=== PATIENT | female | born 1965 | race Caucasian/White ===

== ENCOUNTER 2024-10-05 01:21 | Inpatient (IN) | payer MEDICAID, OTHER ==
[~2024-10-05] VITALS: Ht 152.4 cm; Wt 69.5 kg
[~2024-10-05 01:21] MED LIST: AMLO1TAB22 PO; ASPI-325 PO; AUG875T PO; B-CO-6 PO; CARV12.544 PO; CHLO25TA2 PO; ERGO1CAP12 PO; FAMO-12 PO; FERR325T20 PO; FLUT50SP NAS; FURO40TA4 PO; GUAN1TAB8 PO; HYDR1CAP27 PO; INSU100I54 SC; INSU100I69 SC; KETO2SHA5; LEVO750T40 PO; LIDO2.5C3 EX; LORA-483 PO; LOSA-535 PO; MET50T PO; METF-372 PO; OMEP20TA PO; ROSU20TA56 PO; SEMA2INJ3 SC; TRIO1TP TOP; ZOFR4T PO
[2024-10-05 01:50] LABS: Basophils # (auto) 0 10 ^3/uL (0-0.2); Basophils % (auto) 0.1 % (0.0-2.0); Eosinophils # (auto) 0.1 10 ^3/uL (0-0.8); Eosinophils % (auto) 0.3 % (0.0-7.0); Hematocrit 28.1 % (36.0-46.0); Hemoglobin 9.5 g/dL (12.2-16.2); Lymphocytes # (auto) 1.2 10 ^3/uL (0.4-5.4); Lymphocytes % (auto) 7.9 % (10.0-50.0); Mean Corpuscular Hemoglobin 34.6 pg (28.0-32.0); Mean Corpuscular Hgb Conc. 33.6 g/dL (32.0-36.0); Monocytes % (auto) 6.4 % (0.0-12.0); Neutrophils # (auto) 12.6 10 ^3/uL (1.6-8.6); Neutrophils % (auto) 85.3 % (37.0-80.0); Platelet Count (auto) 150 10^3/uL (140-450); Red Blood Cells 2.73 10^6/uL (4.0-5.20); Red Cell Distribution Width 15.2 % (11.8-14.3); White Blood Cell 14.8 10^3/uL (4.4-10.8)
--- NOTE | 2024-10-05 01:50 | ED.PDOC ---
HPI Comments 58-year-old female who came to ER for chest pains. Patient is legally blind. Does have history of hypertension, diabetes, end-stage renal disease, on dialysis every Sunday. For the past 4 hours, patient has been experiencing substernal chest pains, pressure, accompanied with cough, throat pain, nausea and vomiting. Persistence of chest pains prompted patient to come to the emergency room Chief Complaint: Chest Pain Time Seen by MD: 01:50 Reviewed Notes: Nurses Notes Allergies: Coded Allergies: No Known Drug Allergy (Verified Allergy, Unknown, 10/05/24) Information Source: Patient Mode of Arrival: Ambulatory Severity: Moderate Timing: Hours Duration: Since onset Prehospital treatment: Oxygen Location: Substernal Radiation: No Radiation Quality: Pressure Onset: With Light Exertion Cardiac Risk Factors: HTN, Diabetes Associated Signs and Symptoms: SOB Past Medical History PAST MEDICAL HISTORY: DM, ESRD, HTN Past Medical History (Other): Legally blind Surgical History (Other): Dialysis Sunday COSMETOLOGIST History: Denies all COSMETOLOGIST Hx Family History Family History: Reviewed,noncontributory to illness Social History Smoker: Non-Smoker Alcohol: Denies ETOH Use Drugs: Denies Drug Use Lives In: Home Constitutional: denies: chills, diaphoresis, fatigue, fever, malaise, sweats, weakness, others EENTM: reports: throat pain; denies: blurred vision, double vision, ear bleeding, ear discharge, ear drainage, ear pain, ear ringing, eye pain, eye redness, hearing loss, mouth pain, mouth swelling, nasal discharge, nose bleeding, nose congestion, nose pain, photophobia, tearing, throat swelling, voice changes, others Respiratory: reports: cough; denies: hemoptysis, orthopnea, SOB at rest, shortness of breath, SOB with excertion, stridor, wheezing, others Cardiovascular: reports: chest pain; denies: dizzy spells, diaphoresis, Dyspnea on exertion, edema, irregular heart beat, left arm pain, lightheadedness, palpitations, PND, syncope, others Gastrointestinal: reports: nausea, vomiting; denies: abdomen distended, abdominal pain, blood streaked bowels, constipated, diarrhea, dysphagia, difficulty swallowing, hematemesis, melena, poor appetite, poor fluid intake, rectal bleeding, rectal pain, others Genitourinary: denies: abnormal vagina bleeding, burning, dyspareunia, dysuria, flank pain, frequency, hematuria, incontinence, pain, , vagina discharge, urgency, others Neurological: denies: dizziness, fainting, headache, left sided numbness, left sided weakness, numbness, paresthesia, pre-existing deficit, right sided numbness, right sided weakness, seizure, speech problems, tingling, tremors, weakness, others Musculoskeletal: denies: back pain, gout, joint pain, joint swelling, muscle pain, muscle stiffness, neck pain, others Integumetry: denies: bruises, change in color, change in hair/nails, dryness, laceration, lesions, lumps, rash, wounds, others Allergic/Immunocompromised: denies: Difficulty Healing, Frequent Infections, Hives, Itching, others Hematologic/Lymphatic: denies: anemia, blood clots, easy bleeding, easy bruising, swollen glands, others Endocrine: denies: excessive hunger, excessive sweating, excessive thirst, excessive urination, flushing, intolerance to cold, intolerance to heat, unexplained weight gain, unexplained weight loss, others Psychiatric: denies: anxiety, bipolar disorder, depression, hopeless, panic disorder, schizophrenia, sleepless, suicidal, others Physical Exam General Appearance: No Apparent Distress, Normal HEENT: Normal ENT Inspection, Pharynx Normal, TMs Normal Neck: Full Range of Motion, Non-Tender, Normal, Normal Inspection Respiratory: Chest Non-Tender, Lungs Clear, No Accessory Muscle Use, No Respiratory Distress, Normal Breath Sounds Cardiovascular: No Edema, No JVD, No Murmur, No Gallop, Normal Peripheral Pulses, Regular Rate/Rhythm Breast Exam: Deferred Gastrointestinal: No Organomegaly, Non Tender, No Pulsatile Mass, Normal Bowel Sounds, Soft Genitalia: Deferred Pelvic: Deferred Rectal: Deferred Extremities: No calf tenderness, Normal capillary refill, Normal inspection, Normal range of motion, Non-tender, No pedal edema Musculoskeletal : Apperance: Normal Neurologic: Alert, bleach chlorinator II-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 Was a procedure done?: No CP Differential Dx Differential Diagnosis: Angina, Anxiety / Panic Attack, Electrolyte Disorder, Hyperventilation Differential Diagnosis: Angina, Chest Wall Pain, Costochondritis, Esophageal reflux/spasm, Gastritis, Myocardial Infarction X-Ray, Labs, Meds, VS Vital Signs Date Time Temp Pulse Resp B/P (MAP) Pulse Ox O2 Delivery O2 Flow Rate FiO2 10/05/24 02:18 71 10/05/24 01:30 98.1 72 18 131/40 (70) 98 98.1 Lab Test 10/05/24 02:27 10/05/24 01:36 Range/Units Troponin I High Sensitivity 28 30 </=34 ng/L White Blood Count 14.8 H 4.4-10.8 10^3/uL Red Blood Count 2.73 L 4.0-5.20 10^6/uL Hemoglobin 9.5 L 12.2-16.2 g/dL Hematocrit 28.1 L 36.0-46.0 % Mean Corpuscular Volume 103.0 H 80.0-100.0 fL Mean Corpuscular Hemoglobin 34.6 H 28.0-32.0 pg Mean Corpuscular Hemoglobin Concent 33.6 32.0-36.0 g/dL Red Cell Distribution Width 15.2 H 11.8-14.3 % Platelet Count 150 140-450 10^3/uL Mean Platelet Volume 9.4 6.9-10.8 fL Neutrophils (%) (Auto) 85.3 H 37.0-80.0 % Lymphocytes (%) (Auto) 7.9 L 10.0-50.0 % Monocytes (%) (Auto) 6.4 0.0-12.0 % Eosinophils (%) (Auto) 0.3 0.0-7.0 % Basophils (%) (Auto) 0.1 0.0-2.0 % Neutrophils # (Auto) 12.6 H 1.6-8.6 10 ^3/uL Lymphocytes # (Auto) 1.2 0.4-5.4 10 ^3/uL Monocytes # (Auto) 1.0 0-1.3 10 ^3/uL Eosinophils # (Auto) 0.1 0-0.8 10 ^3/uL Basophils # (Auto) 0 0-0.2 10 ^3/uL Nucleated Red Blood Cells 0.0 % Prothrombin Time 10.9 9.3-11.8 sec Prothrombin Time INR 1.03 0.9-1.15 Activated Partial Thromboplast Time 29.2 24.5-34.5 SEC Sodium Level 134 L 136-145 mmol/L Potassium Level 4.2 3.5-5.1 mmol/L Chloride Level 93 L 98-107 mmol/L Carbon Dioxide Level 28 20-31 mmol/L Anion Gap 13 5-15 Blood Urea Nitrogen 47 H 9-23 mg/dL Creatinine 7.13 H 0.550-1.02 mg/dL Glomerular Filtration Rate Calc 6 >90 mL/min BUN/Creatinine Ratio 6.6 L 10.0-20.0 Serum Glucose 247 H 74-106 mg/dL Calcium Level 10.0 8.7-10.4 mg/dL Total Bilirubin 0.4 0.2-1.0 mg/dL Aspartate Amino Transferase (AST) 12 L 13-40 U/L Alanine Aminotransferase (ALT) 18 7-40 U/L Alkaline Phosphatase 131 H 46-116 U/L Total Protein 8.2 5.7-8.2 g/dL Albumin 4.7 3.2-4.8 g/dL Time of 1ST Reevaluation: 01:47 Reevaluation 1ST: Unchanged Patient Education/Counseling: Diagnosis, Treatment Family Education/Counseling: No Family Present Departure 1 Departure Time of Disposition: 04:17 Impression: Primary Impression: ESRD needing dialysis Additional Impression: Acute coronary syndrome Disposition: 09 ADMITTED INPATIENT Admit to: Tele Condition: Guarded Comments Chest Pain in ESRD Patient Chief Complaint: Substernal chest pain History of Present Illness: 58-year-old female with end-stage renal disease (ESRD) on regular hemodialysis (Sunday, Sunday, Sunday schedule) presents with four hours of substernal chest pain. Patient received her last dialysis treatment on Sunday. Given her ESRD and presenting symptoms, there is concern for acute coronary syndrome and volume overload. Review of Systems: Limited by acute presentation Cardiovascular: Positive for chest pain Constitutional: Not specifically mentioned Medications: Current medications not specified in tax compliance representative In ED: Aspirin administered Antibiotics administered Past Medical History: End-stage renal disease on hemodialysis (MWF) Lab Results: WBC: 14.8 with 85% neutrophils Hemoglobin: 9.5 Hematocrit: 28 Platelets: 150 Creatinine: 7.13 BUN: 47 Troponin: Within normal limits (30, 28) Imaging and Other Relevant Results: Chest X-ray: Demonstrates cardiomegaly Medical Decision Making: Summary Statement: 58-year-old female with ESRD on hemodialysis presents with s ubsternal chest pain, elevated inflammatory markers, and evidence of volume overload requiring further evaluation and management. Problem List: 1. Acute chest pain 2. End-stage renal disease 3. Volume overload 4. Possible acute coronary syndrome 5. Elevated WBC count Differential Diagnosis: 1. Acute coronary syndrome 2. Volume overload/pulmonary edema 3. Uremia 4. Pericarditis 5. Infection ED Course: Patient received aspirin and antibiotics. Initial cardiac biomarkers were within normal limits. Chest X-ray showed cardiomegaly. Decision made to admit for further management. Assessment and Plan: 1. Acute Chest Pain/Possible ACS: - Admit to cardiology service - Continue cardiac monitoring - Serial troponins - Continue aspirin 2. End-Stage Renal Disease: - Coordinate with nephrology - Continue scheduled dialysis 3. Volume Overload: - Possible urgent dialysis needed - Monitor fluid status 4. Elevated WBC: - Continue antibiotics - Monitor for signs of infection Disposition: Admit to hospital Billing Information: ICD-10: R07.9 - Chest pain, unspecified ICD-10: N18.6 - End stage renal disease ICD-10: E87.70 - Fluid overload ICD-10: R79.89 - Other specified abnormal findings of blood chemistry Critical Care Note Critical Care Time?: Yes (35 min-critical care time only) Critical care comment: Acute chest pain Total critical care time: Approximately 36 minutes Due to a high probability of clinically significant, life threatening deterioration, the patient required my highest level of preparedness to intervene emergently and I personally spent this critical care time directly and personally managing the patient. This critical care time included obtaining a history; examining the patient; pulse oximetry; ordering and review of studies; arranging urgent treatment with development of a management plan; evaluation of patient's response to treatment; frequent reassessment; and, discussions with other providers. This critical care time was performed to assess and manage the high probability of imminent, life-threatening deterioration that could result in multi-organ failure. It was exclusive of separately billable procedures and treating other patients. Stability Stability form required: No Heart Score Heart Score: Heart Score Response (Comments) Value History Moderate Suspicious 1 EKG Repolarization Disturb 1 Age 45-64 1 Risk Factors >3 or Hx ASHD 2 Troponin Normal limit 0 Total 5 I personally scribed for LOREN SEGURA MD ([email or web address]) on 10/05/24 at 01:50. Electronically submitted by Zachary Galindo ([facility] LOREN SEGURA MD Oct 05, 2024 01:50
[2024-10-05 02:05] LABS: INR 1.03 (0.9-1.15); Partial Thromboplastin Time 29.2 SEC (24.5-34.5); Prothrombin Time 10.9 sec (9.3-11.8)
[2024-10-05 02:08] LABS: Alanine Aminotransferase 18 U/L (7-40); Albumin 4.7 g/dL (3.2-4.8); Anion Gap 13 (5-15); BUN/Creatinine Ratio 6.6 (10.0-20.0); Bilirubin, Total 0.4 mg/dL (0.2-1.0); Carbon Dioxide 28 mmol/L (20-31); Potassium 4.2 mmol/L (3.5-5.1)
--- NOTE | 2024-10-05 02:10 | DVH ---
CHEST RADIOGRAPH Indication: chest pain Technique: Single frontal view of the chest was obtained COMPARISON: None FINDINGS: Lines and Tubes: None Lungs: Clear Pleura: No effusion. No pneumothorax. Cardiomediastinal contours: Cardiomegaly. Bones: Unremarkable IMPRESSION: 1. No acute disease. 2. Cardiomegaly.
[2024-10-05 02:15] LABS: Alkaline Phosphatase 131 U/L (46-116); Aspartate Aminotransferase 12 U/L (13-40); Blood Urea Nitrogen 47 mg/dL (9-23); Chloride 93 mmol/L (98-107); Glucose 247 mg/dL (74-106); Sodium 134 mmol/L (136-145); Total Protein 8.2 g/dL (5.7-8.2)
[2024-10-05] MEDS: MORPHINE SULFATE INJ 2 MG/ml SYRG IV ONE (04:00)
[2024-10-05] MEDS: MORPHINE SULFATE 4 MG/ML SYR/VIAL IV ONE (05:23)
[2024-10-05] MEDS: ONDANSETRON HCL 4 MG/2 ML VIAL IV ONE (05:23)
[2024-10-05] MEDS: PIPERACILLIN-TAZOB 3.375GM 100 ML IV ONE (05:23)
[2024-10-05 06:19] VITALS: PULSE 57; RESP 13; O2SAT 94
[2024-10-05 07:53] VITALS: PULSE 57; RESP 22; O2SAT 95
[2024-10-05] MEDS ORDERED: NITROGLYCERIN 0.4 MG SL TAB SL PRN (08:30)
[2024-10-05] MEDS ORDERED: MORPHINE SULFATE INJ 2 MG/ml SYRG IV PRN (08:30)
[2024-10-05] MEDS ORDERED: DOCUSATE SOD 100 MG CAP PO PRN (08:30)
[2024-10-05] MEDS ORDERED: GLIP5TAB21 PO (08:31)
[2024-10-05] MEDS ORDERED: DICY10CA PO (08:31)
--- NOTE | 2024-10-05 08:42 | ECG ---
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
--- NOTE | 2024-10-05 08:44 | DVHHP2 ---
History of Present Illness Reason for Visit: Chest pain, shortness of breath History of Present Illness Padmini Lou is a 58-year-old female with past medical history of diabetes, hypertension, hyperlipidemia, ESRD on HD-M,W,F, and blind who came in due to chest pain and shortness of breath. Patient states she is experiencing shortness of breath with a cough for about 2-3 days. She also states her abdomen has begun hurting when she coughs, most likely muscular pain. While in the ER patient began desaturating, requiring oxygen. Patient also became bradycardic while in the ER. Patient was recently prescribed metoprolol and carvedilol from 2 different providers. Patient does not know what medications she takes. She states her handles all her medications. Glucagon was given with minimal improvement. Unable to reach for clarification, both medications are being held until able to obtain clarification. Cardiovascular: HTN, hyperipidemia Renal/: Chronic renal failure (on HD-M,W,F) Endocrine: Diabetes Past Surgical History: None Smoke: No ALCOHOL: none Drugs: None Lives: with Family Domestic Violence: Neg Review of Systems Constitutional: No: Fever, Chills, Sweats, Weakness, Malaise, Other Eyes: No: Pain, Vision change, Conjunctivae inflammation, Eyelid inflammation, Other, Redness ENT: No: Ear pain, Ear discharge, Nose pain, Nose discharge, Nose congestion, Mouth pain, Mouth swelling, Throat pain, Throat swelling, Other Respiratory: Shortness of breath, SOB with excertion; No: Cough, Dry, Wheezing, Hemoptysis, Pleuritic Pain, Sputum, Wheezing, Other Cardiovascular: Chest Pain; No: Palpitations, Orthopnea, Paroxysmal Noc. Dyspnea, Edema, Lt Headedness, Other Gastrointestinal: No: Nausea, Vomiting, Abdominal Pain, Diarrhea, Constipation, Melena, Hematochezia, Other Genitourinary: No Dysuria, No Frequency, No Incontinence, No Hematuria, No Retention, No Other Musculoskeletal: No: other, neck pain, shoulder pain, arm pain, back pain, hand pain, leg pain, foot pain Skin: No: Rash, Lesions, Jaundice, Bruising, Other Neurological: No: Weakness, Numbness, Incoordination, Change in speech, Confusion, Seizures, Other Allergies: Coded Allergies: No Known Drug Allergy (Verified Allergy, Unknown, 10/05/24) Exam Vital Signs Vital Signs Date Time Temp Pulse Resp B/P (MAP) Pulse Ox O2 Delivery O2 Flow Rate FiO2 10/05/24 08:00 57 20 100/36 (57) 100 10/05/24 07:53 Room Air* 0 21 10/05/24 06:29 98.1 98.1 General Appearance: Alert, Oriented X3, Cooperative, mild distress HEENT: Atraumatic, PERRLA Respiratory: Clear to auscultation, Normal air movement Cardiovascular: Regular rate, Normal S1, Normal S2, No murmurs Abdominal: Normal bowel sounds, Soft, No tenderness, No hepatospenomegaly Extremities: No clubbing, No cyanosis, No edema, Normal pulses Skin: No rashes, No breakdown, No significant lesion Neuro: Normal gait, Normal speech, Strength at 5/5 X4 ext Psych/Mental Status: Mental status NL, Mood NL Labs/Xrays Labs Test 10/05/24 05:00 10/05/24 01:36 Range/Units Lactic Acid Level 1.8 0.4-2.0 mmol/L Troponin I High Sensitivity 30 </=34 ng/L White Blood Count 14.8 H 4.4-10.8 10^3/uL Red Blood Count 2.73 L 4.0-5.20 10^6/uL Hemoglobin 9.5 L 12.2-16.2 g/dL Hematocrit 28.1 L 36.0-46.0 % Mean Corpuscular Volume 103.0 H 80.0-100.0 fL Mean Corpuscular Hemoglobin 34.6 H 28.0-32.0 pg Mean Corpuscular Hemoglobin Concent 33.6 32.0-36.0 g/dL Red Cell Distribution Width 15.2 H 11.8-14.3 % Platelet Count 150 140-450 10^3/uL Mean Platelet Volume 9.4 6.9-10.8 fL Neutrophils (%) (Auto) 85.3 H 37.0-80.0 % Lymphocytes (%) (Auto) 7.9 L 10.0-50.0 % Monocytes (%) (Auto) 6.4 0.0-12.0 % Eosinophils (%) (Auto) 0.3 0.0-7.0 % Basophils (%) (Auto) 0.1 0.0-2.0 % Neutrophils # (Auto) 12.6 H 1.6-8.6 10 ^3/uL Lymphocytes # (Auto) 1.2 0.4-5.4 10 ^3/uL Monocytes # (Auto) 1.0 0-1.3 10 ^3/uL Eosinophils # (Auto) 0.1 0-0.8 10 ^3/uL Basophils # (Auto) 0 0-0.2 10 ^3/uL Nucleated Red Blood Cells 0.0 % Prothrombin Time 10.9 9.3-11.8 sec Prothrombin Time INR 1.03 0.9-1.15 Activated Partial Thromboplast Time 29.2 24.5-34.5 SEC Sodium Level 134 L 136-145 mmol/L Potassium Level 4.2 3.5-5.1 mmol/L Chloride Level 93 L 98-107 mmol/L Carbon Dioxide Level 28 20-31 mmol/L Anion Gap 13 5-15 Blood Urea Nitrogen 47 H 9-23 mg/dL Creatinine 7.13 H 0.550-1.02 mg/dL Glomerular Filtration Rate Calc 6 >90 mL/min BUN/Creatinine Ratio 6.6 L 10.0-20.0 Serum Glucose 247 H 74-106 mg/dL Calcium Level 10.0 8.7-10.4 mg/dL Total Bilirubin 0.4 0.2-1.0 mg/dL Aspartate Amino Transferase (AST) 12 L 13-40 U/L Alanine Aminotransferase (ALT) 18 7-40 U/L Alkaline Phosphatase 131 H 46-116 U/L Total Protein 8.2 5.7-8.2 g/dL Albumin 4.7 3.2-4.8 g/dL CHEST RADIOGRAPH FINDINGS: Lines and Tubes: None Lungs: Clear Pleura: No effusion. No pneumothorax. Cardiomediastinal contours: Cardiomegaly. Bones: Unremarkable IMPRESSION: 1. No acute disease. 2. Cardiomegaly. Assessment/Plan Assessment/Plan Assessment: Acute hypoxic respiratory failure, Hyperglycemia, Chronic kidney failure on HD, Hypertension, Diabetes, Hyperlipidemia, Plan: Admit to Tele, Nephrology consult, Supplemental oxygen as needed, Breathing treatments as needed, A1c, Accu checks Q AC&HS with sliding scale, Home medications reconciled, Plan discussed with: Patient, Spouse Date of Service: Oct 05, 2024 Billing Provider: SCHWING,MANDA R FLAG FOOTBALL COACH Common Visit Codes: 88807-JBLCNIV INP/OBS CARE (MOD) MANDA VIEIRA FLAG FOOTBALL COACH Oct 05, 2024 08:44
[2024-10-05] MEDS ORDERED: DEXTROSE (50%) 50ML SYRG IV PRN (08:45)
--- NOTE | 2024-10-05 08:47 | ECG ---
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
[2024-10-05] MEDS: FERROUS SULFATE 325mg EC TAB PO SCH (09:19)
[2024-10-05] MEDS: ASPirin-EC 81 mg tab PO SCH (09:19)
[2024-10-05] MEDS: FAMOTIDINE 20 MG TAB PO SCH (09:19)
[2024-10-05] MEDS: FUROSEMIDE 40 MG TAB PO SCH (09:20)
[2024-10-05] MEDS: glipiZIDE 5 MG TAB PO SCH (09:20)
[2024-10-05] MEDS ORDERED: CARVEDILOL 12.5 MG TAB PO SCH (10:00)
[2024-10-05] MEDS ORDERED: METOPROLOL TARTRATE 50 MG TAB PO SCH (10:00)
[2024-10-05] MEDS: HYDROcodone-ACET 5/325MG TAB PO PRN (10:14)
[2024-10-05] MEDS ORDERED: guaiFENesin-DM 100/10mg/5ml SYR PO PRN (10:15)
--- NOTE | 2024-10-05 11:13 | DVHINCON2 ---
DATE OF CONSULTATION: 10/05/2024 CONSULTING PHYSICIAN: Dr. Lee. REASON FOR CONSULTATION: Management of dialysis. HISTORY OF PRESENT ILLNESS: The patient is a 58-year-old female who is one of our chronic dialysis patients who came to the hospital complaining of shortness of breath. Denied chest pain. X-rays show that there is no pulmonary edema. Her vital signs are stable. Her electrolytes are all normal. However, she is being admitted to the hospital for observation. I am being consulted to handle her dialysis treatment. PAST MEDICAL HISTORY: Significant for longstanding diabetes, hypertension, end-stage renal disease, hyperlipidemia, anemia, and hyperparathyroidism. MEDICATIONS: Include insulin, iron sulfate, metoprolol, glipizide, furosemide, carvedilol, aspirin, nitroglycerin, and acetaminophen. SOCIAL HISTORY: She denies smoking or drinking alcohol. FAMILY HISTORY: Negative for chronic conditions. PHYSICAL EXAMINATION: VITAL SIGNS: Blood pressure 111/46, heart rate 64, respirations 20, temperature 98. GENERAL: The patient is an adult female who appears to be in no acute distress, alert and oriented x 3. HEENT: Unremarkable. NECK: No jugular venous distention. Palpable thyroid or lymphadenopathy. LUNGS: Clear to auscultation. CARDIOVASCULAR: Regular rate. No pericardial rub. ABDOMEN: Soft, nontender. No organomegaly. EXTREMITIES: Show no clubbing, cyanosis or edema. NEUROLOGIC: Nonfocal. LABORATORY FINDINGS: Her sodium is 134, potassium 4.2, BUN 41, creatinine 7. Hemoglobin is 9.5, white blood cell count 14,000. Chest x-ray showed no pulmonary edema. ASSESSMENT AND PLAN: * End-stage renal disease. The patient is stable from the renal standpoint. There are no signs of fluid overload. * Very mild hyponatremia. * Anemia of renal disease. * Diabetes. * Hypertension, which seems to be well controlled. The patient will be scheduled to have dialysis tomorrow. We will remove 2.5 liters of fluid. If there are no other issues or problems while she is here, she should be discharged in the next 24 hours after dialysis. Thank you for the consultation. MD ANTHONY Mas/MAXIMILIANO TID: [id number] RECEIPT: [id number]
[2024-10-05] MEDS: ACCU-CHEK COMFORT CURVE STRIP VI SCH (12:06)
[2024-10-05] MEDS: InsuLIN REG 1unit/0.01ml Soln (100units/ml) SC SCH ×2 (12:20→21:49)
[2024-10-05] MEDS: SODIUM CHLOR 0.9% PF (SALINE LOCK) 10ML VIAL/SYR IV SCH (14:02)
[2024-10-05] MEDS: GLUCAGON EMERG KIT 1mg/1ml IV ONE (14:17)
[2024-10-05 16:36] VITALS: BP 97/44; PULSE 49; RESP 18; TEMP 98.4; O2SAT 97
[2024-10-05 17:00] VITALS: BP 97/44; PULSE 49; RESP 18; TEMP 98.4; O2SAT 97
[2024-10-05 20:00] VITALS: PULSE 51; PULSE 54; RESP 16; O2SAT 99
[2024-10-05 21:00] VITALS: BP 103/49; PULSE 51; RESP 16; TEMP 98; O2SAT 99
[2024-10-05] MEDS: ACETAMINOPHEN 325 MG TAB PO PRN (23:07)
[2024-10-05] MEDS: ONDANSETRON HCL 4 MG/2 ML VIAL IV PRN (23:08)
[2024-10-06] VITALS (8 sets, daily range): BP systolic 43–122; BP diastolic 38–55; PULSE 50–60; RESP 16–18; TEMP 97.5–98.3; O2SAT 97–100
[2024-10-06 05:33] LABS: Basophils # (auto) 0 10 ^3/uL (0-0.2); Basophils % (auto) 0.2 % (0.0-2.0); Eosinophils # (auto) 0.1 10 ^3/uL (0-0.8); Lymphocytes # (auto) 1.6 10 ^3/uL (0.4-5.4); Platelet Count (auto) 111 10^3/uL (140-450); White Blood Cell 8.7 10^3/uL (4.4-10.8)
[2024-10-06 05:36] LABS: Eosinophils % (auto) 1.2 % (0.0-7.0); Hematocrit 22.1 % (36.0-46.0); Hemoglobin 7.7 g/dL (12.2-16.2); Mean Corpuscular Hemoglobin 35.3 pg (28.0-32.0); Mean Corpuscular Hgb Conc. 34.6 g/dL (32.0-36.0); Monocytes # (auto) 0.9 10 ^3/uL (0-1.3); Monocytes % (auto) 10.3 % (0.0-12.0); Neutrophils # (auto) 6.1 10 ^3/uL (1.6-8.6); Neutrophils % (auto) 70.3 % (37.0-80.0); Red Blood Cells 2.17 10^6/uL (4.0-5.20); Red Cell Distribution Width 15.3 % (11.8-14.3)
[2024-10-06 05:45] LABS: Alanine Aminotransferase 29 U/L (7-40); Albumin 3.8 g/dL (3.2-4.8); Alkaline Phosphatase 93 U/L (46-116); Anion Gap 11 (5-15); Aspartate Aminotransferase 22 U/L (13-40); BUN/Creatinine Ratio 6.9 (10.0-20.0); Calcium 9.3 mg/dL (8.7-10.4); Carbon Dioxide 29 mmol/L (20-31); Glucose 76 mg/dL (74-106); Sodium 137 mmol/L (136-145); Total Protein 6.7 g/dL (5.7-8.2)
[2024-10-06 05:46] LABS: Bilirubin, Total 0.3 mg/dL (0.2-1.0)
[2024-10-06 05:52] LABS: Blood Urea Nitrogen 62 mg/dL (9-23); Chloride 97 mmol/L (98-107); Potassium 5.5 mmol/L (3.5-5.1)
[2024-10-06] MEDS: SODIUM CHL 0.9% 1000 ML BAG XX ONE (07:00)
--- NOTE | 2024-10-06 12:22 | ECG ---
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
--- NOTE | 2024-10-06 13:55 | DVHPN2 ---
Subjective Patient states that her symptoms have improved. Reviewed: Care Plan, Labs Changes from previous H/P or p: No Changes Eyes: No Pain, No Vision change, No Conjunctivae inflammation, No Eyelid inflammation, No Other, No Redness ENT: No Ear pain, No Ear discharge, No Nose pain, No Nose discharge, No Nose congestion, No Mouth pain, No Mouth swelling, No Throat pain, No Throat swelling, No Other Cardiovascular: Chest Pain; No Palpitations, No Orthopnea, No Paroxysmal Noc. Dyspnea, No Edema, No Lt Headedness, No Other Respiratory: No Cough, No Dry; Shortness of breath, SOB with excertion; No Wheezing, No Hemoptysis, No Pleuritic Pain, No Sputum, No Other Gastrointestinal: No Nausea, No Vomiting, No Abdominal Pain, No Diarrhea, No Constipation, No Melena, No Hematochezia, No Other Genitourinary: No Dysuria, No Frequency, No Incontinence, No Hematuria, No Retention, No Other Musculoskeletal: No other, No neck pain, No shoulder pain, No arm pain, No back pain, No hand pain, No leg pain, No foot pain Skin: No Rash, No Lesions, No Jaundice, No Bruising, No Other Objective Vitals Vital Signs Date Time Temp Pulse Resp B/P (MAP) Pulse Ox O2 Delivery O2 Flow Rate FiO2 10/06/24 09:00 97.5 50 16 108/52 (70) 99 97.5 10/06/24 08:00 Nasal Cannula* 3 32 Intake/Output Intake and Output 10/06/24 07:00 Intake Total 700 ml Output Total 0 ml Balance 700 ml Intake Oral 600 ml IV Total 100 ml Output Urine Total 0 ml General Appearance: Alert, Oriented X3, Cooperative, mild distress HEENT: Atraumatic, PERRLA Lungs: Clear to auscultation, Normal air movement Cardiovascular: Normal S1, Normal S2 Abdomen: Normal bowel sounds, Soft, No tenderness, No hepatospenomegaly Musculoskeletal: Normal sensory function, Normal motor function Skin: Intact Psych/Mental Status: Mental status NL, Mood NL Medications Current Medications Medications Dose Ordered Sig/Kana Route Start Time Stop Time Status Last Admin Dose Admin Sodium Chloride 10 ml Q8HR IV 10/05/24 14:00 10/06/24 08:55 10 ML Acetaminophen/ Hydrocodone Bitart 1 tab Q4HP PRN PO 10/05/24 08:30 6/8/25 21:29 1 TAB Ondansetron HCl 4 mg Q4HP PRN IV 10/05/24 08:30 10/05/24 23:08 4 MG Docusate Sodium 100 mg BIDPRN PRN PO 10/05/24 08:30 Acetaminophen 650 mg Q6HP PRN PO 10/05/24 08:30 10/06/24 08:36 650 MG Nitroglycerin 0.4 mg Q5MINP PRN SL 10/05/24 08:30 Morphine Sulfate 2 mg Q30M PRN IV 10/05/24 08:30 Aspirin 81 mg DAILY PO 10/05/24 10:00 10/06/24 08:35 81 MG Famotidine 10 mg EOD PO 10/05/24 10:00 10/05/24 09:19 10 MG Furosemide 40 mg DAILY PO 10/05/24 10:00 Glipizide 5 mg DAILY PO 10/05/24 10:00 10/05/24 09:20 5 MG Metoprolol Tartrate 50 mg BID PO 10/05/24 10:00 UNV Ferrous Sulfate 325 mg BID PO 10/05/24 10:00 10/06/24 08:35 325 MG Patient Own Medication 1 tab DAILY PO 10/05/24 10:00 Diagnostic Test (Pha) 1 strip ACHS 10/05/24 11:30 10/06/24 11:30 1 STRIP Insulin Human Regular HS SC 10/05/24 22:00 10/05/24 21:49 6 UNITS Insulin Human Regular AC SC 10/05/24 11:30 Dextrose 50 ml UD PRN IV 10/05/24 08:45 Guaifenesin/ Dextromethorphan 10 ml Q4HP PRN PO 10/05/24 10:15 Laboratory Results Laboratory Tests 10/06/24 04:58 Chemistry Test 10/06/24 04:58 Albumin 3.8 g/dL (3.2-4.8) Calcium Level 9.3 mg/dL (8.7-10.4) Total Protein 6.7 g/dL (5.7-8.2) LFT Test 10/06/24 04:58 Alanine Aminotransferase (ALT) 29 U/L (7-40) Alkaline Phosphatase 93 U/L (46-116) Aspartate Amino Transferase (AST) 22 U/L (13-40) Total Bilirubin 0.3 mg/dL (0.2-1.0) HgA1c, TSH Test 10/06/24 04:58 Hemoglobin A1c 7.3 % A1C (<5.7) H Microbiology Microbiology Date/Time Source Procedure Growth Status 10/05/24 05:20 Blood Blood Culture - Preliminary NO GROWTH AFTER 24 HOURS OF INCUBATION. Resulted Labs and/or images reviewed: Labs reviewed by me, Image(s) reviewed by me Assessment/Plan Assessment/Plan Impression: -acute hypoxic respiratory failure -leukocytosis, rule out sepsis -? Beta-bill overdose with bradycardia -obesity -ESRD with hemodialysis -diabetes mellitus -hypoglycemic episode Plan: -blood cultures negative thus far. Continue empiric antibiotic coverage vancomycin -patient received glucagon, heart rate continues to be proximally 50 beats per minute. Patient asymptomatic. -nephrology consultation: Plans for HD -stop glipizide given hypoglycemia, continue regular insulin sliding scale -repeat labs in a.m. Total time spent with patient discussing and formulating plan of care: 35 minutes. This medical document was created using an electronic medical record system with [employer] dictation system. Although this document has been carefully reviewed, there may still be some phonetic and typographical errors. These areas are purely typographical due to imperfections of the software programs, and do not reflect any compromise in the patient's medical care. Plan discussed with: Patient, Other (RN) Date of Service: Oct 06, 2024 Billing Provider: EVELIA HUDSON NP Common Visit Codes: [id number] INP/OBS CARE(HIGH) EVELIA HUDSON NP Oct 06, 2024 13:55
[2024-10-06] MEDS ORDERED: VANCOMYCIN PER PHARMACY 0 MG IV SCH (14:00)
[2024-10-06] MEDS: VANCOMYCIN 1GM/200ML PM 200 ML IV ONE (15:05)
[2024-10-06 15:09] LABS: COVID19 ANTIGEN SOFIA FIA NEGATIVE (NEGATIVE)
[2024-10-06 15:10] LABS: Rapid Influenza A Negative (Negative); Rapid Influenza B Negative (Negative)
--- NOTE | 2024-10-06 17:36 | DVHPN2 ---
Progress Note - Dictate Date Seen: Oct 06, 2024 Has the PT tested + for MRSA If YES, has PT been informed?: No Medical Necessity Reason Pt with a Central, PICC or Fol: No Subjective No new complaints vital signs Vital Sign Date Time Temp Pulse Resp B/P (MAP) Pulse Ox O2 Delivery O2 Flow Rate FiO2 10/06/24 13:00 98.0 56 16 112/38 (62) 100 98.0 10/06/24 08:00 Nasal Cannula* 3 32 Total Intake and Output 10/05/24 10/05/24 10/06/24 15:00 23:00 07:00 Intake Total 100 ml 120 ml 480 ml Output Total 0 ml Balance 100 ml 120 ml 480 ml medications Current Medications Medications Dose Ordered Sig/Kana Route Start Time Stop Time Status Last Admin Dose Admin Sodium Chloride 10 ml Q8HR IV 10/05/24 14:00 10/06/24 08:55 10 ML Acetaminophen/ Hydrocodone Bitart 1 tab Q4HP PRN PO 10/05/24 08:30 10/05/24 21:29 1 TAB Ondansetron HCl 4 mg Q4HP PRN IV 10/05/24 08:30 10/05/24 23:08 4 MG Docusate Sodium 100 mg BIDPRN PRN PO 10/05/24 08:30 Acetaminophen 650 mg Q6HP PRN PO 10/05/24 08:30 10/06/24 08:36 650 MG Nitroglycerin 0.4 mg Q5MINP PRN SL 10/05/24 08:30 Morphine Sulfate 2 mg Q30M PRN IV 10/05/24 08:30 Aspirin 81 mg DAILY PO 10/05/24 10:00 10/06/24 08:35 81 MG Famotidine 10 mg EOD PO 10/05/24 10:00 10/05/24 09:19 10 MG Furosemide 40 mg DAILY PO 10/05/24 10:00 Metoprolol Tartrate 50 mg BID PO 10/05/24 10:00 UNV Ferrous Sulfate 325 mg BID PO 10/05/24 10:00 10/06/24 08:35 325 MG Patient Own Medication 1 tab DAILY PO 10/05/24 10:00 Diagnostic Test (Pha) 1 strip ACHS 10/05/24 11:30 10/06/24 17:13 1 STRIP Insulin Human Regular HS SC 10/05/24 22:00 10/05/24 21:49 6 UNITS Insulin Human Regular AC SC 10/05/24 11:30 Dextrose 50 ml UD PRN IV 10/05/24 08:45 Guaifenesin/ Dextromethorphan 10 ml Q4HP PRN PO 10/05/24 10:15 Vancomycin HCl 0 ml @ 0 mls/hr UD IV 10/06/24 14:00 objective GENERAL: The patient is an adult female who appears to be in no acute distress, alert and oriented x 3. HEENT: Unremarkable. NECK: No jugular venous distention. Palpable thyroid or lymphadenopathy. LUNGS: Clear to auscultation. CARDIOVASCULAR: Regular rate. No pericardial rub. ABDOMEN: Soft, nontender. No organomegaly. EXTREMITIES: Show no clubbing, cyanosis or edema. NEUROLOGIC: Nonfocal. laboratory and microbiology Laboratory Tests 10/06/24 04:58 Test 10/06/24 04:58 Range/Units Serum Glucose 76 74-106 mg/dL Problem List ASSESSMENT AND PLAN: * End-stage renal disease. The patient is stable from the renal standpoint. There are no signs of fluid overload. * Very mild hyponatremia. * Anemia of renal disease. * Diabetes. * Hypertension, which seems to be well controlled. Had HD today DC planning Plan discussed with: Patient ANNA HELMS MD Oct 06, 2024 17:36
[2024-10-06] MEDS: EPOETIN ALFA-EPBX 4,000 UNIT/ML VIAL SC ONE (21:31)
[2024-10-07 01:00] VITALS: BP 113/45; PULSE 57; RESP 18; TEMP 98.3; O2SAT 98
[2024-10-07 05:00] VITALS: BP 121/40; PULSE 65; RESP 18; TEMP 98.1; O2SAT 100
[2024-10-07 05:35] LABS: Basophils # (auto) 0 10 ^3/uL (0-0.2); Eosinophils # (auto) 0.1 10 ^3/uL (0-0.8); Hemoglobin 7.8 g/dL (12.2-16.2); Lymphocytes # (auto) 1.3 10 ^3/uL (0.4-5.4)
[2024-10-07 05:38] LABS: Basophils % (auto) 0.2 % (0.0-2.0); Eosinophils % (auto) 1.5 % (0.0-7.0); Mean Corpuscular Hemoglobin 34.7 pg (28.0-32.0); Mean Corpuscular Hgb Conc. 33.9 g/dL (32.0-36.0); Mean Corpuscular Volume 102.3 fL (80.0-100.0); Monocytes # (auto) 0.8 10 ^3/uL (0-1.3); Monocytes % (auto) 9.2 % (0.0-12.0); Neutrophils % (auto) 73.1 % (37.0-80.0); Platelet Count (auto) 124 10^3/uL (140-450); Red Blood Cells 2.25 10^6/uL (4.0-5.20); Red Cell Distribution Width 15.1 % (11.8-14.3); White Blood Cell 8.2 10^3/uL (4.4-10.8)
[2024-10-07 08:00] VITALS: PULSE 58; PULSE 59; RESP 19; O2SAT 100
[2024-10-07 09:00] VITALS: BP 117/41; PULSE 58; RESP 19; TEMP 98.4; O2SAT 100
--- NOTE | 2024-10-07 11:45 | DVHPN2 ---
Progress Note - Dictate Date Seen: Oct 07, 2024 Has the PT tested + for MRSA If YES, has PT been informed?: No Medical Necessity Reason Pt with a Central, PICC or Fol: No Subjective No new complaints vital signs Vital Sign Date Time Temp Pulse Resp B/P (MAP) Pulse Ox O2 Delivery O2 Flow Rate FiO2 10/07/24 09:03 117/41 10/07/24 09:00 98.4 58 19 100 98.4 10/07/24 08:00 Nasal Cannula* 2 28 Total Intake and Output 10/06/24 10/06/24 10/07/24 15:00 23:00 07:00 Intake Total 240 ml 200 ml 0 ml Output Total 1 ml Balance 240 ml 199 ml 0 ml medications Current Medications Medications Dose Ordered Sig/Kana Route Start Time Stop Time Status Last Admin Dose Admin Sodium Chloride 10 ml Q8HR IV 10/05/24 14:00 10/07/24 06:09 10 ML Acetaminophen/ Hydrocodone Bitart 1 tab Q4HP PRN PO 10/05/24 08:30 10/05/24 21:29 1 TAB Ondansetron HCl 4 mg Q4HP PRN IV 10/05/24 08:30 10/05/24 23:08 4 MG Docusate Sodium 100 mg BIDPRN PRN PO 10/05/24 08:30 Acetaminophen 650 mg Q6HP PRN PO 10/05/24 08:30 10/06/24 08:36 650 MG Nitroglycerin 0.4 mg Q5MINP PRN SL 10/05/24 08:30 Morphine Sulfate 2 mg Q30M PRN IV 10/05/24 08:30 Aspirin 81 mg DAILY PO 10/05/24 10:00 10/07/24 09:03 81 MG Famotidine 10 mg EOD PO 10/05/24 10:00 10/07/24 09:03 10 MG Furosemide 40 mg DAILY PO 10/05/24 10:00 10/07/24 09:03 40 MG Metoprolol Tartrate 50 mg BID PO 10/05/24 10:00 UNV Ferrous Sulfate 325 mg BID PO 10/05/24 10:00 10/07/24 09:34 325 MG Patient Own Medication 1 tab DAILY PO 10/05/24 10:00 Diagnostic Test (Pha) 1 strip ACHS 10/05/24 11:30 10/07/24 06:09 1 STRIP Insulin Human Regular HS SC 10/05/24 22:00 10/05/24 21:49 6 UNITS Insulin Human Regular AC SC 10/05/24 11:30 Dextrose 50 ml UD PRN IV 10/05/24 08:45 Guaifenesin/ Dextromethorphan 10 ml Q4HP PRN PO 10/05/24 10:15 Vancomycin HCl 0 ml @ 0 mls/hr UD IV 10/06/24 14:00 objective GENERAL: The patient is an adult female who appears to be in no acute distress, alert and oriented x 3. HEENT: Unremarkable. NECK: No jugular venous distention. Palpable thyroid or lymphadenopathy. LUNGS: Clear to auscultation. CARDIOVASCULAR: Regular rate. No pericardial rub. ABDOMEN: Soft, nontender. No organomegaly. EXTREMITIES: Show no clubbing, cyanosis or edema. NEUROLOGIC: Nonfocal. laboratory and microbiology Laboratory Tests 10/07/24 05:00 10/06/24 04:58 Test 10/06/24 04:58 Range/Units Serum Glucose 76 74-106 mg/dL Problem List ASSESSMENT AND PLAN: * End-stage renal disease. The patient is stable from the renal standpoint. There are no signs of fluid overload. * Very mild hyponatremia. * Anemia of renal disease. * Diabetes. * Hypertension, controlled * Bradycardia has resolved * Hypoglycemia resolved No need for HD today Agree to dc glipizide DC planning Plan discussed with: Patient ANNA HELMS MD Oct 07, 2024 11:45
[2024-10-07 13:00] VITALS: BP 124/59; PULSE 56; RESP 19; TEMP 98.7; O2SAT 100
--- NOTE | 2024-10-07 14:31 | DVHDS2 ---
Discharge Summary Date of Admission Oct 05, 2024 at 08:22 Date of Discharge: Oct 07, 2024 Admitting Diagnosis Acute respiratory failure Labs/Diagnostic Data: Laboratory Results Test 10/07/24 06:11 10/07/24 05:00 10/06/24 13:52 10/06/24 04:58 POC Glucose 152 mg/dl (70-106) White Blood Count 8.2 10^3/uL (4.4-10.8) Red Blood Count 2.25 10^6/uL (4.0-5.20) Hemoglobin 7.8 g/dL (12.2-16.2) Hematocrit 23.0 % (36.0-46.0) Mean Corpuscular Volume 102.3 fL (80.0-100.0) Mean Corpuscular Hemoglobin 34.7 pg (28.0-32.0) Mean Corpuscular Hemoglobin Concent 33.9 g/dL (32.0-36.0) Red Cell Distribution Width 15.1 % (11.8-14.3) Platelet Count 124 10^3/uL (140-450) Mean Platelet Volume 10.0 fL (6.9-10.8) Neutrophils (%) (Auto) 73.1 % (37.0-80.0) Lymphocytes (%) (Auto) 16.0 % (10.0-50.0) Monocytes (%) (Auto) 9.2 % (0.0-12.0) Eosinophils (%) (Auto) 1.5 % (0.0-7.0) Basophils (%) (Auto) 0.2 % (0.0-2.0) Neutrophils # (Auto) 6.0 10 ^3/uL (1.6-8.6) Lymphocytes # (Auto) 1.3 10 ^3/uL (0.4-5.4) Monocytes # (Auto) 0.8 10 ^3/uL (0-1.3) Eosinophils # (Auto) 0.1 10 ^3/uL (0-0.8) Basophils # (Auto) 0 10 ^3/uL (0-0.2) Nucleated Red Blood Cells 0.0 % Creatinine 6.66 mg/dL (0.550-1.02) Glomerular Filtration Rate Calc 7 mL/min (>90) Random Vancomycin Level 16.5 ug/mL (5-10) Influenza Type A Antigen Negative (Negative) Influenza Type B Antigen Negative (Negative) Sodium Level 137 mmol/L (136-145) Potassium Level 5.5 mmol/L (3.5-5.1) Chloride Level 97 mmol/L (98-107) Carbon Dioxide Level 29 mmol/L (20-31) Anion Gap 11 (5-15) Blood Urea Nitrogen 62 mg/dL (9-23) BUN/Creatinine Ratio 6.9 (10.0-20.0) Serum Glucose 76 mg/dL (74-106) Hemoglobin A1c 7.3 % A1C (<5.7) Calcium Level 9.3 mg/dL (8.7-10.4) Total Bilirubin 0.3 mg/dL (0.2-1.0) Aspartate Amino Transferase (AST) 22 U/L (13-40) Alanine Aminotransferase (ALT) 29 U/L (7-40) Alkaline Phosphatase 93 U/L (46-116) Total Protein 6.7 g/dL (5.7-8.2) Albumin 3.8 g/dL (3.2-4.8) Hepatitis B Surface Antigen Negative (Negative) Test 10/06/24 00:00 10/05/24 05:00 10/05/24 01:36 SARS-CoV-2 Antigen (Rapid) Negative (NEGATIVE) Lactic Acid Level 1.8 mmol/L (0.4-2.0) Troponin I High Sensitivity 30 ng/L (</=34) Prothrombin Time 10.9 sec (9.3-11.8) Prothrombin Time INR 1.03 (0.9-1.15) Activated Partial Thromboplast Time 29.2 SEC (24.5-34.5) Other Laboratory Tests 10/07/24 05:00 10/06/24 04:58 Brief Hx & Hospital Course: History of Present Illness Padmini Lou is a 58-year-old female with past medical history of diabetes, hypertension, hyperlipidemia, ESRD on HD-M,W,F, and blind who came in due to chest pain and shortness of breath. Patient states she is experiencing shortness of breath with a cough for about 2-3 days. She also states her abdomen has begun hurting when she coughs, most likely muscular pain. While in the ER patient began desaturating, requiring oxygen. Patient also became bradycardic while in the ER. Patient was recently prescribed metoprolol and carvedilol from 2 different providers. Patient does not know what medications she takes. She states her handles all her medications. Glucagon was given with minimal improvement. Unable to reach for clarification, both medications are being held until able to obtain clarification. Course of hospitalization: Patient was started on empiric antibiotic therapy. Patient's white blood cell count improved. Patient is also noted to be hypoglycemic, with patient's home glipizide stopped. Patient was seen by Nephrology, receiving HD while in the hospital. All cultures have been negative. Patient negative for influenza and COVID-19. Patient has been weaned off of oxygen. She will follow up with her PCP in 1-2 weeks and continue with hemodialysis treatments. Patient will be instructed to continue all previous home medications in addition to being prescribed doxycycline 100 mg p.o. b.i.d. for the next seven days. Physical examination General: Alert and Oriented x3. No acute distress. Well-nourished. Eyes: EOMI. Anicteric. HENT: Moist mucous membranes. Lungs: Clear to auscultation bilaterally. No accessory muscle use. Cardiovascular: Regular rate and rhythm. No murmur. No JVD. Abdomen: Soft, non-tender and non-distended. No palpable masses. Extremities: No edema. Non-tender. Skin: No rashes or lesions. Warm. Neurologic: No focal neurological deficits. CN II-XII grossly intact, but not individually tested. Psychiatric: Cooperative. Appropriate mood and affect. Total time spent with patient discussing and formulating plan of care: 35 minutes. This medical document was created using an electronic medical record system with [employer] dictation system. Although this document has been carefully reviewed, there may still be some phonetic and typographical errors. These areas are purely typographical due to imperfections of the software programs, and do not reflect any compromise in the patient's medical care. Consults/Reason for consult Nephrology: Hemodialysis Condition at Discharge: Poor Final Diagnosis/Problems List Acute hypoxic respiratory failure Secondary diagnosis: -leukocytosis, rule out sepsis -? Beta-bill overdose with bradycardia -obesity -ESRD with hemodialysis -diabetes mellitus -hypoglycemic episode Discharge Disposition: Home Discharge Instruct/Medications Diet: Consistent carbohydrate, Renal Activity: No Restrictions, As Tolerated Follow Up/Referral: Follow up with PCP in 1-2 weeks Follow up with Nephrology at established hemodialysis point Medications: Continue all home medications Doxycycline 100 mg p.o. b.i.d. x7 days 36 Discharge Statement: "Patient was advised to return to the ER or call 911 if any headaches, dizziness, shortness of breath, chest pain, abdominal pain, bleeding, fevers, or worsening of medical condition. Patient was counseled about treatment plan, medications, possible side effects, patientverbalized understanding. All questions were answered to the best of my ability. This discharge took greater then 30 minutes in planning, reviewing documentation, counseling the patient, and discussing with other team members." ASSESSMENT ASSESSMENT Assessment Acute hypoxic respiratory failure Date of Service: Oct 07, 2024 Billing Provider: EVELIA HUDSON NP Common Visit Codes: 12316-[id number] DISCH DAY >30min EVELIA HUDSON NP Oct 07, 2024 14:31
[2024-10-07 15:22] VITALS: BP 117/41; PULSE 56; RESP 18; TEMP 98.6; O2SAT 100
[2024-10-07] MEDS ORDERED: DOXY100C79 PO (16:08)
== END 2024-10-07 16:35 | disposition home or self-care (01) | DRG 812 ==
LOC: ER 01:27 → OVERFLOW 08:22 → TELE-EAST 15:28
PROVIDERS: ADMIT Nurse Practitioner Acute Care; ATTEND Nurse Practitioner Acute Care
PROC: 5A1D70Z Performance of Urinary Filtration, Intermittent, Less than 6 Hours Per Day (ICD-10-PCS; principal; 2024-10-06)
DX: T44.7X1A Poisoning by beta-adrenoreceptor antagonists, accidental (unintentional), initial encounter (principal); A41.50 Gram-negative sepsis, unspecified; J96.01 Acute respiratory failure with hypoxia; J15.69 Pneumonia due to other Gram-negative bacteria; E11.649 Type 2 diabetes mellitus with hypoglycemia without coma; I12.0 Hypertensive chronic kidney disease with stage 5 chronic kidney disease or end stage renal disease; E87.1 Hypo-osmolality and hyponatremia; D63.1 Anemia in chronic kidney disease; I24.9 Acute ischemic heart disease, unspecified; J15.9 Unspecified bacterial pneumonia; N18.6 End stage renal disease; Z20.822 Contact with and (suspected) exposure to COVID-19; E11.22 Type 2 diabetes mellitus with diabetic chronic kidney disease; E11.65 Type 2 diabetes mellitus with hyperglycemia; E66.9 Obesity, unspecified; Z68.30 Body mass index [BMI] 30.0-30.9, adult; Z99.2 Dependence on renal dialysis; E78.5 Hyperlipidemia, unspecified; H54.8 Legal blindness, as defined in USA; E21.3 Hyperparathyroidism, unspecified; R00.1 Bradycardia, unspecified; Y92.89 Other specified places as the place of occurrence of the external cause
CPT/HCPCS: 36415; 71045; 80053; 80202; 82565; 82962; 83036; 83605; 84484; 85025; 85610; 85730; 87040; 87340; 87426; 87804; 90935; 93005; 96365; 96375; 99291; G0378; J1815; J2405; J2543

== ENCOUNTER 2024-10-13 12:23 | Inpatient (IN) | payer MEDICAID ==
[~2024-10-13] VITALS: Ht 152.4 cm; Wt 80.3 kg
[~2024-10-13 12:23] MED LIST changes: +DICY10CA PO; +DOXY100C79 PO; +GLIP5TAB21 PO
[2024-10-13 13:21] LABS: Basophils # (auto) 0 10 ^3/uL (0-0.2); Hemoglobin 8.3 g/dL (12.2-16.2); Lymphocytes # (auto) 0.8 10 ^3/uL (0.4-5.4); Nucleated Red Blood Cells % 0.1 %
[2024-10-13 13:23] LABS: Basophils % (auto) 0.2 % (0.0-2.0); Eosinophils # (auto) 0.1 10 ^3/uL (0-0.8); Eosinophils % (auto) 0.7 % (0.0-7.0); Hematocrit 23.9 % (36.0-46.0); Lymphocytes % (auto) 9.4 % (10.0-50.0); Mean Corpuscular Hemoglobin 35.6 pg (28.0-32.0); Mean Corpuscular Hgb Conc. 34.6 g/dL (32.0-36.0); Mean Corpuscular Volume 102.8 fL (80.0-100.0); Monocytes # (auto) 0.5 10 ^3/uL (0-1.3); Monocytes % (auto) 6.6 % (0.0-12.0); Neutrophils # (auto) 6.7 10 ^3/uL (1.6-8.6); Neutrophils % (auto) 83.1 % (37.0-80.0); Platelet Count (auto) 217 10^3/uL (140-450); Red Blood Cells 2.32 10^6/uL (4.0-5.20); Red Cell Distribution Width 15.6 % (11.8-14.3); White Blood Cell 8.1 10^3/uL (4.4-10.8)
[2024-10-13 13:25] LABS: Anion Gap 12 (5-15); Carbon Dioxide 30 mmol/L (20-31)
[2024-10-13 13:26] LABS: Calcium 9.7 mg/dL (8.7-10.4)
[2024-10-13 13:31] LABS: BUN/Creatinine Ratio 5.5 (10.0-20.0); Blood Urea Nitrogen 20 mg/dL (9-23)
[2024-10-13 13:32] LABS: Chloride 93 mmol/L (98-107); Glucose 190 mg/dL (74-106); Potassium 3.3 mmol/L (3.5-5.1); Sodium 135 mmol/L (136-145)
--- NOTE | 2024-10-13 14:08 | DVH ---
CHEST RADIOGRAPH Indication: weakness Technique: Single frontal view of the chest was obtained Comparison: XY CHEST PORTABLE on DOS: 10/05/24 FINDINGS: Lines and Tubes: None Lungs: No focal consolidation. Pleura: No effusion. No pneumothorax. Cardiomediastinal contours: Unremarkable Bones: No acute osseous abnormality. IMPRESSION: No acute cardiopulmonary disease.
--- NOTE | 2024-10-13 14:47 | ED.PDOC ---
History of Present Illness HPI Comments 58-year-old female presents to the ER with a chief complaint of black stool x 3 weeks. Patient is afebrile at this time. Patient also reports feeling generalized weakness and lightheaded. Chief Complaint: GI Bleed Time Seen by MD: 14:40 Primary Care Provider: JOEL Reviewed Notes: Medications, Allergies Allergies: Coded Allergies: No Known Drug Allergy (Verified Allergy, Unknown, 10/05/24) Home Meds Active Scripts Doxycycline (Monohydrate) (Doxycycline) 100 Mg Cap, 100 MG PO BID for 7 Days, #14 CAP Prov:EVELIA HUDSON [employer] 10/07/24 Levofloxacin Hemihydrate (LEVOFLOXACIN) 750 Mg Tab, 750 MG PO DAILY for 5 Days, #5 TAB Prov:GENE WANG RESIDENT 09/05/24 Ondansetron Odt 4MG Tab (ZOFRAN PO) 4 Mg Tb, 4 MG PO Q6HP PRN for 7 Days, #16 TAB ODT TAB-DISSOLVE IN MOUTH, THEN SWALLOW Prov:SANAM JOHNSTON RESIDENT 08/28/24 Amoxicillin & Pot Clavulanate (AUGMENTIN TABLET) 875 Mg Tb, 500 MG PO BID for 7 Days, #14 TAB Prov:SANAM JOHNSTON RESIDENT 08/28/24 Reported Medications Furosemide (Furosemide) 40 Mg Tab, 1 TAB PO DAILY 10/05/24 Aspirin (Aspirin Low Dose) 81 Mg Tab, 1 TAB PO DAILY 10/05/24 Glipizide (Glipizide) 5 Mg Tab, 1 TAB PO DAILY 10/05/24 Ferrous Sulfate (Ferosul) 325 Mg Tab, 1 TAB PO BID 10/05/24 Dicyclomine Hcl (BENTYL CAPSULE) 10 Mg Cp, 1 CAP PO BIDPRN PRN 10/05/24 Famotidine (Famotidine) 20 Mg Tab, 1 TAB PO DAILY 10/05/24 Guanfacine Hcl (Guanfacine Hcl) 1 Mg Tab, 1 TAB PO DAILY 10/05/24 Lidocaine-Prilocaine (Lidocaine/Prilocaine) 1 Kit Kit, 1 KIT EX DAILY for 30 Days, #30 08/27/24 Metformin Hydrochloride (Metformin Hcl) 1,000 Mg Tab, 1 TAB PO BID for 100 Days, #200 08/27/24 Hydroxyzine Pamoate (Hydroxyzine Pamoate) 25 Mg Cap, 1 CAP PO DAILYPRN for 30 Days, #30 08/27/24 Famotidine (Famotidine) 20 Mg Tab, 1 TAB PO DAILY PRN for HEARTBURN for 90 Days, #90 08/27/24 Guanfacine Hcl (Guanfacine Hcl) 1 Mg Tab, 1 TAB PO DAILY for 90 Days, #90 08/27/24 Losartan Potassium (Losartan Potassium) 100 Mg Tab, 1 TAB PO DAILY for 100 Days, #100 08/27/24 Insulin Lispro (Insulin Lispro Kwikpen) 100 Unit/Ml Inj, SC UD for 50 Days, #15 08/27/24 Insulin Glargine-Yfgn (Semglee) 100 Unit/Ml Inj, 30 UNIT SC HS for 30 Days, #30 08/27/24 Ergocalciferol (Vitamin D) 50,000 Unit Cap, 1 CAP PO QWEEKLY for 84 Days, #12 08/27/24 Chlorthalidone (Chlorthalidone) 25 Mg Tab, 1 TAB PO DAILY for 30 Days, #30 25 B-Complex W/ C & Folic Acid (Ernestina-Kaylie Rx) Tab, 1 TAB PO DAILY for 90 Days, #90 08/27/24 Rosuvastatin Calcium (Rosuvastatin Calcium) 20 Mg Tab, 1 TAB PO DAILY for 100 Days, #100 08/27/24 Semaglutide (Ozempic) 2 Mg/3 Ml Inj, 0.5 MG SC Q7D for 28 Days, #3 08/27/24 Fluticasone Propionate (Nasal) (Fluticasone Propionate) 50 Mcg/Act Spr, SPRAY NINO UD for 30 Days, #16 08/27/24 Loratadine (CLARITIN TABLET) 10 Mg Tb, 1 TAB PO DAILY for 14 Days, #14 08/27/24 Triamcinolone Acetonide (Kenalog) 1 Applic Ap, 1 APPLIC TOP UD for 30 Days, #45 08/27/24 Omeprazole (Gnp Omeprazole) 20 Mg Tab, 1 TAB PO DAILY for 30 Days, #30 08/27/24 Ketoconazole (Ketoconazole) 2 % Sha, UD for 30 Days, #120 08/27/24 Amlodipine Besylate (Amlodipine Besylate) 5 Mg Tab, 1 TAB PO DAILY for 90 Days, #90 06/23/24 Ferrous Sulfate (Ferosul) 325 Mg Tab, 1 TAB PO BID for 30 Days, #60 06/23/24 Aspirin (Aspirin Low Dose) 81 Mg Tab, 1 TAB PO DAILY 06/23/24 Furosemide (Furosemide) 40 Mg Tab, 1 TAB PO DAILY for 90 Days, #90 06/23/24 Carvedilol (Carvedilol) 12.5 Mg Tab, 1 TAB PO BID 06/23/24 Metoprolol Tartrate (LOPRESSOR TABLET) 50 Mg Tb, 1 TAB PO BID for 90 Days, #180 06/23/24 Information Source: Patient Mode of Arrival: Wheelchair Severity: Moderate Timing: Weeks Duration: Since onset Prehospital treatment: None Past Medical History PAST MEDICAL HISTORY: DM, ESRD, HTN HOME SCHOOL COORDINATOR History: Denies all HOME SCHOOL COORDINATOR Hx Family History Family History: Reviewed,noncontributory to illness Social History Smoker: Non-Smoker Alcohol: Denies ETOH Use Drugs: Denies Drug Use Lives In: Home Constitutional: reports: weakness; denies: chills, diaphoresis, fatigue, fever, malaise, sweats, others EENTM: denies: blurred vision, double vision, ear bleeding, ear discharge, ear drainage, ear pain, ear ringing, eye pain, eye redness, hearing loss, mouth pain, mouth swelling, nasal discharge, nose bleeding, nose congestion, nose pain, photophobia, tearing, throat pain, throat swelling, voice changes, others Respiratory: denies: cough, hemoptysis, orthopnea, SOB at rest, shortness of breath, SOB with excertion, stridor, wheezing, others Cardiovascular: reports: lightheadedness; denies: chest pain, dizzy spells, diaphoresis, Dyspnea on exertion, edema, irregular heart beat, left arm pain, palpitations, PND, syncope, others Gastrointestinal: reports: melena; denies: abdomen distended, abdominal pain, blood streaked bowels, constipated, diarrhea, dysphagia, difficulty swallowing, hematemesis, nausea, poor appetite, poor fluid intake, rectal bleeding, rectal pain, vomiting, others Genitourinary: denies: abnormal vagina bleeding, burning, dyspareunia, dysuria, flank pain, frequency, hematuria, incontinence, pain, , vagina discharge, urgency, others Neurological: denies: dizziness, fainting, headache, left sided numbness, left sided weakness, numbness, paresthesia, pre-existing deficit, right sided numbness, right sided weakness, seizure, speech problems, tingling, tremors, weakness, others Musculoskeletal: denies: back pain, gout, joint pain, joint swelling, muscle pain, muscle stiffness, neck pain, others Integumetry: denies: bruises, change in color, change in hair/nails, dryness, laceration, lesions, lumps, rash, wounds, others Allergic/Immunocompromised: denies: Difficulty Healing, Frequent Infections, Hives, Itching, others Hematologic/Lymphatic: denies: anemia, blood clots, easy bleeding, easy bruising, swollen glands, others Endocrine: denies: excessive hunger, excessive sweating, excessive thirst, excessive urination, flushing, intolerance to cold, intolerance to heat, unexplained weight gain, unexplained weight loss, others Psychiatric: denies: anxiety, bipolar disorder, depression, hopeless, panic disorder, schizophrenia, sleepless, suicidal, others All Other Systems: Reviewed and Negative Physical Exam General Appearance: No Apparent Distress, Normal HEENT: Normal ENT Inspection, Pharynx Normal, TMs Normal Neck: Full Range of Motion, Non-Tender, Normal, Normal Inspection Respiratory: Chest Non-Tender, Lungs Clear, No Accessory Muscle Use, No Respiratory Distress, Normal Breath Sounds Cardiovascular: No Edema, No JVD, No Murmur, No Gallop, Normal Peripheral Pulses, Regular Rate/Rhythm Breast Exam: Deferred Gastrointestinal: No Organomegaly, Non Tender, No Pulsatile Mass, Normal Bowel Sounds, Soft Genitalia: Deferred Pelvic: Deferred Rectal: Deferred Extremities: No calf tenderness, Normal capillary refill, Normal inspection, Normal range of motion, Non-tender, No pedal edema Musculoskeletal : Apperance: Normal Neurologic: Alert, brake linings coater II-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 Was a procedure done?: No Differential Dx Considerations may include: GI bleed, viral syndrome, dehydration, electrolyte abnormality X-Ray, Labs, Meds, VS Vital Signs Date Time Temp Pulse Resp B/P (MAP) Pulse Ox O2 Delivery O2 Flow Rate FiO2 10/13/24 18:33 98.0 62 20 130/52 (78) 97 98.0 10/13/24 17:10 98.0 60 20 129/50 (76) 97 98.0 10/13/24 15:00 98.3 63 20 121/51 (74) 97 98.3 10/13/24 12:45 98.8 68 16 140/56 (84) 98 98.8 10/13/24 12:40 66 Lab Test 10/13/24 12:52 Range/Units White Blood Count 8.1 4.4-10.8 10^3/uL Red Blood Count 2.32 L 4.0-5.20 10^6/uL Hemoglobin 8.3 L 12.2-16.2 g/dL Hematocrit 23.9 L 36.0-46.0 % Mean Corpuscular Volume 102.8 H 80.0-100.0 fL Mean Corpuscular Hemoglobin 35.6 H 28.0-32.0 pg Mean Corpuscular Hemoglobin Concent 34.6 32.0-36.0 g/dL Red Cell Distribution Width 15.6 H 11.8-14.3 % Platelet Count 217 140-450 10^3/uL Mean Platelet Volume 9.1 6.9-10.8 fL Neutrophils (%) (Auto) 83.1 H 37.0-80.0 % Lymphocytes (%) (Auto) 9.4 L 10.0-50.0 % Monocytes (%) (Auto) 6.6 0.0-12.0 % Eosinophils (%) (Auto) 0.7 0.0-7.0 % Basophils (%) (Auto) 0.2 0.0-2.0 % Neutrophils # (Auto) 6.7 1.6-8.6 10 ^3/uL Lymphocytes # (Auto) 0.8 0.4-5.4 10 ^3/uL Monocytes # (Auto) 0.5 0-1.3 10 ^3/uL Eosinophils # (Auto) 0.1 0-0.8 10 ^3/uL Basophils # (Auto) 0 0-0.2 10 ^3/uL Nucleated Red Blood Cells 0.1 % Sodium Level 135 L 136-145 mmol/L Potassium Level 3.3 L 3.5-5.1 mmol/L Chloride Level 93 L 98-107 mmol/L Carbon Dioxide Level 30 20-31 mmol/L Anion Gap 12 5-15 Blood Urea Nitrogen 20 9-23 mg/dL Creatinine 3.66 #H 0.550-1.02 mg/dL Glomerular Filtration Rate Calc 14 >90 mL/min BUN/Creatinine Ratio 5.5 L 10.0-20.0 Serum Glucose 190 H 74-106 mg/dL Calcium Level 9.7 8.7-10.4 mg/dL Time of 1ST Reevaluation: 15:20 Reevaluation 1ST: Unchanged Patient Education/Counseling: Diagnosis, Treatment, Need For Follow Up Family Education/Counseling: No Family Present Departure 1 Departure Time of Disposition: 07:17 (Patient with black stool concerning for GI bleed. We will admit patient for further workup and expert consultation) Impression: Primary Impression: Black stool Additional Impression: Generalized weakness Disposition: ADMITTED INPATIENT Admit to: Med Surg Condition: Serious Critical Care Note Critical Care Time?: No Stability Stability form required: No Heart Score Heart Score: Heart Score Response (Comments) Value History N/A 0 EKG N/A 0 Age N/A 0 Risk Factors N/A 0 Troponin N/A 0 Total 0 I personally scribed for KEV URENA MD ([email or web address]) on 10/13/24 at 14:47. Electronically submitted by Denis Calvo ([email or web address]). KEV URENA MD Oct 13, 2024 14:47
[2024-10-13] MEDS ORDERED: DEXTROSE (50%) 50ML SYRG IV PRN (19:30)
[2024-10-13] MEDS ORDERED: ONDANSETRON HCL 4 MG/2 ML VIAL IV PRN (19:30)
[2024-10-13] MEDS: METOPROLOL TARTRATE 50 MG TAB PO SCH (23:11)
[2024-10-13] MEDS: InsuLIN REG 1unit/0.01ml Soln (100units/ml) SC SCH (23:15)
[2024-10-13] MEDS: ATORVASTATIN 20 MG TAB PO SCH (23:15)
[2024-10-13] MEDS: ACCU-CHEK COMFORT CURVE STRIP VI SCH (23:15)
[2024-10-14] VITALS (10 sets, daily range): BP systolic 132–158; BP diastolic 53–73; PULSE 56–80; RESP 16–19; TEMP 97.3–98.5; O2SAT 95–99
--- NOTE | 2024-10-14 04:37 | DVHHP2 ---
History of Present Illness Reason for Visit: GI bleed History of Present Illness 58-year-old female presents for evaluation of possible GI bleed. Patient reports a three-week history of noticing black stools. Denies shortness or breath or dizziness. She does report generalized weakness and lightheaded occasionally. Past Medical History Hypertension, end-stage renal disease, diabetes mellitus Past Surgical History Dialysis access Family History Noncontributory Smoke: No ALCOHOL: none Drugs: None Lives: with Family Review of Systems Review of Systems Review of systems are currently negative otherwise addressed in HPI. Allergies: Coded Allergies: No Known Drug Allergy (Verified Allergy, Unknown, 10/05/24) Medications Current Medications Medications Dose Ordered Sig/Kana Route Start Time Stop Time Status Last Admin Dose Admin Metoprolol Tartrate 50 mg BID PO 10/13/24 22:00 Amlodipine Besylate 10 mg DAILY PO 10/14/24 10:00 Furosemide 40 mg DAILY PO 10/14/24 10:00 Atorvastatin Calcium 40 mg HS PO 10/13/24 22:00 10/13/24 23:15 40 MG Diagnostic Test (Pha) 1 strip ACHS 10/13/24 22:00 10/13/24 23:15 1 STRIP Insulin Human Regular ACHS SC 10/13/24 22:00 10/13/24 23:15 6 UNITS Dextrose 50 ml UD PRN IV 10/13/24 19:30 Ondansetron HCl 4 mg Q4HP PRN IV 10/13/24 19:30 Exam Vital Signs Vital Signs Date Time Temp Pulse Resp B/P (MAP) Pulse Ox O2 Delivery O2 Flow Rate FiO2 10/14/24 03:23 60 18 98 Room Air* 0 21 10/14/24 03:23 98.4 149/57 (87) 98.4 Exam Gen: 58-year-old female in no apparent distress. Skin: Warm, dry, normal color and texture, no rash. HEENT: Normocephalic atraumatic, mucous membranes moist and pink. Neck: Cervical and supraclavicular nodes normal without enlargement, trachea is midline, thyroid gland is normal without masses. Pulmonary: Clear to auscultation and percussion bilaterally. Cardiac: Regular rate and rhythm. No murmur Abdomen: Soft, nontender, nondistended, bowel sounds present all 4 quadrants, no guarding, no rigidity, no organomegaly. Extremities: No cyanosis, clubbing, no edema Neuro: Cranial nerves II through XII grossly intact, normal affect and speech, no focal motor deficits. Labs/Xrays ORDERING PHYSICIAN: KEV URENA MD PROCEDURE(s): CXRP - CHEST PORTABLE REASON: weakness ORDER NUMBER(s): [id number], ACCESSION NUMBER(s): [id number] CHEST RADIOGRAPH Indication: weakness Technique: Single frontal view of the chest was obtained Comparison: XY CHEST PORTABLE on DOS: 10/05/24 FINDINGS: Lines and Tubes: None Lungs: No focal consolidation. Pleura: No effusion. No pneumothorax. Cardiomediastinal contours: Unremarkable Bones: No acute osseous abnormality. IMPRESSION: No acute cardiopulmonary disease. Labs Test 10/13/24 23:08 10/13/24 12:52 Range/Units POC Glucose 269 H 70-106 mg/dl White Blood Count 8.1 4.4-10.8 10^3/uL Red Blood Count 2.32 L 4.0-5.20 10^6/uL Hemoglobin 8.3 L 12.2-16.2 g/dL Hematocrit 23.9 L 36.0-46.0 % Mean Corpuscular Volume 102.8 H 80.0-100.0 fL Mean Corpuscular Hemoglobin 35.6 H 28.0-32.0 pg Mean Corpuscular Hemoglobin Concent 34.6 32.0-36.0 g/dL Red Cell Distribution Width 15.6 H 11.8-14.3 % Platelet Count 217 140-450 10^3/uL Mean Platelet Volume 9.1 6.9-10.8 fL Neutrophils (%) (Auto) 83.1 H 37.0-80.0 % Lymphocytes (%) (Auto) 9.4 L 10.0-50.0 % Monocytes (%) (Auto) 6.6 0.0-12.0 % Eosinophils (%) (Auto) 0.7 0.0-7.0 % Basophils (%) (Auto) 0.2 0.0-2.0 % Neutrophils # (Auto) 6.7 1.6-8.6 10 ^3/uL Lymphocytes # (Auto) 0.8 0.4-5.4 10 ^3/uL Monocytes # (Auto) 0.5 0-1.3 10 ^3/uL Eosinophils # (Auto) 0.1 0-0.8 10 ^3/uL Basophils # (Auto) 0 0-0.2 10 ^3/uL Nucleated Red Blood Cells 0.1 % Sodium Level 135 L 136-145 mmol/L Potassium Level 3.3 L 3.5-5.1 mmol/L Chloride Level 93 L 98-107 mmol/L Carbon Dioxide Level 30 20-31 mmol/L Anion Gap 12 5-15 Blood Urea Nitrogen 20 9-23 mg/dL Creatinine 3.66 #H 0.550-1.02 mg/dL Glomerular Filtration Rate Calc 14 >90 mL/min BUN/Creatinine Ratio 5.5 L 10.0-20.0 Serum Glucose 190 H 74-106 mg/dL Calcium Level 9.7 8.7-10.4 mg/dL Assessment/Plan Assessment/Plan Assessment GI bleed Mild anemia End-stage renal disease, dialysis dependent Diabetes mellitus Plan Admit the patient to [facility] to the hospitalist GI consult Nephrology consultation Clear liquid diet Continue treatment per orders Plan discussed with: Patient My Orders Orders - DEVANTE RAMÍREZ Procedure Category Date Status Time Admit ADMIT 10/13/24 Transmitted 19:17 Stool Occult Blood LAB 10/13/24 Logged 19:20 Metoprolol Tartrate PHA 10/13/24 In Process Tablet (Lopressor Ta 22:00 Amlodipine Tablet PHA 10/14/24 In Process (Norvasc Tablet) 10:00 Furosemide Tablet PHA 10/14/24 In Process (Lasix Tablet) 10:00 Atorvastatin (Lipitor) PHA 10/13/24 In Process 22:00 *Dr. Leah Rincon -Da CONS 10/13/24 Transmitted Giovana 19:20 Basic Metabolic Panel LAB 10/14/24 Logged 04:00 Glucose Blood PHA 10/13/24 In Process (Accu-Chek Comfort 22:00 Insulin R (Human) PHA 10/13/24 In Process (Insulin R) 22:00 Dextrose 50% Syringe PHA 10/13/24 In Process 19:30 Ondansetron Hcl PHA 10/13/24 In Process (Zofran) 19:30 Complete Blood Count LAB 10/14/24 Logged 04:00 Condition: Stable SONAM 10/13/24 In Process 19:20 Clear Liq Diet DIET 10/14/24 Transmitted Breakfast Bedrest With Bathroom SONAM 10/13/24 In Process Privileg 19:20 * Gi Dvh Chair Spring Assembler CONS 10/14/24 Transmitted 03:37 Mrsa Screen CARMINE 10/14/24 In Process 03:43 Date of Service: Oct 13, 2024 Billing Provider: DEVANTE RAMÍREZ Common Visit Codes: [id number] INP/OBS CARE (HIGH) DEVANTE RAMÍREZ Oct 14, 2024 04:37
--- NOTE | 2024-10-14 06:48 | ECG ---
[facility] Test Date: 2024-10-13 Test Time: 12:40:42 Pat Name: MICHAEL REYNOLDS Department: ER Room: 0204 A Gender: F Catering Director: MIO : [id number] Requested By: KEV URENA Order Number: [id number] Reading MD: Vlad Medina Measurements Intervals [place] Rate: 66 P: 42 [place]: 159 QRS: 0 QRSD: 98 T: 61 QT: 447 QTc: 469 Interpretive Statements Sinus rhythm Borderline T abnormalities, lateral leads Baseline wander in lead(s) I,II,aVR Electronically Signed On 10-14-2024 17:40:02 PDT by Vlad Medina Please click the below link to view image of tracing.
[2024-10-14] MEDS: amLODIPine BESYLATE 5 MG TAB PO SCH (10:00)
[2024-10-14 10:21] LABS: Basophils # (auto) 0 10 ^3/uL (0-0.2); Basophils % (auto) 0.4 % (0.0-2.0); Eosinophils # (auto) 0.1 10 ^3/uL (0-0.8); Hemoglobin 7.6 g/dL (12.2-16.2); Monocytes # (auto) 0.7 10 ^3/uL (0-1.3); Neutrophils # (auto) 4.9 10 ^3/uL (1.6-8.6)
[2024-10-14 10:25] LABS: Eosinophils % (auto) 1.1 % (0.0-7.0); Hematocrit 22.2 % (36.0-46.0); Lymphocytes % (auto) 14.8 % (10.0-50.0); Mean Corpuscular Hemoglobin 35.6 pg (28.0-32.0); Mean Corpuscular Hgb Conc. 34.5 g/dL (32.0-36.0); Mean Corpuscular Volume 103.2 fL (80.0-100.0); Monocytes % (auto) 10.2 % (0.0-12.0); Neutrophils % (auto) 73.5 % (37.0-80.0); Nucleated Red Blood Cells % 0.2 %; Platelet Count (auto) 196 10^3/uL (140-450); Potassium 4.6 mmol/L (3.5-5.1); Red Blood Cells 2.15 10^6/uL (4.0-5.20); Red Cell Distribution Width 15.1 % (11.8-14.3); White Blood Cell 6.6 10^3/uL (4.4-10.8)
[2024-10-14 10:26] LABS: Anion Gap 12 (5-15); Carbon Dioxide 28 mmol/L (20-31)
[2024-10-14 10:27] LABS: Calcium 9.4 mg/dL (8.7-10.4)
[2024-10-14 10:29] LABS: Chloride 95 mmol/L (98-107); INR 1.18 (0.9-1.15); Partial Thromboplastin Time 29.9 SEC (24.5-34.5); Prothrombin Time 12.3 sec (9.3-11.8); Sodium 135 mmol/L (136-145)
[2024-10-14 10:31] LABS: BUN/Creatinine Ratio 5.1 (10.0-20.0)
[2024-10-14] MEDS: PANTOPRAZOLE 40 MG/10 ML VIAL INJ IV SCH (10:35)
[2024-10-14 10:36] LABS: Blood Urea Nitrogen 30 mg/dL (9-23); Glucose 216 mg/dL (74-106)
[2024-10-14] MEDS: FUROSEMIDE 40 MG TAB PO SCH (10:37)
--- NOTE | 2024-10-14 10:42 | DVHPN2 ---
Subjective 58-year-old female with a history of end-stage renal disease and hypertension and diabetes came with a chief complaint of black stools She does not know for how long she had the problem but apparently her told dialysis yesterday that she was having black stools and therefore she was sent here The stool occult blood was done this morning was negative Hemoglobin yesterday was 8.3 and a dropped to 7.6 today She had dialysis yesterday No abdominal pain No hematemesis or vomiting Changes from previous H/P or p: Changes Objective Vitals Vital Signs Date Time Temp Pulse Resp B/P (MAP) Pulse Ox O2 Delivery O2 Flow Rate FiO2 10/14/24 10:37 141/60 10/14/24 10:00 58 10/14/24 09:00 98.5 16 95 98.5 10/14/24 08:00 Room Air* 0 21 Intake/Output Intake and Output 10/14/24 07:00 Intake Total 0 ml Balance 0 ml Intake Oral 0 ml General Appearance: Alert, Oriented X3, Cooperative, No acute distress Lungs: Clear to auscultation, Normal air movement Abdomen: Normal bowel sounds, Soft, No tenderness Extremities: No edema Medications Current Medications Medications Dose Ordered Sig/Knaa Route Start Time Stop Time Status Last Admin Dose Admin Metoprolol Tartrate 50 mg BID PO 10/13/24 22:00 Amlodipine Besylate 10 mg DAILY PO 10/14/24 10:00 Furosemide 40 mg DAILY PO 10/14/24 10:00 10/14/24 10:37 40 MG Atorvastatin Calcium 40 mg HS PO 10/13/24 22:00 10/13/24 23:15 40 MG Diagnostic Test (Pha) 1 strip ACHS 10/13/24 22:00 10/14/24 05:32 1 STRIP Insulin Human Regular ACHS SC 10/13/24 22:00 10/13/24 23:15 6 UNITS Dextrose 50 ml UD PRN IV 10/13/24 19:30 Ondansetron HCl 4 mg Q4HP PRN IV 10/13/24 19:30 Pantoprazole Sodium 40 mg DAILY IV 10/14/24 10:00 10/14/24 10:35 40 MG Laboratory Results Laboratory Tests 10/14/24 10:02 Chemistry Test 10/13/24 12:52 10/14/24 10:02 Calcium Level 9.7 mg/dL (8.7-10.4) 9.4 mg/dL (8.7-10.4) Coagulation Test 10/14/24 10:02 Prothrombin Time 12.3 sec (9.3-11.8) H Prothrombin Time INR 1.18 (0.9-1.15) H Activated Partial Thromboplast Time 29.9 SEC (24.5-34.5) Assessment/Plan Assessment/Plan Melena Rule out GI bleed Chronic anemia of chronic kidney disease End-stage renal disease on hemodialysis Type 2 diabetes Hypertension Plan IV Protonix GI consult Hemodialysis per nephrology Clear liquid diet Resume the home medications Monitor the hemoglobin closely The rest of the management will depend on the hospital course Advance directives discussed for 18 minutes Plan discussed with: Patient Date of Service: Oct 14, 2024 Billing Provider: DMITRI LONGORIA MD Common Visit Codes: [id number] INP/OBS CARE(HIGH) Secondary Visit Codes: [id number] CARE PLAN 30 MINUTES DMITRI LONGORIA MD Oct 14, 2024 10:42
--- NOTE | 2024-10-14 13:53 | DVHINCON2 ---
GI Consult Consult Note GI consult note Date of Consultation: 10/14/2024 Chief Complaint: GI bleed Referring Physician: Juanjose WU H&P: 58-year-old patient presented to ER with melena. Patient is legally blind, history provided by at bedside. Patient has been noticed to have black stool for the past three weeks. No abdominal pain. Denies nausea vomiting. Patient has history of GERD. Status post EGD six years ago diagnosed with PUD. Status post colonoscopy 2019 unsure about results Patient has history of end-stage renal disease on dialysis Denies blood thinners. Patient has history of anemia Past Medical History: Hypertension, end-stage renal disease, diabetes mellitus Past Surgical History: Dialysis access Social History: NO smoking, drinking ETOH and use of illegal drugs. Family History: Noncontributory Review of Systems: Constitutional: no fever, chill, weight loss HEENT: no eye pain, no hearing loss, no oral lesion, no scleral icterus Heart: no chest pain, no chest pressure Lung: no cough, no dyspnea with exertion Abdomen: see HPI Physical exam: General: NAD, AAOX3 Chest: lung saab clear to auscultation Heart: RRR, no murmur Abdomen: non-distended, mild epigastric tenderness to palpation, +BS Labs: Labs Test 10/14/24 11:42 10/14/24 10:02 10/14/24 08:35 Range/Units POC Glucose 212 H 70-106 mg/dl White Blood Count 6.6 4.4-10.8 10^3/uL Red Blood Count 2.15 L 4.0-5.20 10^6/uL Hemoglobin 7.6 L 12.2-16.2 g/dL Hematocrit 22.2 L 36.0-46.0 % Mean Corpuscular Volume 103.2 H 80.0-100.0 fL Mean Corpuscular Hemoglobin 35.6 H 28.0-32.0 pg Mean Corpuscular Hemoglobin Concent 34.5 32.0-36.0 g/dL Red Cell Distribution Width 15.1 H 11.8-14.3 % Platelet Count 196 140-450 10^3/uL Mean Platelet Volume 9.3 6.9-10.8 fL Neutrophils (%) (Auto) 73.5 37.0-80.0 % Lymphocytes (%) (Auto) 14.8 10.0-50.0 % Monocytes (%) (Auto) 10.2 0.0-12.0 % Eosinophils (%) (Auto) 1.1 0.0-7.0 % Basophils (%) (Auto) 0.4 0.0-2.0 % Neutrophils # (Auto) 4.9 1.6-8.6 10 ^3/uL Lymphocytes # (Auto) 1.0 0.4-5.4 10 ^3/uL Monocytes # (Auto) 0.7 0-1.3 10 ^3/uL Eosinophils # (Auto) 0.1 0-0.8 10 ^3/uL Basophils # (Auto) 0 0-0.2 10 ^3/uL Nucleated Red Blood Cells 0.2 % Prothrombin Time 12.3 H 9.3-11.8 sec Prothrombin Time INR 1.18 H 0.9-1.15 Activated Partial Thromboplast Time 29.9 24.5-34.5 SEC Sodium Level 135 L 136-145 mmol/L Potassium Level 4.6 3.5-5.1 mmol/L Chloride Level 95 L 98-107 mmol/L Carbon Dioxide Level 28 20-31 mmol/L Anion Gap 12 5-15 Blood Urea Nitrogen 30 #H 9-23 mg/dL Creatinine 5.86 #H 0.550-1.02 mg/dL Glomerular Filtration Rate Calc 8 >90 mL/min BUN/Creatinine Ratio 5.1 L 10.0-20.0 Serum Glucose 216 H 74-106 mg/dL Calcium Level 9.4 8.7-10.4 mg/dL Stool Occult Blood Negative Negative Stool Occult Blood Sample #3 Negative Imaging: Assessment: GI bleed Chronic anemia End-stage renal disease on hemodialysis History of PUD Plan: Discussed with Dr. Carr - Pt will be scheduled for an EGD tomorrow 10/15/2024 Pt was informed of the risks (bleeding, infection, perforation, reaction to sedation medications and cardiopulmonary arrest) and benefit and is agreeable to undergo the procedures. Monitor labs transfuse if hemoglobin less than seven Protonix Check labs in a.m. Discussed plan with patient, at bedside and RN Thank you for this consult Date of Service: Oct 14, 2024 Billing Provider: VIVIANE DORANTES Common Visit Codes: CONSULT ONLY Consultation Codes: [id number] CONSULT <60MIN VIVIANE DORANTES Oct 14, 2024 13:53
--- NOTE | 2024-10-14 16:31 | DVHINCON2 ---
Date of service: Oct 14, [address] Sow Reason for Consultation End-stage renal disease management History of Present Illness 58-year-old patient with significant history of end-stage renal disease on hemodialysis Sunday via left upper arm AV fistula, hyp ertension, diabetes type 2, blindness who has been having intermittent episodes of melanotic stools on and off for couple of weeks associated yesterday with lightheadedness and generalized weakness. Patient has been receiving CHRISTIE in the dialysis unit with hemoglobin gradually dropping. Denies abdominal pain fever chills bruising more hematochezia or hematemesis. Patient has a significant history of GERD as well as peptic ulcer disease about seven years ago. Hemoglobin was above a yesterday today below eight g per dL. Past Medical History Diabetes type 2, hypertension, end-stage renal disease, peptic ulcer disease, anemia. Past Surgical History Left upper arm AV fistula creation. Allergies: Coded Allergies: No Known Drug Allergy (Verified Allergy, Unknown, 10/05/24) Home Meds Active Scripts Doxycycline (Monohydrate) (Doxycycline) 100 Mg Cap, 100 MG PO BID for 7 Days, #14 CAP Prov:EVELIA HUDSON LEGAL COORDINATOR 10/07/24 Levofloxacin Hemihydrate (LEVOFLOXACIN) 750 Mg Tab, 750 MG PO DAILY for 5 Days, #5 TAB Prov:GENE WANG RESIDENT 09/05/24 Ondansetron Odt 4MG Tab (ZOFRAN PO) 4 Mg Tb, 4 MG PO Q6HP PRN for 7 Days, #16 TAB ODT TAB-DISSOLVE IN MOUTH, THEN SWALLOW Prov:SANAM JOHNSTON RESIDENT 08/28/24 Amoxicillin & Pot Clavulanate (AUGMENTIN TABLET) 875 Mg Tb, 500 MG PO BID for 7 Days, #14 TAB Prov:SANAM JOHNSTON RESIDENT 08/28/24 Reported Medications Furosemide (Furosemide) 40 Mg Tab, 1 TAB PO DAILY 10/05/24 Aspirin (Aspirin Low Dose) 81 Mg Tab, 1 TAB PO DAILY 10/05/24 Glipizide (Glipizide) 5 Mg Tab, 1 TAB PO DAILY 10/05/24 Ferrous Sulfate (Ferosul) 325 Mg Tab, 1 TAB PO BID 10/05/24 Dicyclomine Hcl (BENTYL CAPSULE) 10 Mg Cp, 1 CAP PO BIDPRN PRN 10/05/24 Famotidine (Famotidine) 20 Mg Tab, 1 TAB PO DAILY 10/05/24 Guanfacine Hcl (Guanfacine Hcl) 1 Mg Tab, 1 TAB PO DAILY 10/05/24 Lidocaine-Prilocaine (Lidocaine/Prilocaine) 1 Kit Kit, 1 KIT EX DAILY for 30 Days, #30 08/27/24 Metformin Hydrochloride (Metformin Hcl) 1,000 Mg Tab, 1 TAB PO BID for 100 Days, #200 08/27/24 Hydroxyzine Pamoate (Hydroxyzine Pamoate) 25 Mg Cap, 1 CAP PO DAILYPRN for 30 Days, #30 08/27/24 Famotidine (Famotidine) 20 Mg Tab, 1 TAB PO DAILY PRN for HEARTBURN for 90 Days, #90 08/27/24 Guanfacine Hcl (Guanfacine Hcl) 1 Mg Tab, 1 TAB PO DAILY for 90 Days, #90 08/27/24 Losartan Potassium (Losartan Potassium) 100 Mg Tab, 1 TAB PO DAILY for 100 Days, #100 08/27/24 Insulin Lispro (Insulin Lispro Kwikpen) 100 Unit/Ml Inj, SC UD for 50 Days, #15 08/27/24 Insulin Glargine-Yfgn (Semglee) 100 Unit/Ml Inj, 30 UNIT SC HS for 30 Days, #30 08/27/24 Ergocalciferol (Vitamin D) 50,000 Unit Cap, 1 CAP PO QWEEKLY for 84 Days, #12 08/27/24 Chlorthalidone (Chlorthalidone) 25 Mg Tab, 1 TAB PO DAILY for 30 Days, #30 08/27/24 B-Complex W/ C & Folic Acid (Ernestina-Kaylie Rx) Tab, 1 TAB PO DAILY for 90 Days, #90 08/27/24 Rosuvastatin Calcium (Rosuvastatin Calcium) 20 Mg Tab, 1 TAB PO DAILY for 100 Days, #100 08/27/24 Semaglutide (Ozempic) 2 Mg/3 Ml Inj, 0.5 MG SC Q7D for 28 Days, #3 08/27/24 Fluticasone Propionate (Nasal) (Fluticasone Propionate) 50 Mcg/Act Spr, SPRAY NINO UD for 30 Days, #16 08/27/24 Loratadine (CLARITIN TABLET) 10 Mg Tb, 1 TAB PO DAILY for 14 Days, #14 4/30/25 Triamcinolone Acetonide (Kenalog) 1 Applic Ap, 1 APPLIC TOP UD for 30 Days, #45 08/27/24 Omeprazole (Gnp Omeprazole) 20 Mg Tab, 1 TAB PO DAILY for 30 Days, #30 08/27/24 Ketoconazole (Ketoconazole) 2 % Sha, UD for 30 Days, #120 08/27/24 Amlodipine Besylate (Amlodipine Besylate) 5 Mg Tab, 1 TAB PO DAILY for 90 Days, #90 06/23/24 Ferrous Sulfate (Ferosul) 325 Mg Tab, 1 TAB PO BID for 30 Days, #60 06/23/24 Aspirin (Aspirin Low Dose) 81 Mg Tab, 1 TAB PO DAILY 06/23/24 Furosemide (Furosemide) 40 Mg Tab, 1 TAB PO DAILY for 90 Days, #90 06/23/24 Carvedilol (Carvedilol) 12.5 Mg Tab, 1 TAB PO BID 06/23/24 Metoprolol Tartrate (LOPRESSOR TABLET) 50 Mg Tb, 1 TAB PO BID for 90 Days, #180 06/23/24 Current Medications Current Medications Medications (Trade) Dose Ordered Sig/Kana Route PRN Reason Start Time Stop Time Status Last Admin Metoprolol Tartrate (Lopressor Tablet) 50 mg BID PO 10/13/24 22:00 Amlodipine Besylate (Norvasc Tablet) 10 mg DAILY PO 10/14/24 10:00 10/14/24 10:40 Furosemide (Lasix Tablet) 40 mg DAILY PO 10/14/24 10:00 10/14/24 10:37 Atorvastatin Calcium (Lipitor) 40 mg HS PO 10/13/24 22:00 10/13/24 23:15 Diagnostic Test (Pha) (Accu-Chek Comfort Curve T) 1 strip ACHS 10/13/24 22:00 10/14/24 11:46 Insulin Human Regular (InsuLIN R) ACHS SC 10/13/24 22:00 10/14/24 11:58 Dextrose 50 ml UD PRN IV Blood Sugar LESS THAN 60 10/13/24 19:30 Ondansetron HCl (Zofran) 4 mg Q4HP PRN IV NAUSEA / VOMITING 10/13/24 19:30 Pantoprazole Sodium (Protonix) 40 mg DAILY IV 10/14/24 10:00 10/14/24 10:35 Family History: Cardiovascular disease G8 FATHER, (HEART ATTACK) FH: ND (myocardial infarction) G8 FATHER FH: cancer G8 MOTHER Social History Patient denies smoking alcohol or drug abuse. She lives with her . Review of Systems HEENT: Oral mucosa dry Neck no JVD Cardiovascular: Denies for chest pain denies orthopnea or PND Respiratory: Denies cough or shortness of breath Gastrointestinal: Denies for nausea vomiting, positive for melanotic stools. Musculoskeletal: Denies myalgias Neurological: Denies focal weakness Dermatological: Denies any rash The rest of the review of systems were reviewed pertinent positives and pertinent negatives are as per HPI up to 12 points review of systems H&P Exam Vital Signs/I&O Vital Sign Date Time Temp Pulse Resp B/P (MAP) Pulse Ox O2 Delivery O2 Flow Rate FiO2 10/14/24 13:00 97.3 58 19 158/73 (101) 97 97.3 10/14/24 08:00 Room Air* 0 21 Intake and Output 10/13/24 10/14/24 19:00 07:00 Intake Total 0 ml Balance 0 ml Intake Oral 0 ml Physical Exam HEENT: No evidence of JVD, no oral ulcers. Legally blind Pulmonary: Lungs are clear on auscultation bilaterally Cardiovascular S1-S2, no S3 or S4 Abdomen: Bowel sounds positive, soft no rebound tenderness Skin: No rash Neurological: Alert, oriented, no focal weakness Labs/Diagnostic Data Labs/Diagnostic Data Laboratory Tests Test 10/14/24 11:42 10/14/24 10:02 10/14/24 08:35 10/14/24 05:28 Range/Units POC Glucose 212 H 176 H 70-106 mg/dl White Blood Count 6.6 4.4-10.8 10^3/uL Red Blood Count 2.15 L 4.0-5.20 10^6/uL Hemoglobin 7.6 L 12.2-16.2 g/dL Hematocrit 22.2 L 36.0-46.0 % Mean Corpuscular Volume 103.2 H 80.0-100.0 fL Mean Corpuscular Hemoglobin 35.6 H 28.0-32.0 pg Mean Corpuscular Hemoglobin Concent 34.5 32.0-36.0 g/dL Red Cell Distribution Width 15.1 H 11.8-14.3 % Platelet Count 196 140-450 10^3/uL Mean Platelet Volume 9.3 6.9-10.8 fL Neutrophils (%) (Auto) 73.5 37.0-80.0 % Lymphocytes (%) (Auto) 14.8 10.0-50.0 % Monocytes (%) (Auto) 10.2 0.0-12.0 % Eosinophils (%) (Auto) 1.1 0.0-7.0 % Basophils (%) (Auto) 0.4 0.0-2.0 % Neutrophils # (Auto) 4.9 1.6-8.6 10 ^3/uL Lymphocytes # (Auto) 1.0 0.4-5.4 10 ^3/uL Monocytes # (Auto) 0.7 0-1.3 10 ^3/uL Eosinophils # (Auto) 0.1 0-0.8 10 ^3/uL Basophils # (Auto) 0 0-0.2 10 ^3/uL Nucleated Red Blood Cells 0.2 % Prothrombin Time 12.3 H 9.3-11.8 sec Prothrombin Time INR 1.18 H 0.9-1.15 Activated Partial Thromboplast Time 29.9 24.5-34.5 SEC Sodium Level 135 L 136-145 mmol/L Potassium Level 4.6 3.5-5.1 mmol/L Chloride Level 95 L 98-107 mmol/L Carbon Dioxide Level 28 20-31 mmol/L Anion Gap 12 5-15 Blood Urea Nitrogen 30 #H 9-23 mg/dL Creatinine 5.86 #H 0.550-1.02 mg/dL Glomerular Filtration Rate Calc 8 >90 mL/min BUN/Creatinine Ratio 5.1 L 10.0-20.0 Serum Glucose 216 H 74-106 mg/dL Calcium Level 9.4 8.7-10.4 mg/dL Stool Occult Blood Negative Negative Stool Occult Blood Sample #3 Negative Test 10/13/24 23:08 10/13/24 12:52 Range/Units POC Glucose 269 H 70-106 mg/dl White Blood Count 8.1 4.4-10.8 10^3/uL Red Blood Count 2.32 L 4.0-5.20 10^6/uL Hemoglobin 8.3 L 12.2-16.2 g/dL Hematocrit 23.9 L 36.0-46.0 % Mean Corpuscular Volume 102.8 H 80.0-100.0 fL Mean Corpuscular Hemoglobin 35.6 H 28.0-32.0 pg Mean Corpuscular Hemoglobin Concent 34.6 32.0-36.0 g/dL Red Cell Distribution Width 15.6 H 11.8-14.3 % Platelet Count 217 140-450 10^3/uL Mean Platelet Volume 9.1 6.9-10.8 fL Neutrophils (%) (Auto) 83.1 H 37.0-80.0 % Lymphocytes (%) (Auto) 9.4 L 10.0-50.0 % Monocytes (%) (Auto) 6.6 0.0-12.0 % Eosinophils (%) (Auto) 0.7 0.0-7.0 % Basophils (%) (Auto) 0.2 0.0-2.0 % Neutrophils # (Auto) 6.7 1.6-8.6 10 ^3/uL Lymphocytes # (Auto) 0.8 0.4-5.4 10 ^3/uL Monocytes # (Auto) 0.5 0-1.3 10 ^3/uL Eosinophils # (Auto) 0.1 0-0.8 10 ^3/uL Basophils # (Auto) 0 0-0.2 10 ^3/uL Nucleated Red Blood Cells 0.1 % Sodium Level 135 L 136-145 mmol/L Potassium Level 3.3 L 3.5-5.1 mmol/L Chloride Level 93 L 98-107 mmol/L Carbon Dioxide Level 30 20-31 mmol/L Anion Gap 12 5-15 Blood Urea Nitrogen 20 9-23 mg/dL Creatinine 3.66 #H 0.550-1.02 mg/dL Glomerular Filtration Rate Calc 14 >90 mL/min BUN/Creatinine Ratio 5.5 L 10.0-20.0 Serum Glucose 190 H 74-106 mg/dL Calcium Level 9.7 8.7-10.4 mg/dL Microbiology Date/Time Source Procedure Growth Status 10/14/24 04:00 Nose MRSA Screen - Final Complete No acute cardiopulmonary process on chest x-ray. Assessment Assessment: 1. End-stage renal disease on hemodialysis Sunday via left upper arm AV fistula. 2. Anemia of chronic kidney renal disease and GI bleed 3. Hypertension. 4. Diabetes type 2. 5. Metabolic acidosis managed with dialysis. Plan: Continue dialysis Sunday Monitor H&H transfuse as needed for goal hemoglobin at least 7 grams/deciliter. Christie for goal hemoglobin 10-11 grams/deciliter Fluid restriction less than 1 L per day. PPI IV, GI consult appreciated Plan of care discussed with the patient and in detail Thank you very much for allowing us to participate in the care of this patient. Plan discussed with: Patient, Spouse NICK MACKAY MD Oct 14, 2024 16:31
[2024-10-15] VITALS (8 sets, daily range): BP systolic 128–145; BP diastolic 46–73; PULSE 56–78; RESP 15–24; TEMP 97.2–98.5; O2SAT 92–100
[2024-10-15 05:16] LABS: Basophils # (auto) 0 10 ^3/uL (0-0.2); Eosinophils # (auto) 0.1 10 ^3/uL (0-0.8); Hemoglobin 8.7 g/dL (12.2-16.2)
[2024-10-15 05:18] LABS: Basophils % (auto) 0.5 % (0.0-2.0); Eosinophils % (auto) 1.2 % (0.0-7.0); Hematocrit 25.6 % (36.0-46.0); Lymphocytes # (auto) 1.5 10 ^3/uL (0.4-5.4); Lymphocytes % (auto) 16.8 % (10.0-50.0); Mean Corpuscular Hemoglobin 35.6 pg (28.0-32.0); Mean Corpuscular Hgb Conc. 34.2 g/dL (32.0-36.0); Mean Corpuscular Volume 104.2 fL (80.0-100.0); Monocytes # (auto) 0.9 10 ^3/uL (0-1.3); Neutrophils # (auto) 6.5 10 ^3/uL (1.6-8.6); Neutrophils % (auto) 71.5 % (37.0-80.0); Nucleated Red Blood Cells % 0.1 %; Platelet Count (auto) 239 10^3/uL (140-450); Red Blood Cells 2.46 10^6/uL (4.0-5.20); Red Cell Distribution Width 14.9 % (11.8-14.3); White Blood Cell 9.1 10^3/uL (4.4-10.8)
[2024-10-15 06:15] LABS: Potassium 4.3 mmol/L (3.5-5.1)
[2024-10-15 06:16] LABS: Anion Gap 14 (5-15); Calcium 9.8 mg/dL (8.7-10.4); Carbon Dioxide 29 mmol/L (20-31); Chloride 92 mmol/L (98-107); Sodium 135 mmol/L (136-145)
[2024-10-15 06:21] LABS: BUN/Creatinine Ratio 5.4 (10.0-20.0)
[2024-10-15 06:25] LABS: % Iron Saturation 23.5 % (15-50)
[2024-10-15 06:28] LABS: Blood Urea Nitrogen 39 mg/dL (9-23); Glucose 109 mg/dL (74-106)
[2024-10-15] MEDS ORDERED: SODIUM CHL 0.9% 1000 ML BAG XX ONE ×2 (07:00→11:30)
--- NOTE | 2024-10-15 09:49 | DVHPN2 ---
Subjective No new problems Scheduled for EGD today Hemoglobin stable at 8.7 Changes from previous H/P or p: Changes Objective Vitals Vital Signs Date Time Temp Pulse Resp B/P (MAP) Pulse Ox O2 Delivery O2 Flow Rate FiO2 10/15/24 05:00 97.2 59 18 143/66 (91) 100 97.2 10/14/24 20:00 Room Air* 0 21 Intake/Output Intake and Output 10/15/24 07:00 Intake Total 200 ml Balance 200 ml Intake Oral 200 ml # Voids 1 # Bowel Movements 2 General Appearance: Alert, Oriented X3, Cooperative, No acute distress Lungs: Clear to auscultation, Normal air movement Abdomen: Normal bowel sounds, Soft, No tenderness Extremities: No edema Medications Current Medications Medications Dose Ordered Sig/Kana Route Start Time Stop Time Status Last Admin Dose Admin Metoprolol Tartrate 50 mg BID PO 10/13/24 22:00 Amlodipine Besylate 10 mg DAILY PO 10/14/24 10:00 10/14/24 10:40 10 MG Furosemide 40 mg DAILY PO 10/14/24 10:00 10/14/24 10:37 40 MG Atorvastatin Calcium 40 mg HS PO 10/13/24 22:00 10/14/24 21:27 40 MG Diagnostic Test (Pha) 1 strip ACHS 10/13/24 22:00 10/15/24 05:27 1 STRIP Insulin Human Regular ACHS SC 10/13/24 22:00 10/14/24 21:35 2 UNITS Dextrose 50 ml UD PRN IV 10/13/24 19:30 Ondansetron HCl 4 mg Q4HP PRN IV 10/13/24 19:30 Pantoprazole Sodium 40 mg DAILY IV 10/14/24 10:00 10/14/24 10:35 40 MG Guaifenesin/ Dextromethorphan 10 ml Q6HP PRN PO 10/14/24 21:15 Laboratory Results Laboratory Tests 10/15/24 04:54 Chemistry Test 10/14/24 10:02 10/15/24 04:54 Calcium Level 9.4 mg/dL (8.7-10.4) 9.8 mg/dL (8.7-10.4) Coagulation Test 10/14/24 10:02 Prothrombin Time 12.3 sec (9.3-11.8) H Prothrombin Time INR 1.18 (0.9-1.15) H Activated Partial Thromboplast Time 29.9 SEC (24.5-34.5) Microbiology Microbiology Date/Time Source Procedure Growth Status 10/14/24 04:00 Nose MRSA Screen - Final Complete Assessment/Plan Assessment/Plan Melena Rule out GI bleed Chronic anemia of chronic kidney disease End-stage renal disease on hemodialysis Type 2 diabetes Hypertension Plan IV Protonix GI consult Hemodialysis per nephrology Clear liquid diet Resume the home medications Monitor the hemoglobin closely The rest of the management will depend on the hospital course Advance directives discussed for 18 minutes 10/15/2024: EGD today Hemoglobin stable No obvious GI blood loss IV Protonix Monitor closely Hemodialysis per nephrology Plan discussed with: Patient Date of Service: Oct 15, 2024 Billing Provider: DMITRI LONGORIA MD Common Visit Codes: [id number] INP/OBS CARE(HIGH) DMITRI LONGORIA MD Oct 15, 2024 09:49
--- NOTE | 2024-10-15 13:31 | DVHOP2 ---
Operative Report DATE OF OPERATION: 10/15/24 PROCEDURE: Upper Endoscopy with biopsy. PREOPERATIVE INDICATION: The patient is a 58 -year-old female undergoing endoscopy for anemia and melena POSTOPERATIVE DIAGNOSES: 1. Mild gastroduodenitis; duodenal biopsies were obtained 2. There was a 5 mm pre-pyloric antral inflammatory polyp with overlying erosion from which biopsies were obtained 3. 1-2 cm sliding-type hiatal hernia with no significant erosive esophagitis otherwise normal examination up to the 2nd and 3rd part of the duodenum with no active bleeding PROCEDURE PERFORMED BY: Alec Carr GI NURSE: Kiley SCOPE: Olympus videoendoscope. ASA CLASS: 3 PREOPERATIVE MEDICATIONS: Versed 2 mg, Fentanyl 50 mcg, Benadryl 100 mg I administered moderate sedation throughout this _7_ minutes procedure. An independent trained observer pushed medications at my direction, and monitored the patient's level of consciousness and physiological status throughout. PROCEDURE IN DETAIL: After obtaining an informed consent, the patient was placed on left lateral decubitus position. The patient was then sedated with the above medications. A bite block was placed between her teeth. The endoscope was then passed through the oropharynx, into the esophagus, and through the stomach and pylorus up to the second and third part of the duodenum. The endoscope was then withdrawn. The 2nd and 3rd part of the duodenum were normal and the duodenal bulb showed mild duodenitis. Duodenal biopsies were obtained The pre-pyloric area antrum and distal body showed mild gastritis with some hyperemia erythema. There was a pre-pyloric 5 mm benign-appearing antral inflammatory polyp within the pyloric channel This had a superficial erosion. Biopsies were obtained from this area. There was no fresh or old blood in the GI tract and there was good bile drainage. On retroflexion the fundus cardia and angularis were normal. The endoscope was then withdrawn into the distal esophagus Patient had a 1-2 cm sliding-type hiatal hernia with no erosive esophagitis. The remaining distal and proximal esophagus and oropharynx were unremarkable The patient tolerated the procedure well without difficulty. COMPLICATIONS : None SPECIMENS: Biopsies Gastric antral biopsies DISPOSITION: Transfer back to the floor Taken PLAN: 1. Await for biopsy result 2. Will place pt on Protonix 40 mg bid 3. Carafate 1 g p.o. twice a day 4. Resume renal diet 5. Outpatient follow up with me in 4-6 weeks to discuss elective colonoscopy for colon cancer screening ALEC CARR MD Oct 15, 2024 13:31
--- NOTE | 2024-10-15 16:36 | DVHPN2 ---
Progress Note - Dictate Date Seen: Oct 15, 2024 Medical Necessity Reason Pt with a Central, PICC or Fol: No Subjective Patient is feeling well dialysis was completed already. is at bedside. vital signs Vital Sign Date Time Temp Pulse Resp B/P (MAP) Pulse Ox O2 Delivery O2 Flow Rate FiO2 10/15/24 13:50 64 22 155/50 (85) 100 10/15/24 13:20 97.4 97.4 10/15/24 13:20 Nasal Cannula 6.0 10/15/24 08:30 24 Total Intake and Output 10/14/24 10/14/24 10/15/24 15:00 23:00 07:00 Intake Total 200 ml 0 ml Balance 200 ml 0 ml medications Current Medications Medications Dose Ordered Sig/Kana Route Start Time Stop Time Status Last Admin Dose Admin Metoprolol Tartrate 50 mg BID PO 10/13/24 22:00 Amlodipine Besylate 10 mg DAILY PO 10/14/24 10:00 10/14/24 10:40 10 MG Furosemide 40 mg DAILY PO 10/14/24 10:00 10/14/24 10:37 40 MG Atorvastatin Calcium 40 mg HS PO 10/13/24 22:00 10/14/24 21:27 40 MG Diagnostic Test (Pha) 1 strip ACHS 10/13/24 22:00 10/15/24 11:21 1 STRIP Insulin Human Regular ACHS SC 10/13/24 22:00 10/14/24 21:35 2 UNITS Dextrose 50 ml UD PRN IV 10/13/24 19:30 Ondansetron HCl 4 mg Q4HP PRN IV 10/13/24 19:30 Pantoprazole Sodium 40 mg DAILY IV 10/14/24 10:00 10/14/24 10:35 40 MG Guaifenesin/ Dextromethorphan 10 ml Q6HP PRN PO 10/14/24 21:15 objective HEENT: No evidence of JVD, no oral ulcers. Pulmonary: Lungs are clear on auscultation bilaterally Cardiovascular S1-S2, no S3 or S4 Abdomen: Bowel sounds positive, soft no rebound tenderness Skin: No rash Neurological: Alert, oriented, no focal weakness Access: Av fistula positive bruit and thrill laboratory and microbiology Laboratory Tests 10/15/24 04:54 Test 10/15/24 04:54 Range/Units Serum Glucose 109 H 74-106 mg/dL Assessment/Plan Assessment: 1. End-stage renal disease on hemodialysis Sunday via left upper arm AV fistula. 2. Anemia of chronic kidney renal disease and GI bleed 3. Hypertension. 4. Diabetes type 2. 5. Metabolic acidosis managed with dialysis. Plan: Dialysis tomorrow Monitor H&H transfuse as needed for goal hemoglobin at least 7 grams/deciliter. Jagdeep for goal hemoglobin 10-11 grams/deciliter Fluid restriction less than 1 L per day. PPI IV, GI consult appreciated Plan of care discussed with the patient and in detail Thank you very much for allowing us to participate in the care of this patient. Dietary Evaluation Review Comments[facility] Standard diet after EGD. Consider iron supplementation,if Ferritin is low Expected Outcomes/Goals: follow HD routine, Plan discussed with: Patient NICK MACKAY MD Oct 15, 2024 16:36
[2024-10-15] MEDS ORDERED: EPOETIN ALFA-EPBX 10,000 UNIT/1ML VIAL SC ONE (21:00)
[2024-10-15] MEDS: EPOETIN ALFA-EPBX 10,000 UNIT/1ML VIAL SC ONE (23:10)
[2024-10-16] VITALS (8 sets, daily range): BP systolic 115–133; BP diastolic 47–61; PULSE 55–59; RESP 15–18; TEMP 97.4–98.3; O2SAT 96–100
[2024-10-16 06:48] LABS: Basophils # (auto) 0 10 ^3/uL (0-0.2); Basophils % (auto) 0.5 % (0.0-2.0); Eosinophils # (auto) 0.1 10 ^3/uL (0-0.8); Eosinophils % (auto) 1.4 % (0.0-7.0); Hemoglobin 8.1 g/dL (12.2-16.2); Lymphocytes # (auto) 1.4 10 ^3/uL (0.4-5.4); Monocytes # (auto) 0.8 10 ^3/uL (0-1.3); Red Cell Distribution Width 15.3 % (11.8-14.3)
[2024-10-16 06:50] LABS: Lymphocytes % (auto) 22.5 % (10.0-50.0); Mean Corpuscular Hemoglobin 35.1 pg (28.0-32.0); Mean Corpuscular Hgb Conc. 33.6 g/dL (32.0-36.0); Mean Corpuscular Volume 104.3 fL (80.0-100.0); Monocytes % (auto) 12.4 % (0.0-12.0); Neutrophils % (auto) 63.2 % (37.0-80.0); Nucleated Red Blood Cells % 0.2 %; Platelet Count (auto) 208 10^3/uL (140-450); White Blood Cell 6.4 10^3/uL (4.4-10.8)
[2024-10-16 06:57] LABS: Alanine Aminotransferase 18 U/L (7-40); Albumin 3.7 g/dL (3.2-4.8); Alkaline Phosphatase 100 U/L (46-116); Anion Gap 11 (5-15); Aspartate Aminotransferase 18 U/L (<34); Bilirubin, Total 0.3 mg/dL (0.2-1.0); Glucose 95 mg/dL (74-106); Magnesium 2.2 mg/dL (1.6-2.6); Potassium 4.6 mmol/L (3.5-5.1); Total Protein 6.9 g/dL (5.7-8.2)
[2024-10-16 07:00] LABS: Blood Urea Nitrogen 30 mg/dL (9-23); Calcium 8.6 mg/dL (8.7-10.4); Carbon Dioxide 31 mmol/L (20-31); Chloride 94 mmol/L (98-107); Sodium 136 mmol/L (136-145)
[2024-10-16 07:24] LABS: Folate (Folic Acid) 44.1 ng/mL (>5.38)
--- NOTE | 2024-10-16 11:26 | DVHPN2 ---
Subjective The patient is seen and examined at bedside. No complaint today. Reviewed: Care Plan, H&P, Labs, Medications, Previous Orders, Radiology Changes from previous H/P or p: No Changes Objective Vitals Vital Signs Date Time Temp Pulse Resp B/P (MAP) Pulse Ox O2 Delivery O2 Flow Rate FiO2 10/16/24 10:16 132/47 10/16/24 10:00 55 10/16/24 09:00 98.3 18 99 98.3 10/16/24 08:30 Nasal Cannula* 1 24 Intake/Output Intake and Output 10/16/24 07:00 Intake Total 764 ml Output Total 0 ml Balance 764 ml Intake Oral 754 ml IV Total 10 ml Output Urine Total 0 ml Stool Total 0 ml General Appearance: Alert, Oriented X3, Cooperative, No acute distress HEENT: Atraumatic, PERRLA, EOMI, Mucous membr. moist/pink Lungs: Clear to auscultation, Normal air movement Cardiovascular: Regular rate, Normal S1, Normal S2, No murmurs, Gallops, Rubs Abdomen: Normal bowel sounds, Soft, No tenderness Extremities: No edema Neuro: Cranial nerves 3-12 NL Psych/Mental Status: Mental status NL Medications Current Medications Medications Dose Ordered Sig/Kana Route Start Time Stop Time Status Last Admin Dose Admin Metoprolol Tartrate 50 mg BID PO 10/13/24 22:00 10/15/24 23:09 50 MG Amlodipine Besylate 10 mg DAILY PO 10/14/24 10:00 10/16/24 10:16 10 MG Furosemide 40 mg DAILY PO 10/14/24 10:00 10/16/24 10:16 40 MG Atorvastatin Calcium 40 mg HS PO 10/13/24 22:00 10/15/24 23:09 40 MG Diagnostic Test (Pha) 1 strip ACHS 10/13/24 22:00 10/16/24 06:36 1 STRIP Insulin Human Regular ACHS SC 10/13/24 22:00 10/15/24 23:15 6 UNITS Dextrose 50 ml UD PRN IV 10/13/24 19:30 Ondansetron HCl 4 mg Q4HP PRN IV 10/13/24 19:30 Pantoprazole Sodium 40 mg DAILY IV 10/14/24 10:00 10/16/24 10:16 40 MG Guaifenesin/ Dextromethorphan 10 ml Q6HP PRN PO 10/14/24 21:15 Laboratory Results Laboratory Tests 10/16/24 05:12 Chemistry Test 10/16/24 05:12 Albumin 3.7 g/dL (3.2-4.8) Calcium Level 8.6 mg/dL (8.7-10.4) L Magnesium Level 2.2 mg/dL (1.6-2.6) Total Protein 6.9 g/dL (5.7-8.2) LFT Test 10/16/24 05:12 Alanine Aminotransferase (ALT) 18 U/L (7-40) Alkaline Phosphatase 100 U/L (46-116) Aspartate Amino Transferase (AST) 18 U/L (<34) Total Bilirubin 0.3 mg/dL (0.2-1.0) Microbiology Microbiology Date/Time Source Procedure Growth Status 10/14/24 04:00 Nose MRSA Screen - Final Complete Labs and/or images reviewed: Labs reviewed by me Assessment/Plan Assessment/Plan Melena Rule out GI bleed Chronic anemia of chronic kidney disease End-stage renal disease on hemodialysis Type 2 diabetes Hypertension Plan IV Protonix GI consult Hemodialysis per nephrology Clear liquid diet Resume the home medications Monitor the hemoglobin closely Advance diet to soft diabetic diet. If tolerated discharge planning Plan discussed with: Patient Date of Service: Oct 16, 2024 Billing Provider: PRASANNA KOENIG MD Common Visit Codes: [id number] INP/OBS CARE(HIGH) PRASANNA KOENIG MD Oct 16, 2024 11:26
--- NOTE | 2024-10-16 15:07 | DVHPN2 ---
Progress Note - Dictate Date Seen: Oct 16, 2024 Medical Necessity Reason Pt with a Central, PICC or Fol: No Subjective Patient is feeling well dialysis was completed already. is at bedside. vital signs Vital Sign Date Time Temp Pulse Resp B/P (MAP) Pulse Ox O2 Delivery O2 Flow Rate FiO2 10/16/24 13:00 98.0 57 17 121/54 (76) 98 98.0 10/16/24 08:30 Nasal Cannula* 1 24 Total Intake and Output 10/15/24 10/15/24 10/16/24 15:00 23:00 07:00 Intake Total 10 ml 354 ml 400 ml Output Total 0 ml Balance 10 ml 354 ml 400 ml medications Current Medications Medications Dose Ordered Sig/Kana Route Start Time Stop Time Status Last Admin Dose Admin Metoprolol Tartrate 50 mg BID PO 10/13/24 22:00 10/15/24 23:09 50 MG Amlodipine Besylate 10 mg DAILY PO 10/14/24 10:00 10/16/24 10:16 10 MG Furosemide 40 mg DAILY PO 10/14/24 10:00 10/16/24 10:16 40 MG Atorvastatin Calcium 40 mg HS PO 10/13/24 22:00 10/15/24 23:09 40 MG Diagnostic Test (Pha) 1 strip ACHS 10/13/24 22:00 10/16/24 11:30 1 STRIP Insulin Human Regular ACHS SC 10/13/24 22:00 10/16/24 11:30 3 UNITS Dextrose 50 ml UD PRN IV 10/13/24 19:30 Ondansetron HCl 4 mg Q4HP PRN IV 10/13/24 19:30 Pantoprazole Sodium 40 mg DAILY IV 10/14/24 10:00 10/16/24 10:16 40 MG Guaifenesin/ Dextromethorphan 10 ml Q6HP PRN PO 10/14/24 21:15 objective HEENT: No evidence of JVD, no oral ulcers. Pulmonary: Lungs are clear on auscultation bilaterally Cardiovascular S1-S2, no S3 or S4 Abdomen: Bowel sounds positive, soft no rebound tenderness Skin: No rash Neurological: Alert, oriented, no focal weakness Access: Av fistula positive bruit and thrill laboratory and microbiology Laboratory Tests 10/16/24 05:12 Test 10/16/24 05:12 Range/Units Serum Glucose 95 74-106 mg/dL Assessment/Plan Assessment: 1. End-stage renal disease on hemodialysis Sunday via left upper arm AV fistula. 2. Anemia of chronic kidney renal disease and GI bleed 3. Hypertension. 4. Diabetes type 2. 5. Metabolic acidosis managed with dialysis. Plan: Continue dialysis Sunday Monitor H&H transfuse as needed for goal hemoglobin at least 7 grams/deciliter. Jagdeep for goal hemoglobin 10-11 grams/deciliter Fluid restriction less than 1 L per day. PPI IV, GI consult appreciated Plan of care discussed with the patient and in detail Okay to discharge from Nephrology perspective Thank you very much for allowing us to participate in the care of this patient. Dietary Evaluation Review Comments: Advance to [facility]-60 Renal Standard diet after EGD. Consider iron supplementation,if Ferritin is low Expected Outcomes/Goals: follow HD routine, Plan discussed with: Patient, Spouse NICK MACKAY MD Oct 16, 2024 15:07
[2024-10-16] MEDS ORDERED: MIDAZOLAM HCL 5 MG/ML-1ML VIAL ONE (17:16)
[2024-10-16] MEDS ORDERED: diphenhdrAMINE HCL 50 MG/1 ML VL ONE (17:16)
[2024-10-16] MEDS ORDERED: fentaNYL CITRATE 100 MCG/2 ML VL ONE (17:16)
[2024-10-16] MEDS ORDERED: LIDOCAINE VISCOUS 2% 15ML UD ONE (17:16)
[2024-10-16] MEDS ORDERED: EPOETIN ALFA-EPBX 10,000 UNIT/1ML VIAL SC ONE (21:00)
--- NOTE | 2024-10-16 22:26 | DVHPN2 ---
Progress Note - Dictate Date Seen: Oct 16, 2024 Medical Necessity Reason Pt with a Central, PICC or Fol: No Subjective No new complaints No active GI bleeding vital signs Vital Sign Date Time Temp Pulse Resp B/P (MAP) Pulse Ox O2 Delivery O2 Flow Rate FiO2 10/16/24 21:00 97.8 58 18 120/50 (73) 100 97.8 10/16/24 08:30 Nasal Cannula* 1 24 Total Intake and Output 10/15/24 10/15/24 10/16/24 15:00 23:00 07:00 Intake Total 10 ml 354 ml 400 ml Output Total 0 ml Balance 10 ml 354 ml 400 ml medications Current Medications Medications Dose Ordered Sig/Kana Route Start Time Stop Time Status Last Admin Dose Admin Metoprolol Tartrate 50 mg BID PO 10/13/24 22:00 10/15/24 23:09 50 MG Amlodipine Besylate 10 mg DAILY PO 10/14/24 10:00 10/16/24 10:16 10 MG Furosemide 40 mg DAILY PO 10/14/24 10:00 10/16/24 10:16 40 MG Atorvastatin Calcium 40 mg HS PO 10/13/24 22:00 10/15/24 23:09 40 MG Diagnostic Test (Pha) 1 strip ACHS 10/13/24 22:00 10/16/24 17:00 1 STRIP Insulin Human Regular ACHS SC 10/13/24 22:00 10/16/24 17:00 4 UNITS Dextrose 50 ml UD PRN IV 10/13/24 19:30 Ondansetron HCl 4 mg Q4HP PRN IV 10/13/24 19:30 Pantoprazole Sodium 40 mg DAILY IV 10/14/24 10:00 10/16/24 10:16 40 MG Guaifenesin/ Dextromethorphan 10 ml Q6HP PRN PO 10/14/24 21:15 objective General: NAD, AAOX3 Chest: lung saab clear to auscultation Heart: RRR, no murmur Abdomen: non-distended, mild epigastric tenderness to palpation, +BS laboratory and microbiology Laboratory Tests 10/16/24 05:12 Test 10/16/24 05:12 Range/Units Serum Glucose 95 74-106 mg/dL Problems(with codes): (1) Gastritis (2) Generalized weakness (3) ESRD needing dialysis (4) Altered mental status Prognosis Plan Protonix 40 mg p.o. twice a day Carafate 1 g p.o. twice a day Advance diet as tolerated Patient cleared for discharge from GI point of view Outpatient follow up with GI Services to discuss elective colonoscopy Dietary Evaluation Review Comments: [facility] Standard diet after EGD. Consider iron supplementation,if Ferritin is low Expected Outcomes/Goals: follow HD routine, Plan discussed with: Patient, Other ALEC HUTCHISON MD Oct 16, 2024 22:26
[2024-10-17 01:00] VITALS: BP 125/47; PULSE 57; RESP 17; TEMP 97.6; O2SAT 98
[2024-10-17 05:00] VITALS: BP 123/55; PULSE 51; RESP 17; TEMP 97.3; O2SAT 99
[2024-10-17] MEDS ORDERED: SODIUM CHL 0.9% 1000 ML BAG XX ONE (07:00)
[2024-10-17 08:30] VITALS: PULSE 69; RESP 17; O2SAT 99
[2024-10-17 09:00] VITALS: BP 129/47; PULSE 55; RESP 18; TEMP 98.3; O2SAT 99
[2024-10-17] MEDS ORDERED: SUCR1SUS26 PO (11:41)
[2024-10-17] MEDS ORDERED: PANT40TA2 PO (11:41)
[2024-10-17] MEDS ORDERED: FURO40TA4 PO (11:41)
[2024-10-17] MEDS ORDERED: MET50T PO (11:41)
--- NOTE | 2024-10-17 11:43 | DVHDS2 ---
Discharge Summary Date of Admission Oct 13, 2024 at 19:17 Date of Discharge: Oct 17, 2024 Admitting Diagnosis Rule out GI bleed Chronic anemia of chronic kidney disease End-stage renal disease on hemodialysis Type 2 diabetes Hypertension Labs/Diagnostic Data: Laboratory Results Test 10/17/24 06:16 10/16/24 05:12 10/15/24 05:32 10/14/24 10:02 POC Glucose 133 mg/dl (70-106) White Blood Count 6.4 10^3/uL (4.4-10.8) Red Blood Count 2.30 10^6/uL (4.0-5.20) Hemoglobin 8.1 g/dL (12.2-16.2) Hematocrit 24.0 % (36.0-46.0) Mean Corpuscular Volume 104.3 fL (80.0-100.0) Mean Corpuscular Hemoglobin 35.1 pg (28.0-32.0) Mean Corpuscular Hemoglobin Concent 33.6 g/dL (32.0-36.0) Red Cell Distribution Width 15.3 % (11.8-14.3) Platelet Count 208 10^3/uL (140-450) Mean Platelet Volume 8.9 fL (6.9-10.8) Neutrophils (%) (Auto) 63.2 % (37.0-80.0) Lymphocytes (%) (Auto) 22.5 % (10.0-50.0) Monocytes (%) (Auto) 12.4 % (0.0-12.0) Eosinophils (%) (Auto) 1.4 % (0.0-7.0) Basophils (%) (Auto) 0.5 % (0.0-2.0) Neutrophils # (Auto) 4.0 10 ^3/uL (1.6-8.6) Lymphocytes # (Auto) 1.4 10 ^3/uL (0.4-5.4) Monocytes # (Auto) 0.8 10 ^3/uL (0-1.3) Eosinophils # (Auto) 0.1 10 ^3/uL (0-0.8) Basophils # (Auto) 0 10 ^3/uL (0-0.2) Nucleated Red Blood Cells 0.2 % Sodium Level 136 mmol/L (136-145) Potassium Level 4.6 mmol/L (3.5-5.1) Chloride Level 94 mmol/L (98-107) Carbon Dioxide Level 31 mmol/L (20-31) Anion Gap 11 (5-15) Blood Urea Nitrogen 30 mg/dL (9-23) Creatinine 6.06 mg/dL (0.550-1.02) Glomerular Filtration Rate Calc 8 mL/min (>90) BUN/Creatinine Ratio 5.0 (10.0-20.0) Serum Glucose 95 mg/dL (74-106) Calcium Level 8.6 mg/dL (8.7-10.4) Magnesium Level 2.2 mg/dL (1.6-2.6) Total Bilirubin 0.3 mg/dL (0.2-1.0) Aspartate Amino Transferase (AST) 18 U/L (<34) Alanine Aminotransferase (ALT) 18 U/L (7-40) Alkaline Phosphatase 100 U/L (46-116) Total Protein 6.9 g/dL (5.7-8.2) Albumin 3.7 g/dL (3.2-4.8) Vitamin B12 Level 1652 pg/mL (211-911) Folic Acid 44.10 ng/mL (>5.38) Iron Level 39 ug/dL (50-170) Total Iron Binding Capacity 166 ug/dL (250-425) Percent Iron Saturation 23.5 % (15-50) Ferritin 1014.5 ng/mL (10-291) Prothrombin Time 12.3 sec (9.3-11.8) Prothrombin Time INR 1.18 (0.9-1.15) Activated Partial Thromboplast Time 29.9 SEC (24.5-34.5) Test 10/14/24 08:35 Stool Occult Blood Negative (Negative) Stool Occult Blood Sample #3 (Negative) Other Laboratory Tests 10/16/24 05:12 Brief Hx & Hospital Course: This is a 58 years old female come to emergency department because of black stool. The patient had noticed that her stool turned black for three weeks. The patient denied taking any iron pills. The patient denied taking any Pepto- Bismol. The patient was admitted. Hemoglobin was checked and was was 8.1. Occult blood also was checked and is negative. Subsequently the patient has an endoscopy done which showed Mild gastroduodenitis; duodenal biopsies were obtained. There was a 5 mm pre-pyloric antral inflammatory polyp with overlying erosion from which biopsies were obtained. 1-2 cm sliding-type hiatal hernia with no significant erosive esophagitis otherwise normal examination up to the 2nd and 3rd part of the duodenum with no active bleeding. Dr. Carr recommend to follow up as outpatient. Recommend Protonix 40 mg twice per day. Avoid aspirin and NSAID. The patient also received hemo dialysis per schedule in the hospital. Follow up with primary care physician 1-2 weeks. Activity as tolerated. Diet renal diet Physical exam: HEENT: Normocephalic atraumatic pupils equal react to light and accommodation. Extraocular muscles intact, conjunctiva pink, oropharynx moist, no thrush, no exudate. Lymphatic: No lymphadenopathy Cardiovascular exam: S1, S2 was heard. No murmurs, rubs, gallops Lung: Clear on auscultation bilaterally, no wheeze, rale, rhonchi. GI: Abdominal soft, nondistended, nontenderness, positive bowel sounds. Extremity: No crepitus, cyanosis, edema. Pedal pulses present bilateral. Full range of motion. Skin: Normal turgor, no rash. Psych: Alert, oriented x3. Neurology: No focal deficits, cranial nerve II to XII grossly intact. This medical document was created using an electronic medical record system with [employer] direct computerized dictation system. Although this document has been carefully reviewed, there may still be some phonetic and typographical errors. These areas are purely typographical due to imperfections of the software programs, and do not reflect any compromise in the patient's medical care. Condition at Discharge: Stable Final Diagnosis/Problems List Rule out GI bleed Gastritis Chronic anemia of chronic kidney disease End-stage renal disease on hemodialysis Type 2 diabetes Hypertension Discharge Disposition: Home Discharge Instruct/Medications Diet: Cardiac 2g Na,low cholest Activity: No Restrictions, As Tolerated Follow Up/Referral: pcp 1-2 weeks GI per schedule Medications: Protonix 40mg bid Carafate 1000mg tid Discharge Statement: "Patient was advised to return to the ER or call 911 if any headaches, dizziness, shortness of breath, chest pain, abdominal pain, bleeding, fevers, or worsening of medical condition. Patient was counseled about treatment plan, medications, possible side effects, patientverbalized understanding. All questions were answered to the best of my ability. This discharge took greater then 30 minutes in planning, reviewing documentation, counseling the patient, and discussing with other team members." ASSESSMENT ASSESSMENT Assessment GI bleed Date of Service: Oct 17, 2024 Billing Provider: PRASANNA KOENIG MD Common Visit Codes: 23087-WEP/OBS DISCH DAY >30min PRASANNA KOENIG MD Oct 17, 2024 11:43
[2024-10-17 12:49] VITALS: BP 143/57; PULSE 69; RESP 17; TEMP 97.8; O2SAT 90
--- NOTE | 2024-10-17 15:26 | DVHPN2 ---
Progress Note - Dictate Date Seen: Oct 17, 2024 Medical Necessity Reason Pt with a Central, PICC or Fol: No Subjective Patient is feeling well dialysis was completed already. is at bedside. vital signs Vital Sign Date Time Temp Pulse Resp B/P (MAP) Pulse Ox O2 Delivery O2 Flow Rate FiO2 10/17/24 14:54 143/57 10/17/24 12:49 97.8 69 17 90 97.8 10/17/24 08:30 Nasal Cannula* 1 24 Total Intake and Output 10/16/24 10/16/24 10/17/24 15:00 23:00 07:00 Intake Total 400 ml 200 ml Output Total 0 ml 0 ml Balance 400 ml 200 ml medications Current Medications Medications Dose Ordered Sig/Kana Route Start Time Stop Time Status Last Admin Dose Admin Metoprolol Tartrate 50 mg BID PO 10/13/24 22:00 10/16/24 22:17 50 MG Amlodipine Besylate 10 mg DAILY PO 10/14/24 10:00 10/17/24 14:53 10 MG Furosemide 40 mg DAILY PO 10/14/24 10:00 10/17/24 14:54 40 MG Atorvastatin Calcium 40 mg HS PO 10/13/24 22:00 10/16/24 22:13 40 MG Diagnostic Test (Pha) 1 strip ACHS 10/13/24 22:00 10/17/24 06:18 1 STRIP Insulin Human Regular ACHS SC 10/13/24 22:00 10/16/24 22:13 4 UNITS Dextrose 50 ml UD PRN IV 10/13/24 19:30 Ondansetron HCl 4 mg Q4HP PRN IV 10/13/24 19:30 Pantoprazole Sodium 40 mg DAILY IV 10/14/24 10:00 10/17/24 14:51 40 MG Guaifenesin/ Dextromethorphan 10 ml Q6HP PRN PO 10/14/24 21:15 objective HEENT: No evidence of JVD, no oral ulcers. Pulmonary: Lungs are clear on auscultation bilaterally Cardiovascular S1-S2, no S3 or S4 Abdomen: Bowel sounds positive, soft no rebound tenderness Skin: No rash Neurological: Alert, oriented, no focal weakness Access: Av fistula positive bruit and thrill laboratory and microbiology Laboratory Tests 10/16/24 05:12 Test 10/16/24 05:12 Range/Units Serum Glucose 95 74-106 mg/dL Assessment/Plan Assessment: 1. End-stage renal disease on hemodialysis Sunday via left upper arm AV fistula. 2. Anemia of chronic kidney renal disease and GI bleed 3. Hypertension. 4. Diabetes type 2. 5. Metabolic acidosis managed with dialysis. Plan: Dialysis was completed today Monitor H&H transfuse as needed for goal hemoglobin at least 7 grams/deciliter. Jagdeep for goal hemoglobin 10-11 grams/deciliter Fluid restriction less than 1 L per day. PPI IV, GI consult appreciated Plan of care discussed with the patient and in detail Okay to discharge from Nephrology perspective Thank you very much for allowing us to participate in the care of this patient. Dietary Evaluation Review Comments: Advance to [facility]-60 Renal Standard diet after EGD. Consider iron supplementation,if Ferritin is low Expected Outcomes/Goals: follow HD routine, Plan discussed with: Patient, Spouse NICK MACKAY MD Oct 17, 2024 15:26
[2024-10-17] MEDS: guaiFENesin-DM 100/10mg/5ml SYR PO PRN (17:54)
[2024-10-17] MEDS ORDERED: EPOETIN ALFA-EPBX 10,000 UNIT/1ML VIAL SC ONE (21:00)
--- NOTE | 2024-10-17 21:38 | DVHPN2 ---
Progress Note - Dictate Date Seen: Oct 17, 2024 (Late entry, patient seen at 3:00 p.m.) Medical Necessity Reason Pt with a Central, PICC or Fol: No Subjective No new complaints No active GI bleeding Tolerating diet vital signs Vital Sign Date Time Temp Pulse Resp B/P (MAP) Pulse Ox O2 Delivery O2 Flow Rate FiO2 10/17/24 14:54 143/57 10/17/24 12:49 97.8 69 17 90 97.8 10/17/24 08:30 Nasal Cannula* 1 24 Total Intake and Output 10/16/24 10/16/24 10/17/24 15:00 23:00 07:00 Intake Total 400 ml 200 ml Output Total 0 ml 0 ml Balance 400 ml 200 ml objective General: NAD, AAOX3 Chest: lung saab clear to auscultation Heart: RRR, no murmur Abdomen: non-distended, mild epigastric tenderness to palpation, +BS laboratory and microbiology Laboratory Tests 10/16/24 05:12 Test 10/16/24 05:12 Range/Units Serum Glucose 95 74-106 mg/dL Problems(with codes): (1) ESRD needing dialysis (2) Gastritis (3) Black stool (4) Generalized weakness (5) Acute coronary syndrome Prognosis Plan Discharge planning is in progress Protonix 40 mg p.o. daily Avoid aspirin NSAIDs Outpatient follow up with me for elective colonoscopy Dietary Evaluation Review Comments: Advance to [facility]-60 Renal Standard diet after EGD. Consider iron supplementation,if Ferritin is low Expected Outcomes/Goals: follow HD routine, Plan discussed with: Patient, Spouse, Other (Nurse) LAEC HUTCHISON MD Oct 17, 2024 21:38
== END 2024-10-17 19:26 | disposition home or self-care (01) | DRG 241 ==
LOC: ER 12:23 → OVERFLOW 19:17 → CENTRAL 10-14 03:16
PROVIDERS: ADMIT Internal Medicine; ATTEND Internal Medicine
PROC: 0DB78ZX Excision of Stomach, Pylorus, Via Natural or Artificial Opening Endoscopic, Diagnostic (ICD-10-PCS; 2024-10-15)
PROC: 5A1D70Z Performance of Urinary Filtration, Intermittent, Less than 6 Hours Per Day (ICD-10-PCS; 2024-10-15)
PROC: 0DB98ZX Excision of Duodenum, Via Natural or Artificial Opening Endoscopic, Diagnostic (ICD-10-PCS; principal; 2024-10-15 13:00)
DX: K29.91 Gastroduodenitis, unspecified, with bleeding (principal); E87.20 Acidosis, unspecified; I12.0 Hypertensive chronic kidney disease with stage 5 chronic kidney disease or end stage renal disease; D63.1 Anemia in chronic kidney disease; N18.6 End stage renal disease; K29.71 Gastritis, unspecified, with bleeding; E11.22 Type 2 diabetes mellitus with diabetic chronic kidney disease; Z99.2 Dependence on renal dialysis; K44.9 Diaphragmatic hernia without obstruction or gangrene; K21.9 Gastro-esophageal reflux disease without esophagitis; Z87.11 Personal history of peptic ulcer disease; Z82.49 Family history of ischemic heart disease and other diseases of the circulatory system
CPT/HCPCS: 36415; 43239; 71045; 80048; 80053; 82270; 82607; 82728; 82746; 82962; 83540; 83550; 83735; 85025; 85610; 85730; 86850; 86900; 86901; 87081; 90935; 93005; 96372; G0378; J1815; J2250; J2470

== ENCOUNTER 2024-10-31 12:09 | Inpatient (IN) | payer MEDICAID ==
[~2024-10-31] VITALS: Ht 154.9 cm; Wt 77.0 kg
[~2024-10-31 12:09] MED LIST changes: -ASPI-325 PO; +PANT40TA2 PO; +SUCR1SUS26 PO
--- NOTE | 2024-10-31 12:56 | ED.PDOC ---
History of Present Illness HPI Comments This is a 59 year old female presenting to the ED with chief complaint of SOB/abdominal pain. Patient reports that she has been experiencing SOB with associated abdominal pain/swelling and cough for the past 3 days. Patient denies any N/V/D, fever, chills, dysuria, chest pain, or dizziness. Time Seen by MD: 12:52 Primary Care Provider: JOEL Reviewed Notes: Nurses Notes, Medications, Allergies Allergies: Coded Allergies: No Known Drug Allergy (Verified Allergy, Unknown, 10/05/24) Home Meds Active Scripts Sucralfate (CARAFATE SUSP) 1 Gm/10 Ml Ss, 10 ML PO QID, #1200 ML 3 Refills Prov:PRASANNA KOENIG MD 10/17/24 Pantoprazole Sodium Sesquihydr (Protonix) 40 Mg Tab, 40 MG PO BID, #60 TAB Prov:PRASANNA KOENIG MD 10/17/24 Furosemide (Furosemide) 40 Mg Tab, 40 MG PO DAILY, #30 TAB Prov:PRASANNA KOENIG MD 10/17/24 Metoprolol Tartrate (LOPRESSOR TABLET) 50 Mg Tb, 50 MG PO BID, #60 TAB 5 Refills Prov:PRASANNA KOENIG MD 10/17/24 Doxycycline (Monohydrate) (Doxycycline) 100 Mg Cap, 100 MG PO BID for 7 Days, #14 CAP Prov:EVELIA HUDSON MEDICAL GENETICS DIRECTOR 10/07/24 Levofloxacin Hemihydrate (LEVOFLOXACIN) 750 Mg Tab, 750 MG PO DAILY for 5 Days, #5 TAB Prov:GENE WANG RESIDENT 09/05/24 Ondansetron Odt 4MG Tab (ZOFRAN PO) 4 Mg Tb, 4 MG PO Q6HP PRN for 7 Days, #16 TAB ODT TAB-DISSOLVE IN MOUTH, THEN SWALLOW Prov:SANAM JOHNSTON RESIDENT 08/28/24 Amoxicillin & Pot Clavulanate (AUGMENTIN TABLET) 875 Mg Tb, 500 MG PO BID for 7 Days, #14 TAB Prov:SANAM JOHNSTON RESIDENT 08/28/24 Reported Medications Furosemide (Furosemide) 40 Mg Tab, 1 TAB PO DAILY 10/05/24 Glipizide (Glipizide) 5 Mg Tab, 1 TAB PO DAILY 10/05/24 Ferrous Sulfate (Ferosul) 325 Mg Tab, 1 TAB PO BID 10/05/24 Dicyclomine Hcl (BENTYL CAPSULE) 10 Mg Cp, 1 CAP PO BIDPRN PRN 10/05/24 Guanfacine Hcl (Guanfacine Hcl) 1 Mg Tab, 1 TAB PO DAILY 10/05/24 Lidocaine-Prilocaine (Lidocaine/Prilocaine) 1 Kit Kit, 1 KIT EX DAILY for 30 Days, #30 08/27/24 Metformin Hydrochloride (Metformin Hcl) 1,000 Mg Tab, 1 TAB PO BID for 100 Days, #200 08/27/24 Hydroxyzine Pamoate (Hydroxyzine Pamoate) 25 Mg Cap, 1 CAP PO DAILYPRN for 30 Days, #30 08/27/24 Famotidine (Famotidine) 20 Mg Tab, 1 TAB PO DAILY PRN for HEARTBURN for 90 Days, #90 08/27/24 Guanfacine Hcl (Guanfacine Hcl) 1 Mg Tab, 1 TAB PO DAILY for 90 Days, #90 08/27/24 Losartan Potassium (Losartan Potassium) 100 Mg Tab, 1 TAB PO DAILY for 100 Days, #100 08/27/24 Insulin Lispro (Insulin Lispro Kwikpen) 100 Unit/Ml Inj, SC UD for 50 Days, #15 08/27/24 Insulin Glargine-Yfgn (Semglee) 100 Unit/Ml Inj, 30 UNIT SC HS for 30 Days, #30 08/27/24 Ergocalciferol (Vitamin D) 50,000 Unit Cap, 1 CAP PO QWEEKLY for 84 Days, #12 08/27/24 Chlorthalidone (Chlorthalidone) 25 Mg Tab, 1 TAB PO DAILY for 30 Days, #30 25 B-Complex W/ C & Folic Acid (Ernestina-Kaylie Rx) Tab, 1 TAB PO DAILY for 90 Days, #90 08/27/24 Rosuvastatin Calcium (Rosuvastatin Calcium) 20 Mg Tab, 1 TAB PO DAILY for 100 Da ys, #100 08/27/24 Semaglutide (Ozempic) 2 Mg/3 Ml Inj, 0.5 MG SC Q7D for 28 Days, #3 08/27/24 Fluticasone Propionate (Nasal) (Fluticasone Propionate) 50 Mcg/Act Spr, SPRAY NINO UD for 30 Days, #16 4/30/25 Loratadine (CLARITIN TABLET) 10 Mg Tb, 1 TAB PO DAILY for 14 Days, #14 08/27/24 Triamcinolone Acetonide (Kenalog) 1 Applic Ap, 1 APPLIC TOP UD for 30 Days, #45 08/27/24 Omeprazole (Gnp Omeprazole) 20 Mg Tab, 1 TAB PO DAILY for 30 Days, #30 08/27/24 Ketoconazole (Ketoconazole) 2 % Sha, UD for 30 Days, #120 08/27/24 Amlodipine Besylate (Amlodipine Besylate) 5 Mg Tab, 1 TAB PO DAILY for 90 Days, #90 06/23/24 Ferrous Sulfate (Ferosul) 325 Mg Tab, 1 TAB PO BID for 30 Days, #60 06/23/24 Furosemide (Furosemide) 40 Mg Tab, 1 TAB PO DAILY for 90 Days, #90 06/23/24 Carvedilol (Carvedilol) 12.5 Mg Tab, 1 TAB PO BID 06/23/24 Metoprolol Tartrate (LOPRESSOR TABLET) 50 Mg Tb, 1 TAB PO BID for 90 Days, #180 06/23/24 Information Source: Patient, Relative (Child) Mode of Arrival: Wheelchair Severity: Moderate Timing: Days Duration: Since onset Prehospital treatment: None Past Medical History PAST MEDICAL HISTORY: DM, ESRD, High Lipids, HTN Past Medical History (Other): Hiatal hernia, errosive esophagitis Surgical History: Denies all surgeries DIGITIZER OPERATOR History: Denies all DIGITIZER OPERATOR Hx Family History Family History: Reviewed,noncontributory to illness Social History Smoker: Non-Smoker Alcohol: Denies ETOH Use Drugs: Denies Drug Use Lives In: Home Constitutional: denies: chills, diaphoresis, fatigue, fever, malaise, sweats, weakness, others EENTM: denies: blurred vision, double vision, ear bleeding, ear discharge, ear drainage, ear pain, ear ringing, eye pain, eye redness, hearing loss, mouth pain, mouth swelling, nasal discharge, nose bleeding, nose congestion, nose pain, photophobia, tearing, throat pain, throat swelling, voice changes, others Respiratory: reports: cough, shortness of breath; denies: hemoptysis, orthopnea, SOB at rest, SOB with excertion, stridor, wheezing, others Cardiovascular: denies: chest pain, dizzy spells, diaphoresis, Dyspnea on exertion, edema, irregular heart beat, left arm pain, lightheadedness, palpitations, PND, syncope, others Gastrointestinal: reports: abdominal pain; denies: abdomen distended, blood streaked bowels, constipated, diarrhea, dysphagia, difficulty swallowing, hematemesis, melena, nausea, poor appetite, poor fluid intake, rectal bleeding, rectal pain, vomiting, others Genitourinary: denies: abnormal vagina bleeding, burning, dyspareunia, dysuria, flank pain, frequency, hematuria, incontinence, pain, , vagina discharge, urgency, others Neurological: denies: dizziness, fainting, headache, left sided numbness, left sided weakness, numbness, paresthesia, pre-existing deficit, right sided numbness, right sided weakness, seizure, speech problems, tingling, tremors, weakness, others Musculoskeletal: denies: back pain, gout, joint pain, joint swelling, muscle pain, muscle stiffness, neck pain, others Integumetry: denies: bruises, change in color, change in hair/nails, dryness, laceration, lesions, lumps, rash, wounds, others Allergic/Immunocompromised: denies: Difficulty Healing, Frequent Infections, Hives, Itching, others Hematologic/Lymphatic: denies: anemia, blood clots, easy bleeding, easy bruising, swollen glands, others Endocrine: denies: excessive hunger, excessive sweating, excessive thirst, excessive urination, flushing, intolerance to cold, intolerance to heat, unexplained weight gain, unexplained weight loss, others Psychiatric: denies: anxiety, bipolar disorder, depression, hopeless, panic disorder, schizophrenia, sleepless, suicidal, others All Other Systems: Reviewed and Negative Physical Exam General Appearance: No Apparent Distress, Normal HEENT: Normal ENT Inspection, Pharynx Normal, TMs Normal Neck: Full Range of Motion, Non-Tender, Normal, Normal Inspection Respiratory: Chest Non-Tender, Lungs Clear, No Accessory Muscle Use, No Respiratory Distress, Normal Breath Sounds Cardiovascular: No Edema, No JVD, No Murmur, No Gallop, Normal Peripheral Pulses, Regular Rate/Rhythm Breast Exam: Deferred Gastrointestinal: No Organomegaly, Non Tender, No Pulsatile Mass, Normal Bowel Sounds, Soft Genitalia: Deferred Pelvic: Deferred Rectal: Deferred Extremities: No calf tenderness, Normal capillary refill, Normal inspection, Normal range of motion, Non-tender, No pedal edema, Other (Left AV Fistula with good thrills and bruit) Musculoskeletal : Apperance: Normal Neurologic: Alert, assembly line brazer II-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 Was a procedure done?: No Differential Dx Considerations may include: pneumonia, chf, renal failure, ascites, respiratory failure, sepsis, copd, PE, pleural effusion, lung mass X-Ray, Labs, Meds, VS Vital Signs Date Time Temp Pulse Resp B/P (MAP) Pulse Ox O2 Delivery O2 Flow Rate FiO2 10/31/24 15:15 100.6 68 12 102/43 (62) 98 100.6 10/31/24 14:17 100.0 60 18 89/41 (57) 99 100.0 10/31/24 13:11 58 10/31/24 12:11 99.6 67 20 118/52 (74) 97 99.6 10/31/24 12:11 20 97 Room Air 0 Lab Test 10/31/24 14:37 10/31/24 13:30 10/31/24 13:08 Range/Units Troponin I High Sensitivity Pending 23 </=34 ng/L White Blood Count 10.2 4.4-10.8 10^3/uL Red Blood Count 2.56 L 4.0-5.20 10^6/uL Hemoglobin 8.7 L 12.2-16.2 g/dL Hematocrit 25.8 L 36.0-46.0 % Mean Corpuscular Volume 100.7 H 80.0-100.0 fL Mean Corpuscular Hemoglobin 34.0 H 28.0-32.0 pg Mean Corpuscular Hemoglobin Concent 33.8 32.0-36.0 g/dL Red Cell Distribution Width 16.6 H 11.8-14.3 % Platelet Count 186 140-450 10^3/uL Mean Platelet Volume 8.9 6.9-10.8 fL Neutrophils (%) (Auto) 80.6 H 37.0-80.0 % Lymphocytes (%) (Auto) 9.6 L 10.0-50.0 % Monocytes (%) (Auto) 9.3 0.0-12.0 % Eosinophils (%) (Auto) 0.3 0.0-7.0 % Basophils (%) (Auto) 0.2 0.0-2.0 % Neutrophils # (Auto) 8.2 1.6-8.6 10 ^3/uL Lymphocytes # (Auto) 1.0 0.4-5.4 10 ^3/uL Monocytes # (Auto) 0.9 0-1.3 10 ^3/uL Eosinophils # (Auto) 0 0-0.8 10 ^3/uL Basophils # (Auto) 0 0-0.2 10 ^3/uL Nucleated Red Blood Cells 0.0 % Sodium Level 134 L 136-145 mmol/L Potassium Level 3.3 L 3.5-5.1 mmol/L Chloride Level 92 L 98-107 mmol/L Carbon Dioxide Level 31 20-31 mmol/L Anion Gap 11 5-15 Blood Urea Nitrogen 19 9-23 mg/dL Creatinine 3.62 H 0.550-1.02 mg/dL Glomerular Filtration Rate Calc 14 >90 mL/min BUN/Creatinine Ratio 5.2 L 10.0-20.0 Serum Glucose 223 H 74-106 mg/dL Calcium Level 9.4 8.7-10.4 mg/dL POC Glucose 217 H 70-106 mg/dl Chest XR: FINDINGS: There is increased right basilar opacity. The left lung is clear. No pneumothorax or pulmonary edema.. The heart is enlarged. IMPRESSION: 1. Increased right lung base infiltrate and/or effusion. 2. The left lung is clear. 3. Cardiomegaly. Images Reviewed?: Images reviewed and evaluated by me Time of 1ST Reevaluation: 13:52 Reevaluation 1ST: Unchanged Patient Education/Counseling: Diagnosis, Treatment Family Education/Counseling: Diagnosis, Treatment Additional Information Reviewed patient's previous visit(s): 10/13/24 for GI bleed, 10/05/24 for Acute hypoxic respiratory failure The following tests were ordered, and results were reviewed by me: CBC, BMP, Troponin, EKG, Chest XR Additional information was gathered from interviewing the following independent historian: Son I reviewed and agreed with the following test results read by other provider: Chest XR I discussed treatments and results with medical personnel and: Patient and Son Comprehensive systems review obtained and negative except for what is stated in the HPI. SEPSIS Sepsis Screen Date sepsis recognized/suspect: Oct 31, 2024 Time Sepsis recognized/suspect: 15:25 Recent Procedure: No On Antibiotic Therapy: No Respiratory Rate >20: No Heart Rate >90: No SBP <90 or MAP <65 mmHG: Yes New Acute Mental Status Change: No Is the patient on CPAP, BIPAP,: No Physician Orders Chest Portable (10/31/24 12:52) Continuous Ekg Monitoring 08,12,16,20,00,04 (10/31/24 12:52) Electrocardigram (10/31/24 13:52) Electrocardigram (10/31/24 15:52) Troponin-I Hs (10/31/24 13:52) Troponin-I Hs (10/31/24 15:52) Comprehensive Metabolic Panel (10/31/24 15:23) PTPTT (10/31/24 15:23) Urinalysis (10/31/24 15:23) Accucheck (10/31/24 15:23) Lactated Ringer's (10/31/24 15:30) Blood Culture (10/31/24 15:23) Vancomycin 1gm/200ml Pm (10/31/24 15:30) Lactic Acid W/ Reflex Order (10/31/24 16:00) Lactic Acid W/ Reflex Order (10/31/24 18:00) Cefepime 1gm/ 50ml (Maxipime 1gm/50ml) (10/31/24 22:00) Notify Md If Map <65 Or Bp<90 (10/31/24 15:23) If Map<65 Start Vasopressor (10/31/24 15:23) Vital Signs Date Time Temp Pulse Resp B/P (MAP) Pulse Ox O2 Delivery O2 Flow Rate FiO2 10/31/24 15:15 100.6 68 12 102/43 (62) 98 100.6 10/31/24 14:17 100.0 60 18 89/41 (57) 99 100.0 10/31/24 13:11 58 10/31/24 12:11 99.6 67 20 118/52 (74) 97 99.6 10/31/24 12:11 20 97 Room Air 0 Laboratory Tests Test 10/31/24 13:30 White Blood Count 10.2 10^3/uL (4.4-10.8) Reassessment Post Fluid SEPSIS FOCUS EXAM(REASSESSMENT Sepsis Exclusion Note: Patient presents with SIRS criteria, but the SIRS response is attributed to [ ], not a suspected infection. Sepsis bundle is not initiated at this time, due to this reason. Further management will focus on the treatment of the above condition (s).Sepsis reassessment focused exam completed. Date: 10/31/24 Time 15:26 Departure 1 Departure Time of Disposition: 15:47 Impression: Primary Impression: Sepsis Qualified Codes: A41.9 - Sepsis, unspecified organism; R65.20 - Severe sepsis without septic shock Additional Impressions: Pneumonia Qualified Codes: J18.9 - Pneumonia, unspecified organism ESRD (end stage renal disease) Anemia Qualified Codes: N18.6 - End stage renal disease; D63.1 - Anemia in chronic kidney disease; Z99.2 - Dependence on renal dialysis Disposition: ADMITTED INPATIENT Admit to: Tele Condition: Serious Discharged With: Self, Relative Critical Care Note Critical Care Time?: Yes (55 min-critical care time only) Critical care comment: due to concerns for patient's condition deteriorating, the care required my highest level of attention and readiness to intervene. i assessed the patient's condition, ordered the proper tests and treatments, reassessed for response and reviewed the results. i communicated with medical personnel and formulated a plan of care. total critical care time does not include any procedures Stability Stability form required: No Heart Score Heart Score: Heart Score Response (Comments) Value History N/A 0 EKG N/A 0 Age N/A 0 Risk Factors N/A 0 Troponin N/A 0 Total 0 I personally scribed for MYRON ROMERO MD ([email or web address]) on 10/31/24 at 12:56. Electronically submitted by Matthew Bain ([email or web address]). I personally scribed for MYRON ROMERO MD ([email or web address]) on 10/31/24 at 13:37. Electronically submitted by Matthew Bain ([email or web address]). MYRON ROMERO MD Oct 31, 2024 12:56
--- NOTE | 2024-10-31 13:12 | ECG ---
[facility] Test Date: 2024-10-31 Test Time: 13:11:40 Pat Name: MICHAEL REYNOLDS Department: ER Room: 0240T Gender: F Commissions Specialist: BHAVESH : 1965 Requested By: MYRON ROMERO Order Number: [id number] Reading MD: Vlad Medina Measurements Intervals [place] Rate: 58 P: 6 CT: 163 QRS: 5 QRSD: 99 T: 10 QT: 610 QTc: 600 Interpretive Statements Sinus rhythm Nonspecific T abnormalities, anterior leads Prolonged QT interval Electronically Signed On 11-06-2024 18:14:24 PDT by Vlad Medina Please click the below link to view image of tracing.
--- NOTE | 2024-10-31 13:33 | DVH ---
EXAM: XY CHEST PORTABLE HISTORY: sob COMPARISON: XY CHEST PORTABLE on DOS: 10/13/24, XY CHEST PORTABLE on DOS: 10/05/24 TECHNIQUE: Portable upright AP view of the chest was performed. FINDINGS: There is increased right basilar opacity. The left lung is clear. No pneumothorax or pulmonary maia a.. The heart is enlarged. IMPRESSION: 1. Increased right lung base infiltrate and/or effusion. 2. The left lung is clear. 3. Cardiomegaly.
[2024-10-31 13:47] LABS: Hematocrit 25.8 % (36.0-46.0); Hemoglobin 8.7 g/dL (12.2-16.2); Mean Corpuscular Hemoglobin 34.0 pg (28.0-32.0); Mean Corpuscular Volume 100.7 fL (80.0-100.0); Nucleated Red Blood Cells % 0.0 %
[2024-10-31 13:55] LABS: Anion Gap 11 (5-15); Carbon Dioxide 31 mmol/L (20-31)
[2024-10-31 13:56] LABS: Calcium 9.4 mg/dL (8.7-10.4)
[2024-10-31 14:01] LABS: BUN/Creatinine Ratio 5.2 (10.0-20.0); Blood Urea Nitrogen 19 mg/dL (9-23)
[2024-10-31 14:08] LABS: Chloride 92 mmol/L (98-107); Glucose 223 mg/dL (74-106); Potassium 3.3 mmol/L (3.5-5.1); Sodium 134 mmol/L (136-145)
[2024-10-31 15:00] VITALS: PULSE 68; RESP 12; O2SAT 98
[2024-10-31] MEDS ORDERED: LACTATED RINGER'S 1,450 ML IV ONE (15:30)
[2024-10-31 16:35] LABS: INR 1.16 (0.9-1.15); Partial Thromboplastin Time 29.6 SEC (24.5-34.5); Prothrombin Time 12.1 sec (9.3-11.8)
[2024-10-31] MEDS: CEFEPIME 1GM/ 50ML 50 ML IV ONE (16:52)
[2024-10-31 17:22] LABS: Alanine Aminotransferase 28 U/L (7-40); Albumin 3.8 g/dL (3.2-4.8); Anion Gap 13 (5-15); BUN/Creatinine Ratio 5.9 (10.0-20.0); Bilirubin, Total 0.6 mg/dL (0.2-1.0); Calcium 9.7 mg/dL (8.7-10.4); Carbon Dioxide 30 mmol/L (20-31); Potassium 3.7 mmol/L (3.5-5.1); Total Protein 6.7 g/dL (5.7-8.2)
[2024-10-31 17:33] LABS: Alkaline Phosphatase 125 U/L (46-116); Blood Urea Nitrogen 24 mg/dL (9-23); Chloride 93 mmol/L (98-107); Glucose 239 mg/dL (74-106); Sodium 136 mmol/L (136-145)
[2024-10-31] MEDS: VANCOMYCIN 1GM/200ML PM 200 ML IV ONE (17:50)
[2024-10-31 19:55] VITALS: PULSE 70; RESP 18; O2SAT 97
[2024-10-31] MEDS: HYDROcodone-ACET 5/325MG TAB PO ONE (20:44)
[2024-10-31] MEDS ORDERED: hydrALAZINE HCL 20 MG/ML VL IV PRN (21:15)
[2024-10-31] MEDS ORDERED: HYDROcodone-ACET 5/325MG TAB PO PRN (21:15)
[2024-10-31] MEDS: AZITHROMYCIN 500MG/ 250ML 250 ML IV ONE (21:15)
[2024-10-31] MEDS ORDERED: DEXTROSE (50%) 50ML SYRG IV PRN (21:15)
[2024-10-31] MEDS: FAMOTIDINE (10MG/ML) 2ML VL IV SCH (21:30)
[2024-10-31] MEDS: ATORVASTATIN 20 MG TAB PO SCH (22:09)
--- NOTE | 2024-10-31 22:50 | DVHHP2 ---
History of Present Illness Reason for Visit: Pneumonia, unspecified organism History of Present Illness The patient is a 59-year-old female with past medical history of end-stage renal disease on hemodialysis, DM, hypertension, hyperlipidemia, anemia, and erosive esophagitis presented to [facility] ED with complaint of abdominal pain. Patient reports she has been experiencing abdominal pain associated with shortness of breaths, cough, abdominal swelling, getting worse that prompted this visit. Patient was seen and evaluated in the ED, laboratory data shows WBC 10.2, hemoglobin 8.7, hematocrit 25.8, platelets 186, sodium 136, potassium 3.7, BUN 24, creatinine 4.04, GFR 12, glucose 239, calcium 9.7, troponin 22, blood pressure 105/78, heart rate 78, temperature 98.1 F, O2 saturation 97% on room air. Chest x-ray revealing increased right lung base infiltrate and/or effusion, the left lung is clear, cardiomegaly. Nephrology team will follow the patient. Patient was started on IV antibiotic regimen Rocephin, please see medication orders section in the computer. On my assessment, patient denied chest pain, no headache, no dizziness, no shortness of breath, no abdominal pain at this moment, no nausea, no vomiting, no fever, no chills. Patient was admitted for further evaluation and medical management. Past Medical History DM, ESRD, High Lipids, HTN, Hiatal hernia, Erosive esophagitis Past Surgical History Dialysis access Family History Reviewed, noncontributory to the management of this case. Past Social History The patient lives at home, denies smoking, alcohol or illicit drugs abuse. Review of Systems Constitutional: Yes: Weakness; No: Fever, Chills, Sweats, Malaise, Other Eyes: No: Pain, Vision change, Conjunctivae inflammation, Eyelid inflammation, Other, Redness ENT: No: Ear pain, Ear discharge, Nose pain, Nose discharge, Nose congestion, Mouth pain, Mouth swelling, Throat pain, Throat swelling, Other Respiratory: Cough, Shortness of breath; No: Dry, SOB with excertion, Wheezing, Hemoptysis, Pleuritic Pain, Sputum, Wheezing, Other Cardiovascular: No: Chest Pain, Palpitations, Orthopnea, Paroxysmal Noc. Dyspnea, Edema, Lt Headedness, Other Gastrointestinal: Abdominal Pain, Other (Abdominal distention); No: Nausea, Vomiting, Diarrhea, Constipation, Melena, Hematochezia Genitourinary: No Dysuria, No Frequency, No Incontinence, No Hematuria, No Retention; Other (On hemodialysis) Musculoskeletal: No: other, neck pain, shoulder pain, arm pain, back pain, hand pain, leg pain, foot pain Skin: No: Rash, Lesions, Jaundice, Bruising, Other Neurological: No: Weakness, Numbness, Incoordination, Change in speech, Confusion, Seizures, Other Allergies: Coded Allergies: No Known Drug Allergy (Verified Allergy, Unknown, 10/05/24) Medications Current Medications Medications Dose Ordered Sig/Kana Route Start Time Stop Time Status Last Admin Dose Admin Hydralazine HCl 10 mg Q6HP PRN IV 10/31/24 21:15 Ceftriaxone Sodium 50 ml @ 100 mls/hr DAILY@09 IV 11/01/24 09:00 Azithromycin 250 ml @ 125 mls/hr DAILY IV 11/01/24 10:00 Sevelamer HCl 800 mg TIDWM PO 11/01/24 08:00 Multivit/Ca Carb/ B Cmplx/FA/Prenat 1 tab DAILY PO 11/01/24 10:00 Famotidine 10 mg Q24H IV 10/31/24 21:30 10/31/24 21:30 10 MG Diagnostic Test (Pha) 1 strip IQ4HR 11/01/24 00:00 Insulin Human Regular IQ4HR SC 11/01/24 00:00 Dextrose 50 ml UD PRN IV 10/31/24 21:15 Acetaminophen/ Hydrocodone Bitart 1 tab Q4HP PRN PO 10/31/24 21:15 Ondansetron HCl 4 mg Q4HP PRN IV 10/31/24 21:15 Docusate Sodium 100 mg BIDPRN PRN PO 10/31/24 21:15 Acetaminophen 650 mg Q6HP PRN PO 10/31/24 21:15 Atorvastatin Calcium 10 mg HS PO 10/31/24 22:00 10/31/24 22:09 10 MG Exam Vital Signs Vital Signs Date Time Temp Pulse Resp B/P (MAP) Pulse Ox O2 Delivery O2 Flow Rate FiO2 10/31/24 19:55 98.1 78 18 105/78 (87) 97 98.1 10/31/24 19:55 Room Air* 0 21 General Appearance: Alert, Oriented X3, Cooperative, No acute distress HEENT: Atraumatic, PERRLA, EOMI, Mucous membr. moist/pink Respiratory: Normal air movement Cardiovascular: Regular rate, Normal S1, Normal S2, No murmurs Abdominal: Normal bowel sounds, Soft, No tenderness, No hepatospenomegaly, No masses Extremities: No clubbing, No cyanosis, No edema, Normal pulses, No tenderness/swelling Skin: No rashes, No significant lesion Neuro: Normal speech, Normal tone, Sensation intact, Cranial nerves 3-12 NL, Reflexes 2+, Other (Generalized weakness) Psych/Mental Status: Mental status NL, Mood NL Labs/Xrays Labs Test 10/31/24 16:32 10/31/24 13:33 10/31/24 13:30 10/31/24 13:08 Range/Units Sodium Level 136 136-145 mmol/L Potassium Level 3.7 3.5-5.1 mmol/L Chloride Level 93 L 98-107 mmol/L Carbon Dioxide Level 30 20-31 mmol/L Anion Gap 13 5-15 Blood Urea Nitrogen 24 H 9-23 mg/dL Creatinine 4.04 H 0.550-1.02 mg/dL Glomerular Filtration Rate Calc 12 >90 mL/min BUN/Creatinine Ratio 5.9 L 10.0-20.0 Serum Glucose 239 H 74-106 mg/dL Lactic Acid Level 1.6 0.4-2.0 mmol/L Calcium Level 9.7 8.7-10.4 mg/dL Total Bilirubin 0.6 0.2-1.0 mg/dL Aspartate Amino Transferase (AST) 25 13-40 U/L Alanine Aminotransferase (ALT) 28 7-40 U/L Alkaline Phosphatase 125 H 46-116 U/L Troponin I High Sensitivity 22 </=34 ng/L Total Protein 6.7 5.7-8.2 g/dL Albumin 3.8 3.2-4.8 g/dL Prothrombin Time 12.1 H 9.3-11.8 sec Prothrombin Time INR 1.16 H 0.9-1.15 Activated Partial Thromboplast Time 29.6 24.5-34.5 SEC White Blood Count 10.2 4.4-10.8 10^3/uL Red Blood Count 2.56 L 4.0-5.20 10^6/uL Hemoglobin 8.7 L 12.2-16.2 g/dL Hematocrit 25.8 L 36.0-46.0 % Mean Corpuscular Volume 100.7 H 80.0-100.0 fL Mean Corpuscular Hemoglobin 34.0 H 28.0-32.0 pg Mean Corpuscular Hemoglobin Concent 33.8 32.0-36.0 g/dL Red Cell Distribution Width 16.6 H 11.8-14.3 % Platelet Count 186 140-450 10^3/uL Mean Platelet Volume 8.9 6.9-10.8 fL Neutrophils (%) (Auto) 80.6 H 37.0-80.0 % Lymphocytes (%) (Auto) 9.6 L 10.0-50.0 % Monocytes (%) (Auto) 9.3 0.0-12.0 % Eosinophils (%) (Auto) 0.3 0.0-7.0 % Basophils (%) (Auto) 0.2 0.0-2.0 % Neutrophils # (Auto) 8.2 1.6-8.6 10 ^3/uL Lymphocytes # (Auto) 1.0 0.4-5.4 10 ^3/uL Monocytes # (Auto) 0.9 0-1.3 10 ^3/uL Eosinophils # (Auto) 0 0-0.8 10 ^3/uL Basophils # (Auto) 0 0-0.2 10 ^3/uL Nucleated Red Blood Cells 0.0 % POC Glucose 217 H 70-106 mg/dl PATIENT: MICHAEL REYNOLDS ACCT: [id number] UNIT: [id number] : 1965 LOC: ER ROOM / BED: / AGE / SEX: 59 / F ADM STATUS: REG ER SERVICE 1252 ORDERING PHYSICIAN: MYRON ROMERO MD PROCEDURE(s): CXRP - CHEST PORTABLE REASON: sob ORDER NUMBER(s): [id number], ACCESSION NUMBER(s): [id number] EXAM: XY CHEST PORTABLE HISTORY: sob COMPARISON: XY CHEST PORTABLE on DOS: 10/13/24, XY CHEST PORTABLE on DOS: 10/05/24 TECHNIQUE: Portable upright AP view of the chest was performed. FINDINGS: There is increased right basilar opacity. The left lung is clear. No pneumothorax or pulmonary edema.. The heart is enlarged. IMPRESSION: 1. Increased right lung base infiltrate and/or effusion. 2. The left lung is clear. 3. Cardiomegaly. Assessment/Plan Assessment/Plan Pneumonia, unspecified organism Generalized weakness End stage renal disease on dialysis Anemia in chronic kidney disease Dependence on renal dialysis Diabetes mellitus with hyperglycemia Plan 1. Admit to telemetry unit 2. Breathing treatment 3. Pain control management 4. IV antibiotic management 5. Management of fluids and electrolytes 6. Consultation for Nephrology 7. Diagnostic test chest x-ray 8. DVT prophylaxis-on SCDs 9. Repeat labs CBC, CMP in a.m. 10. Home medication reviewed and reconciled 11. Continue with current medical management 12. Treatment plan discussed with patient and RN. Patient verbalized understanding. Plan discussed with: Patient, Other (RN) My Orders Orders - FADI GAYLE DNP Procedure Category Date Status Time Hydrocodone-Acet PHA 11/01/24 In Process 5/325mg Tab ([place] 00:00 Consistent DIET 11/01/24 Transmitted Carb(Ccho)Diabetes Breakfast Hydralazine Injection PHA 10/31/24 In Process (Apresoline Inject 21:15 Ceftriaxone 1gm/50ml PHA 11/01/24 In Process D5w (Rocephin) 09:00 Azithromycin 500mg/ PHA 11/01/24 In Process 250ml (Zithromax 50 10:00 Azithromycin 500mg/ PHA 10/31/24 In Process 250ml (Zithromax 50 21:15 *[facility] CONS 10/31/24 Transmitted -[place] 21:10 Type And Screen BBK 10/31/24 In Process 21:10 Sevelamer (Renagel) PHA 11/01/24 In Process 08:00 B-Complex W/ C & PHA 11/01/24 In Process Folic Tablet 10:00 Famotidine Injection PHA 10/31/24 In Process (Pepcid Injection) 21:30 Glucose Blood PHA 11/01/24 In Process (Accu-Chek Comfort 00:00 Insulin R (Human) PHA 11/01/24 In Process (Insulin R) 00:00 Dextrose 50% Syringe PHA 10/31/24 In Process 21:15 Allergies SONAM 10/31/24 In Process 21:10 Code Status CODE 10/31/24 Transmitted 21:10 Renal DIET 11/01/24 Transmitted Standard(2gna,3gk,Lopho) Breakfast Oxygen Per Hour RT 10/31/24 Transmitted 21:10 Hydrocodone-Acet PHA 10/31/24 In Process 5/325mg Tab ([place] 21:15 Ondansetron Hcl PHA 10/31/24 In Process (Zofran) 21:15 Docusate Sodium PHA 10/31/24 In Process Capsule (Colace 21:15 Complete Blood Count LAB 11/01/24 Verified 04:00 Comprehensive LAB 11/01/24 Verified Metabolic Panel 04:00 Condition: Serious SONAM 10/31/24 In Process 21:10 Acetaminophen Tablet PHA 10/31/24 In Process (Tylenol Tablet) 21:15 Bedrest With Bathroom SONAM 10/31/24 In Process Privileg 21:10 Sequential SONAM 10/31/24 In Process Compression Device Atorvastatin (Lipitor) PHA 10/31/24 In Process 22:00 Problem List: (1) Pneumonia, unspecified organism (2) Generalized weakness (3) End stage renal failure on dialysis (4) Anemia in chronic kidney disease (5) Dependence on renal dialysis (6) Diabetes mellitus with hyperglycemia Date of Service: Oct 31, 2024 Billing Provider: FADI GAYLE DNP Common Visit Codes: [id number] INP/OBS CARE (HIGH) FADI GAYLE DNP Oct 31, 2024 22:50
[2024-10-31] MEDS ORDERED: NITROGLYCERIN 0.4 MG SL TAB SL PRN (23:00)
[2024-10-31] MEDS ORDERED: MORPHINE SULFATE INJ 2 MG/ml SYRG IV PRN (23:00)
[2024-10-31] MEDS ORDERED: CEFEPIME 1GM/ 50ML 50 ML IV SCH (23:59)
[2024-11-01] VITALS (7 sets, daily range): BP systolic 98–134; BP diastolic 42–61; PULSE 52–69; RESP 12–18; TEMP 97.4–98.6; O2SAT 93–99
[2024-11-01] MEDS: ACCU-CHEK COMFORT CURVE STRIP VI SCH (00:39)
[2024-11-01] MEDS: InsuLIN REG 1unit/0.01ml Soln (100units/ml) SC SCH (00:52)
[2024-11-01] MEDS: DOCUSATE SOD 100 MG CAP PO PRN (01:38)
[2024-11-01] MEDS: SEVELAMER 800 MG TAB PO SCH (07:36)
[2024-11-01 07:51] LABS: Hematocrit 25.8 % (36.0-46.0); Hemoglobin 8.5 g/dL (12.2-16.2); Mean Corpuscular Hemoglobin 33.3 pg (28.0-32.0); Mean Corpuscular Volume 100.9 fL (80.0-100.0); Nucleated Red Blood Cells % 0.0 %
[2024-11-01 08:09] LABS: Alanine Aminotransferase 26 U/L (7-40); Albumin 4.0 g/dL (3.2-4.8); Anion Gap 12 (5-15); BUN/Creatinine Ratio 5.5 (10.0-20.0); Calcium 9.8 mg/dL (8.7-10.4); Carbon Dioxide 30 mmol/L (20-31); Potassium 3.7 mmol/L (3.5-5.1); Total Protein 7.1 g/dL (5.7-8.2)
[2024-11-01 08:10] LABS: Bilirubin, Total 0.6 mg/dL (0.2-1.0)
[2024-11-01 08:21] LABS: Alkaline Phosphatase 117 U/L (46-116); Blood Urea Nitrogen 29 mg/dL (9-23); Chloride 93 mmol/L (98-107); Glucose 237 mg/dL (74-106); Sodium 135 mmol/L (136-145)
[2024-11-01] MEDS: cefTRIAXone 1GM/50ML D5W 50 ML IV SCH (09:00)
[2024-11-01] MEDS: B-COMPLEX W/ C & FOLIC ACID(NEPHROVITE TAB) PO SCH (10:00)
--- NOTE | 2024-11-01 10:06 | DVHINCON2 ---
Date of service: Nov 01, 2024 Referring Physician Erik Arteaga NP Reason for Consultation End-stage kidney disease History of Present Illness This is a 59-year-old female with a history of end-stage kidney disease on hemodialysis presenting to the emergency room because of the abdominal pain. She has a history of erosive esophagitis. Also complaining of mild shortness of breath. Admitted for further evaluation and workup. Nephrology consulted for dialysis. Patient undergoes dialysis on Sunday schedule. Past Medical History End-stage kidney disease Type 2 diabetes with complications Hyperlipidemia Erosive esophagitis Past Surgical History Dialysis access Family History: Cardiovascular disease G8 FATHER, (HEART ATTACK) FH: OR (myocardial infarction) G8 FATHER FH: cancer G8 MOTHER Social History No active history of smoking alcohol or drug abuse Allergies: Coded Allergies: No Known Drug Allergy (Verified Allergy, Unknown, 10/05/24) Home Meds Active Scripts Sucralfate (CARAFATE SUSP) 1 Gm/10 Ml Ss, 10 ML PO QID, #1200 ML 3 Refills Prov:PRASANNA KOENIG MD 10/17/24 Ondansetron Odt 4MG Tab (ZOFRAN PO) 4 Mg Tb, 4 MG PO Q6HP PRN for 7 Days, #16 TAB ODT TAB-DISSOLVE IN MOUTH, THEN SWALLOW Prov:SANAM JOHNSTON RESIDENT 08/28/24 Reported Medications Furosemide (Furosemide) 40 Mg Tab, 1 TAB PO DAILY 10/05/24 Ferrous Sulfate (Ferosul) 325 Mg Tab, 1 TAB PO BID 10/05/24 Dicyclomine Hcl (BENTYL CAPSULE) 10 Mg Cp, 1 CAP PO BIDPRN PRN 10/05/24 Lidocaine-Prilocaine (Lidocaine/Prilocaine) 1 Kit Kit, 1 KIT EX DAILY for 30 Days, #30 08/27/24 Hydroxyzine Pamoate (Hydroxyzine Pamoate) 25 Mg Cap, 1 CAP PO DAILYPRN for 30 Days, #30 08/27/24 Famotidine (Famotidine) 20 Mg Tab, 1 TAB PO DAILY PRN for HEARTBURN for 90 Days, #90 08/27/24 Guanfacine Hcl (Guanfacine Hcl) 1 Mg Tab, 1 TAB PO DAILY for 90 Days, #90 08/27/24 Losartan Potassium (Losartan Potassium) 100 Mg Tab, 1 TAB PO DAILY for 100 Days, #100 4/30/25 Ergocalciferol (Vitamin D) 50,000 Unit Cap, 1 CAP PO QWEEKLY for 84 Days, #12 08/27/24 Chlorthalidone (Chlorthalidone) 25 Mg Tab, 1 TAB PO DAILY for 30 Days, #30 08/27/24 B-Complex W/ C & Folic Acid (Ernestina-Kaylie Rx) Tab, 1 TAB PO DAILY for 90 Days, #90 08/27/24 Semaglutide (Ozempic) 2 Mg/3 Ml Inj, 0.5 MG SC Q7D for 28 Days, #3 08/27/24 Fluticasone Propionate (Nasal) (Fluticasone Propionate) 50 Mcg/Act Spr, SPRAY NINO UD for 30 Days, #16 08/27/24 Triamcinolone Acetonide (Kenalog) 1 Applic Ap, 1 APPLIC TOP UD for 30 Days, #45 08/27/24 Omeprazole (Gnp Omeprazole) 20 Mg Tab, 1 TAB PO DAILY for 30 Days, #30 08/27/24 Ketoconazole (Ketoconazole) 2 % Sha, UD for 30 Days, #120 08/27/24 Amlodipine Besylate (Amlodipine Besylate) 5 Mg Tab, 1 TAB PO DAILY for 90 Days, #90 06/23/24 Carvedilol (Carvedilol) 12.5 Mg Tab, 1 TAB PO BID 06/23/24 Metoprolol Tartrate (LOPRESSOR TABLET) 50 Mg Tb, 1 TAB PO BID for 90 Days, #180 06/23/24 Current Medications Current Medications Medications (Trade) Dose Ordered Sig/Kana Route PRN Reason Start Time Stop Time Status Last Admin Cefepime HCl 50 ml @ 12.5 mls/hr DAILY IV 10/31/24 23:59 10/31/24 21:19 DC Hydralazine HCl (Apresoline Injection) 10 mg Q6HP PRN IV SBP>150 10/31/24 21:15 Ceftriaxone Sodium 50 ml @ 100 mls/hr DAILY@09 IV 11/01/24 09:00 Azithromycin 250 ml @ 125 mls/hr DAILY IV 11/01/24 10:00 Sevelamer HCl (Renagel) 800 mg TIDWM PO 11/01/24 08:00 11/01/24 07:36 Multivit/Ca Carb/ B Cmplx/FA/Prenat (Nephro-Kaylie Tablet) 1 tab DAILY PO 11/01/24 10:00 Famotidine (Pepcid Injection) 10 mg Q24H IV 10/31/24 21:30 10/31/24 21:30 Diagnostic Test (Pha) (Accu-Chek Comfort Curve T) 1 strip IQ4HR 11/01/24 00:00 11/01/24 07:36 Insulin Human Regular (InsuLIN R) IQ4HR SC 11/01/24 00:00 11/01/24 07:40 Dextrose 50 ml UD PRN IV Blood Sugar LESS THAN 60 10/31/24 21:15 Acetaminophen/ Hydrocodone Bitart ([place] 5/325MG Tab) 1 tab Q4HP PRN PO MODERATE PAIN (4-6 PAIN SCALE) 10/31/24 21:15 Ondansetron HCl (Zofran) 4 mg Q4HP PRN IV NAUSEA / VOMITING 10/31/24 21:15 Docusate Sodium (Colace Capsule) 100 mg BIDPRN PRN PO FOR CONSTIPATION 10/31/24 21:15 11/01/24 01:38 Acetaminophen (Tylenol Tablet) 650 mg Q6HP PRN PO PAIN SCALE 1-3 OR TEMP>100.4 10/31/24 21:15 Atorvastatin Calcium (Lipitor) 10 mg HS PO 10/31/24 22:00 10/31/24 22:09 Nitroglycerin (Ntrostat Sublingual) 0.4 mg Q5MINP PRN SL FOR CHEST PAIN 10/31/24 23:00 Morphine Sulfate 2 mg Q30M PRN IV FOR CHEST PAIN 10/31/24 23:00 Review of Systems Twelve point review of system negative except as stated in the HPI Vital Signs Vital Signs Date Time Temp Pulse Resp B/P (MAP) Pulse Ox O2 Delivery O2 Flow Rate FiO2 11/01/24 09:00 97.6 69 16 98/61 (73) 93 97.6 11/01/24 00:00 Room Air* 0 21 Physical Exam Awake and alert. No acute distress HEENT: Normocephalic Lungs: Bilateral good air entry CVS: S1, S2 regular rate rhythm Abdomen : Soft BARKER OPERATOR: No focal deficits Extremities: No edema Labs/Diagnostic Data Labs Test 11/01/24 07:27 11/01/24 06:20 10/31/24 16:32 10/31/24 13:33 Range/Units POC Glucose 260 H 70-106 mg/dl White Blood Count 7.1 # 4.4-10.8 10^3/uL Red Blood Count 2.56 L 4.0-5.20 10^6/uL Hemoglobin 8.5 L 12.2-16.2 g/dL Hematocrit 25.8 L 36.0-46.0 % Mean Corpuscular Volume 100.9 H 80.0-100.0 fL Mean Corpuscular Hemoglobin 33.3 H 28.0-32.0 pg Mean Corpuscular Hemoglobin Concent 33.0 32.0-36.0 g/dL Red Cell Distribution Width 16.7 H 11.8-14.3 % Platelet Count 173 140-450 10^3/uL Mean Platelet Volume 9.6 6.9-10.8 fL Neutrophils (%) (Auto) 71.5 37.0-80.0 % Lymphocytes (%) (Auto) 14.9 10.0-50.0 % Monocytes (%) (Auto) 13.0 H 0.0-12.0 % Eosinophils (%) (Auto) 0.3 0.0-7.0 % Basophils (%) (Auto) 0.3 0.0-2.0 % Neutrophils # (Auto) 5.1 1.6-8.6 10 ^3/uL Lymphocytes # (Auto) 1.1 0.4-5.4 10 ^3/uL Monocytes # (Auto) 0.9 0-1.3 10 ^3/uL Eosinophils # (Auto) 0 0-0.8 10 ^3/uL Basophils # (Auto) 0 0-0.2 10 ^3/uL Nucleated Red Blood Cells 0.0 % Sodium Level 135 L 136-145 mmol/L Potassium Level 3.7 3.5-5.1 mmol/L Chloride Level 93 L 98-107 mmol/L Carbon Dioxide Level 30 20-31 mmol/L Anion Gap 12 5-15 Blood Urea Nitrogen 29 H 9-23 mg/dL Creatinine 5.29 #H 0.550-1.02 mg/dL Glomerular Filtration Rate Calc 9 >90 mL/min BUN/Creatinine Ratio 5.5 L 10.0-20.0 Serum Glucose 237 H 74-106 mg/dL Calcium Level 9.8 8.7-10.4 mg/dL Total Bilirubin 0.6 0.2-1.0 mg/dL Aspartate Amino Transferase (AST) 22 13-40 U/L Alanine Aminotransferase (ALT) 26 7-40 U/L Alkaline Phosphatase 117 H 46-116 U/L Total Protein 7.1 5.7-8.2 g/dL Albumin 4.0 3.2-4.8 g/dL Lactic Acid Level 1.6 0.4-2.0 mmol/L Troponin I High Sensitivity 22 </=34 ng/L Prothrombin Time 12.1 H 9.3-11.8 sec Prothrombin Time INR 1.16 H 0.9-1.15 Activated Partial Thromboplast Time 29.6 24.5-34.5 SEC Assessment End-stage kidney disease on hemodialysis Abdominal pain Right lung infiltrate versus effusion History of erosive esophagitis 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 From renal standpoint no evidence of fluid overload. Electrolytes within acceptable limits. We will continue dialysis on Sunday schedule Plan discussed with: Patient SOURAV RANGEL MD Nov 01, 2024 10:06
[2024-11-01] MEDS: AZITHROMYCIN 500MG/ 250ML 250 ML IV SCH (10:30)
--- NOTE | 2024-11-01 13:45 | DVHPN2 ---
Reviewed: Care Plan, H&P, Labs, Medications, Previous Orders, Radiology Changes from previous H/P or p: No Changes Eyes: No Pain, No Vision change, No Conjunctivae inflammation, No Eyelid inflammation, No Other, No Redness ENT: No Ear pain, No Ear discharge, No Nose pain, No Nose discharge, No Nose congestion, No Mouth pain, No Mouth swelling, No Throat pain, No Throat swelling, No Other Cardiovascular: No Chest Pain, No Palpitations, No Orthopnea, No Paroxysmal Noc. Dyspnea, No Edema, No Lt Headedness, No Other Respiratory: Cough; No Dry; Shortness of breath; No SOB with excertion, No Wheezing, No Hemoptysis, No Pleuritic Pain, No Sputum, No Other Gastrointestinal: No Nausea, No Vomiting; Abdominal Pain; No Diarrhea, No Constipation, No Melena, No Hematochezia; Other (Abdominal distention) Genitourinary: No Dysuria, No Frequency, No Incontinence, No Hematuria, No Retention; Other (On hemodialysis) Musculoskeletal: No other, No neck pain, No shoulder pain, No arm pain, No back pain, No hand pain, No leg pain, No foot pain Skin: No Rash, No Lesions, No Jaundice, No Bruising, No Other Objective Vitals Vital Signs Date Time Temp Pulse Resp B/P (MAP) Pulse Ox O2 Delivery O2 Flow Rate FiO2 11/01/24 13:00 98.3 54 12 101/42 (61) 97 98.3 11/01/24 08:00 Nasal Cannula* 2 28 Intake/Output Intake and Output 11/01/24 07:00 Intake Total 250 ml Balance 250 ml Intake Oral 0 ml IV Total 250 ml Medications Current Medications Medications Dose Ordered Sig/Kana Route Start Time Stop Time Status Last Admin Dose Admin Hydralazine HCl 10 mg Q6HP PRN IV 10/31/24 21:15 Ceftriaxone Sodium 50 ml @ 100 mls/hr DAILY@09 IV 11/01/24 09:00 11/01/24 09:00 100 MLS/HR Azithromycin 250 ml @ 125 mls/hr DAILY IV 11/01/24 10:00 11/01/24 10:30 125 MLS/HR Sevelamer HCl 800 mg TIDWM PO 11/01/24 08:00 11/01/24 07:36 800 MG Multivit/Ca Carb/ B Cmplx/FA/Prenat 1 tab DAILY PO 11/01/24 10:00 11/01/24 10:00 1 TAB Famotidine 10 mg Q24H IV 10/31/24 21:30 10/31/24 21:30 10 MG Diagnostic Test (Pha) 1 strip IQ4HR 11/01/24 00:00 11/01/24 11:30 1 STRIP Insulin Human Regular IQ4HR SC 11/01/24 00:00 11/01/24 11:30 9 UNITS Dextrose 50 ml UD PRN IV 10/31/24 21:15 Acetaminophen/ Hydrocodone Bitart 1 tab Q4HP PRN PO 10/31/24 21:15 Ondansetron HCl 4 mg Q4HP PRN IV 10/31/24 21:15 Docusate Sodium 100 mg BIDPRN PRN PO 10/31/24 21:15 11/01/24 01:38 100 MG Acetaminophen 650 mg Q6HP PRN PO 10/31/24 21:15 Atorvastatin Calcium 10 mg HS PO 10/31/24 22:00 10/31/24 22:09 10 MG Nitroglycerin 0.4 mg Q5MINP PRN SL 10/31/24 23:00 Morphine Sulfate 2 mg Q30M PRN IV 10/31/24 23:00 Laboratory Results Laboratory Tests 11/01/24 06:20 Chemistry Test 10/31/24 16:32 11/01/24 06:20 Albumin 3.8 g/dL (3.2-4.8) 4.0 g/dL (3.2-4.8) Calcium Level 9.7 mg/dL (8.7-10.4) 9.8 mg/dL (8.7-10.4) Total Protein 6.7 g/dL (5.7-8.2) 7.1 g/dL (5.7-8.2) LFT Test 10/31/24 16:32 11/01/24 06:20 Alanine Aminotransferase (ALT) 28 U/L (7-40) 26 U/L (7-40) Alkaline Phosphatase 125 U/L (46-116) H 117 U/L (46-116) H Aspartate Amino Transferase (AST) 25 U/L (13-40) 22 U/L (13-40) Total Bilirubin 0.6 mg/dL (0.2-1.0) 0.6 mg/dL (0.2-1.0) Labs and/or images reviewed: Labs reviewed by me, Image(s) reviewed by me Assessment/Plan Assessment/Plan End-stage kidney disease on hemodialysis, Nephrology consult by appreciated Abdominal pain Right lung infiltrate versus effusion Possible community-acquired pneumonia: Rocephin azithromycin History of erosive esophagitis 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
[2024-11-02] VITALS (8 sets, daily range): BP systolic 92–124; BP diastolic 45–84; PULSE 57–70; RESP 16–18; TEMP 98–99.3; O2SAT 94–99
[2024-11-02 07:02] LABS: Hematocrit 23.7 % (36.0-46.0); Hemoglobin 7.7 g/dL (12.2-16.2); Mean Corpuscular Hemoglobin 33.0 pg (28.0-32.0); Mean Corpuscular Volume 100.7 fL (80.0-100.0); Nucleated Red Blood Cells % 0.0 %
[2024-11-02 07:24] LABS: Alanine Aminotransferase 21 U/L (7-40); Alkaline Phosphatase 95 U/L (46-116); Anion Gap 14 (5-15); BUN/Creatinine Ratio 5.9 (10.0-20.0); Calcium 9.4 mg/dL (8.7-10.4); Carbon Dioxide 28 mmol/L (20-31); Glucose 92 mg/dL (74-106); Potassium 3.7 mmol/L (3.5-5.1); Total Protein 6.5 g/dL (5.7-8.2)
[2024-11-02 07:25] LABS: Albumin 3.6 g/dL (3.2-4.8)
[2024-11-02 07:26] LABS: Bilirubin, Total 0.4 mg/dL (0.2-1.0)
[2024-11-02 07:38] LABS: Blood Urea Nitrogen 41 mg/dL (9-23); Chloride 93 mmol/L (98-107); Sodium 135 mmol/L (136-145)
--- NOTE | 2024-11-02 10:16 | DVHPN2 ---
Reviewed: Care Plan, H&P, Labs, Medications, Previous Orders, Radiology Changes from previous H/P or p: No Changes Eyes: No Pain, No Vision change, No Conjunctivae inflammation, No Eyelid inflammation, No Other, No Redness ENT: No Ear pain, No Ear discharge, No Nose pain, No Nose discharge, No Nose congestion, No Mouth pain, No Mouth swelling, No Throat pain, No Throat swelling, No Other Cardiovascular: No Chest Pain, No Palpitations, No Orthopnea, No Paroxysmal Noc. Dyspnea, No Edema, No Lt Headedness, No Other Respiratory: Cough; No Dry; Shortness of breath; No SOB with excertion, No Wheezing, No Hemoptysis, No Pleuritic Pain, No Sputum, No Other Gastrointestinal: No Nausea, No Vomiting; Abdominal Pain; No Diarrhea, No Constipation, No Melena, No Hematochezia; Other (Abdominal distention) Genitourinary: No Dysuria, No Frequency, No Incontinence, No Hematuria, No Retention; Other (On hemodialysis) Musculoskeletal: No other, No neck pain, No shoulder pain, No arm pain, No back pain, No hand pain, No leg pain, No foot pain Skin: No Rash, No Lesions, No Jaundice, No Bruising, No Other Objective Vitals Vital Signs Date Time Temp Pulse Resp B/P (MAP) Pulse Ox O2 Delivery O2 Flow Rate FiO2 11/02/24 08:41 98.2 63 18 102/60 (74) 94 98.2 11/01/24 20:00 Nasal Cannula* 2 28 Intake/Output Intake and Output 11/02/24 07:00 Intake Total 1230 ml Balance 1230 ml Intake Oral 930 ml IV Total 300 ml Medications Current Medications Medications Dose Ordered Sig/Kana Route Start Time Stop Time Status Last Admin Dose Admin Hydralazine HCl 10 mg Q6HP PRN IV 10/31/24 21:15 Ceftriaxone Sodium 50 ml @ 100 mls/hr DAILY@09 IV 11/01/24 09:00 11/02/24 08:44 100 MLS/HR Azithromycin 250 ml @ 125 mls/hr DAILY IV 11/01/24 10:00 11/01/24 10:30 125 MLS/HR Sevelamer HCl 800 mg TIDWM PO 11/01/24 08:00 11/02/24 08:38 800 MG Multivit/Ca Carb/ B Cmplx/FA/Prenat 1 tab DAILY PO 11/01/24 10:00 11/02/24 08:38 1 TAB Famotidine 10 mg Q24H IV 10/31/24 21:30 11/01/24 20:33 10 MG Diagnostic Test (Pha) 1 strip IQ4HR 11/01/24 00:00 11/02/24 08:27 1 STRIP Insulin Human Regular IQ4HR SC 11/01/24 00:00 11/01/24 20:38 2 UNITS Dextrose 50 ml UD PRN IV 10/31/24 21:15 Acetaminophen/ Hydrocodone Bitart 1 tab Q4HP PRN PO 10/31/24 21:15 Ondansetron HCl 4 mg Q4HP PRN IV 10/31/24 21:15 Docusate Sodium 100 mg BIDPRN PRN PO 10/31/24 21:15 11/02/24 08:43 100 MG Acetaminophen 650 mg Q6HP PRN PO 10/31/24 21:15 Atorvastatin Calcium 10 mg HS PO 10/31/24 22:00 11/01/24 21:03 10 MG Nitroglycerin 0.4 mg Q5MINP PRN SL 10/31/24 23:00 Morphine Sulfate 2 mg Q30M PRN IV 10/31/24 23:00 Laboratory Results Laboratory Tests 11/02/24 05:54 Chemistry Test 11/02/24 05:54 Albumin 3.6 g/dL (3.2-4.8) Calcium Level 9.4 mg/dL (8.7-10.4) Total Protein 6.5 g/dL (5.7-8.2) LFT Test 11/02/24 05:54 Alanine Aminotransferase (ALT) 21 U/L (7-40) Alkaline Phosphatase 95 U/L (46-116) Aspartate Amino Transferase (AST) 19 U/L (13-40) Total Bilirubin 0.4 mg/dL (0.2-1.0) Microbiology Microbiology Date/Time Source Procedure Growth Status 10/31/24 16:32 Blood Blood Culture - Preliminary NO GROWTH AFTER 24 HOURS OF INCUBATION. 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 Anemia in CKD Hyperlipidemia Time spent 70 minutes Advanced care planning time 20 minutes Patient is full code Plan discussed with: Patient My Orders Orders - GLENN DORANTES MD Procedure Category Date Status Time Complete Blood Count LAB 11/03/24 Verified 05:00 Complete Blood Count LAB 11/04/24 Verified 05:00 Complete Blood Count LAB 11/05/24 Verified 05:00 Complete Blood Count LAB 11/06/24 Verified 05:00 Comprehensive LAB 11/03/24 Verified Metabolic Panel 05:00 Comprehensive LAB 11/04/24 Verified Metabolic Panel 05:00 Comprehensive LAB 11/05/24 Verified Metabolic Panel 05:00 Comprehensive LAB 11/06/24 Verified Metabolic Panel 05:00 Date of Service: Nov 02, 2024 Billing Provider: GLENN DORANTES MD Common Visit Codes: [id number] INP/OBS CARE(HIGH) GLENN DORANTES MD Nov 02, 2024 10:16
[2024-11-02] MEDS: MAALOX PLUS or MAALOX 30 ML PO PRN (12:23)
--- NOTE | 2024-11-02 16:47 | MEDREC ---
[facility] Intervention Section I [facility] Intervention: Review courses of therapy (DUE TO PROLONG QTc > 500 PLEASE CONSIDER SWITCHING AZITHROMYCIN TO DOXYCYCLINE ) ARGENIS KC PHARMACIST Nov 02, 2024 16:47
--- NOTE | 2024-11-02 20:14 | DVHPN2 ---
Progress Note - Dictate Date Seen: Nov 02, 2024 Medical Necessity Reason Pt with a Central, PICC or Fol: No ([facility]) Subjective No acute issues overnight vital signs Vital Sign Date Time Temp Pulse Resp B/P (MAP) Pulse Ox O2 Delivery O2 Flow Rate FiO2 11/02/24 16:55 98.0 58 18 105/56 (72) 98 98.0 11/02/24 08:00 Nasal Cannula* 2 28 Total Intake and Output 11/01/24 11/01/24 11/02/24 15:00 23:00 07:00 Intake Total 300 ml 480 ml 450 ml Balance 300 ml 480 ml 450 ml medications Current Medications Medications Dose Ordered Sig/Kana Route Start Time Stop Time Status Last Admin Dose Admin Hydralazine HCl 10 mg Q6HP PRN IV 10/31/24 21:15 Ceftriaxone Sodium 50 ml @ 100 mls/hr DAILY@09 IV 11/01/24 09:00 11/02/24 08:44 100 MLS/HR Azithromycin 250 ml @ 125 mls/hr DAILY IV 11/01/24 10:00 11/02/24 10:26 125 MLS/HR Sevelamer HCl 800 mg TIDWM PO 11/01/24 08:00 11/02/24 17:17 800 MG Multivit/Ca Carb/ B Cmplx/FA/Prenat 1 tab DAILY PO 11/01/24 10:00 11/02/24 08:38 1 TAB Famotidine 10 mg Q24H IV 10/31/24 21:30 11/01/24 20:33 10 MG Diagnostic Test (Pha) 1 strip IQ4HR 11/01/24 00:00 11/02/24 16:00 1 STRIP Insulin Human Regular IQ4HR SC 11/01/24 00:00 11/02/24 17:13 2 UNITS Dextrose 50 ml UD PRN IV 10/31/24 21:15 Acetaminophen/ Hydrocodone Bitart 1 tab Q4HP PRN PO 10/31/24 21:15 Ondansetron HCl 4 mg Q4HP PRN IV 10/31/24 21:15 Docusate Sodium 100 mg BIDPRN PRN PO 10/31/24 21:15 11/02/24 08:43 100 MG Acetaminophen 650 mg Q6HP PRN PO 10/31/24 21:15 Atorvastatin Calcium 10 mg HS PO 10/31/24 22:00 11/01/24 21:03 10 MG Nitroglycerin 0.4 mg Q5MINP PRN SL 10/31/24 23:00 Morphine Sulfate 2 mg Q30M PRN IV 10/31/24 23:00 Al Hydrox/Mg Hydrox/Simethicone 30 ml BID PRN PO 11/02/24 12:00 11/02/24 12:23 30 ML objective Awake and alert. 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 Plan discussed with: SOURAV Shen MD Nov 02, 2024 20:14
[2024-11-03] VITALS (8 sets, daily range): BP systolic 108–178; BP diastolic 58–71; PULSE 57–68; RESP 15–18; TEMP 97.8–98.9; O2SAT 97–99
[2024-11-03 06:49] LABS: Hematocrit 22.2 % (36.0-46.0); Hemoglobin 7.5 g/dL (12.2-16.2); Mean Corpuscular Hemoglobin 34.0 pg (28.0-32.0); Mean Corpuscular Volume 100.6 fL (80.0-100.0); Nucleated Red Blood Cells % 0.0 %
[2024-11-03 06:54] LABS: Alanine Aminotransferase 18 U/L (7-40); Albumin 3.5 g/dL (3.2-4.8); Alkaline Phosphatase 89 U/L (46-116); Anion Gap 13 (5-15); BUN/Creatinine Ratio 5.3 (10.0-20.0); Bilirubin, Total 0.3 mg/dL (0.2-1.0); Carbon Dioxide 27 mmol/L (20-31); Glucose 83 mg/dL (74-106); Potassium 3.9 mmol/L (3.5-5.1); Total Protein 6.3 g/dL (5.7-8.2)
[2024-11-03 06:55] LABS: Blood Urea Nitrogen 45 mg/dL (9-23); Calcium 8.4 mg/dL (8.7-10.4); Chloride 92 mmol/L (98-107); Sodium 132 mmol/L (136-145)
[2024-11-03] MEDS ORDERED: SODIUM CHL 0.9% 1000 ML BAG XX ONE (07:00)
--- NOTE | 2024-11-03 09:29 | DVHPN2 ---
Reviewed: Care Plan, H&P, Labs, Medications, Previous Orders, Radiology Changes from previous H/P or p: No Changes Eyes: No Pain, No Vision change, No Conjunctivae inflammation, No Eyelid inflammation, No Other, No Redness ENT: No Ear pain, No Ear discharge, No Nose pain, No Nose discharge, No Nose congestion, No Mouth pain, No Mouth swelling, No Throat pain, No Throat swelling, No Other Cardiovascular: No Chest Pain, No Palpitations, No Orthopnea, No Paroxysmal Noc. Dyspnea, No Edema, No Lt Headedness, No Other Respiratory: Cough; No Dry; Shortness of breath; No SOB with excertion, No Wheezing, No Hemoptysis, No Pleuritic Pain, No Sputum, No Other Gastrointestinal: No Nausea, No Vomiting; Abdominal Pain; No Diarrhea, No Constipation, No Melena, No Hematochezia; Other (Abdominal distention) Genitourinary: No Dysuria, No Frequency, No Incontinence, No Hematuria, No Retention; Other (On hemodialysis) Musculoskeletal: No other, No neck pain, No shoulder pain, No arm pain, No back pain, No hand pain, No leg pain, No foot pain Skin: No Rash, No Lesions, No Jaundice, No Bruising, No Other Objective Vitals Vital Signs Date Time Temp Pulse Resp B/P (MAP) Pulse Ox O2 Delivery O2 Flow Rate FiO2 11/03/24 05:00 98.9 61 18 115/66 (82) 98 98.9 11/02/24 20:30 Nasal Cannula* 2 28 Intake/Output Intake and Output 11/03/24 07:00 Intake Total 1200 ml Balance 1200 ml Intake Oral 900 ml IV Total 300 ml # Voids 2 # Bowel Movements 2 Medications Current Medications Medications Dose Ordered Sig/Kana Route Start Time Stop Time Status Last Admin Dose Admin Hydralazine HCl 10 mg Q6HP PRN IV 10/31/24 21:15 Ceftriaxone Sodium 50 ml @ 100 mls/hr DAILY@09 IV 11/01/24 09:00 11/03/24 08:38 100 MLS/HR Azithromycin 250 ml @ 125 mls/hr DAILY IV 11/01/24 10:00 11/02/24 10:26 125 MLS/HR Sevelamer HCl 800 mg TIDWM PO 11/01/24 08:00 11/03/24 08:37 800 MG Multivit/Ca Carb/ B Cmplx/FA/Prenat 1 tab DAILY PO 11/01/24 10:00 11/02/24 08:38 1 TAB Famotidine 10 mg Q24H IV 10/31/24 21:30 11/02/24 21:49 10 MG Diagnostic Test (Pha) 1 strip IQ4HR 11/01/24 00:00 11/03/24 08:00 1 STRIP Insulin Human Regular IQ4HR SC 11/01/24 00:00 11/02/24 22:10 3 UNITS Dextrose 50 ml UD PRN IV 10/31/24 21:15 Acetaminophen/ Hydrocodone Bitart 1 tab Q4HP PRN PO 10/31/24 21:15 Ondansetron HCl 4 mg Q4HP PRN IV 10/31/24 21:15 Docusate Sodium 100 mg BIDPRN PRN PO 10/31/24 21:15 11/02/24 08:43 100 MG Acetaminophen 650 mg Q6HP PRN PO 10/31/24 21:15 Atorvastatin Calcium 10 mg HS PO 10/31/24 22:00 11/02/24 21:50 10 MG Nitroglycerin 0.4 mg Q5MINP PRN SL 10/31/24 23:00 Morphine Sulfate 2 mg Q30M PRN IV 10/31/24 23:00 Al Hydrox/Mg Hydrox/Simethicone 30 ml BID PRN PO 11/02/24 12:00 11/02/24 12:23 30 ML Laboratory Results Laboratory Tests 11/03/24 05:53 Chemistry Test 11/03/24 05:53 Albumin 3.5 g/dL (3.2-4.8) Calcium Level 8.4 mg/dL (8.7-10.4) L Total Protein 6.3 g/dL (5.7-8.2) LFT Test 11/03/24 05:53 Alanine Aminotransferase (ALT) 18 U/L (7-40) Alkaline Phosphatase 89 U/L (46-116) Aspartate Amino Transferase (AST) 17 U/L (13-40) Total Bilirubin 0.3 mg/dL (0.2-1.0) Microbiology Microbiology Date/Time Source Procedure Growth Status 11/01/24 04:50 Nose MRSA Screen - Final Complete 10/31/24 16:32 Blood Blood Culture - Preliminary NO GROWTH AFTER 48 HOURS OF INCUBATION. 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
[2024-11-03] MEDS: LACTULOSE 20Gm/30ML SOLN PO ONE (10:45)
--- NOTE | 2024-11-03 14:58 | DVHPN2 ---
Progress Note - Dictate Date Seen: Nov 03, 2024 Medical Necessity Reason Pt with a Central, PICC or Fol: No ([facility]) Subjective Patient's is at bedside. Patient stated that she is having increasing lower abdominal pain ruled right lower quadrant associated with one episode of nausea. Last bowel movement was . vital signs Vital Sign Date Time Temp Pulse Resp B/P (MAP) Pulse Ox O2 Delivery O2 Flow Rate FiO2 11/03/24 09:00 97.8 65 17 142/70 (94) 97 97.8 11/03/24 08:00 Nasal Cannula* 2 28 Total Intake and Output 11/02/24 11/02/24 11/03/24 15:00 23:00 07:00 Intake Total 300 ml 500 ml 400 ml Balance 300 ml 500 ml 400 ml medications Current Medications Medications Dose Ordered Sig/Kana Route Start Time Stop Time Status Last Admin Dose Admin Hydralazine HCl 10 mg Q6HP PRN IV 10/31/24 21:15 Ceftriaxone Sodium 50 ml @ 100 mls/hr DAILY@09 IV 11/01/24 09:00 11/03/24 08:38 100 MLS/HR Azithromycin 250 ml @ 125 mls/hr DAILY IV 11/01/24 10:00 11/03/24 12:51 125 MLS/HR Sevelamer HCl 800 mg TIDWM PO 11/01/24 08:00 11/03/24 12:51 800 MG Multivit/Ca Carb/ B Cmplx/FA/Prenat 1 tab DAILY PO 11/01/24 10:00 11/03/24 12:51 1 TAB Famotidine 10 mg Q24H IV 10/31/24 21:30 11/02/24 21:49 10 MG Diagnostic Test (Pha) 1 strip IQ4HR 11/01/24 00:00 11/03/24 12:00 1 STRIP Insulin Human Regular IQ4HR SC 11/01/24 00:00 11/03/24 12:52 2 UNITS Dextrose 50 ml UD PRN IV 10/31/24 21:15 Acetaminophen/ Hydrocodone Bitart 1 tab Q4HP PRN PO 10/31/24 21:15 Ondansetron HCl 4 mg Q4HP PRN IV 10/31/24 21:15 Docusate Sodium 100 mg BIDPRN PRN PO 10/31/24 21:15 11/02/24 08:43 100 MG Acetaminophen 650 mg Q6HP PRN PO 10/31/24 21:15 Atorvastatin Calcium 10 mg HS PO 10/31/24 22:00 11/02/24 21:50 10 MG Nitroglycerin 0.4 mg Q5MINP PRN SL 10/31/24 23:00 Morphine Sulfate 2 mg Q30M PRN IV 10/31/24 23:00 Al Hydrox/Mg Hydrox/Simethicone 30 ml BID PRN PO 11/02/24 12:00 11/02/24 12:23 30 ML objective HEENT: No evidence of JVD, no oral ulcers. 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 From renal standpoint no evidence of fluid overload. Electrolytes within acceptable limits. Plan discussed with: Patient, Spouse NICK MACKAY MD Nov 03, 2024 14:58
[2024-11-03] MEDS: ACETAMINOPHEN 325 MG TAB PO PRN (18:58)
[2024-11-03] MEDS: EPOETIN ALFA-EPBX 4,000 UNIT/ML VIAL SC ONE (21:21)
--- NOTE | 2024-11-04 03:32 | DVH ---
Exam: CT CT AB PEL WO CON-NO ORAL OR IV History: RLQ pain Comparison Study: None Technique: Multidetector spiral CT of the abdomen was performed from lung bases to pubic symphysis. I maging was performed without IV contrast. Axial, coronal and sagittal multiplanar reformats were obta ined from the axial data set by the technologist. Radiation Dose : 1. Abdomen/Pelvis: CTDIvol 20.58 mGy, DLP 1133.88 mGy*cm. Findings: Evaluation of solid organs is limited due to lack of intravenous contrast use. Lung Bases: Moderate right and small left pleural effusions with adjacent atelectasis. Moderate conso lidation of the right lower lobe. The heart is enlarged and there is a large pericardial effusion. Liver: The liver is normal in size. No focal lesions. Gallbladder and Biliary Tree: The gallbladder is collapse, however, there is moderate gallbladder wal l edema. Spleen: Unremarkable Pancreas: The pancreas is grossly normal in appearance. Adrenal Glands: Unremarkable Kidneys: Moderate bilateral renal atrophy and cortical scarring / thinning. No evidence of hydronephr osis. Punctate nonobstructing bilateral pelvocaliceal calculi noted. Bladder: Grossly unremarkable for degree of distention. Bowel: The stomach is grossly normal in appearance. Small bowel and colon are normal in caliber and d istribution. The appendix is normal. Ascites: Small volume perihepatic and pelvic ascites. Lymphadenopathy: No mesenteric, retroperitoneal or periportal lymphadenopathy. Abdominal Wall and Mesentery: Unremarkable. Vasculature: The visualized abdominal aorta is normal in size and caliber. Atherosclerotic vascular c alcifications. Evaluation of abdominal and pelvic vessels is limited due to lack of intravenous cont rast. Pelvic Organs: Unremarkable. Uterine calcifications. Musculoskeletal: No aggressive focal bony lesions, acute fractures or dislocation. IMPRESSION: 1. Cardiomegaly and large pericardial effusion. 2. Moderate right and small left pleural effusions with adjacent atelectasis and moderate right lower lobe consolidation. 3. Pericholecystic edema and gallbladder wall thickening. 4. Small volume perihepatic and pelvic ascites. 5. Bilateral renal atrophy, cortical thinning / scarring and nonobstructive nephrolithiasis. Radiation optimization: All CT scans at this facility use at least one of these dose optimization be hniques: automated exposure control mA and/or kV adjustment per patient size (includes targeted exam s where dose is matched to clinical indication) or iterative reconstruction.
[2024-11-04 05:20] VITALS: BP 143/62; PULSE 68; RESP 18; TEMP 99.4; O2SAT 100
[2024-11-04 06:06] LABS: Nucleated Red Blood Cells % 0.0 %
[2024-11-04 06:10] LABS: Hematocrit 22.2 % (36.0-46.0); Hemoglobin 7.4 g/dL (12.2-16.2); Mean Corpuscular Hemoglobin 33.3 pg (28.0-32.0); Mean Corpuscular Volume 100.2 fL (80.0-100.0)
[2024-11-04 06:25] LABS: Alanine Aminotransferase 19 U/L (7-40); Alkaline Phosphatase 90 U/L (46-116); Anion Gap 10 (5-15); Glucose 88 mg/dL (74-106); Potassium 3.6 mmol/L (3.5-5.1); Sodium 137 mmol/L (136-145)
[2024-11-04 06:26] LABS: BUN/Creatinine Ratio 4.4 (10.0-20.0); Blood Urea Nitrogen 24 mg/dL (9-23); Calcium 8.5 mg/dL (8.7-10.4); Carbon Dioxide 31 mmol/L (20-31); Chloride 96 mmol/L (98-107); Total Protein 6.4 g/dL (5.7-8.2)
[2024-11-04 06:27] LABS: Albumin 3.5 g/dL (3.2-4.8)
[2024-11-04 06:28] LABS: Bilirubin, Total 0.4 mg/dL (0.2-1.0)
[2024-11-04 08:30] VITALS: PULSE 60; PULSE 63; RESP 17; O2SAT 98
[2024-11-04 09:00] VITALS: BP 134/58; PULSE 63; RESP 17; TEMP 99.7; O2SAT 98
--- NOTE | 2024-11-04 10:00 | DVHPN2 ---
Reviewed: Care Plan, H&P, Labs, Medications, Previous Orders, Radiology Changes from previous H/P or p: No Changes Eyes: No Pain, No Vision change, No Conjunctivae inflammation, No Eyelid inflammation, No Other, No Redness ENT: No Ear pain, No Ear discharge, No Nose pain, No Nose discharge, No Nose congestion, No Mouth pain, No Mouth swelling, No Throat pain, No Throat swelling, No Other Cardiovascular: No Chest Pain, No Palpitations, No Orthopnea, No Paroxysmal Noc. Dyspnea, No Edema, No Lt Headedness, No Other Respiratory: Cough; No Dry; Shortness of breath; No SOB with excertion, No Wheezing, No Hemoptysis, No Pleuritic Pain, No Sputum, No Other Gastrointestinal: No Nausea, No Vomiting; Abdominal Pain; No Diarrhea, No Constipation, No Melena, No Hematochezia; Other (Abdominal distention) Genitourinary: No Dysuria, No Frequency, No Incontinence, No Hematuria, No Retention; Other (On hemodialysis) Musculoskeletal: No other, No neck pain, No shoulder pain, No arm pain, No back pain, No hand pain, No leg pain, No foot pain Skin: No Rash, No Lesions, No Jaundice, No Bruising, No Other Objective Vitals Vital Signs Date Time Temp Pulse Resp B/P (MAP) Pulse Ox O2 Delivery O2 Flow Rate FiO2 11/04/24 05:20 99.4 68 18 143/62 (89) 100 99.4 11/03/24 20:00 Nasal Cannula* 2 28 Intake/Output Intake and Output 11/04/24 07:00 Intake Total 960 ml Output Total 0 ml Balance 960 ml Intake Oral 750 ml IV Total 210 ml Output Urine Total 0 ml Medications Current Medications Medications Dose Ordered Sig/Kana Route Start Time Stop Time Status Last Admin Dose Admin Hydralazine HCl 10 mg Q6HP PRN IV 10/31/24 21:15 Ceftriaxone Sodium 50 ml @ 100 mls/hr DAILY@09 IV 11/01/24 09:00 11/04/24 09:08 100 MLS/HR Azithromycin 250 ml @ 125 mls/hr DAILY IV 11/01/24 10:00 11/03/24 12:51 125 MLS/HR Sevelamer HCl 800 mg TIDWM PO 11/01/24 08:00 11/04/24 09:08 800 MG Multivit/Ca Carb/ B Cmplx/FA/Prenat 1 tab DAILY PO 11/01/24 10:00 11/03/24 12:51 1 TAB Famotidine 10 mg Q24H IV 10/31/24 21:30 11/03/24 21:20 10 MG Diagnostic Test (Pha) 1 strip IQ4HR 11/01/24 00:00 11/04/24 08:00 1 STRIP Insulin Human Regular IQ4HR SC 11/01/24 00:00 11/03/24 22:02 3 UNITS Dextrose 50 ml UD PRN IV 10/31/24 21:15 Acetaminophen/ Hydrocodone Bitart 1 tab Q4HP PRN PO 10/31/24 21:15 Ondansetron HCl 4 mg Q4HP PRN IV 10/31/24 21:15 Docusate Sodium 100 mg BIDPRN PRN PO 10/31/24 21:15 11/02/24 08:43 100 MG Acetaminophen 650 mg Q6HP PRN PO 10/31/24 21:15 11/03/24 18:58 650 MG Atorvastatin Calcium 10 mg HS PO 10/31/24 22:00 11/03/24 21:20 10 MG Nitroglycerin 0.4 mg Q5MINP PRN SL 10/31/24 23:00 Morphine Sulfate 2 mg Q30M PRN IV 10/31/24 23:00 Al Hydrox/Mg Hydrox/Simethicone 30 ml BID PRN PO 11/02/24 12:00 11/02/24 12:23 30 ML Laboratory Results Laboratory Tests 11/04/24 05:32 Chemistry Test 11/04/24 05:32 Albumin 3.5 g/dL (3.2-4.8) Calcium Level 8.5 mg/dL (8.7-10.4) L Total Protein 6.4 g/dL (5.7-8.2) LFT Test 11/04/24 05:32 Alanine Aminotransferase (ALT) 19 U/L (7-40) Alkaline Phosphatase 90 U/L (46-116) Aspartate Amino Transferase (AST) 20 U/L (13-40) Total Bilirubin 0.4 mg/dL (0.2-1.0) Microbiology Microbiology Date/Time Source Procedure Growth Status 11/01/24 04:50 Nose MRSA Screen - Final Complete 10/31/24 16:32 Blood Blood Culture - Preliminary NO GROWTH AFTER 72 HOURS OF INCUBATION. 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 Cooper Right pleural effusion: Consult for radiologist for thoracentesis Pericholecystic fluid: HIDA scan to rule out cholecystitis Constipation: Lactulose Time spent 70 minutes Advanced care planning time 20 minutes Patient is full code Plan discussed with: Patient My Orders Orders - GLENN DORANTES MD Procedure Category Date Status Time Ct Ab Pel Wo Con-No CT 11/03/24 Resulted Oral Or Iv 10:32 Nm Hida Scan NM 11/04/24 Logged 09:48 * Radiologist Consult CONS 11/04/24 Verified 09:49 Date of Service: Nov 04, 2024 Billing Provider: GLENN DORANTES MD Common Visit Codes: [id number] INP/OBS CARE(HIGH) GLENN DORANTES MD Nov 04, 2024 10:00
--- NOTE | 2024-11-04 10:28 | DVH ---
US CHEST ULTRASOUND, HISTORY: FLUID CHECK FOR POSSIBLE THORACENTESIS COMPARISON(S): None TECHNICAL DATA: Transverse and longitudinal images are obtained of the chest. FINDING: IMPRESSION(S): There is a small bilateral pleural effusions.
--- NOTE | 2024-11-04 14:40 | DVHINCON2 ---
Date Seen: Nov 04, 2024 Referring Physician MD Jose Alberto Reason for Consultation Large pericardial effusion History of Present Illness This is a Niuean-speaking mostly 59-year-old female who presented to the emergency room with a chief complaint of shortness of breath for three days. The patient can presented with complaints of shortness of breath associated with abdominal distention and a nonproductive cough. She is end-stage renal disease on hemodialysis reporting no missing treatments. Denies chest pain, palpitations, diaphoresis, or syncopal events. She underwent a 12 lead electrocardiogram revealing a sinus rhythm with a prolonged QTc at 600 ms and associated T-wave inversion to leads V1-V2. Serial troponin levels are negative. She underwent imaging studies reporting a large pericardial effusion and prompting cardiology evaluation. Significant medical history includes hypertension, dyslipidemia, insulin-dependent diabetes mellitus, end-stage renal disease on hemodialysis M-W-, erosive esophagitis, hiatal hernia, and obesity. Past Medical History Past medical history reviewed. No other significant than mentioned above. Past Surgical History Hemodialysis access Family History: Cardiovascular disease G8 FATHER, (HEART ATTACK) FH: [place] (myocardial infarction) G8 FATHER FH: cancer G8 MOTHER Family History Family history reviewed. Social History Denies the use of illicit drugs, alcohol, or tobacco use. Allergies: Coded Allergies: No Known Drug Allergy (Verified Allergy, Unknown, 10/05/24) Home Meds Active Scripts Sucralfate (CARAFATE SUSP) 1 Gm/10 Ml Ss, 10 ML PO QID, #1200 ML 3 Refills Prov:PRASANNA KOENIG MD 10/17/24 Ondansetron Odt 4MG Tab (ZOFRAN PO) 4 Mg Tb, 4 MG PO Q6HP PRN for 7 Days, #16 TAB ODT TAB-DISSOLVE IN MOUTH, THEN SWALLOW Prov:SANAM JOHNSTON RESIDENT 08/28/24 Reported Medications Furosemide (Furosemide) 40 Mg Tab, 1 TAB PO DAILY 10/05/24 Ferrous Sulfate (Ferosul) 325 Mg Tab, 1 TAB PO BID 10/05/24 Dicyclomine Hcl (BENTYL CAPSULE) 10 Mg Cp, 1 CAP PO BIDPRN PRN 10/05/24 Lidocaine-Prilocaine (Lidocaine/Prilocaine) 1 Kit Kit, 1 KIT EX DAILY for 30 Days, #30 08/27/24 Hydroxyzine Pamoate (Hydroxyzine Pamoate) 25 Mg Cap, 1 CAP PO DAILYPRN for 30 Days, #30 08/27/24 Famotidine (Famotidine) 20 Mg Tab, 1 TAB PO DAILY PRN for HEARTBURN for 90 Days, #90 08/27/24 Guanfacine Hcl (Guanfacine Hcl) 1 Mg Tab, 1 TAB PO DAILY for 90 Days, #90 08/27/24 Losartan Potassium (Losartan Potassium) 100 Mg Tab, 1 TAB PO DAILY for 100 Days, #100 08/27/24 Ergocalciferol (Vitamin D) 50,000 Unit Cap, 1 CAP PO QWEEKLY for 84 Days, #12 08/27/24 Chlorthalidone (Chlorthalidone) 25 Mg Tab, 1 TAB PO DAILY for 30 Days, #30 08/27/24 B-Complex W/ C & Folic Acid (Ernestina-Kaylie Rx) Tab, 1 TAB PO DAILY for 90 Days, #90 08/27/24 Semaglutide (Ozempic) 2 Mg/3 Ml Inj, 0.5 MG SC Q7D for 28 Days, #3 08/27/24 Fluticasone Propionate (Nasal) (Fluticasone Propionate) 50 Mcg/Act Spr, SPRAY NINO UD for 30 Days, #16 08/27/24 Triamcinolone Acetonide (Kenalog) 1 Applic Ap, 1 APPLIC TOP UD for 30 Days, #45 08/27/24 Omeprazole (Gnp Omeprazole) 20 Mg Tab, 1 TAB PO DAILY for 30 Days, #30 08/27/24 Ketoconazole (Ketoconazole) 2 % Sha, UD for 30 Days, #120 08/27/24 Amlodipine Besylate (Amlodipine Besylate) 5 Mg Tab, 1 TAB PO DAILY for 90 Days, #90 06/23/24 Carvedilol (Carvedilol) 12.5 Mg Tab, 1 TAB PO BID 06/23/24 Metoprolol Tartrate (LOPRESSOR TABLET) 50 Mg Tb, 1 TAB PO BID for 90 Days, #180 06/23/24 Home Meds Home medications reviewed. Review of Systems Constitutional: No symptom reported Ears, Nose, & Throat: No symptom reported Eyes: No symptom reported Neurological: No symptoms reported Pulmonary/Respiratory: SOB, nonproductive cough Cardiovascular: No symptom reported Gastrointestinal: Abdominal distention Genitourinary: No symptom reported Musculoskeletal: No symptom reported Skin: No symptom reported Psychiatric: No symptom reported Endocrine: No symptom reported Hemotologic/Lymphatic: No symptom reported Vital Signs Vital Signs Date Time Temp Pulse Resp B/P (MAP) Pulse Ox O2 Delivery O2 Flow Rate FiO2 11/04/24 05:20 99.4 68 18 143/62 (89) 100 99.4 11/03/24 20:00 Nasal Cannula* 2 28 Physical Exam General Appearance: Cooperative. Chronically ill. In no acute distress Head Exam: Normal inspection Neck Exam: Normal inspection. Non-tender. Normal alignment Pulmonary/Respiratory: Chest non-tender. Diminished bilateral breath sounds Cardiovascular/Chest: Regular rate and rhythm. S1, S2. Sinus rhythm with T- wave inversion to leads V1-V2. -pulsus paradoxus. Peripheral Pulses: 2+ Radial (R). 2+ Radial (L). 2+ Pedal (R). 2+ Pedal (L) Abdominal Exam: Normal bowel sounds. Soft. Nontender. Ankle Exam: Negative ankle edema Lower extremities: Negative lower extremity edema Neuro/Mental Status: A&O x4. Coherent Thoughts/Psych: Normal thought pattern. Appropriate mood and affect. Good judgement and insight Appearance: In no acute distress Skin Exam: Normal inspection. Pale color. Warm. Dry Labs/Diagnostic Data Labs Test 11/04/24 05:32 11/03/24 17:25 10/31/24 16:32 10/31/24 13:33 Range/Units White Blood Count 6.3 4.4-10.8 10^3/uL Red Blood Count 2.21 L 4.0-5.20 10^6/uL Hemoglobin 7.4 L 12.2-16.2 g/dL Hematocrit 22.2 L 36.0-46.0 % Mean Corpuscular Volume 100.2 H 80.0-100.0 fL Mean Corpuscular Hemoglobin 33.3 H 28.0-32.0 pg Mean Corpuscular Hemoglobin Concent 33.2 32.0-36.0 g/dL Red Cell Distribution Width 16.8 H 11.8-14.3 % Platelet Count 192 140-450 10^3/uL Mean Platelet Volume 9.0 6.9-10.8 fL Neutrophils (%) (Auto) 69.9 37.0-80.0 % Lymphocytes (%) (Auto) 16.2 10.0-50.0 % Monocytes (%) (Auto) 12.9 H 0.0-12.0 % Eosinophils (%) (Auto) 0.6 0.0-7.0 % Basophils (%) (Auto) 0.4 0.0-2.0 % Neutrophils # (Auto) 4.4 1.6-8.6 10 ^3/uL Lymphocytes # (Auto) 1.0 0.4-5.4 10 ^3/uL Monocytes # (Auto) 0.8 0-1.3 10 ^3/uL Eosinophils # (Auto) 0 0-0.8 10 ^3/uL Basophils # (Auto) 0 0-0.2 10 ^3/uL Nucleated Red Blood Cells 0.0 % Sodium Level 137 # 136-145 mmol/L Potassium Level 3.6 3.5-5.1 mmol/L Chloride Level 96 L 98-107 mmol/L Carbon Dioxide Level 31 20-31 mmol/L Anion Gap 10 5-15 Blood Urea Nitrogen 24 #H 9-23 mg/dL Creatinine 5.49 #H 0.550-1.02 mg/dL Glomerular Filtration Rate Calc 8 >90 mL/min BUN/Creatinine Ratio 4.4 L 10.0-20.0 Serum Glucose 88 74-106 mg/dL Calcium Level 8.5 L 8.7-10.4 mg/dL Total Bilirubin 0.4 0.2-1.0 mg/dL Aspartate Amino Transferase (AST) 20 13-40 U/L Alanine Aminotransferase (ALT) 19 7-40 U/L Alkaline Phosphatase 90 46-116 U/L Total Protein 6.4 5.7-8.2 g/dL Albumin 3.5 3.2-4.8 g/dL POC Glucose 177 H 70-106 mg/dl Lactic Acid Level 1.6 0.4-2.0 mmol/L Troponin I High Sensitivity 22 </=34 ng/L Prothrombin Time 12.1 H 9.3-11.8 sec Prothrombin Time INR 1.16 H 0.9-1.15 Activated Partial Thromboplast Time 29.6 24.5-34.5 SEC Microbiology Date/Time Source Procedure Growth Status 11/01/24 04:50 Nose MRSA Screen - Final Complete 10/31/24 16:32 Blood Blood Culture - Preliminary NO GROWTH AFTER 72 HOURS OF INCUBATION. Resulted Assessment Pericardial effusion of moderate degree ESRD on hemodialysis Possible pneumonia Insulin-dependent diabetes mellitus Anemia and chronic disease Hypertension Dyslipidemia Obesity Plan/Recommendation (Dr. Cooper) The patient underwent a transthoracic echocardiogram with preliminary results revealing a moderate posterior pericardial effusion without evidence of cardiac tamponade or restrictive disease. She presents with negative pulsus paradoxus. Continue hemodialysis treatments as scheduled per Nephrology team. Continue ABX therapy per primary care team. The patient can benefit from outpatient ischemic workup given T-wave changes to septal leads. There is no further cardiac workup indicated at this time. Kindly call if you need to re-consult. Thank you for allowing us to participate in this patient's care. This medical document was created using an electronic medical record system with voice recognition software and computerized dictation system. Although this document has been carefully reviewed, there might still be some phonetic and typographical errors. Occasional wrong-word or ``sound-alike substitutions may have occurred due to the inherent limitations of voice recognition software. These areas are purely typographical due to imperfections of the software programs and do not reflect any compromise in the patient's medical care. Please read the chart carefully and recognize, using context, where these substitutions have occurred. Plan discussed with: Patient, Other NYHA Physical activity limitations: NA Date of Service: Nov 04, 2024 Billing Provider: HEATH JARRETT Cardiology Common Codes: [id number] INP/OBS CARE (High) HEATH JARRETT Nov 04, 2024 14:40
[2024-11-04 17:00] VITALS: BP 152/64; PULSE 69; RESP 17; TEMP 98; O2SAT 96
--- NOTE | 2024-11-04 17:07 | MEDREC ---
[facility] ASP Intervention Section I [facility] ASP Intervention: Review courses of therapy (STANDARD DURATION OF TREATMENT FOR CAP = 5 DAYS PLEASE CONSIDER D/C ANTIBIOTIC IF PATIENT CLINICALLY STABLE ) ARGENIS KC PHARMACIST Nov 04, 2024 17:07
--- NOTE | 2024-11-04 17:14 | DVHPN2 ---
Progress Note - Dictate Date Seen: Nov 04, 2024 Medical Necessity Reason Pt with a Central, PICC or Fol: No ([facility] Natasha) Subjective Patient's is at bedside. Abdominal pain seems to be improving as per patient but persistent lower abdomen. vital signs Vital Sign Date Time Temp Pulse Resp B/P (MAP) Pulse Ox O2 Delivery O2 Flow Rate FiO2 11/04/24 09:00 99.7 63 17 134/58 (83) 98 99.7 11/03/24 20:00 Nasal Cannula* 2 28 Total Intake and Output 11/03/24 11/03/24 11/04/24 15:00 23:00 07:00 Intake Total 560 ml 400 ml Output Total 0 ml Balance 560 ml 400 ml medications Current Medications Medications Dose Ordered Sig/Kana Route Start Time Stop Time Status Last Admin Dose Admin Hydralazine HCl 10 mg Q6HP PRN IV 10/31/24 21:15 Ceftriaxone Sodium 50 ml @ 100 mls/hr DAILY@09 IV 11/01/24 09:00 11/04/24 09:08 100 MLS/HR Azithromycin 250 ml @ 125 mls/hr DAILY IV 11/01/24 10:00 11/03/24 12:51 125 MLS/HR Sevelamer HCl 800 mg TIDWM PO 11/01/24 08:00 11/04/24 15:00 800 MG Multivit/Ca Carb/ B Cmplx/FA/Prenat 1 tab DAILY PO 11/01/24 10:00 11/04/24 15:00 1 TAB Famotidine 10 mg Q24H IV 10/31/24 21:30 11/03/24 21:20 10 MG Diagnostic Test (Pha) 1 strip IQ4HR 11/01/24 00:00 11/04/24 12:00 1 STRIP Insulin Human Regular IQ4HR SC 11/01/24 00:00 11/04/24 12:00 2 UNITS Dextrose 50 ml UD PRN IV 10/31/24 21:15 Acetaminophen/ Hydrocodone Bitart 1 tab Q4HP PRN PO 10/31/24 21:15 Ondansetron HCl 4 mg Q4HP PRN IV 10/31/24 21:15 Docusate Sodium 100 mg BIDPRN PRN PO 10/31/24 21:15 11/02/24 08:43 100 MG Acetaminophen 650 mg Q6HP PRN PO 10/31/24 21:15 11/03/24 18:58 650 MG Atorvastatin Calcium 10 mg HS PO 10/31/24 22:00 11/03/24 21:20 10 MG Nitroglycerin 0.4 mg Q5MINP PRN SL 10/31/24 23:00 Morphine Sulfate 2 mg Q30M PRN IV 10/31/24 23:00 Al Hydrox/Mg Hydrox/Simethicone 30 ml BID PRN PO 11/02/24 12:00 11/02/24 12:23 30 ML objective HEENT: No evidence of JVD, no oral ulcers. Pulmonary: Lungs are clear on auscultation bilaterally Cardiovascular S1-S2, no S3 or S4 Abdomen: Bowel sounds positive, soft no rebound tenderness, mild distention Skin: No rash Neurological: Alert, oriented, no focal weakness Access: Left toe arm AV fistula positive bruit and thrill laboratory and microbiology Laboratory Tests 11/04/24 05:32 Test 11/04/24 05:32 Range/Units Serum Glucose 88 74-106 mg/dL Assessment/Plan Assessment: End-stage kidney disease on hemodialysis Abdominal pain Concerns for acalculous cholecystitis. Pericardial effusion with no evidence of tamponade as per Cardiology. 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 From renal standpoint no evidence of fluid overload. Electrolytes within acceptable limits. Thank you very much for allowing us to participate in the care of this patient please contact if you have any questions. Plan discussed with: Patient, Spouse NICK MACKAY MD Nov 04, 2024 17:14
--- NOTE | 2024-11-04 18:07 | DVH ---
Procedure: NM NM HIDA SCAN Exam Date: 11/04/2024 03:10 PM Clinical History: Tram cholecystic fluid rule out cholecystitis Comparison Study: CT abdomen from 11/04/2019 Nuclear Medicine Hepatobiliary Scan. Technique: Following the intravenous administration of 5.5 mCi of technetium 99m labeled Choletec multiple plana r abdominal planar images were obtained in anterior projection in 1 minute intervals for 60 minutes . Right lateral images were obtained at 65 minutes after injection. Findings: Rapid uptake and excretion from the liver. Gallbladder visualized approximately 30-40 minutes. Impression: Patent cystic duct.
[2024-11-04 20:00] VITALS: PULSE 67; PULSE 69; RESP 18; O2SAT 100
[2024-11-04 21:00] VITALS: BP 145/62; PULSE 67; RESP 18; TEMP 97.9; O2SAT 100
[2024-11-04] MEDS: ONDANSETRON HCL 4 MG/2 ML VIAL IV PRN (21:01)
--- NOTE | 2024-11-04 23:10 | DVHINCON2 ---
Date Seen: Nov 04, 2024 Referring Physician MD Jose Alberto Reason for Consultation Large pericardial effusion History of Present Illness This is a Nauruan-speaking mostly 59-year-old female with a PMH of hypertension, dyslipidemia, insulin-dependent diabetes mellitus, end-stage renal disease on hemodialysis --, erosive esophagitis, hiatal hernia, and obesity who presented to the ED with complaints of shortness of breath for three days. The patient can presented with complaints of shortness of breath associated with abdominal distention and a nonproductive cough. She is end-stage renal disease on hemodialysis reporting no missing treatments. Denies chest pain, palpitations, diaphoresis, or syncopal events. She underwent a 12 lead electrocardiogram revealing a sinus rhythm with a prolonged QTc at 600 ms and associated T-wave inversion to leads V1-V2. Serial troponin levels are negative. She underwent imaging studies reporting a large pericardial effusion and prompting cardiology evaluation. Past Medical History Past medical history reviewed. No other significant than mentioned above. Past Surgical History Hemodialysis access Family History: Cardiovascular disease G8 FATHER, (HEART ATTACK) FH: [place] (myocardial infarction) G8 FATHER FH: cancer G8 MOTHER Allergies: Coded Allergies: No Known Drug Allergy (Verified Allergy, Unknown, 10/05/24) Home Meds Active Scripts Sucralfate (CARAFATE SUSP) 1 Gm/10 Ml Ss, 10 ML PO QID, #1200 ML 3 Refills Prov:PRASANNA KOENIG MD 10/17/24 Ondansetron Odt 4MG Tab (ZOFRAN PO) 4 Mg Tb, 4 MG PO Q6HP PRN for 7 Days, #16 TAB ODT TAB-DISSOLVE IN MOUTH, THEN SWALLOW Prov:SANAM JOHNSTON RESIDENT 08/28/24 Reported Medications Furosemide (Furosemide) 40 Mg Tab, 1 TAB PO DAILY 10/05/24 Ferrous Sulfate (Ferosul) 325 Mg Tab, 1 TAB PO BID 10/05/24 Dicyclomine Hcl (BENTYL CAPSULE) 10 Mg Cp, 1 CAP PO BIDPRN PRN 10/05/24 Lidocaine-Prilocaine (Lidocaine/Prilocaine) 1 Kit Kit, 1 KIT EX DAILY for 30 Days, #30 08/27/24 Hydroxyzine Pamoate (Hydroxyzine Pamoate) 25 Mg Cap, 1 CAP PO DAILYPRN for 30 Days, #30 08/27/24 Famotidine (Famotidine) 20 Mg Tab, 1 TAB PO DAILY PRN for HEARTBURN for 90 Days, #90 08/27/24 Guanfacine Hcl (Guanfacine Hcl) 1 Mg Tab, 1 TAB PO DAILY for 90 Days, #90 08/27/24 Losartan Potassium (Losartan Potassium) 100 Mg Tab, 1 TAB PO DAILY for 100 Days, #100 08/27/24 Ergocalciferol (Vitamin D) 50,000 Unit Cap, 1 CAP PO QWEEKLY for 84 Days, #12 08/27/24 Chlorthalidone (Chlorthalidone) 25 Mg Tab, 1 TAB PO DAILY for 30 Days, #30 08/27/24 B-Complex W/ C & Folic Acid (Ernestina-Kaylie Rx) Tab, 1 TAB PO DAILY for 90 Days, #90 08/27/24 Semaglutide (Ozempic) 2 Mg/3 Ml Inj, 0.5 MG SC Q7D for 28 Days, #3 08/27/24 Fluticasone Propionate (Nasal) (Fluticasone Propionate) 50 Mcg/Act Spr, SPRAY NINO UD for 30 Days, #16 08/27/24 Triamcinolone Acetonide (Kenalog) 1 Applic Ap, 1 APPLIC TOP UD for 30 Days, #45 08/27/24 Omeprazole (Gnp Omeprazole) 20 Mg Tab, 1 TAB PO DAILY for 30 Days, #30 08/27/24 Ketoconazole (Ketoconazole) 2 % Sha, UD for 30 Days, #120 08/27/24 Amlodipine Besylate (Amlodipine Besylate) 5 Mg Tab, 1 TAB PO DAILY for 90 Days, #90 06/23/24 Carvedilol (Carvedilol) 12.5 Mg Tab, 1 TAB PO BID 06/23/24 Metoprolol Tartrate (LOPRESSOR TABLET) 50 Mg Tb, 1 TAB PO BID for 90 Days, #180 06/23/24 Review of Systems Constitutional: No symptom reported Ears, Nose, & Throat: No symptom reported Eyes: No symptom reported Neurological: No symptoms reported Pulmonary/Respiratory: SOB, nonproductive cough Cardiovascular: No symptom reported Gastrointestinal: Abdominal distention Genitourinary: No symptom reported Musculoskeletal: No symptom reported Skin: No symptom reported Psychiatric: No symptom reported Endocrine: No symptom reported Hemotologic/Lymphatic: No symptom reported Vital Signs Vital Signs Date Time Temp Pulse Resp B/P (MAP) Pulse Ox O2 Delivery O2 Flow Rate FiO2 11/04/24 21:00 97.9 67 18 145/62 (89) 100 97.9 11/04/24 08:30 Nasal Cannula* 2 28 Physical Exam GENERAL: Alert and oriented x 3. No acute distress. Chronically ill. EYES: PERRL, EOMI. Anicteric. HENT: Moist mucous membranes. LUNGS: Clear to auscultation bilaterally. CARDIOVASCULAR: Regular rate and rhythm. ABDOMEN: Soft, non-tender and non-distended. EXTREMITIES: No edema. NEUROLOGIC: No focal neurological deficits. SKIN: Warm, dry. Labs/Diagnostic Data Labs Test 11/04/24 05:32 11/03/24 17:25 10/31/24 16:32 10/31/24 13:33 Range/Units White Blood Count 6.3 4.4-10.8 10^3/uL Red Blood Count 2.21 L 4.0-5.20 10^6/uL Hemoglobin 7.4 L 12.2-16.2 g/dL Hematocrit 22.2 L 36.0-46.0 % Mean Corpuscular Volume 100.2 H 80.0-100.0 fL Mean Corpuscular Hemoglobin 33.3 H 28.0-32.0 pg Mean Corpuscular Hemoglobin Concent 33.2 32.0-36.0 g/dL Red Cell Distribution Width 16.8 H 11.8-14.3 % Platelet Count 192 140-450 10^3/uL Mean Platelet Volume 9.0 6.9-10.8 fL Neutrophils (%) (Auto) 69.9 37.0-80.0 % Lymphocytes (%) (Auto) 16.2 10.0-50.0 % Monocytes (%) (Auto) 12.9 H 0.0-12.0 % Eosinophils (%) (Auto) 0.6 0.0-7.0 % Basophils (%) (Auto) 0.4 0.0-2.0 % Neutrophils # (Auto) 4.4 1.6-8.6 10 ^3/uL Lymphocytes # (Auto) 1.0 0.4-5.4 10 ^3/uL Monocytes # (Auto) 0.8 0-1.3 10 ^3/uL Eosinophils # (Auto) 0 0-0.8 10 ^3/uL Basophils # (Auto) 0 0-0.2 10 ^3/uL Nucleated Red Blood Cells 0.0 % Sodium Level 137 # 136-145 mmol/L Potassium Level 3.6 3.5-5.1 mmol/L Chloride Level 96 L 98-107 mmol/L Carbon Dioxide Level 31 20-31 mmol/L Anion Gap 10 5-15 Blood Urea Nitrogen 24 #H 9-23 mg/dL Creatinine 5.49 #H 0.550-1.02 mg/dL Glomerular Filtration Rate Calc 8 >90 mL/min BUN/Creatinine Ratio 4.4 L 10.0-20.0 Serum Glucose 88 74-106 mg/dL Calcium Level 8.5 L 8.7-10.4 mg/dL Total Bilirubin 0.4 0.2-1.0 mg/dL Aspartate Amino Transferase (AST) 20 13-40 U/L Alanine Aminotransferase (ALT) 19 7-40 U/L Alkaline Phosphatase 90 46-116 U/L Total Protein 6.4 5.7-8.2 g/dL Albumin 3.5 3.2-4.8 g/dL POC Glucose 177 H 70-106 mg/dl Lactic Acid Level 1.6 0.4-2.0 mmol/L Troponin I High Sensitivity 22 </=34 ng/L Prothrombin Time 12.1 H 9.3-11.8 sec Prothrombin Time INR 1.16 H 0.9-1.15 Activated Partial Thromboplast Time 29.6 24.5-34.5 SEC Microbiology Date/Time Source Procedure Growth Status 11/01/24 04:50 Nose MRSA Screen - Final Complete 10/31/24 16:32 Blood Blood Culture - Preliminary NO GROWTH AFTER 72 HOURS OF INCUBATION. Resulted Assessment Pericardial effusion of moderate degree. ESRD on hemodialysis. Possible pneumonia. Insulin-dependent diabetes mellitus. Anemia and chronic disease. Hypertension. Dyslipidemia. Obesity. Plan/Recommendation I agree with your ongoing assessment and care of plan. Patient has been seen by Mag Byrne NP on my behalf. We have discussed the plan with the patient. Telemetry reviewed. The patient underwent a transthoracic echocardiogram with preliminary results revealing a moderate posterior pericardial effusion without evidence of cardiac tamponade or restrictive disease. She presents with negative pulsus paradoxus. Continue hemodialysis treatments as scheduled per Nephrology team. Continue ABX therapy per primary care team. The patient can benefit from outpatient ischemic workup given T-wave changes to septal leads. There is no further cardiac workup indicated at this time. Additional plan as per the hospital course. Plan discussed with: Patient NYHA Physical activity limitations: NA Date of Service: Nov 04, 2024 Billing Provider: DESIREE GALARZA MD Cardiology Common Codes: [id number] INP/OBS CARE (High) DESIREE GALARZA MD Nov 04, 2024 23:10
[2024-11-05] VITALS (8 sets, daily range): BP systolic 104–149; BP diastolic 51–67; PULSE 60–69; RESP 16–97; TEMP 97.3–98.4; O2SAT 97–100
[2024-11-05 05:58] LABS: Hematocrit 26.5 % (36.0-46.0); Hemoglobin 8.8 g/dL (12.2-16.2); Mean Corpuscular Hemoglobin 33.0 pg (28.0-32.0); Mean Corpuscular Volume 99.6 fL (80.0-100.0); Nucleated Red Blood Cells % 0.0 %
[2024-11-05 06:18] LABS: Alanine Aminotransferase 22 U/L (7-40); Albumin 3.9 g/dL (3.2-4.8); Alkaline Phosphatase 103 U/L (46-116); Anion Gap 12 (5-15); BUN/Creatinine Ratio 4.6 (10.0-20.0); Calcium 9.1 mg/dL (8.7-10.4); Potassium 3.8 mmol/L (3.5-5.1); Sodium 137 mmol/L (136-145); Total Protein 7.1 g/dL (5.7-8.2)
[2024-11-05 06:19] LABS: Bilirubin, Total 0.3 mg/dL (0.2-1.0)
[2024-11-05 06:20] LABS: Blood Urea Nitrogen 33 mg/dL (9-23); Carbon Dioxide 31 mmol/L (20-31); Chloride 94 mmol/L (98-107); Glucose 64 mg/dL (74-106)
[2024-11-05] MEDS ORDERED: SODIUM CHL 0.9% 1000 ML BAG XX ONE (07:00)
[2024-11-05 09:01] LABS: Iron 30.0 ug/dL (50-170); Total Iron Binding Capacity 137.0 ug/dL (250-425)
--- NOTE | 2024-11-05 09:35 | DVHPN2 ---
Reviewed: Care Plan, H&P, Labs, Medications, Previous Orders, Radiology Changes from previous H/P or p: No Changes Eyes: No Pain, No Vision change, No Conjunctivae inflammation, No Eyelid inflammation, No Other, No Redness ENT: No Ear pain, No Ear discharge, No Nose pain, No Nose discharge, No Nose congestion, No Mouth pain, No Mouth swelling, No Throat pain, No Throat swelling, No Other Cardiovascular: No Chest Pain, No Palpitations, No Orthopnea, No Paroxysmal Noc. Dyspnea, No Edema, No Lt Headedness, No Other Respiratory: Cough; No Dry; Shortness of breath; No SOB with excertion, No Wheezing, No Hemoptysis, No Pleuritic Pain, No Sputum, No Other Gastrointestinal: No Nausea, No Vomiting; Abdominal Pain; No Diarrhea, No Constipation, No Melena, No Hematochezia; Other (Abdominal distention) Genitourinary: No Dysuria, No Frequency, No Incontinence, No Hematuria, No Retention; Other (On hemodialysis) Musculoskeletal: No other, No neck pain, No shoulder pain, No arm pain, No back pain, No hand pain, No leg pain, No foot pain Skin: No Rash, No Lesions, No Jaundice, No Bruising, No Other Objective Vitals Vital Signs Date Time Temp Pulse Resp B/P (MAP) Pulse Ox O2 Delivery O2 Flow Rate FiO2 11/05/24 05:00 98.4 63 17 126/67 (86) 100 98.4 11/04/24 20:00 Nasal Cannula* 2 28 Intake/Output Intake and Output 11/05/24 07:00 Intake Total 1460 ml Output Total 0 ml Balance 1460 ml Intake Oral 1460 ml Output Urine Total 0 ml # Bowel Movements 2 Medications Current Medications Medications Dose Ordered Sig/Kana Route Start Time Stop Time Status Last Admin Dose Admin Hydralazine HCl 10 mg Q6HP PRN IV 10/31/24 21:15 Ceftriaxone Sodium 50 ml @ 100 mls/hr DAILY@09 IV 11/01/24 09:00 11/04/24 09:08 100 MLS/HR Azithromycin 250 ml @ 125 mls/hr DAILY IV 11/01/24 10:00 11/03/24 12:51 125 MLS/HR Sevelamer HCl 800 mg TIDWM PO 11/01/24 08:00 11/05/24 08:24 800 MG Multivit/Ca Carb/ B Cmplx/FA/Prenat 1 tab DAILY PO 11/01/24 10:00 11/04/24 15:00 1 TAB Famotidine 10 mg Q24H IV 10/31/24 21:30 11/04/24 21:01 10 MG Diagnostic Test (Pha) 1 strip IQ4HR 11/01/24 00:00 11/05/24 08:00 1 STRIP Insulin Human Regular IQ4HR SC 11/01/24 00:00 11/05/24 00:00 6 UNITS Dextrose 50 ml UD PRN IV 10/31/24 21:15 Acetaminophen/ Hydrocodone Bitart 1 tab Q4HP PRN PO 10/31/24 21:15 Ondansetron HCl 4 mg Q4HP PRN IV 10/31/24 21:15 11/04/24 21:01 4 MG Docusate Sodium 100 mg BIDPRN PRN PO 10/31/24 21:15 11/02/24 08:43 100 MG Acetaminophen 650 mg Q6HP PRN PO 10/31/24 21:15 11/03/24 18:58 650 MG Atorvastatin Calcium 10 mg HS PO 10/31/24 22:00 11/04/24 22:03 10 MG Nitroglycerin 0.4 mg Q5MINP PRN SL 10/31/24 23:00 Morphine Sulfate 2 mg Q30M PRN IV 10/31/24 23:00 Al Hydrox/Mg Hydrox/Simethicone 30 ml BID PRN PO 11/02/24 12:00 11/02/24 12:23 30 ML Laboratory Results Laboratory Tests 11/05/24 05:25 Chemistry Test 11/05/24 05:25 Albumin 3.9 g/dL (3.2-4.8) Calcium Level 9.1 mg/dL (8.7-10.4) Total Protein 7.1 g/dL (5.7-8.2) LFT Test 11/05/24 05:25 Alanine Aminotransferase (ALT) 22 U/L (7-40) Alkaline Phosphatase 103 U/L (46-116) Aspartate Amino Transferase (AST) 20 U/L (13-40) Total Bilirubin 0.3 mg/dL (0.2-1.0) Microbiology Microbiology Date/Time Source Procedure Growth Status 11/01/24 04:50 Nose MRSA Screen - Final Complete 10/31/24 16:32 Blood Blood Culture - Preliminary NO GROWTH AFTER 72 HOURS OF INCUBATION. 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 Anemia of chronic disease Hyperlipidemia Small pericardial effusion, no intervention per Cardiology, advised ischemic workup as an outpatient Right pleural effusion: Small to drain per radiology Pericholecystic fluid: HIDA scan negative Constipation: Lactulose Time spent 70 minutes Advanced care planning time 20 minutes Patient is full code Plan discussed with: Patient My Orders Orders - GLENN DORANTES MD Procedure Category Date Status Time Nm Hida Scan NM 11/04/24 Resulted 09:48 * Radiologist Consult CONS 11/04/24 Transmitted 09:49 * Cardiology Consult CONS 11/04/24 Transmitted 09:49 Date of Service: Nov 05, 2024 Billing Provider: GLENN DORANTES MD Common Visit Codes: 30051-[id number] CARE 30-74 MIN GLENN DORANTES MD Nov 05, 2024 09:35
[2024-11-05] MEDS ORDERED: AZIT500T66 PO (10:00)
--- NOTE | 2024-11-05 10:06 | DVHDS2 ---
Discharge Summary Date of Admission Oct 31, 2024 at 22:47 Date of Discharge: Nov 05, 2024 Admitting Diagnosis Shortness of breath Wounds: None Labs/Diagnostic Data: Laboratory Results Test 11/05/24 06:43 11/05/24 05:25 10/31/24 16:32 10/31/24 13:33 POC Glucose 61 mg/dl (70-106) White Blood Count 9.6 10^3/uL (4.4-10.8) Red Blood Count 2.66 10^6/uL (4.0-5.20) Hemoglobin 8.8 g/dL (12.2-16.2) Hematocrit 26.5 % (36.0-46.0) Mean Corpuscular Volume 99.6 fL (80.0-100.0) Mean Corpuscular Hemoglobin 33.0 pg (28.0-32.0) Mean Corpuscular Hemoglobin Concent 33.2 g/dL (32.0-36.0) Red Cell Distribution Width 17.1 % (11.8-14.3) Platelet Count 269 10^3/uL (140-450) Mean Platelet Volume 8.6 fL (6.9-10.8) Neutrophils (%) (Auto) 66.4 % (37.0-80.0) Lymphocytes (%) (Auto) 19.6 % (10.0-50.0) Monocytes (%) (Auto) 12.7 % (0.0-12.0) Eosinophils (%) (Auto) 1.0 % (0.0-7.0) Basophils (%) (Auto) 0.3 % (0.0-2.0) Neutrophils # (Auto) 6.4 10 ^3/uL (1.6-8.6) Lymphocytes # (Auto) 1.9 10 ^3/uL (0.4-5.4) Monocytes # (Auto) 1.2 10 ^3/uL (0-1.3) Eosinophils # (Auto) 0.1 10 ^3/uL (0-0.8) Basophils # (Auto) 0 10 ^3/uL (0-0.2) Nucleated Red Blood Cells 0.0 % Sodium Level 137 mmol/L (136-145) Potassium Level 3.8 mmol/L (3.5-5.1) Chloride Level 94 mmol/L (98-107) Carbon Dioxide Level 31 mmol/L (20-31) Anion Gap 12 (5-15) Blood Urea Nitrogen 33 mg/dL (9-23) Creatinine 7.17 mg/dL (0.550-1.02) Glomerular Filtration Rate Calc 6 mL/min (>90) BUN/Creatinine Ratio 4.6 (10.0-20.0) Serum Glucose 64 mg/dL (74-106) Calcium Level 9.1 mg/dL (8.7-10.4) Iron Level 30 ug/dL (50-170) Total Iron Binding Capacity 137 ug/dL (250-425) Percent Iron Saturation 21.9 % (15-50) Total Bilirubin 0.3 mg/dL (0.2-1.0) Aspartate Amino Transferase (AST) 20 U/L (13-40) Alanine Aminotransferase (ALT) 22 U/L (7-40) Alkaline Phosphatase 103 U/L (46-116) Total Protein 7.1 g/dL (5.7-8.2) Albumin 3.9 g/dL (3.2-4.8) Lactic Acid Level 1.6 mmol/L (0.4-2.0) Troponin I High Sensitivity 22 ng/L (</=34) Prothrombin Time 12.1 sec (9.3-11.8) Prothrombin Time INR 1.16 (0.9-1.15) Activated Partial Thromboplast Time 29.6 SEC (24.5-34.5) Other Laboratory Tests 11/05/24 05:25 Brief Hx & Hospital Course: 59-year-old male with multiple medical problems including ESRD on hemodialysis history of erosive esophagitis type 2 diabetes hyperlipidemia anemia of chronic disease came in for shortness of breaths. Patient was found to be in fluid overloaded received hemodialysis by Dr Pascual. Community Acquired pneumonia treated with the azithromycin. Mild pleural effusion cardiology advised no intervention mild right pleural effusion Radiology advised no intervention CT abdomen pelvis without contrast showed pericholecystic fluid HIDA scan negative Patient feeling better on 2 L of oxygen. Vital signs are stable. Patient is discharged home. General condition stable but poor at the time of discharge. 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 Anemia of chronic disease Hyperlipidemia Small pericardial effusion, no intervention per Cardiology, advised ischemic workup as an outpatient Right pleural effusion: Small to drain per radiology Pericholecystic fluid: HIDA scan negative Constipation: Lactulose Discharge Disposition: Home Discharge Instruct/Medications Diet: Renal Activity: Light activity Follow Up/Referral: Follow up with the primary Dr in one week follow up with the Nephrology for dialysis Resume all previous home meds Medications: Azithromycin Transmitted to pharmacy Scheduled Amlodipine Besylate (Amlodipine Besylate), 1 TAB PO DAILY, (Reported) Azithromycin (Azithromycin), 1 TAB PO DAILY B-Complex W/ C & Folic Acid ([facility]), 1 TAB PO DAILY, (Reported) Carvedilol (Carvedilol), 1 TAB PO BID, (Reported) Chlorthalidone (Chlorthalidone), 1 TAB PO DAILY, (Reported) Ergocalciferol (Vitamin D), 1 CAP PO QWEEKLY, (Reported) Ferrous Sulfate (Ferosul), 1 TAB PO BID, (Reported) Fluticasone Propionate (Nasal) (Fluticasone Propionate), SPRAY NINO UD, (Reported) Furosemide (Furosemide), 1 TAB PO DAILY, (Reported) Guanfacine Hcl (Guanfacine Hcl), 1 TAB PO DAILY, (Reported) Hydroxyzine Pamoate (Hydroxyzine Pamoate), 1 CAP PO DAILYPRN, (Reported) Ketoconazole (Ketoconazole), UD, (Reported) Lidocaine-Prilocaine (Lidocaine/Prilocaine), 1 KIT EX DAILY, (Reported) Losartan Potassium (Losartan Potassium), 1 TAB PO DAILY, (Reported) Metoprolol Tartrate (Lopressor Tablet), 1 TAB PO BID, (Reported) Omeprazole (Gnp Omeprazole), 1 TAB PO DAILY, (Reported) Semaglutide (Ozempic), 0.5 MG SC Q7D, (Reported) Sucralfate (Carafate Susp), 10 ML PO QID Triamcinolone Acetonide (Kenalog), 1 APPLIC TOP UD, (Reported) Scheduled PRN Dicyclomine Hcl (Bentyl Capsule), 1 CAP PO BIDPRN PRN, (Reported) Famotidine (Famotidine), 1 TAB PO DAILY PRN for HEARTBURN, (Reported) Ondansetron Odt 4MG Tab (Zofran Po), 4 MG PO Q6HP PRN 39 (Time taken for discharge summary 39 minutes) Discharge Statement: "Patient was advised to return to the ER or call 911 if any headaches, dizziness, shortness of breath, chest pain, abdominal pain, bleeding, fevers, or worsening of medical condition. Patient was counseled about treatment plan, medications, possible side effects, patientverbalized understanding. All questions were answered to the best of my ability. 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
--- NOTE | 2024-11-05 16:12 | DVHPN2 ---
Progress Note - Dictate Date Seen: Nov 05, 2024 Medical Necessity Reason Pt with a Central, PICC or Fol: No ([facility]) Subjective Patient complains of epigastric pain today and she has been vomiting vital signs Vital Sign Date Time Temp Pulse Resp B/P (MAP) Pulse Ox O2 Delivery O2 Flow Rate FiO2 11/05/24 13:00 98.2 62 17 142/51 (81) 100 98.2 11/04/24 20:00 Nasal Cannula* 2 28 Total Intake and Output 11/04/24 11/04/24 11/05/24 15:00 23:00 07:00 Intake Total 60 ml 1000 ml 400 ml Output Total 0 ml Balance 60 ml 1000 ml 400 ml medications Current Medications Medications Dose Ordered Sig/Kana Route Start Time Stop Time Status Last Admin Dose Admin Hydralazine HCl 10 mg Q6HP PRN IV 10/31/24 21:15 Ceftriaxone Sodium 50 ml @ 100 mls/hr DAILY@09 IV 11/01/24 09:00 11/05/24 09:46 100 MLS/HR Azithromycin 250 ml @ 125 mls/hr DAILY IV 11/01/24 10:00 11/05/24 11:37 125 MLS/HR Sevelamer HCl 800 mg TIDWM PO 11/01/24 08:00 11/05/24 11:31 800 MG Multivit/Ca Carb/ B Cmplx/FA/Prenat 1 tab DAILY PO 11/01/24 10:00 11/05/24 09:46 1 TAB Famotidine 10 mg Q24H IV 10/31/24 21:30 11/04/24 21:01 10 MG Diagnostic Test (Pha) 1 strip IQ4HR 11/01/24 00:00 11/05/24 11:38 1 STRIP Insulin Human Regular IQ4HR SC 11/01/24 00:00 11/05/24 11:50 3 UNITS Dextrose 50 ml UD PRN IV 10/31/24 21:15 Acetaminophen/ Hydrocodone Bitart 1 tab Q4HP PRN PO 10/31/24 21:15 Ondansetron HCl 4 mg Q4HP PRN IV 10/31/24 21:15 11/05/24 14:25 4 MG Docusate Sodium 100 mg BIDPRN PRN PO 10/31/24 21:15 11/02/24 08:43 100 MG Acetaminophen 650 mg Q6HP PRN PO 10/31/24 21:15 11/03/24 18:58 650 MG Atorvastatin Calcium 10 mg HS PO 10/31/24 22:00 11/04/24 22:03 10 MG Nitroglycerin 0.4 mg Q5MINP PRN SL 10/31/24 23:00 Morphine Sulfate 2 mg Q30M PRN IV 10/31/24 23:00 Al Hydrox/Mg Hydrox/Simethicone 30 ml BID PRN PO 11/02/24 12:00 11/02/24 12:23 30 ML objective HEENT: No evidence of JVD, no oral ulcers. Pulmonary: Lungs are clear on auscultation bilaterally Cardiovascular S1-S2, no S3 or S4 Abdomen: Bowel sounds positive, soft no rebound tenderness, mild distention, tenderness in the epigastric area Skin: No rash Neurological: Alert, oriented, no focal weakness Access: Left upper arm AV fistula positive bruit and thrill laboratory and microbiology Laboratory Tests 11/05/24 05:25 Test 11/05/24 05:25 Range/Units Serum Glucose 64 L 74-106 mg/dL Assessment/Plan Assessment: End-stage kidney disease on hemodialysis Abdominal pain Nausea and vomiting History of GI bleed Pericardial effusion with no evidence of tamponade as per Cardiology. 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 On PPI, simethicone GI consult appreciated Monitor H&H Patient is started on IV antibiotics. From renal standpoint no evidence of fluid overload. Electrolytes within acceptable limits. Thank you very much for allowing us to participate in the care of this patient please contact if you have any questions. Plan discussed with: Patient NICK MACKAY MD Nov 05, 2024 16:12
--- NOTE | 2024-11-05 16:51 | DVHSR ---
APPROVED REPORT EXAM: LIMITED Two-dimensional and M-mode echocardiogram with Doppler and color Doppler. Blood Pressure: 143/62 mmHg INDICATION reported large pericardial effusion lmited to asess fluid RISK FACTORS Obesity: Height: 5', Weight: 168 Mitral Valve MitralMitral Stenosis E/A ratio0.02D MVAcm2 Other Information Quality : LimitedTechnically LimitedRhythm : Technically limited study due to limited to check pericardial fluid Conclusion LVEF 50-55%, RV size and function normal moderate size circumferential pericardial effusion with no evidence of tamponade
[2024-11-05] MEDS ORDERED: EPOETIN ALFA-EPBX 10,000 UNIT/1ML VIAL SC ONE (21:00)
--- NOTE | 2024-11-05 23:12 | DVHPN2 ---
Progress Note - Dictate Date Seen: Nov 05, 2024 Medical Necessity Reason Pt with a Central, PICC or Fol: No ([facility]) Subjective Patient was seen and evaluated in follow-up. Patient reports feeling better today. 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 Echocardiogram shows an EF of 50- 55%. Telemetry reviewed. vital signs Vital Sign Date Time Temp Pulse Resp B/P (MAP) Pulse Ox O2 Delivery O2 Flow Rate FiO2 11/05/24 13:00 98.2 62 17 142/51 (81) 100 98.2 11/04/24 20:00 Nasal Cannula* 2 28 Total Intake and Output 11/04/24 11/04/24 11/05/24 15:00 23:00 07:00 Intake Total 60 ml 1000 ml 400 ml Output Total 0 ml Balance 60 ml 1000 ml 400 ml medications Current Medications Medications Dose Ordered Sig/Kana Route Start Time Stop Time Status Last Admin Dose Admin Hydralazine HCl 10 mg Q6HP PRN IV 10/31/24 21:15 Ceftriaxone Sodium 50 ml @ 100 mls/hr DAILY@09 IV 11/01/24 09:00 11/05/24 09:46 100 MLS/HR Azithromycin 250 ml @ 125 mls/hr DAILY IV 11/01/24 10:00 11/05/24 11:37 125 MLS/HR Sevelamer HCl 800 mg TIDWM PO 11/01/24 08:00 11/05/24 11:31 800 MG Multivit/Ca Carb/ B Cmplx/FA/Prenat 1 tab DAILY PO 11/01/24 10:00 11/05/24 09:46 1 TAB Famotidine 10 mg Q24H IV 10/31/24 21:30 11/04/24 21:01 10 MG Diagnostic Test (Pha) 1 strip IQ4HR 11/01/24 00:00 11/05/24 11:38 1 STRIP Insulin Human Regular IQ4HR SC 11/01/24 00:00 11/05/24 11:50 3 UNITS Dextrose 50 ml UD PRN IV 10/31/24 21:15 Acetaminophen/ Hydrocodone Bitart 1 tab Q4HP PRN PO 10/31/24 21:15 Ondansetron HCl 4 mg Q4HP PRN IV 7/4/25 21:15 11/05/24 14:25 4 MG Docusate Sodium 100 mg BIDPRN PRN PO 10/31/24 21:15 11/02/24 08:43 100 MG Acetaminophen 650 mg Q6HP PRN PO 10/31/24 21:15 11/03/24 18:58 650 MG Atorvastatin Calcium 10 mg HS PO 10/31/24 22:00 11/04/24 22:03 10 MG Nitroglycerin 0.4 mg Q5MINP PRN SL 10/31/24 23:00 Morphine Sulfate 2 mg Q30M PRN IV 10/31/24 23:00 Al Hydrox/Mg Hydrox/Simethicone 30 ml BID PRN PO 11/02/24 12:00 11/02/24 12:23 30 ML objective GENERAL: Alert and oriented x 3. No acute distress. Chronically ill. EYES: PERRL, EOMI. Anicteric. HENT: Moist mucous membranes. LUNGS: Clear to auscultation bilaterally. CARDIOVASCULAR: Regular rate and rhythm. ABDOMEN: Soft, non-tender and non-distended. EXTREMITIES: No edema. NEUROLOGIC: No focal neurological deficits. SKIN: Warm, dry. laboratory and microbiology Laboratory Tests 11/05/24 05:25 Test 11/05/24 05:25 Range/Units Serum Glucose 64 L 74-106 mg/dL Problem List Pericardial effusion of moderate degree. ESRD on hemodialysis. Possible pneumonia. Insulin-dependent diabetes mellitus. Anemia and chronic disease. Hypertension. Dyslipidemia. Obesity. Assessment/Plan Continued all current supportive medical care. Nitro SL. Echocardiogram. IV antibiotics as ordered. IV Hydralazine for SBP > 150. Morphine and [place] for pain management. Additional plan as per the hospital course. Plan discussed with: Patient DESIREE GALARZA MD Nov 05, 2024 14:44
--- NOTE | 2024-11-05 23:36 | DVHINCON2 ---
Date of service: Nov 05, 2024 (Late entryPatient seen at 4:00 p.m.) Referring Physician Dr Serina Peters Reason for Consultation Epigastric pain History of Present Illness This is a 59-year-old female with a history of end-stage kidney disease on hemodialysis presenting to the emergency room because of the abdominal pain. She has a history of erosive esophagitis.Also complaining of mild shortness of breath. Patient was treated with antibiotics for pneumonia Today the patient is again complaining of some epigastric symptoms and GERD symptoms. There was no nausea vomiting or GI bleed. Patient underwent dialysis this evening I recently did an endoscopy for her on her last admission in September of 2024 for similar symptoms Operative Report DATE OF OPERATION: 10/15/24 PROCEDURE: Upper Endoscopy with biopsy. PREOPERATIVE INDICATION: The patient is a 58 -year-old female undergoing endoscopy for anemia and melena POSTOPERATIVE DIAGNOSES: 1. Mild gastroduodenitis; duodenal biopsies were obtained 2. There was a 5 mm pre-pyloric antral inflammatory polyp with overlying erosion from which biopsies were obtained 3. 1-2 cm sliding-type hiatal hernia with no significant erosive esophagitis otherwise normal examination up to the 2nd and 3rd part of the duodenum with no active bleeding PROCEDURE PERFORMED BY: Alec Hutchison Past Medical History Past Medical History End-stage kidney disease Type 2 diabetes with complications Hyperlipidemia Erosive esophagitis Past Surgical History Past Surgical History Dialysis access Family History: Cardiovascular disease G8 FATHER, (HEART ATTACK) FH: MS (myocardial infarction) G8 FATHER FH: cancer G8 MOTHER Allergies: Coded Allergies: No Known Drug Allergy (Verified Allergy, Unknown, 10/05/24) Home Meds Active Scripts Azithromycin (Azithromycin) 500 Mg Tab, 1 TAB PO DAILY, #10 TAB Prov:GLENN DORANTES MD 11/05/24 Sucralfate (CARAFATE SUSP) 1 Gm/10 Ml Ss, 10 ML PO QID, #1200 ML 3 Refills Prov:PRASANNA KOENIG MD 10/17/24 Ondansetron Odt 4MG Tab (ZOFRAN PO) 4 Mg Tb, 4 MG PO Q6HP PRN for 7 Days, #16 TAB ODT TAB-DISSOLVE IN MOUTH, THEN SWALLOW Prov:SANAM JOHNSTON RESIDENT 08/28/24 Reported Medications Furosemide (Furosemide) 40 Mg Tab, 1 TAB PO DAILY 10/05/24 Ferrous Sulfate (Ferosul) 325 Mg Tab, 1 TAB PO BID 10/05/24 Dicyclomine Hcl (BENTYL CAPSULE) 10 Mg Cp, 1 CAP PO BIDPRN PRN 10/05/24 Lidocaine-Prilocaine (Lidocaine/Prilocaine) 1 Kit Kit, 1 KIT EX DAILY for 30 Days, #30 08/27/24 Hydroxyzine Pamoate (Hydroxyzine Pamoate) 25 Mg Cap, 1 CAP PO DAILYPRN for 30 Days, #30 08/27/24 Famotidine (Famotidine) 20 Mg Tab, 1 TAB PO DAILY PRN for HEARTBURN for 90 Days, #90 08/27/24 Guanfacine Hcl (Guanfacine Hcl) 1 Mg Tab, 1 TAB PO DAILY for 90 Days, #90 08/27/24 Losartan Potassium (Losartan Potassium) 100 Mg Tab, 1 TAB PO DAILY for 100 Days, #100 08/27/24 Ergocalciferol (Vitamin D) 50,000 Unit Cap, 1 CAP PO QWEEKLY for 84 Days, #12 08/27/24 Chlorthalidone (Chlorthalidone) 25 Mg Tab, 1 TAB PO DAILY for 30 Days, #30 08/27/24 B-Complex W/ C & Folic Acid (Ernestina-Kaylie Rx) Tab, 1 TAB PO DAILY for 90 Days, #90 08/27/24 Semaglutide (Ozempic) 2 Mg/3 Ml Inj, 0.5 MG SC Q7D for 28 Days, #3 08/27/24 Fluticasone Propionate (Nasal) (Fluticasone Propionate) 50 Mcg/Act Spr, SPRAY NINO UD for 30 Days, #16 08/27/24 Triamcinolone Acetonide (Kenalog) 1 Applic Ap, 1 APPLIC TOP UD for 30 Days, #45 08/27/24 Omeprazole (Gnp Omeprazole) 20 Mg Tab, 1 TAB PO DAILY for 30 Days, #30 08/27/24 Ketoconazole (Ketoconazole) 2 % Sha, UD for 30 Days, #120 08/27/24 Amlodipine Besylate (Amlodipine Besylate) 5 Mg Tab, 1 TAB PO DAILY for 90 Days, #90 06/23/24 Carvedilol (Carvedilol) 12.5 Mg Tab, 1 TAB PO BID 2/24/25 Metoprolol Tartrate (LOPRESSOR TABLET) 50 Mg Tb, 1 TAB PO BID for 90 Days, #180 06/23/24 Vital Signs Vital Signs Date Time Temp Pulse Resp B/P (MAP) Pulse Ox O2 Delivery O2 Flow Rate FiO2 11/05/24 20:34 98.0 69 18 97 11/05/24 20:00 Room Air* 0 21 11/05/24 17:00 149/55 (86) Physical Exam HEENT: No evidence of JVD, no oral ulcers. Pulmonary: Lungs are clear on auscultation bilaterally Cardiovascular S1-S2, no S3 or S4 Abdomen: Bowel sounds positive, soft no rebound tenderness, mild distention, tenderness in the epigastric area Skin: No rash Neurological: Alert, oriented, no focal weakness Access: Left upper arm AV fistula positive bruit and thrill Labs/Diagnostic Data Labs Test 11/05/24 18:19 11/05/24 05:25 10/31/24 16:32 10/31/24 13:33 Range/Units POC Glucose 153 H 70-106 mg/dl White Blood Count 9.6 # 4.4-10.8 10^3/uL Red Blood Count 2.66 L 4.0-5.20 10^6/uL Hemoglobin 8.8 #L 12.2-16.2 g/dL Hematocrit 26.5 #L 36.0-46.0 % Mean Corpuscular Volume 99.6 80.0-100.0 fL Mean Corpuscular Hemoglobin 33.0 H 28.0-32.0 pg Mean Corpuscular Hemoglobin Concent 33.2 32.0-36.0 g/dL Red Cell Distribution Width 17.1 H 11.8-14.3 % Platelet Count 269 140-450 10^3/uL Mean Platelet Volume 8.6 6.9-10.8 fL Neutrophils (%) (Auto) 66.4 37.0-80.0 % Lymphocytes (%) (Auto) 19.6 10.0-50.0 % Monocytes (%) (Auto) 12.7 H 0.0-12.0 % Eosinophils (%) (Auto) 1.0 0.0-7.0 % Basophils (%) (Auto) 0.3 0.0-2.0 % Neutrophils # (Auto) 6.4 1.6-8.6 10 ^3/uL Lymphocytes # (Auto) 1.9 0.4-5.4 10 ^3/uL Monocytes # (Auto) 1.2 0-1.3 10 ^3/uL Eosinophils # (Auto) 0.1 0-0.8 10 ^3/uL Basophils # (Auto) 0 0-0.2 10 ^3/uL Nucleated Red Blood Cells 0.0 % Sodium Level 137 136-145 mmol/L Potassium Level 3.8 3.5-5.1 mmol/L Chloride Level 94 L 98-107 mmol/L Carbon Dioxide Level 31 20-31 mmol/L Anion Gap 12 5-15 Blood Urea Nitrogen 33 H 9-23 mg/dL Creatinine 7.17 #H 0.550-1.02 mg/dL Glomerular Filtration Rate Calc 6 >90 mL/min BUN/Creatinine Ratio 4.6 L 10.0-20.0 Serum Glucose 64 L 74-106 mg/dL Calcium Level 9.1 8.7-10.4 mg/dL Iron Level 30 L 50-170 ug/dL Total Iron Binding Capacity 137 L 250-425 ug/dL Percent Iron Saturation 21.9 15-50 % Ferritin > 1650.0 H 10-291 ng/mL Total Bilirubin 0.3 0.2-1.0 mg/dL Aspartate Amino Transferase (AST) 20 13-40 U/L Alanine Aminotransferase (ALT) 22 7-40 U/L Alkaline Phosphatase 103 46-116 U/L Total Protein 7.1 5.7-8.2 g/dL Albumin 3.9 3.2-4.8 g/dL Lactic Acid Level 1.6 0.4-2.0 mmol/L Troponin I High Sensitivity 22 </=34 ng/L Prothrombin Time 12.1 H 9.3-11.8 sec Prothrombin Time INR 1.16 H 0.9-1.15 Activated Partial Thromboplast Time 29.6 24.5-34.5 SEC Microbiology Date/Time Source Procedure Growth Status 11/01/24 04:50 Nose MRSA Screen - Final Complete 10/31/24 16:32 Blood Blood Culture - Final NO GROWTH AFTER [address] IN[address]. Complete [address] SCAN ABD PELVIS IMPRESSION: 1. Cardiomegaly and large pericardial effusion. 2. Moderate right and small left pleural effusions with adjacent atelectasis and moderate right lower lobe consolidation. 3. Pericholecystic edema and gallbladder wall thickening. 4. Small volume perihepatic and pelvic ascites. 5. Bilateral renal atrophy, cortical thinning / scarring and nonobstructive nephrolithiasis. Problems(with codes): (1) Pneumonia (2) Generalized weakness (3) ESRD (end stage renal disease) (4) Anemia in chronic kidney disease (5) End stage renal failure on dialysis (6) Diabetes mellitus with hyperglycemia (7) Gastritis Plan/Recommendation Plan Continue conservative management with Protonix 40 mg p.o. q.a.m. Carafate 1 g p.o. q.h.s. Avoid aspirin NSAIDs smoking alcohol Discharge planning is in progress after the dialysis She can follow up in my office as an outpatient to review results and discuss further management Plan discussed with: Patient ALEC HUTCHISON MD Nov 05, 2024 23:36
== END 2024-11-05 21:15 | disposition home or self-care (01) | DRG 137 ==
LOC: ER 12:09 → OVERFLOW 22:47 → TELE-EAST 23:58
PROVIDERS: ADMIT Family Medicine; ATTEND Family Medicine
PROC: 5A1D70Z Performance of Urinary Filtration, Intermittent, Less than 6 Hours Per Day (ICD-10-PCS; principal; 2024-11-03)
PROC: 5A1D70Z Performance of Urinary Filtration, Intermittent, Less than 6 Hours Per Day (ICD-10-PCS; 2024-11-05)
DX: J15.69 Pneumonia due to other Gram-negative bacteria (principal); I31.39 Other pericardial effusion (noninflammatory); I12.0 Hypertensive chronic kidney disease with stage 5 chronic kidney disease or end stage renal disease; D63.1 Anemia in chronic kidney disease; E11.319 Type 2 diabetes mellitus with unspecified diabetic retinopathy without macular edema; J90 Pleural effusion, not elsewhere classified; N18.6 End stage renal disease; J15.9 Unspecified bacterial pneumonia; E11.21 Type 2 diabetes mellitus with diabetic nephropathy; E11.22 Type 2 diabetes mellitus with diabetic chronic kidney disease; E11.65 Type 2 diabetes mellitus with hyperglycemia; Z99.2 Dependence on renal dialysis; E66.9 Obesity, unspecified; K59.00 Constipation, unspecified; E87.70 Fluid overload, unspecified; E78.5 Hyperlipidemia, unspecified; Z87.19 Personal history of other diseases of the digestive system; Z82.49 Family history of ischemic heart disease and other diseases of the circulatory system; Z79.4 Long term (current) use of insulin; Z68.28 Body mass index [BMI] 28.0-28.9, adult; Z79.84 Long term (current) use of oral hypoglycemic drugs; Z79.899 Other long term (current) drug therapy
CPT/HCPCS: 36415; 71045; 74176; 76604; 78226; 80048; 80053; 82728; 82962; 83540; 83550; 83605; 84484; 85025; 85610; 85730; 86850; 86900; 86901; 87040; 87081; 90935; 93005; 93306; 96365; G0378; J1815; J2405; J3490

== ENCOUNTER 2025-01-01 17:53 | Inpatient (IN) | payer MEDICAID ==
[~2025-01-01] VITALS: Ht 152.4 cm; Wt 65.9 kg
[~2025-01-01 17:53] MED LIST changes: -AUG875T PO; +AZIT500T66 PO; -DOXY100C79 PO; -GLIP5TAB21 PO; -INSU100I54 SC; -INSU100I69 SC; -LEVO750T40 PO; -LORA-483 PO; -METF-372 PO; -PANT40TA2 PO; -ROSU20TA56 PO
[2025-01-01 18:45] VITALS: PULSE 66; RESP 17; O2SAT 94
--- NOTE | 2025-01-01 18:49 | ECG ---
[facility] Test Date: 2025-01-01 Test Time: 18:07:33 Pat Name: MICHAEL REYNOLDS Department: Room: 0279 Gender: F Rn Security: RYLIE : 1965 Requested By: ANDIE SCHROEDER Order Number: [id number] Reading MD: Vlad Medina Measurements Intervals [place] Rate: 67 P: 40 [place]: 156 QRS: 101 QRSD: 87 T: -14 QT: 405 QTc: 428 Interpretive Statements Sinus rhythm Right axis deviation Borderline T abnormalities, inferior leads Electronically Signed On 01-05-2025 10:21:45 PDT by Vlad Medina Please click the below link to view image of tracing.
--- NOTE | 2025-01-01 19:17 | ED.PDOC ---
GI ASSESSMENT HPI Comments This is a 59-year-old female with past medical history of ESRD on maintenance hemodialysis, diabetes, hypertension, dyslipidemia brought in by EMS from home due to abdominal pain since 4 days. Pain is localized at epigastric area, nonradiating, constant, 10/10, with no clear exacerbating or relieving factor. She also reports of shortness of breaths, nausea and vomiting. Per patient she is not able to take food since 4 days. She denies fever, chest pain, or any recent bowel and bladder habit changes. Patient has history of moderate pericardial effusion. Chief Complaint: Nausea/Vomiting Time Seen by MD: 18:02 Primary Care Provider: MALDONADO Reviewed Notes: Job Hand Notes Allergies: Coded Allergies: No Known Drug Allergy (Verified Allergy, Unknown, 10/05/24) Home Meds Active Scripts Azithromycin (Azithromycin) 500 Mg Tab, 1 TAB PO DAILY, #10 TAB Prov:GLENN DORANTES MD 11/05/24 Sucralfate (CARAFATE SUSP) 1 Gm/10 Ml Ss, 10 ML PO QID, #1200 ML 3 Refills Prov:PRASANNA KOENIG MD 10/17/24 Ondansetron Odt 4MG Tab (ZOFRAN PO) 4 Mg Tb, 4 MG PO Q6HP PRN for 7 Days, #16 TAB ODT TAB-DISSOLVE IN MOUTH, THEN SWALLOW Prov:SANAM JOHNSTON RESIDENT 08/28/24 Reported Medications Furosemide (Furosemide) 40 Mg Tab, 1 TAB PO DAILY 10/05/24 Ferrous Sulfate (Ferosul) 325 Mg Tab, 1 TAB PO BID 10/05/24 Dicyclomine Hcl (BENTYL CAPSULE) 10 Mg Cp, 1 CAP PO BIDPRN PRN 10/05/24 Lidocaine-Prilocaine (Lidocaine/Prilocaine) 1 Kit Kit, 1 KIT EX DAILY for 30 Days, #30 08/27/24 Hydroxyzine Pamoate (Hydroxyzine Pamoate) 25 Mg Cap, 1 CAP PO DAILYPRN for 30 Days, #30 08/27/24 Famotidine (Famotidine) 20 Mg Tab, 1 TAB PO DAILY PRN for HEARTBURN for 90 Days, #90 08/27/24 Guanfacine Hcl (Guanfacine Hcl) 1 Mg Tab, 1 TAB PO DAILY for 90 Days, #90 08/27/24 Losartan Potassium (Losartan Potassium) 100 Mg Tab, 1 TAB PO DAILY for 100 Days, #100 08/27/24 Ergocalciferol (Vitamin D) 50,000 Unit Cap, 1 CAP PO QWEEKLY for 84 Days, #12 08/27/24 Chlorthalidone (Chlorthalidone) 25 Mg Tab, 1 TAB PO DAILY for 30 Days, #30 08/27/24 B-Complex W/ C & Folic Acid (Ernestina-Kaylie Rx) Tab, 1 TAB PO DAILY for 90 Days, #90 08/27/24 Semaglutide (Ozempic) 2 Mg/3 Ml Inj, 0.5 MG SC Q7D for 28 Days, #3 08/27/24 Fluticasone Propionate (Nasal) (Fluticasone Propionate) 50 Mcg/Act Spr, SPRAY NINO UD for 30 Days, #16 08/27/24 Triamcinolone Acetonide (Kenalog) 1 Applic Ap, 1 APPLIC TOP UD for 30 Days, #45 08/27/24 Omeprazole (Gnp Omeprazole) 20 Mg Tab, 1 TAB PO DAILY for 30 Days, #30 08/27/24 Ketoconazole (Ketoconazole) 2 % Sha, UD for 30 Days, #120 08/27/24 Amlodipine Besylate (Amlodipine Besylate) 5 Mg Tab, 1 TAB PO DAILY for 90 Days, #90 06/23/24 Carvedilol (Carvedilol) 12.5 Mg Tab, 1 TAB PO BID 06/23/24 Metoprolol Tartrate (LOPRESSOR TABLET) 50 Mg Tb, 1 TAB PO BID for 90 Days, #180 06/23/24 Information Source: Patient Mode of Arrival: EMS Past Medical History PAST MEDICAL HISTORY: DM, ESRD, High Lipids, HTN Surgical History: Denies all surgeries WEAPONS DESIGNER History: Denies all WEAPONS DESIGNER Hx Family History Family History: Reviewed,noncontributory to illness Social History Smoker: Non-Smoker Alcohol: Denies ETOH Use Drugs: Denies Drug Use Lives In: Home Constitutional: reports: fatigue, weakness; denies: chills, diaphoresis, fever, malaise, sweats, others EENTM: denies: blurred vision, double vision, ear bleeding, ear discharge, ear drainage, ear pain, ear ringing, eye pain, eye redness, hearing loss, mouth pain, mouth swelling, nasal discharge, nose bleeding, nose congestion, nose pain, photophobia, tearing, throat pain, throat swelling, voice changes, others Respiratory: reports: shortness of breath; denies: cough, hemoptysis, orthopnea, SOB at rest, SOB with excertion, stridor, wheezing, others Cardiovascular: denies: chest pain, dizzy spells, diaphoresis, Dyspnea on exertion, edema, irregular heart beat, left arm pain, lightheadedness, pal pitations, PND, syncope, others Gastrointestinal: reports: abdominal pain, constipated, nausea, vomiting; denies: abdomen distended, blood streaked bowels, diarrhea, dysphagia, difficulty swallowing, hematemesis, melena, poor appetite, poor fluid intake, rectal bleeding, rectal pain, others Genitourinary: denies: abnormal vagina bleeding, burning, dyspareunia, dysuria, flank pain, frequency, hematuria, incontinence, pain, , vagina discharge, urgency, others Neurological: denies: dizziness, fainting, headache, left sided numbness, left sided weakness, numbness, paresthesia, pre-existing deficit, right sided numbness, right sided weakness, seizure, speech problems, tingling, tremors, weakness, others Musculoskeletal: denies: back pain, gout, joint pain, joint swelling, muscle pain, muscle stiffness, neck pain, others Integumetry: denies: bruises, change in color, change in hair/nails, dryness, laceration, lesions, lumps, rash, wounds, others Allergic/Immunocompromised: denies: Difficulty Healing, Frequent Infections, Hives, Itching, others Hematologic/Lymphatic: denies: anemia, blood clots, easy bleeding, easy bruising, swollen glands, others Endocrine: denies: excessive hunger, excessive sweating, excessive thirst, excessive urination, flushing, intolerance to cold, intolerance to heat, unexplained weight gain, unexplained weight loss, others Psychiatric: denies: anxiety, bipolar disorder, depression, hopeless, panic disorder, schizophrenia, sleepless, suicidal, others Physical Exam General Appearance: No Apparent Distress, Normal HEENT: Normal ENT Inspection, Pharynx Normal, TMs Normal Neck: Full Range of Motion, Non-Tender, Normal, Normal Inspection Respiratory: Chest Non-Tender, Lungs Clear, No Accessory Muscle Use, No Respiratory Distress, Normal Breath Sounds Cardiovascular: No Edema, No JVD, No Murmur, No Gallop, Normal Peripheral Pulses, Regular Rate/Rhythm Breast Exam: Deferred Gastrointestinal: Epigastric, No Organomegaly, Non Tender, No Pulsatile Mass, Normal Bowel Sounds, Soft, Tenderness Genitalia: Deferred Pelvic: Deferred Rectal: Deferred Extremities: No calf tenderness, Normal capillary refill, Normal inspection, Normal range of motion, Non-tender, No pedal edema Neurologic: Alert, cattery operator II-XII nml as Tested, No Motor Deficits, Normal Affect, Normal Mood, No Sensory Deficits Cerebellar Function: Normal Reflexes: Normal Skin: Dry, Normal Color, Warm Lymphatic: No Adenopathy EKG EKG : Comments EKGs showed normal sinus rhythm with no significant ST or T-wave changes. Was a procedure done? Was a procedure done?: No GI differential Dx Differential Diagnosis: Cholecystitis, Esophagitis, Gastroenteritis, Pancreatitis X-Ray, Labs, Meds, VS Vital Signs Date Time Temp Pulse Resp B/P (MAP) Pulse Ox O2 Delivery O2 Flow Rate FiO2 01/01/25 18:45 66 17 94 Room Air* 0 21 01/01/25 18:42 66 17 141/61 (87) 94 01/01/25 18:12 99.1 68 18 123/62 96 99.1 01/01/25 18:10 67 Lab Test 01/01/25 18:45 Range/Units White Blood Count 11.9 H 4.4-10.8 10^3/uL Red Blood Count 3.03 L 4.0-5.20 10^6/uL Hemoglobin 9.6 L 12.2-16.2 g/dL Hematocrit 29.4 L 36.0-46.0 % Mean Corpuscular Volume 97.2 80.0-100.0 fL Mean Corpuscular Hemoglobin 31.6 28.0-32.0 pg Mean Corpuscular Hemoglobin Concent 32.5 32.0-36.0 g/dL Red Cell Distribution Width 20.8 H 11.8-14.3 % Platelet Count 154 140-450 10^3/uL Mean Platelet Volume 10.1 6.9-10.8 fL Neutrophils (%) (Auto) 80.5 H 37.0-80.0 % Lymphocytes (%) (Auto) 10.6 10.0-50.0 % Monocytes (%) (Auto) 8.7 0.0-12.0 % Eosinophils (%) (Auto) 0.1 0.0-7.0 % Basophils (%) (Auto) 0.1 0.0-2.0 % Neutrophils # (Auto) 9.6 H 1.6-8.6 10 ^3/uL Lymphocytes # (Auto) 1.3 0.4-5.4 10 ^3/uL Monocytes # (Auto) 1.0 0-1.3 10 ^3/uL Eosinophils # (Auto) 0 0-0.8 10 ^3/uL Basophils # (Auto) 0 0-0.2 10 ^3/uL Nucleated Red Blood Cells 0.0 % Sodium Level 134 L 136-145 mmol/L Potassium Level 4.3 3.5-5.1 mmol/L Chloride Level 91 L 98-107 mmol/L Carbon Dioxide Level 28 20-31 mmol/L Anion Gap 15 5-15 Blood Urea Nitrogen 38 H 9-23 mg/dL Creatinine 5.84 H 0.550-1.02 mg/dL Glomerular Filtration Rate Calc 8 >90 mL/min BUN/Creatinine Ratio 6.5 L 10.0-20.0 Serum Glucose 253 H 74-106 mg/dL Calcium Level 9.5 8.7-10.4 mg/dL Magnesium Level 2.3 1.6-2.6 mg/dL Total Bilirubin 0.9 0.2-1.0 mg/dL Aspartate Amino Transferase (AST) 54 H 13-40 U/L Alanine Aminotransferase (ALT) 43 H 7-40 U/L Alkaline Phosphatase 267 H 46-116 U/L Troponin I High Sensitivity 39 *H </=34 ng/L Total Protein 8.0 5.7-8.2 g/dL Albumin 4.3 3.2-4.8 g/dL Lipase 32 12-53 U/L Time of 1ST Reevaluation: 19:30 Reevaluation 1ST: Unchanged Patient Education/Counseling: Diagnosis, Treatment, Prognosis, Need For Follow Up Family Education/Counseling: No Family Present Comments Patient came to the hospital due to abdominal pain and nausea and vomiting. Patient was vitally stable. EKG showed normal sinus rhythm with no significant ST or T-wave changes. CT abdominopelvic performed, showed no significant intra abdominal pathology. Chest x-ray shows enlarged cardiac silhouette. Patient has history of moderate pericardial effusion. Patient was given morphine, Zofran, IV fluid On subsequent check up, patient had improved mildly but still had nausea and vomiting Patient will be admitted hospital for further workup and, possible GI evaluation. Due to intractable nausea and vomiting and abdominal pain. SEPSIS Sepsis Screen Date sepsis recognized/suspect: Jan 01, 2025 Time Sepsis recognized/suspect: 1812 Recent Procedure: No On Antibiotic Therapy: No Respiratory Rate >20: No Heart Rate >90: No Temp<36 C (96.8 F) or >38.3 C: No SBP <90 or MAP <65 mmHG: No New Acute Mental Status Change: No Is the patient on CPAP, BIPAP,: No Physician Orders Chest Xray 1 View (01/01/25 18:27) Ct Ab Pel Wo Con-No Oral Or Iv (01/01/25 18:27) Urinalysis (01/01/25 18:27) Troponin-I Hs (01/01/25 19:10) Vital Signs Date Time Temp Pulse Resp B/P (MAP) Pulse Ox O2 Delivery O2 Flow Rate FiO2 01/01/25 18:45 66 17 94 Room Air* 0 21 01/01/25 18:42 66 17 141/61 (87) 94 01/01/25 18:12 99.1 68 18 123/62 96 99.1 01/01/25 18:10 67 Laboratory Tests Test 01/01/25 18:45 White Blood Count 11.9 10^3/uL (4.4-10.8) H Departure 1 Departure Time of Disposition: 19:53 Impression: Primary Impression: Gastroenteritis Additional Impression: ESRD (end stage renal disease) on dialysis Disposition: ADMITTED INPATIENT Admit to: Med Surg Condition: Guarded Critical Care Note Critical Care Time?: No Stability Stability form required: No Heart Score Heart Score: Heart Score Response (Comments) Value History Slightly Suspicious 0 EKG Normal 0 Age 45-64 1 Risk Factors >3 or Hx ASHD 2 Troponin N/A 0 Total 3 ANDIE SCHROEDER RESDIENT Jan 01, 2025 19:17
--- NOTE | 2025-01-01 19:18 | DVH ---
CHEST RADIOGRAPH Indication: SOB Technique: Single frontal view of the chest was obtained Comparison: US CHEST ULTRASOUND on DOS: 11/04/24, XY CHEST PORTABLE on DOS: 10/31/24, XY CHEST PORTABLE o n DOS: 10/13/24 FINDINGS: Lines and Tubes: None Lungs: Slight increased interstitial markings bilaterally may represent congestive failure or pneumon ia. Pleura: No effusion. No pneumothorax. Cardiomediastinal contours: Stable cardiomegaly Bones: No acute osseous abnormality. IMPRESSION: 1. Slight increased interstitial markings bilaterally may represent congestive failure or pneumonia.
[2025-01-01 19:26] LABS: Hematocrit 29.4 % (36.0-46.0); Hemoglobin 9.6 g/dL (12.2-16.2); Mean Corpuscular Hemoglobin 31.6 pg (28.0-32.0); Mean Corpuscular Volume 97.2 fL (80.0-100.0); Nucleated Red Blood Cells % 0.0 %
--- NOTE | 2025-01-01 19:36 | DVH ---
CLINICAL HISTORY: Ab. Pain TECHNIQUE: CT of the abdomen and pelvis was performed without IV contrast. This exam was performed ac cording to our departmental dose optimization program. Up-to-date CT equipment and radiation dose red uction techniques are utilized as appropriate. CTDI 9.3 DLP 455.3 COMPARISON: CT CT AB PEL WO CON-NO ORAL OR IV on DOS: 11/03/24, CT CT AB PEL WO CON-NO ORAL OR IV on DO S: 09/02/24, CT CT AB PEL WO CON-NO ORAL OR IV on DOS: 06/23/24, CT CT AB PEL WO CON-NO ORAL OR IV on DO S: 04/25/24, CT ABD/PEL on DOS: 08/27/23 FINDINGS: Abdomen/Pelvis: Fucking right the spleen, pancreas, adrenal glands, liver, and uterus across unremarkable. Did mild n onspecific gallbladder wall thickening. There is diffuse bilateral renal cortical thickening. The abdominal aorta is normal in course and caliber. There are mild atherosclerotic calcifications. There is no free intraperitoneal air. There is a small moderate free fluid in the deep pelvis. There is no enlarged abdominal pelvic lymph node. There is no bowel wall thickening or dilatation. There is minimal ascending colon diverticulosis. Other: The imaged lower thorax demonstrates mild cardiomegaly with a small right pleural effusion and trace pericardial and left pleural effusions. There are coronary artery calcification. There are mild atele ctatic changes at both lung bases. No just. No acute osseous abnormality is evident. Impression: no acute noncontrast CT abnormality of the abdomen / pelvis.
[2025-01-01 19:37] LABS: Albumin 4.3 g/dL (3.2-4.8); Anion Gap 15 (5-15); BUN/Creatinine Ratio 6.5 (10.0-20.0); Calcium 9.5 mg/dL (8.7-10.4); Carbon Dioxide 28 mmol/L (20-31); Lipase 32 U/L (12-53); Magnesium 2.3 mg/dL (1.6-2.6); Potassium 4.3 mmol/L (3.5-5.1); Total Protein 8.0 g/dL (5.7-8.2)
[2025-01-01 19:38] LABS: Bilirubin, Total 0.9 mg/dL (0.2-1.0)
[2025-01-01 19:40] LABS: Alanine Aminotransferase 43 U/L (7-40); Alkaline Phosphatase 267 U/L (46-116); Blood Urea Nitrogen 38 mg/dL (9-23); Chloride 91 mmol/L (98-107); Glucose 253 mg/dL (74-106); Sodium 134 mmol/L (136-145)
[2025-01-01] MEDS: MORPHINE SULFATE 4 MG/ML SYR/VIAL IV ONE (20:41)
[2025-01-01] MEDS: ONDANSETRON HCL 4 MG/2 ML VIAL IM ONE (20:41)
[2025-01-01] MEDS: SODIUM CHLORIDE 0.9% 1,000 ML IV ONE (20:42)
[2025-01-01] MEDS ORDERED: DOCUSATE SOD 100 MG CAP PO PRN (22:30)
[2025-01-01] MEDS ORDERED: MORPHINE SULFATE INJ 2 MG/ml SYRG IV PRN (22:30)
[2025-01-01] MEDS ORDERED: SODIUM CHLORIDE 0.9% 1,000 ML IV SCH (22:30)
[2025-01-01] MEDS ORDERED: ACETAMINOPHEN 325 MG TAB PO PRN (22:30)
[2025-01-02] VITALS (8 sets, daily range): BP systolic 137–147; BP diastolic 56–85; PULSE 56–68; RESP 16–19; TEMP 97.5–98.4; O2SAT 95–99
[2025-01-02] MEDS: ONDANSETRON HCL 4 MG/2 ML VIAL IV PRN (02:11)
[2025-01-02] MEDS: LACTATED RINGER'S 500 ML IV ONE ×2 (02:34→02:35)
[2025-01-02] MEDS: PANTOPRAZOLE 40 MG/10 ML VIAL INJ IV ONE ×3 (02:36→10:29)
[2025-01-02 05:28] LABS: COVID19 ANTIGEN SOFIA FIA NEGATIVE (NEGATIVE)
[2025-01-02 05:58] LABS: Hematocrit 29.5 % (36.0-46.0); Hemoglobin 9.8 g/dL (12.2-16.2); Mean Corpuscular Hemoglobin 32.3 pg (28.0-32.0); Mean Corpuscular Volume 96.6 fL (80.0-100.0); Nucleated Red Blood Cells % 0.1 %
[2025-01-02 06:13] LABS: Alanine Aminotransferase 36 U/L (7-40); Albumin 4.0 g/dL (3.2-4.8); Anion Gap 15 (5-15); BUN/Creatinine Ratio 6.8 (10.0-20.0); Calcium 9.0 mg/dL (8.7-10.4); Carbon Dioxide 28 mmol/L (20-31); Magnesium 2.3 mg/dL (1.6-2.6); Potassium 4.2 mmol/L (3.5-5.1); Total Protein 7.4 g/dL (5.7-8.2)
[2025-01-02 06:14] LABS: Bilirubin, Total 0.9 mg/dL (0.2-1.0)
[2025-01-02 06:24] LABS: Alkaline Phosphatase 231 U/L (46-116); Blood Urea Nitrogen 44 mg/dL (9-23); Chloride 93 mmol/L (98-107); Glucose 214 mg/dL (74-106); Sodium 136 mmol/L (136-145)
--- NOTE | 2025-01-02 07:20 | DVHHPRES ---
History of Present Illness Resident Creating Document: JAYMIE HARDING RESIDENT History of Present Illness Padmini Lou is a 59-year-old female with past medical history of ESRD on dialysis, hypertension, hyperlipidemia, diabetes mellitus who presented to the ED with chief complaints of 10/10 epigastric pain which is nonradiating, constant, associated with nausea and vomiting since 4 days. Patient also reports of shortness of breath and is on 2 L oxygen, denies diarrhea, blood in the stool, dysuria, hematuria, headaches, chest pain, palpitations, dizziness. Patient states that she has had weight loss over the last few months, has loss of appetite, and constipation. Patient also stated that on Sunday she ate chili and the symptoms started on Sunday. Patient also states that she has not eaten and can not keep anything down for 4 days. Her last bowel movement was on Sunday. Patient also reported that these symptoms have happened 2 times in the past.. Patient reports no sick contacts, travel history. Abdominal CT showed no acute noncontrast CT abnormality of the abdomen / pelvis. Patient also had pericardial effusion which was drained in the past. Surgical history: Denies Family history: Reviewed, noncontributory Personal history: Denies smoking, drinking, drug use Lives with: Family PCP:Dr. Monterroso Health Maintenance: DEXA Review of Systems Constitutional: Yes: Weakness; No: Fever, Chills, Sweats, Malaise, Other Eyes: No: Pain, Vision change, Conjunctivae inflammation, Eyelid inflammation, Other, Redness ENT: No: Ear pain, Ear discharge, Nose pain, Nose discharge, Nose congestion, Mouth pain, Mouth swelling, Throat pain, Throat swelling, Other Respiratory: Shortness of breath; No: Cough, Dry, SOB with excertion, Wheezing, Hemoptysis, Pleuritic Pain, Sputum, Wheezing, Other Cardiovascular: No: Chest Pain, Palpitations, Orthopnea, Paroxysmal Noc. Dyspnea, Edema, Lt Headedness, Other Gastrointestinal: Nausea, Vomiting, Abdominal Pain Genitourinary: No Dysuria, No Frequency, No Incontinence, No Hematuria, No Retention, No Other Musculoskeletal: No: other, neck pain, shoulder pain, arm pain, back pain, hand pain, leg pain, foot pain Skin: No: Rash, Lesions, Jaundice, Bruising, Other Neurological: No: Weakness, Numbness, Incoordination, Change in speech, Confusion, Seizures, Other Allergies: Coded Allergies: No Known Drug Allergy (Verified Allergy, Unknown, 10/05/24) Medications Current Medications Medications Dose Ordered Sig/Kana Route Start Time Stop Time Status Last Admin Dose Admin Acetaminophen 325 mg Q4HP PRN PO 01/01/25 22:30 Ondansetron HCl 4 mg Q4HP PRN IV 01/01/25 22:30 01/02/25 02:11 4 MG Docusate Sodium 100 mg BIDPRN PRN PO 01/01/25 22:30 Lactated Ringer's 1,000 ml @ 100 mls/hr Q10H IV 01/02/25 00:00 Pantoprazole Sodium 40 mg DAILY IV 01/02/25 10:00 Exam Vital Signs Vital Signs Date Time Temp Pulse Resp B/P (MAP) Pulse Ox O2 Delivery O2 Flow Rate FiO2 01/02/25 05:00 98.1 59 17 146/70 (95) 99 98.1 01/02/25 01:44 Nasal Cannula* 2 28 Exam General: Patient alert and oriented in person, place and time. Patient following commands. In moderate distress, visibly vomiting clear sputum HEENT: Normocephalic, atraumatic, moist mucous membranes, blind in both eyes Respiratory/pulmonary: Clear lungs bilaterally, vesicular murmurs present in almost all lung saab, no associated crackles or wheezes. Cardiovascular: Normal heart sounds S1 and S2 with no associated murmurs Abdomen: Epigastric tenderness on palpation Extremities: There is no peripheral edema present at the lower extremities. Peripheral Pulses: 3+ Radial (R). 3+ Radial (L). 3+ Dorsalis pedis (R). 3+ Dorsalis pedis(L) Skin: No rashes or pruritus, there is no sacral edema present at this time. Neurological: Intact cranial nerves with no focal neurologic deficits Labs/Xrays Labs Test 01/02/25 04:43 01/02/25 03:55 01/01/25 18:45 Range/Units White Blood Count 8.2 # 4.4-10.8 10^3/uL Red Blood Count 3.05 L 4.0-5.20 10^6/uL Hemoglobin 9.8 L 12.2-16.2 g/dL Hematocrit 29.5 L 36.0-46.0 % Mean Corpuscular Volume 96.6 80.0-100.0 fL Mean Corpuscular Hemoglobin 32.3 H 28.0-32.0 pg Mean Corpuscular Hemoglobin Concent 33.4 32.0-36.0 g/dL Red Cell Distribution Width 21.2 H 11.8-14.3 % Platelet Count 124 L 140-450 10^3/uL Mean Platelet Volume 10.0 6.9-10.8 fL Neutrophils (%) (Auto) 79.9 37.0-80.0 % Lymphocytes (%) (Auto) 10.8 10.0-50.0 % Monocytes (%) (Auto) 9.0 0.0-12.0 % Eosinophils (%) (Auto) 0.1 0.0-7.0 % Basophils (%) (Auto) 0.2 0.0-2.0 % Neutrophils # (Auto) 6.5 1.6-8.6 10 ^3/uL Lymphocytes # (Auto) 0.9 0.4-5.4 10 ^3/uL Monocytes # (Auto) 0.7 0-1.3 10 ^3/uL Eosinophils # (Auto) 0 0-0.8 10 ^3/uL Basophils # (Auto) 0 0-0.2 10 ^3/uL Nucleated Red Blood Cells 0.1 % Sodium Level 136 136-145 mmol/L Potassium Level 4.2 3.5-5.1 mmol/L Chloride Level 93 L 98-107 mmol/L Carbon Dioxide Level 28 20-31 mmol/L Anion Gap 15 5-15 Blood Urea Nitrogen 44 H 9-23 mg/dL Creatinine 6.44 H 0.550-1.02 mg/dL Glomerular Filtration Rate Calc 7 >90 mL/min BUN/Creatinine Ratio 6.8 L 10.0-20.0 Serum Glucose 214 H 74-106 mg/dL Calcium Level 9.0 8.7-10.4 mg/dL Magnesium Level 2.3 1.6-2.6 mg/dL Total Bilirubin 0.9 0.2-1.0 mg/dL Aspartate Amino Transferase (AST) 38 13-40 U/L Alanine Aminotransferase (ALT) 36 7-40 U/L Alkaline Phosphatase 231 H 46-116 U/L Total Protein 7.4 5.7-8.2 g/dL Albumin 4.0 3.2-4.8 g/dL SARS-CoV-2 Antigen (Rapid) Negative NEGATIVE Troponin I High Sensitivity 39 *H </=34 ng/L Lipase 32 12-53 U/L SEPSIS Sepsis Screen Date sepsis recognized/suspect: Jan 01, 2025 Time Sepsis recognized/suspect: 2026 Recent Procedure: No On Antibiotic Therapy: No Respiratory Rate >20: No Heart Rate >90: No Temp<36 C (96.8 F) or >38.3 C: No SBP <90 or MAP <65 mmHG: No New Acute Mental Status Change: No Is the patient on CPAP, BIPAP,: No Physician Orders Admit (01/01/25 22:29) Allergies (01/01/25 22:29) Code Status (01/01/25 22:29) Acetaminophen Tablet (Tylenol Tablet) (01/01/25 22:30) Ondansetron Hcl (Zofran) (01/01/25 22:30) Docusate Sodium Capsule (Colace Capsule) (01/01/25 22:30) Npo (Nothing By Mouth) Diet (01/02/25 Breakfast) Condition: Serious (01/01/25 22:29) Bedrest With Bathroom Privileg (01/01/25 22:29) Lactated Ringer's (01/02/25 00:00) Ova & Parasite Exam (01/01/25 23:46) Pantoprazole (Protonix) (01/02/25 10:00) Mrsa Screen (01/02/25 03:55) * Mobile Nurse Consult (01/02/25 ) Drug Screen (01/02/25 06:12) Magnesium (01/02/25 06:12) Rapid Influenza A&B (01/02/25 06:12) Stool Occult Blood (01/02/25 06:12) Stool Wbc (01/02/25 06:12) Urinalysis (01/02/25 06:12) Gram Stain (01/02/25 06:12) Mrsa Screen (01/02/25 06:12) Stool Bacterial Culture (01/02/25 06:12) Lactic Acid W/ Reflex Order (01/02/25 06:12) Phosphorus (01/02/25 06:12) *Dr. Leah Rincon -Da Giovana (01/02/25 06:12) Atorvastatin (Lipitor) (01/02/25 22:00) Hemoglobin A1c (01/02/25 06:12) Troponin-I Hs (01/02/25 06:22) Troponin-I Hs (01/02/25 07:22) Strict Aspiration Precautions (01/02/25 06:23) Metronidazole Ivpb Flagyl (01/02/25 06:30) Metronidazole Ivpb Flagyl (01/02/25 14:00) Vital Signs Date Time Temp Pulse Resp B/P (MAP) Pulse Ox O2 Delivery O2 Flow Rate FiO2 01/02/25 05:00 98.1 59 17 146/70 (95) 99 98.1 01/02/25 01:44 98.4 56 17 147/56 (86) 95 98.4 01/02/25 01:44 98.4 56 17 147/56 (86) 95 98.4 01/02/25 01:44 56 17 95 Nasal Cannula* 2 28 01/02/25 00:00 56 01/01/25 23:15 58 25 116/39 (64) 98 Laboratory Tests Test 01/01/25 18:45 01/02/25 04:43 White Blood Count 11.9 10^3/uL (4.4-10.8) H 8.2 10^3/uL (4.4-10.8) # Medications Medications Dose Ordered Sig/Kana Route Start Time Stop Time Status Last Admin Dose Admin Lactated Ringer's 500 ml @ 500 mls/hr ONCE ONCE IV 01/02/25 02:30 01/02/25 03:29 DC 01/02/25 02:34 500 MLS/HR Morphine Sulfate 4 mg ONCE ONCE IV 01/01/25 18:30 01/01/25 18:31 DC 01/01/25 20:41 4 MG Ondansetron HCl 4 mg ONCE ONCE IM 01/01/25 18:30 01/01/25 18:31 DC 01/01/25 20:41 4 MG Ondansetron HCl 4 mg Q4HP PRN IV 01/01/25 22:30 01/02/25 02:11 4 MG Pantoprazole Sodium 40 mg ONCE ONCE IV 01/02/25 02:30 01/02/25 02:31 DC 01/02/25 02:38 40 MG Assessment/Plan Assessment/Plan # possible gastroenteritis infectious vs noninfectious # rule out pancreatitis - started on metronidazole 500 mg - IV fluids -ondansetron for nausea and vomiting - lipase negative # type 2 NSTEMI # possible HFpEF # normocytic anemia -check iron level # ESRD on HD - consulted [facility]LO # cardiomegaly # right pleural effusion # atelectasis # Possible aspiration pneumonia - Chest x-ray showed Slight increased interstitial markings bilaterally may represent congestive failure or pneumonia. # hyperlipidemia - atorvastatin # diabetes mellitus HbA1c:7.0 # leukocytosis with neutrophilia # normocytic anemia # transaminitis PPI prophylaxis: Protonix 40 mg IV DVT prophylaxis: Not indicated Goals of care addressed with the patient for more than 35 minutes: Full code status Case discussed with Dr. Kaufman , patient and nurse Plan discussed with: Patient My Orders Orders - JAYMIE HARDING RESIDENT Procedure Category Date Status Time Admit ADMIT 01/01/25 Transmitted 22:29 Allergies SONAM 01/01/25 In Process 22:29 Code Status CODE 01/01/25 Transmitted 22:29 Acetaminophen Tablet PHA 01/01/25 In Process (Tylenol Tablet) 22:30 Ondansetron Hcl PHA 01/01/25 In Process (Zofran) 22:30 Docusate Sodium PHA 01/01/25 In Process Capsule (Colace 22:30 Npo (Nothing By DIET 01/02/25 Transmitted Mouth) Diet Breakfast Condition: Serious SONAM 01/01/25 In Process 22:29 Bedrest With Bathroom SONAM 01/01/25 In Process Privileg 22:29 Lactated Ringer's PHA 01/02/25 In Process 00:00 Ova & Parasite Exam CARMINE 01/01/25 Logged 23:46 Pantoprazole PHA 01/02/25 In Process (Protonix) 10:00 Mrsa Screen CARMINE 01/02/25 In Process 03:55 * Mobile Nurse CONS 01/02/25 Transmitted Consult Drug Screen LAB 01/02/25 Logged 06:12 Magnesium LAB 01/02/25 Logged 06:12 Rapid Influenza A&B LAB 01/02/25 Logged 06:12 Stool Occult Blood LAB 01/02/25 Logged 06:12 Stool Wbc LAB 01/02/25 Logged 06:12 Urinalysis LAB 01/02/25 Logged 06:12 Gram Stain CARMINE 01/02/25 Logged 06:12 Mrsa Screen CARMINE 01/02/25 Logged 06:12 Stool Bacterial CARMINE 01/02/25 Logged Culture 06:12 Lactic Acid W/ Reflex LAB 01/02/25 Logged Order 06:12 Phosphorus LAB 01/02/25 Logged 06:12 *Dr. Leah Rincon -Da CONS 01/02/25 Transmitted Giovana 06:12 Atorvastatin (Lipitor) PHA 01/02/25 Logged 22:00 Hemoglobin A1c LAB 01/02/25 Logged 06:12 Troponin-I Hs LAB 01/02/25 Logged 06:22 Troponin-I Hs LAB 01/02/25 Logged 07:22 Strict Aspiration SONAM 01/02/25 In Process Precautions 06:23 Metronidazole Ivpb PHA 01/02/25 Transmitted Flagyl 06:30 Metronidazole Ivpb PHA 01/02/25 Transmitted Flagyl 14:00 Date of Service: Jan 02, 2025 Billing Provider: ANA KAUFMAN MD Common Visit Codes: 45279-VEMVFOF INP/OBS CARE (HIGH) Secondary Visit Codes: 51846-[id number] CARE PLAN 30 MINUTES JAYMIE HARDING RESIDENT Jan 02, 2025 07:20
[2025-01-02] MEDS ORDERED: DEXTROSE (50%) 50ML SYRG IV PRN ×2 (08:30→10:15)
[2025-01-02] MEDS ORDERED: INSULIN LANTUS (GLARGINE) 1 /0.01ml (100units/ml) SC SCH (10:00)
[2025-01-02] MEDS ORDERED: PANTOPRAZOLE 40 MG/10 ML VIAL INJ IV SCH (10:00)
--- NOTE | 2025-01-02 10:02 | DVHINCON2 ---
Date of service: Jan 02, 2025 Referring Physician Carlos Linder [Resident] Reason for Consultation End-stage kidney disease History of Present Illness This is a 59-year-old female with history of end-stage kidney disease on dialysis, type 2 diabetes, hypertension hyperlipidemia presenting to the em ergency room because of epigastric discomfort associated with nausea and vomiting. CT of the abdomen and pelvis in the emergency room did not show any acute findings. Patient has been admitted and evaluated by GI. Nephrology has been consulted for continuation of dialysis. Her usual dialysis days are Sunday. Patient seen and examined at bedside. Patient is still having persistent nausea and vomiting. Past Medical History As stated above Past Surgical History AV fistula placement Family History: Cardiovascular disease G8 FATHER, (HEART ATTACK) FH: VT (myocardial infarction) G8 FATHER FH: cancer G8 MOTHER Family History Noncontributory Social History Denies any active history of smoking, alcohol or drug abuse Allergies: Coded Allergies: No Known Drug Allergy (Verified Allergy, Unknown, 10/05/24) Home Meds Active Scripts Azithromycin (Azithromycin) 500 Mg Tab, 1 TAB PO DAILY, #10 TAB Prov:GLENN DORANTES MD 11/05/24 Sucralfate (CARAFATE SUSP) 1 Gm/10 Ml Ss, 10 ML PO QID, #1200 ML 3 Refills Prov:PRASANNA KOENIG MD 10/17/24 Ondansetron Odt 4MG Tab (ZOFRAN PO) 4 Mg Tb, 4 MG PO Q6HP PRN for 7 Days, #16 TAB ODT TAB-DISSOLVE IN MOUTH, THEN SWALLOW Prov:SANAM JOHNSTON RESIDENT 08/28/24 Reported Medications Furosemide (Furosemide) 40 Mg Tab, 1 TAB PO DAILY 10/05/24 Ferrous Sulfate (Ferosul) 325 Mg Tab, 1 TAB PO BID 10/05/24 Dicyclomine Hcl (BENTYL CAPSULE) 10 Mg Cp, 1 CAP PO BIDPRN PRN 10/05/24 Lidocaine-Prilocaine (Lidocaine/Prilocaine) 1 Kit Kit, 1 KIT EX DAILY for 30 Days, #30 08/27/24 Hydroxyzine Pamoate (Hydroxyzine Pamoate) 25 Mg Cap, 1 CAP PO DAILYPRN for 30 Days, #30 08/27/24 Famotidine (Famotidine) 20 Mg Tab, 1 TAB PO DAILY PRN for HEARTBURN for 90 Days, #90 08/27/24 Guanfacine Hcl (Guanfacine Hcl) 1 Mg Tab, 1 TAB PO DAILY for 90 Days, #90 08/27/24 Losartan Potassium (Losartan Potassium) 100 Mg Tab, 1 TAB PO DAILY for 100 Days, #100 08/27/24 Ergocalciferol (Vitamin D) 50,000 Unit Cap, 1 CAP PO QWEEKLY for 84 Days, #12 08/27/24 Chlorthalidone (Chlorthalidone) 25 Mg Tab, 1 TAB PO DAILY for 30 Days, #30 08/27/24 B-Complex W/ C & Folic Acid (Ernestina-Kaylie Rx) Tab, 1 TAB PO DAILY for 90 Days, #90 08/27/24 Semaglutide (Ozempic) 2 Mg/3 Ml Inj, 0.5 MG SC Q7D for 28 Days, #3 08/27/24 Fluticasone Propionate (Nasal) (Fluticasone Propionate) 50 Mcg/Act Spr, SPRAY NINO UD for 30 Days, #16 08/27/24 Triamcinolone Acetonide (Kenalog) 1 Applic Ap, 1 APPLIC TOP UD for 30 Days, #45 08/27/24 Omeprazole (Gnp Omeprazole) 20 Mg Tab, 1 TAB PO DAILY for 30 Days, #30 08/27/24 Ketoconazole (Ketoconazole) 2 % Sha, UD for 30 Days, #120 08/27/24 Amlodipine Besylate (Amlodipine Besylate) 5 Mg Tab, 1 TAB PO DAILY for 90 Days, #90 06/23/24 Carvedilol (Carvedilol) 12.5 Mg Tab, 1 TAB PO BID 06/23/24 Metoprolol Tartrate (LOPRESSOR TABLET) 50 Mg Tb, 1 TAB PO BID for 90 Days, #180 06/23/24 Current Medications Current Medications Medications (Trade) Dose Ordered Sig/Kana Route PRN Reason Start Time Stop Time Status Last Admin Sodium Chloride 1,000 ml @ 60 mls/hr [id number] IV 01/01/25 22:30 01/02/25 00:01 DC Acetaminophen (Tylenol Tablet) 325 mg Q4HP PRN PO MILD PAIN (1-3 PAIN SCALE) 01/01/25 22:30 Ondansetron HCl (Zofran) 4 mg Q4HP PRN IV NAUSEA / VOMITING 01/01/25 22:30 01/02/25 02:11 Docusate Sodium (Colace Capsule) 100 mg BIDPRN PRN PO FOR CONSTIPATION 01/01/25 22:30 Morphine Sulfate 2 mg Q4HPRN PRN IV SEVERE PAIN (7-10 PAIN SCALE) 01/01/25 22:30 01/01/25 23:53 DC Lactated Ringer's 1,000 ml @ 100 mls/hr Q10H IV 01/02/25 00:00 Pantoprazole Sodium (Protonix) 40 mg DAILY IV 01/02/25 10:00 Atorvastatin Calcium (Lipitor) 40 mg HS PO 01/02/25 22:00 Metronidazole 100 ml @ 100 mls/hr Q8HR IV 01/02/25 14:00 Diagnostic Test (Pha) (Accu-Chek Comfort Curve T) 1 strip ACHS 01/02/25 11:30 Insulin Human Regular (InsuLIN R) HS SC 01/02/25 22:00 Insulin Human Regular (InsuLIN R) AC SC 01/02/25 11:30 Dextrose 50 ml UD PRN IV Blood Sugar LESS THAN 60 01/02/25 08:30 Insulin Glargine (Lantus) 15 units DAILY@1000 SC 01/02/25 10:00 UNV Atorvastatin Calcium (Lipitor) 40 mg HS PO 01/02/25 22:00 UNV Pantoprazole Sodium (Protonix) 40 mg DAILY IV 01/02/25 10:00 UNV Review of Systems 12 point review of system negative except as stated in the HPI Vital Signs Vital Signs Date Time Temp Pulse Resp B/P (MAP) Pulse Ox O2 Delivery O2 Flow Rate FiO2 01/02/25 08:48 97.5 58 19 144/71 (95) 97 97.5 01/02/25 08:00 Nasal Cannula* 2 28 Physical Exam General: In no acute distress HEENT: Normocephalic, atraumatic, moist mucous membranes, blind in both eyes Respiratory/pulmonary: Clear lungs bilaterally Cardiovascular: Normal heart sounds S1 and S2 Abdomen: Epigastric tenderness on palpation Extremities: There is no peripheral edema present at the lower extremities. Neurological: Intact cranial nerves with no focal neurologic deficits Labs/Diagnostic Data Labs Test 01/02/25 08:13 01/02/25 04:43 01/02/25 03:55 01/01/25 18:45 Range/Units Lactic Acid Level 1.1 0.4-2.0 mmol/L Troponin I High Sensitivity 41 *H </=34 ng/L White Blood Count 8.2 # 4.4-10.8 10^3/uL Red Blood Count 3.05 L 4.0-5.20 10^6/uL Hemoglobin 9.8 L 12.2-16.2 g/dL Hematocrit 29.5 L 36.0-46.0 % Mean Corpuscular Volume 96.6 80.0-100.0 fL Mean Corpuscular Hemoglobin 32.3 H 28.0-32.0 pg Mean Corpuscular Hemoglobin Concent 33.4 32.0-36.0 g/dL Red Cell Distribution Width 21.2 H 11.8-14.3 % Platelet Count 124 L 140-450 10^3/uL Mean Platelet Volume 10.0 6.9-10.8 fL Neutrophils (%) (Auto) 79.9 37.0-80.0 % Lymphocytes (%) (Auto) 10.8 10.0-50.0 % Monocytes (%) (Auto) 9.0 0.0-12.0 % Eosinophils (%) (Auto) 0.1 0.0-7.0 % Basophils (%) (Auto) 0.2 0.0-2.0 % Neutrophils # (Auto) 6.5 1.6-8.6 10 ^3/uL Lymphocytes # (Auto) 0.9 0.4-5.4 10 ^3/uL Monocytes # (Auto) 0.7 0-1.3 10 ^3/uL Eosinophils # (Auto) 0 0-0.8 10 ^3/uL Basophils # (Auto) 0 0-0.2 10 ^3/uL Nucleated Red Blood Cells 0.1 % Sodium Level 136 136-145 mmol/L Potassium Level 4.2 3.5-5.1 mmol/L Chloride Level 93 L 98-107 mmol/L Carbon Dioxide Level 28 20-31 mmol/L Anion Gap 15 5-15 Blood Urea Nitrogen 44 H 9-23 mg/dL Creatinine 6.44 H 0.550-1.02 mg/dL Glomerular Filtration Rate Calc 7 >90 mL/min BUN/Creatinine Ratio 6.8 L 10.0-20.0 Serum Glucose 214 H 74-106 mg/dL Hemoglobin A1c 7.0 H <5.7 % A1C Calcium Level 9.0 8.7-10.4 mg/dL Phosphorus Level 3.7 2.4-5.1 mg/dL Magnesium Level 2.3 1.6-2.6 mg/dL Total Bilirubin 0.9 0.2-1.0 mg/dL Aspartate Amino Transferase (AST) 38 13-40 U/L Alanine Aminotransferase (ALT) 36 7-40 U/L Alkaline Phosphatase 231 H 46-116 U/L Total Protein 7.4 5.7-8.2 g/dL Albumin 4.0 3.2-4.8 g/dL SARS-CoV-2 Antigen (Rapid) Negative NEGATIVE Lipase 32 12-53 U/L Assessment End-stage kidney disease on hemodialysis Abdominal pain with persistent nausea and vomiting Type 2 diabetes Hypertension Anemia in Chronic kidney disease Plan/Recommendation Hemodialysis tomorrow. Electrolytes and fluid status are within acceptable limits. GI evaluation. Continue with Zofran and Protonix. Plan discussed with: Other SOURAV RANGEL MD Jan 02, 2025 10:02
[2025-01-02] MEDS: LACTATED RINGER'S 1,000 ML IV SCH ×2 (10:15)
[2025-01-02] MEDS: ACCU-CHEK COMFORT CURVE STRIP VI SCH (11:25)
[2025-01-02] MEDS: InsuLIN REG 1unit/0.01ml Soln (100units/ml) SC SCH (11:26)
[2025-01-02] MEDS ORDERED: ACCU-CHEK COMFORT CURVE STRIP VI SCH (11:30)
[2025-01-02] MEDS ORDERED: InsuLIN REG 1unit/0.01ml Soln (100units/ml) SC SCH ×2 (11:30→22:00)
[2025-01-02] MEDS: PANTOPRAZOLE 40 MG/10 ML VIAL INJ IV SCH (11:51)
[2025-01-02] MEDS: METOCLOPRAMIDE HCL 5MG/ml INJ 2ml VIAL IV ONE ×2 (15:28→15:45)
--- NOTE | 2025-01-02 15:38 | DVHPNRES ---
Progress Note Date Seen: Jan 02, 2025 Resident Creating Document: HORTENSIA ADAMS RESIDENT Medical Necessity Reason Pt with a Central, PICC or Fol: No Subjective Review of Systems This is a 59-year-old blind, setswana speaking female past medical history of ESRD on dialysis, hypertension, hyperlipidemia and diabetes mellitus who came to the ED with the chief complaint of epigastric pain since 5 days. Patient stated that the pain was a 10/10 density, nonradiating. The pain was associated with nausea and vomiting, which started after she ate spicy food. Patient mentions she has not been able to eat anything in the last 5 days. He mentioned having multiple episodes of vomiting in the last 5 days. Even on evaluation today the patient had multiple episodes of vomiting and was NPO. And also mentioned not having had any bowel movement in the last 5 days. Mentioned that similar symptoms have happened twice in the past. She denies any fever chills cough or sick contacts. She also had pericardial effusion in the past which had to be drained. Past medical history: ESRD on dialysis, hypertension, hyperlipidemia and diabetes mellitus Past surgical history: Denies Social & Personal history: Lives at home with Smoking: Denies Alcohol: Denies Drugs: Denies Allergies: No known allergies Patient seen and examined at bedside. Patient is alert and oriented to time, place person and responding to all questions. Eyes: No Pain, No Vision change, No Conjunctivae inflammation, No Eyelid inflammation,No Redness ENT: No Ear pain, No Ear discharge, No Nose pain, No Nose discharge, No Nose congestion, No Mouth pain, No Mouth swelling, No Throat pain, No Throat swelling Cardiovascular: No Chest Pain, No Palpitations, No Orthopnea, No Paroxysmal No Dyspnea, No Edema, No Lt Headedness Respiratory: No Cough, No Dry, No Shortness of breath, No SOB with exertion, No Wheezing, No Hemoptysis, No Pleuritic Pain, No Sputum Gastrointestinal: Nausea, Vomiting, epigastric Abdominal Pain, No Diarrhea, Constipation, No Melena, No Hematochezia Genitourinary: No Dysuria, No Frequency, No Incontinence, No Hematuria, No Retention Objective vital signs Vital Sign Date Time Temp Pulse Resp B/P (MAP) Pulse Ox O2 Delivery O2 Flow Rate FiO2 01/02/25 13:00 97.7 64 19 144/85 (104) 98 97.7 01/02/25 08:00 Nasal Cannula* 2 28 Total Intake and Output 01/01/25 01/01/25 01/02/25 15:00 23:00 07:00 Intake Total 0 ml Balance 0 ml medications Current Medications Medications Dose Ordered Sig/Kana Route Start Time Stop Time Status Last Admin Dose Admin Ondansetron HCl 4 mg Q4HP PRN IV 01/01/25 22:30 01/02/25 13:54 4 MG Docusate Sodium 100 mg BIDPRN PRN PO 01/01/25 22:30 Metronidazole 100 ml @ 100 mls/hr Q8HR IV 01/02/25 14:00 01/02/25 13:54 100 MLS/HR Atorvastatin Calcium 40 mg HS PO 01/02/25 22:00 Pantoprazole Sodium 40 mg DAILY IV 01/02/25 10:00 01/02/25 11:51 40 MG Ceftriaxone Sodium 50 ml @ 100 mls/hr DAILY@09 IV 01/03/25 09:00 Lactated Ringer's 1,000 ml @ 50 mls/hr Q20H IV 01/02/25 10:15 01/02/25 10:15 50 MLS/HR Acetaminophen 650 mg Q4HP PRN PO 01/02/25 10:30 Diagnostic Test (Pha) 1 strip Q6HR 01/02/25 12:00 01/02/25 11:25 1 STRIP Insulin Human Regular Q6HR SC 01/02/25 12:00 01/02/25 11:26 4 UNITS Dextrose 50 ml UD PRN IV 01/02/25 10:15 Metoclopramide HCl 10 mg BID IV 01/02/25 22:00 Examination General Appearance: Cooperative. Well developed. Well nourished. Patient is legally blind in both eyes. Patient has AV fistula on inner aspect of left arm with thrill. Head Exam: Normal inspection Neck Exam: Normal inspection. Non-tender. Normal alignment Pulmonary/Respiratory: Chest non-tender. Clear bilateral breath sounds, no crackles, no wheezing. Cardiovascular/Chest: Regular rate and rhythm. No murmurs. No JVD. Peripheral Pulses: 2+ Radial (R). 2+ Radial (L). 2+ Pedal (R). 2+ Pedal (L) Abdominal Exam: Epigastric tenderness, the patient has an episode of vomiting while examination is ongoing Ankle Exam: Negative ankle edema Lower extremities: Negative lower extremity edema Neuro/Mental Status: A&O x4. Coherent. Thoughts/Psych: Normal thought pattern. Appropriate mood and affect. Good judgement and insight Skin Exam: Normal inspection. Normal color. Warm. Dry laboratory and microbiology Laboratory Tests 01/02/25 04:43 Test 01/02/25 04:43 Range/Units Serum Glucose 214 H 74-106 mg/dL Microbiology Date/Time Source Procedure Growth Status 01/02/25 03:55 Nose MRSA Screen - Final Complete Labs and/or images reviewed: Labs reviewed by me, Image(s) reviewed by me Problem List/Assessment/Plan Problem List/Assessment/Plan # acute gastroenteritis, likely infectious etiology # possible epigastritis -keep NPO -symptomatic management with ondansetron and Reglan -start on Flagyl t.i.d. -give IV fluids as needed # acute hypoxic respiratory failure, likely from ESRD # mild pleural effusion, likely from ESRD Rule out aspiration pneumonia -currently on 2 L oxygen N/C -monitor Respironics # ESRD on hemodialysis, MWF # NSTEMI type 2, likely due to ESRD, elevated tropes, EKG NSR # anemia of chronic disease, likely from CKD -continuously monitor labs -consulted nephrology [facility] [place] [facility] for continuation of hemodialysis -no HD today due to patient's clinical status #Hyperlipidemia -continue Lipitor # type 2 diabetes mellitus, HbA1c 7 -moderate insulin sliding scale -and Lantus 15 units HS # mild transaminitis -monitor labs for now PUD prophylaxis: Protonix DVT prophylaxis: Lovenox Goals of care: Full code, discussed for >23 minutes Plan discussed with patient Plan discussed with Dr. Flores Plan discussed with: Patient My Orders My Orders Orders - HORTENSIA ADAMS RESIDENT Procedure Category Date Status Time Atorvastatin (Lipitor) PHA 01/02/25 In Process 22:00 Pantoprazole PHA 01/02/25 In Process (Protonix) 10:00 Metoclopramide PHA 01/02/25 Logged Injection (Reglan 15:45 Metoclopramide PHA 01/02/25 Logged Injection (Reglan 22:00 Date of Service: Jan 02, 2025 Billing Provider: DEBI HERMAN MD Common Visit Codes: [id number] INP/OBS CARE(HIGH) HORTENSIA ADAMS RESIDENT Jan 02, 2025 15:37 LUCAS ODELL Jan 03, 2025 15:02 DEBI HERMAN MD Jan 05, 2025 01:34
--- NOTE | 2025-01-02 18:19 | DVHINCON2 ---
Date of service: Jan 02, 2025 Referring Physician Joselin Reason for Consultation Nausea and vomiting History of Present Illness Patient is a 59-year-old female with a history of hypertension, diabetes, end- stage renal disease on hemodialysis, chronic anemia, admitted with nausea vomiting, abdominal pain, and no bowel movements for five days. Patient had multiple episodes of nonbloody emesis. She denies any fevers or chills. She denies hematemesis, she denies hematochezia. Imaging studies show no acute findings. GI consultation was obtained for evaluation given the patient's intractable nausea and vomiting. Patient has been placed on antiemetics. Past Medical History As above Hyperlipidemia History of AV fistula Past Surgical History As above Family History: Cardiovascular disease G8 FATHER, (HEART ATTACK) FH: [place] (myocardial infarction) G8 FATHER FH: cancer G8 MOTHER Social History No tobacco, alcohol, or recreational drug use Allergies: Coded Allergies: No Known Drug Allergy (Verified Allergy, Unknown, 10/05/24) Home Meds Active Scripts Azithromycin (Azithromycin) 500 Mg Tab, 1 TAB PO DAILY, #10 TAB Prov:GLENN DORANTES MD 11/05/24 Sucralfate (CARAFATE SUSP) 1 Gm/10 Ml Ss, 10 ML PO QID, #1200 ML 3 Refills Prov:PRASANNA KOENIG MD 10/17/24 Ondansetron Odt 4MG Tab (ZOFRAN PO) 4 Mg Tb, 4 MG PO Q6HP PRN for 7 Days, #16 TAB ODT TAB-DISSOLVE IN MOUTH, THEN SWALLOW Prov:SANAM JOHNSTON RESIDENT 08/28/24 Reported Medications Furosemide (Furosemide) 40 Mg Tab, 1 TAB PO DAILY 10/05/24 Ferrous Sulfate (Ferosul) 325 Mg Tab, 1 TAB PO BID 10/05/24 Dicyclomine Hcl (BENTYL CAPSULE) 10 Mg Cp, 1 CAP PO BIDPRN PRN 10/05/24 Lidocaine-Prilocaine (Lidocaine/Prilocaine) 1 Kit Kit, 1 KIT EX DAILY for 30 Days, #30 08/27/24 Hydroxyzine Pamoate (Hydroxyzine Pamoate) 25 Mg Cap, 1 CAP PO DAILYPRN for 30 Days, #30 08/27/24 Famotidine (Famotidine) 20 Mg Tab, 1 TAB PO DAILY PRN for HEARTBURN for 90 Days, #90 08/27/24 Guanfacine Hcl (Guanfacine Hcl) 1 Mg Tab, 1 TAB PO DAILY for 90 Days, #90 08/27/24 Losartan Potassium (Losartan Potassium) 100 Mg Tab, 1 TAB PO DAILY for 100 Days, #100 08/27/24 Ergocalciferol (Vitamin D) 50,000 Unit Cap, 1 CAP PO QWEEKLY for 84 Days, #12 08/27/24 Chlorthalidone (Chlorthalidone) 25 Mg Tab, 1 TAB PO DAILY for 30 Days, #30 08/27/24 B-Complex W/ C & Folic Acid (Ernestina-Kaylie Rx) Tab, 1 TAB PO DAILY for 90 Days, #90 08/27/24 Semaglutide (Ozempic) 2 Mg/3 Ml Inj, 0.5 MG SC Q7D for 28 Days, #3 08/27/24 Fluticasone Propionate (Nasal) (Fluticasone Propionate) 50 Mcg/Act Spr, SPRAY NINO UD for 30 Days, #16 08/27/24 Triamcinolone Acetonide (Kenalog) 1 Applic Ap, 1 APPLIC TOP UD for 30 Days, #45 08/27/24 Omeprazole (Gnp Omeprazole) 20 Mg Tab, 1 TAB PO DAILY for 30 Days, #30 08/27/24 Ketoconazole (Ketoconazole) 2 % Sha, UD for 30 Days, #120 08/27/24 Amlodipine Besylate (Amlodipine Besylate) 5 Mg Tab, 1 TAB PO DAILY for 90 Days, #90 06/23/24 Carvedilol (Carvedilol) 12.5 Mg Tab, 1 TAB PO BID 06/23/24 Metoprolol Tartrate (LOPRESSOR TABLET) 50 Mg Tb, 1 TAB PO BID for 90 Days, #180 06/23/24 Current Medications Current Medications Medications (Trade) Dose Ordered Sig/Kana Route PRN Reason Start Time Stop Time Status Last Admin Sodium Chloride 1,000 ml @ 60 mls/hr [id number] IV 01/01/25 22:30 01/02/25 00:01 DC Acetaminophen (Tylenol Tablet) 325 mg Q4HP PRN PO MILD PAIN (1-3 PAIN SCALE) 01/01/25 22:30 01/02/25 10:17 DC Ondansetron HCl (Zofran) 4 mg Q4HP PRN IV NAUSEA / VOMITING 01/01/25 22:30 01/02/25 13:54 Docusate Sodium (Colace Capsule) 100 mg BIDPRN PRN PO FOR CONSTIPATION 01/01/25 22:30 Morphine Sulfate 2 mg Q4HPRN PRN IV SEVERE PAIN (7-10 PAIN SCALE) 01/01/25 22:30 01/01/25 23:53 DC Lactated Ringer's 1,000 ml @ 100 mls/hr Q10H IV 01/02/25 00:00 01/02/25 10:17 DC Pantoprazole Sodium (Protonix) 40 mg DAILY IV 01/02/25 10:00 01/02/25 10:46 DC Atorvastatin Calcium (Lipitor) 40 mg HS PO 01/02/25 22:00 01/02/25 10:45 DC Metronidazole 100 ml @ 100 mls/hr Q8HR IV 01/02/25 14:00 01/02/25 13:54 Diagnostic Test (Pha) (Accu-Chek Comfort Curve T) 1 strip ACHS 01/02/25 11:30 01/02/25 10:46 DC Insulin Human Regular (InsuLIN R) HS SC 01/02/25 22:00 01/02/25 10:17 DC Insulin Human Regular (InsuLIN R) AC SC 01/02/25 11:30 01/02/25 10:17 DC Dextrose 50 ml UD PRN IV Blood Sugar LESS THAN 60 01/02/25 08:30 01/02/25 10:46 DC Insulin Glargine (Lantus) 15 units DAILY@1000 SC 01/02/25 10:00 01/02/25 10:17 DC Atorvastatin Calcium (Lipitor) 40 mg HS PO 01/02/25 22:00 Pantoprazole Sodium (Protonix) 40 mg DAILY IV 01/02/25 10:00 01/02/25 11:51 Ceftriaxone Sodium 50 ml @ 100 mls/hr DAILY@09 IV 01/03/25 09:00 Lactated Ringer's 1,000 ml @ 50 mls/hr Q20H IV 01/02/25 10:15 01/02/25 10:15 Acetaminophen (Tylenol Tablet) 650 mg Q4HP PRN PO MILD PAIN (1-3 PAIN SCALE) 01/02/25 10:30 Diagnostic Test (Pha) (Accu-Chek Comfort Curve T) 1 strip Q6HR 01/02/25 12:00 01/02/25 17:27 Insulin Human Regular (InsuLIN R) Q6HR SC 01/02/25 12:00 01/02/25 11:26 Dextrose 50 ml UD PRN IV Blood Sugar LESS THAN 60 01/02/25 10:15 Metoclopramide HCl (Reglan Injection) 10 mg BID IV 01/02/25 22:00 01/02/25 16:12 DC Metoclopramide HCl (Reglan Injection) 10 mg BID IV 01/02/25 22:00 Carvedilol (Coreg Tablet) 12.5 mg BID PO 01/02/25 22:00 Review of Systems 12 point review of systems as per HPI History of IBS History of constipation History of diabetes History of end-stage renal disease, hyperlipidemia History of hypertension See HPI for GI No dysuria hematuria No rashes bruises or pruritus chills No headaches or dizziness Vital Signs Vital Signs Date Time Temp Pulse Resp B/P (MAP) Pulse Ox O2 Delivery O2 Flow Rate FiO2 01/02/25 17:00 97.6 63 19 137/68 (91) 97 97.6 01/02/25 08:00 Nasal Cannula* 2 28 Physical Exam General: Alert and oriented x4 no distress HEENT: NC/AT EOMI PERRLA O/P clear Heart: Regular rate and rhythm Abdomen: Soft mild epigastric tenderness to palpation, no masses no hepatomegaly Extremity: No clubbing cyanosis or edema Neuro: Moves all four extremities Labs/Diagnostic Data Labs Test 01/02/25 17:13 01/02/25 10:55 01/02/25 08:13 01/02/25 04:43 Range/Units POC Glucose 271 H 70-106 mg/dl Troponin I High Sensitivity 45 *H </=34 ng/L Lactic Acid Level 1.1 0.4-2.0 mmol/L White Blood Count 8.2 # 4.4-10.8 10^3/uL Red Blood Count 3.05 L 4.0-5.20 10^6/uL Hemoglobin 9.8 L 12.2-16.2 g/dL Hematocrit 29.5 L 36.0-46.0 % Mean Corpuscular Volume 96.6 80.0-100.0 fL Mean Corpuscular Hemoglobin 32.3 H 28.0-32.0 pg Mean Corpuscular Hemoglobin Concent 33.4 32.0-36.0 g/dL Red Cell Distribution Width 21.2 H 11.8-14.3 % Platelet Count 124 L 140-450 10^3/uL Mean Platelet Volume 10.0 6.9-10.8 fL Neutrophils (%) (Auto) 79.9 37.0-80.0 % Lymphocytes (%) (Auto) 10.8 10.0-50.0 % Monocytes (%) (Auto) 9.0 0.0-12.0 % Eosinophils (%) (Auto) 0.1 0.0-7.0 % Basophils (%) (Auto) 0.2 0.0-2.0 % Neutrophils # (Auto) 6.5 1.6-8.6 10 ^3/uL Lymphocytes # (Auto) 0.9 0.4-5.4 10 ^3/uL Monocytes # (Auto) 0.7 0-1.3 10 ^3/uL Eosinophils # (Auto) 0 0-0.8 10 ^3/uL Basophils # (Auto) 0 0-0.2 10 ^3/uL Nucleated Red Blood Cells 0.1 % Sodium Level 136 136-145 mmol/L Potassium Level 4.2 3.5-5.1 mmol/L Chloride Level 93 L 98-107 mmol/L Carbon Dioxide Level 28 20-31 mmol/L Anion Gap 15 5-15 Blood Urea Nitrogen 44 H 9-23 mg/dL Creatinine 6.44 H 0.550-1.02 mg/dL Glomerular Filtration Rate Calc 7 >90 mL/min BUN/Creatinine Ratio 6.8 L 10.0-20.0 Serum Glucose 214 H 74-106 mg/dL Hemoglobin A1c 7.0 H <5.7 % A1C Calcium Level 9.0 8.7-10.4 mg/dL Phosphorus Level 3.7 2.4-5.1 mg/dL Magnesium Level 2.3 1.6-2.6 mg/dL Total Bilirubin 0.9 0.2-1.0 mg/dL Aspartate Amino Transferase (AST) 38 13-40 U/L Alanine Aminotransferase (ALT) 36 7-40 U/L Alkaline Phosphatase 231 H 46-116 U/L B-Type Natriuretic Peptide 1246.77 0-100 pg/mL Total Protein 7.4 5.7-8.2 g/dL Albumin 4.0 3.2-4.8 g/dL Test 01/02/25 03:55 01/01/25 18:45 Range/Units SARS-CoV-2 Antigen (Rapid) Negative NEGATIVE Lipase 32 12-53 U/L Microbiology Date/Time Source Procedure Growth Status 01/02/25 03:55 Nose MRSA Screen - Final Complete Assessment 1. Nausea and vomiting 2. Abdominal pain Differential diagnosis includes gastroenteritis versus medication side effects due to semaglutide versus gastroparesis versus other, as well as chronic constipation Problems(with codes): (1) ESRD (end stage renal disease) (2) Anemia (3) Generalized weakness Plan/Recommendation 1. Continue current medications 2. NPO except meds 3. No indication for EGD or colonoscopy at this time 4. We will follow 5. Diabetes control 6. Continue with Flagyl 7. Follow labs Plan discussed with: Patient TOSHIA GONZALEZ MD Jan 02, 2025 18:19
[2025-01-02] MEDS: ACETAMINOPHEN 325 MG TAB PO PRN (20:00)
[2025-01-02] MEDS: ATORVASTATIN 20 MG TAB PO SCH (22:00)
[2025-01-02] MEDS ORDERED: METOCLOPRAMIDE HCL 5MG/ml INJ 2ml VIAL IV SCH (22:00)
[2025-01-02] MEDS ORDERED: ATORVASTATIN 20 MG TAB PO SCH (22:00)
[2025-01-02] MEDS: CARVEDILOL 12.5 MG TAB PO SCH (23:41)
[2025-01-02] MEDS: METOCLOPRAMIDE HCL 5MG/ml INJ 2ml VIAL IV SCH (23:42)
[2025-01-03] VITALS (9 sets, daily range): BP systolic 103–157; BP diastolic 58–69; PULSE 50–95; RESP 16–19; TEMP 97.4–98; O2SAT 94–100
[2025-01-03] MEDS ORDERED: hydrALAZINE HCL 20 MG/ML VL IV PRN (01:15)
[2025-01-03] MEDS: HYDROcodone-ACET 5/325MG TAB PO PRN (03:25)
[2025-01-03] MEDS ORDERED: SODIUM CHL 0.9% 1000 ML BAG XX ONE (07:00)
[2025-01-03 07:43] LABS: Anion Gap 17 (5-15); Carbon Dioxide 25 mmol/L (20-31); Potassium 4.8 mmol/L (3.5-5.1)
[2025-01-03 07:44] LABS: Calcium 8.9 mg/dL (8.7-10.4); Chloride 94 mmol/L (98-107); Sodium 136 mmol/L (136-145)
[2025-01-03 07:47] LABS: Hematocrit 30.8 % (36.0-46.0); Hemoglobin 10.2 g/dL (12.2-16.2); Mean Corpuscular Hemoglobin 32.2 pg (28.0-32.0); Mean Corpuscular Volume 97.0 fL (80.0-100.0); Nucleated Red Blood Cells % 0.0 %
[2025-01-03 07:49] LABS: BUN/Creatinine Ratio 5.9 (10.0-20.0)
[2025-01-03 07:51] LABS: Blood Urea Nitrogen 47 mg/dL (9-23); Glucose 198 mg/dL (74-106)
--- NOTE | 2025-01-03 09:37 | DVHPN2 ---
Progress Note - Dictate Date Seen: Jan 03, 2025 Medical Necessity Reason Pt with a Central, PICC or Fol: No Subjective Patient seen at bedside. She is resting. GI evaluation was done. Recommended NPO status. vital signs Vital Sign Date Time Temp Pulse Resp B/P (MAP) Pulse Ox O2 Delivery O2 Flow Rate FiO2 01/03/25 05:00 97.9 51 16 137/61 (86) 98 97.9 01/02/25 19:30 Nasal Cannula* 2 28 Total Intake and Output 01/02/25 01/02/25 01/03/25 15:00 23:00 07:00 Intake Total 100 ml 0 ml 0 ml Output Total 2 ml 3 ml Balance 100 ml -2 ml -3 ml medications Current Medications Medications Dose Ordered Sig/Kana Route Start Time Stop Time Status Last Admin Dose Admin Ondansetron HCl 4 mg Q4HP PRN IV 01/01/25 22:30 01/02/25 13:54 4 MG Docusate Sodium 100 mg BIDPRN PRN PO 01/01/25 22:30 Metronidazole 100 ml @ 100 mls/hr Q8HR IV 01/02/25 14:00 01/03/25 06:05 100 MLS/HR Atorvastatin Calcium 40 mg HS PO 01/02/25 22:00 Pantoprazole Sodium 40 mg DAILY IV 01/02/25 10:00 01/02/25 11:51 40 MG Ceftriaxone Sodium 50 ml @ 100 mls/hr DAILY@09 IV 01/03/25 09:00 Lactated Ringer's 1,000 ml @ 50 mls/hr Q20H IV 01/02/25 10:15 01/03/25 06:06 50 MLS/HR Acetaminophen 650 mg Q4HP PRN PO 01/02/25 10:30 01/02/25 20:00 650 MG Diagnostic Test (Pha) 1 strip Q6HR 01/02/25 12:00 01/03/25 06:06 1 STRIP Dextrose 50 ml UD PRN IV 01/02/25 10:15 Metoclopramide HCl 10 mg BID IV 01/02/25 22:00 01/02/25 23:42 10 MG Carvedilol 12.5 mg BID PO 01/02/25 22:00 01/02/25 23:41 12.5 MG Hydralazine HCl 10 mg Q6HP PRN IV 01/03/25 01:15 Acetaminophen/ Hydrocodone Bitart 1 tab Q4HPRN PRN PO 01/03/25 03:00 01/03/25 03:25 1 TAB objective General: In no acute distress HEENT: Normocephalic, atraumatic, moist mucous membranes, blind in both eyes Respiratory/pulmonary: Clear lungs bilaterally Cardiovascular: Normal heart sounds S1 and S2 Abdomen: Epigastric tenderness on palpation Extremities: There is no peripheral edema present at the lower extremities. Neurological: Intact cranial nerves with no focal neurologic deficits laboratory and microbiology Laboratory Tests 01/03/25 04:49 Test 01/03/25 04:49 Range/Units Serum Glucose 198 H 74-106 mg/dL Problem List End-stage kidney disease on hemodialysis Abdominal pain with persistent nausea and vomiting probably secondary to gastritis versus medication induced. Type 2 diabetes Hypertension Anemia in Chronic kidney disease Assessment/Plan Scheduled for dialysis today. Continue with IV hydration. Continue with IV Protonix. Plan discussed with: Other SOURAV RANGEL MD Jan 03, 2025 09:37
[2025-01-03] MEDS: ACCU-CHEK COMFORT CURVE STRIP VI SCH (11:30)
[2025-01-03] MEDS: InsuLIN REG 1unit/0.01ml Soln (100units/ml) SC SCH ×2 (11:30→22:00)
[2025-01-03] MEDS ORDERED: DEXTROSE (50%) 50ML SYRG IV PRN (11:30)
[2025-01-03] MEDS: MORPHINE SULFATE INJ 2 MG/ml SYRG IV ONE (11:53)
[2025-01-03] MEDS: MORPHINE SULFATE INJ 2 MG/ml SYRG IV PRN (14:44)
--- NOTE | 2025-01-03 15:43 | DVHPNRES ---
Progress Note Date Seen: Jan 03, 2025 Resident Creating Document: HORTENSIA ADAMS RESIDENT Medical Necessity Reason Pt with a Central, PICC or Fol: No Subjective Review of Systems This is a 59-year-old blind, [place]ian speaking female with a medical history of ESRD on dialysis (MWF), hypertension, hyperlipidemia and diabetes mellitus who came to the ED with the chief complaint of epigastric pain since 5 days. Patient stated that the pain was a 10/10 intensity and nonradiating . The pain was associated with nausea and vomiting, which started after she ate spicy food. Patient mentions she has not been able to eat anything in the last 5 days. She mentioned having multiple episodes of vomiting in the last 5 days. Even on evaluation today, the patient had multiple episodes of vomiting and was NPO. And also mentioned not having had any bowel movement in the last 5 days. She mentioned that similar symptoms have happened twice in the past. She denies any fever chills cough or sick contacts. She also had pericardial effusion in the past which had to be drained. Echo report from 11/05/2024 mentioned 50-55% ejection fraction . Past medical history: ESRD on dialysis (MWF), hypertension, hyperlipidemia and diabetes mellitus Past surgical history: Denies Social & Personal history: Lives at home with Smoking: Denies Alcohol: Denies Drugs: Denies Allergies: No known allergies Eyes: No Pain, No Vision change, No Conjunctivae inflammation, No Eyelid inflammation,No Redness ENT: No Ear pain, No Ear discharge, No Nose pain, No Nose discharge, No Nose congestion, No Mouth pain, No Mouth swelling, No Throat pain, No Throat swelling Cardiovascular: No Chest Pain, No Palpitations, No Orthopnea, No Paroxysmal No Dyspnea, No Edema, No Lt Headedness Respiratory: No Cough, No Dry, Shortness of breath, No SOB with exertion, No Wheezing, No Hemoptysis, No Pleuritic Pain, No Sputum Gastrointestinal: Nausea, Vomiting, epigastric Abdominal Pain, No Diarrhea, Constipation, No Melena, No Hematochezia Genitourinary: No Dysuria, No Frequency, No Incontinence, No Hematuria, No Retention 01/03- patient was seen at bedside today. On first evaluation, patient mentioned she did not have any pain and no nausea or vomiting. Detailed discussion of her symptoms and her management was held. On evaluation sometime later, patient had intense epigastric pain and another episode of vomiting. Nephrology saw the patient and recommended hemodialysis today. GI is also following the patient and has recommended to keep her NPO for now. Protonix was changed from once daily to b.i.d., Reglan was changed from twice daily to t.i.d. and Carafate was added to the medication regimen. Was also given 1 mg IV morphine for the abdominal pain. Hospitalist staff helped with translation from Bel[place]ian. Objective vital signs Vital Sign Date Time Temp Pulse Resp B/P (MAP) Pulse Ox O2 Delivery O2 Flow Rate FiO2 01/03/25 14:44 59 18 141/64 01/03/25 12:51 97.4 97 97.4 01/03/25 08:00 Nasal Cannula* 2 28 Total Intake and Output 01/02/25 01/02/25 01/03/25 15:00 23:00 07:00 Intake Total 100 ml 0 ml 0 ml Output Total 2 ml 3 ml Balance 100 ml -2 ml -3 ml medications Current Medications Medications Dose Ordered Sig/Kana Route Start Time Stop Time Status Last Admin Dose Admin Ondansetron HCl 4 mg Q4HP PRN IV 01/01/25 22:30 01/03/25 10:16 4 MG Docusate Sodium 100 mg BIDPRN PRN PO 01/01/25 22:30 Metronidazole 100 ml @ 100 mls/hr Q8HR IV 01/02/25 14:00 01/03/25 14:51 100 MLS/HR Atorvastatin Calcium 40 mg HS PO 01/02/25 22:00 Ceftriaxone Sodium 50 ml @ 100 mls/hr DAILY@09 IV 01/03/25 09:00 01/03/25 10:03 100 MLS/HR Lactated Ringer's 1,000 ml @ 50 mls/hr Q20H IV 01/02/25 10:15 01/03/25 06:06 50 MLS/HR Acetaminophen 650 mg Q4HP PRN PO 01/02/25 10:30 01/02/25 20:00 650 MG Carvedilol 12.5 mg BID PO 01/02/25 22:00 01/02/25 23:41 12.5 MG Hydralazine HCl 10 mg Q6HP PRN IV 01/03/25 01:15 Acetaminophen/ Hydrocodone Bitart 1 tab Q4HPRN PRN PO 01/03/25 03:00 01/03/25 03:25 1 TAB Diagnostic Test (Pha) 1 strip ACHS 01/03/25 11:30 01/03/25 11:30 1 STRIP Insulin Human Regular HS SC 01/03/25 22:00 Insulin Human Regular AC SC 01/03/25 11:30 01/03/25 11:30 3 UNITS Dextrose 50 ml UD PRN IV 01/03/25 11:30 Metoclopramide HCl 10 mg TID IV 01/03/25 22:00 Pantoprazole Sodium 40 mg BID IV 01/03/25 22:00 Sucralfate 1 gm QIDACHS PO 01/03/25 17:00 Morphine Sulfate 2 mg Q4HPRN PRN IV 01/03/25 14:00 01/03/25 14:44 2 MG Examination General Appearance: Cooperative. Well developed. Well nourished. Patient is legally blind in both eyes. Patient has AV fistula on inner aspect of left arm with good bruit/ thrill. Head Exam: Normal inspection Neck Exam: Normal inspection. Non-tender. Normal alignment Pulmonary/Respiratory: Chest non-tender. Clear bilateral breath sounds, no crackles, no wheezing. Cardiovascular/Chest: Regular rate and rhythm. No murmurs. No JVD. Peripheral Pulses: 2+ Radial (R). 2+ Radial (L). 2+ Pedal (R). 2+ Pedal (L) Abdominal Exam: Epigastric tenderness, the patient has an episode of vomiting while examination is ongoing Ankle Exam: Negative ankle edema Lower extremities: Negative lower extremity edema Neuro/Mental Status: A&O x4. Coherent. Thoughts/Psych: Normal thought pattern. Appropriate mood and affect. Good judgement and insight Skin Exam: Normal inspection. Normal color. Warm. Dry laboratory and microbiology Laboratory Tests 01/03/25 04:49 Test 01/03/25 04:49 Range/Units Serum Glucose 198 H 74-106 mg/dL Microbiology Date/Time Source Procedure Growth Status 01/02/25 03:55 Nose MRSA Screen - Final Complete Labs and/or images reviewed: Labs reviewed by me, Image(s) reviewed by me Problem List/Assessment/Plan Problem List/Assessment/Plan # Acute gastroenteritis, likely infectious etiology -keep NPO -symptomatic management with ondansetron and Reglan -start on Flagyl t.i.d. -give IV fluids as needed -Protonix IV b.i.d. Carafate t.i.d. was added -GI apartment leasing consultant evaluated the patient and advised to continue current management # Acute hypoxic respiratory failure, likely from ESRD # Mild pleural effusion, likely from ESRD # Rule out aspiration pneumonia -currently on 2 L oxygen N/C -monitor Respironics # ESRD on hemodialysis, MWF # NSTEMI type 2, likely due to ESRD, elevated tropes, EKG NSR # anemia of chronic disease, likely from CKD -continuously monitor labs -consulted nephrology [facility] for continuation of hemodialysis -due for HD today as per the metrologist's recommendation #Hyperlipidemia -continue Lipitor # type 2 diabetes mellitus, HbA1c 7 -moderate insulin sliding scale -Hold Lantus 15 units HS due to NPO status # mild transaminitis -monitor labs for now PUD prophylaxis: Protonix bid DVT prophylaxis: Lovenox Goals of care: Discussed for 20 minutes with the patient's; Full code Plan discussed with patient Plan discussed with Dr. Crow Plan discussed with: Patient, Other (RN) My Orders My Orders Orders - HORTENSIA ADAMS RESIDENT Procedure Category Date Status Time * Gi Dvh Case Liner CONS 01/02/25 Transmitted 15:36 Ac Moderate Insulin SONAM 01/03/25 In Process Scale (Not 07:16 Glucose Blood PHA 01/03/25 In Process (Accu-Chek Comfort 11:30 Insulin R (Human) PHA 01/03/25 In Process (Insulin R) 11:30 Dextrose 50% Syringe PHA 01/03/25 In Process 11:30 Insulin R (Human) PHA 01/03/25 In Process (Insulin R) 22:00 Metoclopramide PHA 01/03/25 In Process Injection (Reglan 22:00 Pantoprazole PHA 01/03/25 In Process (Protonix) 22:00 Sucralfate Tab PHA 01/03/25 In Process (Carafate Tab) 17:00 Date of Service: Jan 03, 2025 Billing Provider: MAYRA CROW MD Common Visit Codes: [id number] INP/OBS CARE(HIGH) Secondary Visit Codes: [id number] CARE PLAN 30 MINUTES (20 minutes) HORTENSIA ADAMS RESIDENT Jan 03, 2025 15:43 LUCAS ODELL RESIDENT Jan 03, 2025 15:59 MAYRA CROW MD Jan 05, 2025 04:32
[2025-01-03] MEDS: SUCRALFATE 1 GM TAB PO SCH (18:09)
[2025-01-03] MEDS: PANTOPRAZOLE 40 MG/10 ML VIAL INJ IV SCH (22:56)
[2025-01-03] MEDS: METOCLOPRAMIDE HCL 5MG/ml INJ 2ml VIAL IV SCH (22:57)
[2025-01-03] MEDS: EPOETIN ALFA-EPBX 4,000 UNIT/ML VIAL SC ONE (23:16)
[2025-01-04 01:00] VITALS: BP 151/82; PULSE 62; RESP 16; TEMP 98; O2SAT 100
[2025-01-04 05:00] VITALS: BP 142/75; PULSE 59; RESP 16; TEMP 98.3; O2SAT 99
[2025-01-04 07:40] LABS: Hematocrit 29.2 % (36.0-46.0); Hemoglobin 9.6 g/dL (12.2-16.2); Mean Corpuscular Hemoglobin 31.9 pg (28.0-32.0); Mean Corpuscular Volume 96.7 fL (80.0-100.0); Nucleated Red Blood Cells % 0.1 %
[2025-01-04 07:53] LABS: Anion Gap 16 (5-15); Carbon Dioxide 27 mmol/L (20-31); Potassium 3.6 mmol/L (3.5-5.1); Sodium 141 mmol/L (136-145)
[2025-01-04 07:59] LABS: BUN/Creatinine Ratio 4.7 (10.0-20.0); Blood Urea Nitrogen 23 mg/dL (9-23)
[2025-01-04 08:02] LABS: Calcium 8.7 mg/dL (8.7-10.4); Chloride 98 mmol/L (98-107); Glucose 61 mg/dL (74-106)
--- NOTE | 2025-01-04 08:54 | DVHPN2 ---
Subjective Arabic-speaking; staff helped with translation; feeling better today; with decreasing nausea and vomiting Reviewed: Care Plan, H&P, Labs, Medications, Previous Orders, Radiology, Other (Consultations) Changes from previous H/P or p: Changes Objective Vitals Vital Signs Date Time Temp Pulse Resp B/P (MAP) Pulse Ox O2 Delivery O2 Flow Rate FiO2 01/04/25 05:00 98.3 59 16 142/75 (97) 99 98.3 01/03/25 20:00 Nasal Cannula* 2 28 Intake/Output Intake and Output 01/04/25 07:00 Intake Total 580 ml Balance 580 ml Intake Oral 380 ml IV Total 200 ml # Bowel Movements 1 General Appearance: Alert, Oriented X3, Cooperative, No acute distress HEENT: Other (Blind) Lungs: Clear to auscultation, Normal air movement Cardiovascular: Regular rate, Normal S1, Normal S2, No murmurs Abdomen: Normal bowel sounds, Soft, Other (Diffuse tenderness) Extremities: Other (Right arm with AV fistula with good bruit/thrill) Neuro: Normal speech, Cranial nerves 3-12 NL Psych/Mental Status: Mental status NL, Mood NL Medications Current Medications Medications Dose Ordered Sig/Kana Route Start Time Stop Time Status Last Admin Dose Admin Ondansetron HCl 4 mg Q4HP PRN IV 01/01/25 22:30 01/03/25 18:14 4 MG Docusate Sodium 100 mg BIDPRN PRN PO 01/01/25 22:30 Metronidazole 100 ml @ 100 mls/hr Q8HR IV 01/02/25 14:00 01/04/25 05:40 100 MLS/HR Atorvastatin Calcium 40 mg HS PO 01/02/25 22:00 01/03/25 23:14 40 MG Ceftriaxone Sodium 50 ml @ 100 mls/hr DAILY@09 IV 01/03/25 09:00 01/03/25 10:03 100 MLS/HR Lactated Ringer's 1,000 ml @ 50 mls/hr Q20H IV 01/02/25 10:15 01/03/25 06:06 50 MLS/HR Acetaminophen 650 mg Q4HP PRN PO 01/02/25 10:30 01/02/25 20:00 650 MG Carvedilol 12.5 mg BID PO 01/02/25 22:00 01/03/25 23:15 12.5 MG Hydralazine HCl 10 mg Q6HP PRN IV 01/03/25 01:15 Acetaminophen/ Hydrocodone Bitart 1 tab Q4HPRN PRN PO 01/03/25 03:00 01/03/25 03:25 1 TAB Diagnostic Test (Pha) 1 strip ACHS 01/03/25 11:30 01/04/25 06:22 1 STRIP Insulin Human Regular HS SC 01/03/25 22:00 Insulin Human Regular AC SC 01/03/25 11:30 01/03/25 17:00 3 UNITS Dextrose 50 ml UD PRN IV 01/03/25 11:30 Metoclopramide HCl 10 mg TID IV 01/03/25 22:00 01/04/25 05:40 10 MG Pantoprazole Sodium 40 mg BID IV 01/03/25 22:00 01/03/25 22:56 40 MG Sucralfate 1 gm QIDACHS PO 01/03/25 17:00 01/04/25 05:40 1 GM Morphine Sulfate 2 mg Q4HPRN PRN IV 01/03/25 14:00 01/03/25 14:44 2 MG Laboratory Results Laboratory Tests 01/04/25 05:23 Chemistry Test 01/04/25 05:23 Calcium Level 8.7 mg/dL (8.7-10.4) Microbiology Microbiology Date/Time Source Procedure Growth Status 01/02/25 03:55 Nose MRSA Screen - Final Complete Labs and/or images reviewed: Labs reviewed by me, Image(s) reviewed by me Assessment/Plan Assessment/Plan Covering: Suspected sepsis with leukocytosis due to acute gastroenteritis with abdominal pain, nausea, vomiting Acute hypoxic respiratory failure due to volume overload causing pulmonary congestion secondary to missing hemo dialysis ESRD on hemodialysis via left arm AV fistula on Mondays/Wednesdays/Fridays NSTEMI, type 2 SD, demand ischemia due to volume overload Normocytic anemia in the setting of ESRD; no symptoms/signs of active bleeding Elevated LFTs due to suspected hepatic congestion in the setting of volume overload Type 2 diabetes mellitus with dyslipidemia Legally blind due to uncontrolled diabetes mellitus type 2 Overweight Continue IV antiemetics Continue IV antibiotics Hemodialysis as per Nephrology Continue home statin Avoid hepatotoxic agents Continue insulin management and adjust according to blood glucose readings Continue pain management as indicated Counseled the patient on the importance of adopting healthy lifestyle with diet and exercise in order to lose weight Continue oxygen therapy as indicated Continue monitoring Late Entry. This medical document was created using an electronic medical record system with computerized dictation system. Although this document has been carefully reviewed, there might still be some phonetic and typographical errors. These areas are purely typographical due to imperfections of the software programs, and do not reflect any compromise in the patient's medical care. Plan discussed with: Patient, Other (Nurse) My Orders Orders - MAYRA CROW MD Procedure Category Date Status Time Morphine Sulfate PHA 01/03/25 In Process Injection 14:00 Complete Blood Count LAB 01/05/25 Verified 04:00 Comprehensive LAB 01/05/25 Verified Metabolic Panel 04:00 Date of Service: Jan 04, 2025 Billing Provider: MAYRA CROW MD Common Visit Codes: [id number] INP/OBS CARE(HIGH) MAYRA CROW MD Jan 04, 2025 08:54
[2025-01-04 08:55] VITALS: BP 145/69; PULSE 63; RESP 20; TEMP 98; O2SAT 97
--- NOTE | 2025-01-04 16:59 | DVHPN2 ---
Progress Note - Dictate Date Seen: Jan 04, 2025 Medical Necessity Reason Pt with a Central, PICC or Fol: No Subjective Patient seen at bedside. Ongoing issues with nausea and vomiting vital signs Vital Sign Date Time Temp Pulse Resp B/P (MAP) Pulse Ox O2 Delivery O2 Flow Rate FiO2 01/04/25 10:34 73 139/65 01/04/25 08:55 98.0 20 97 98.0 01/04/25 08:00 Nasal Cannula* 2 28 Total Intake and Output 01/03/25 01/03/25 01/04/25 15:00 23:00 07:00 Intake Total 0 ml 580 ml Balance 0 ml 580 ml medications Current Medications Medications Dose Ordered Sig/Kana Route Start Time Stop Time Status Last Admin Dose Admin Ondansetron HCl 4 mg Q4HP PRN IV 01/01/25 22:30 01/04/25 13:47 4 MG Docusate Sodium 100 mg BIDPRN PRN PO 01/01/25 22:30 Metronidazole 100 ml @ 100 mls/hr Q8HR IV 01/02/25 14:00 01/04/25 14:50 100 MLS/HR Atorvastatin Calcium 40 mg HS PO 01/02/25 22:00 01/03/25 23:14 40 MG Ceftriaxone Sodium 50 ml @ 100 mls/hr DAILY@09 IV 01/03/25 09:00 01/04/25 09:29 100 MLS/HR Lactated Ringer's 1,000 ml @ 50 mls/hr Q20H IV 01/02/25 10:15 01/03/25 06:06 50 MLS/HR Acetaminophen 650 mg Q4HP PRN PO 01/02/25 10:30 01/02/25 20:00 650 MG Carvedilol 12.5 mg BID PO 01/02/25 22:00 01/04/25 09:34 12.5 MG Hydralazine HCl 10 mg Q6HP PRN IV 01/03/25 01:15 Acetaminophen/ Hydrocodone Bitart 1 tab Q4HPRN PRN PO 01/03/25 03:00 01/04/25 09:35 1 TAB Diagnostic Test (Pha) 1 strip ACHS 01/03/25 11:30 01/04/25 11:30 1 STRIP Insulin Human Regular HS SC 01/03/25 22:00 Insulin Human Regular AC SC 01/03/25 11:30 01/04/25 12:54 6 UNITS Dextrose 50 ml UD PRN IV 01/03/25 11:30 Metoclopramide HCl 10 mg TID IV 01/03/25 22:00 01/04/25 14:51 10 MG Pantoprazole Sodium 40 mg BID IV 01/03/25 22:00 01/04/25 09:29 40 MG Sucralfate 1 gm QIDACHS PO 01/03/25 17:00 01/04/25 05:40 1 GM Morphine Sulfate 2 mg Q4HPRN PRN IV 01/03/25 14:00 01/03/25 14:44 2 MG objective General: In no acute distress HEENT: Normocephalic, atraumatic, moist mucous membranes, blind in both eyes Respiratory/pulmonary: Clear lungs bilaterally Cardiovascular: Normal heart sounds S1 and S2 Abdomen: Epigastric tenderness on palpation Extremities: There is no peripheral edema present at the lower extremities. Neurological: Intact cranial nerves with no focal neurologic deficits laboratory and microbiology Laboratory Tests 01/04/25 05:23 Test 01/04/25 05:23 Range/Units Serum Glucose 61 L 74-106 mg/dL Problem List End-stage kidney disease on hemodialysis Abdominal pain with persistent nausea and vomiting probably secondary to gastritis versus medication induced. Type 2 diabetes Hypertension Anemia in Chronic kidney disease Assessment/Plan Hemodialysis on TTS schedule. Follow GI recommendations. Plan discussed with: SOURAV Shen MD Jan 04, 2025 16:59
[2025-01-04 17:00] VITALS: BP 171/84; PULSE 66; RESP 18; TEMP 97.9; O2SAT 97
[2025-01-04 20:00] VITALS: PULSE 61; RESP 16; O2SAT 99
[2025-01-04 21:00] VITALS: BP 152/81; PULSE 60; RESP 18; TEMP 97.8; O2SAT 100
[2025-01-05 01:00] VITALS: BP 158/73; PULSE 61; RESP 18; TEMP 97.9; O2SAT 99
[2025-01-05 05:00] VITALS: BP 155/75; PULSE 63; RESP 18; TEMP 98.6; O2SAT 98
[2025-01-05 08:00] VITALS: PULSE 62; RESP 16; O2SAT 96
[2025-01-05] MEDS: LOSARTAN POTASSIUM 50 MG TAB PO ONE (08:25)
[2025-01-05 08:38] VITALS: BP 157/80; PULSE 62; RESP 16; TEMP 98; O2SAT 96
[2025-01-05] MEDS ORDERED: SUCR1TAB PO (12:29)
[2025-01-05] MEDS ORDERED: METO-281 PO (12:29)
[2025-01-05] MEDS ORDERED: AUG875T PO (12:29)
[2025-01-05] MEDS ORDERED: DOCU-265 PO (12:29)
[2025-01-05 12:30] LABS: Hematocrit 29.9 % (36.0-46.0); Hemoglobin 9.9 g/dL (12.2-16.2); Mean Corpuscular Hemoglobin 31.7 pg (28.0-32.0); Mean Corpuscular Volume 96.1 fL (80.0-100.0); Nucleated Red Blood Cells % 0.1 %
[2025-01-05 12:39] LABS: Alanine Aminotransferase 22 U/L (7-40); Albumin 3.5 g/dL (3.2-4.8); Anion Gap 12 (5-15); BUN/Creatinine Ratio 5.2 (10.0-20.0); Carbon Dioxide 29 mmol/L (20-31); Potassium 3.6 mmol/L (3.5-5.1); Sodium 138 mmol/L (136-145); Total Protein 6.8 g/dL (5.7-8.2)
[2025-01-05 12:40] LABS: Bilirubin, Total 0.6 mg/dL (0.2-1.0)
[2025-01-05 12:57] LABS: Alkaline Phosphatase 158 U/L (46-116); Blood Urea Nitrogen 33 mg/dL (9-23); Calcium 8.6 mg/dL (8.7-10.4); Chloride 97 mmol/L (98-107); Glucose 160 mg/dL (74-106)
[2025-01-05 13:27] VITALS: BP 131/69; PULSE 57; RESP 16; TEMP 98.2; O2SAT 96
[2025-01-05 15:34] VITALS: BP 131/69; PULSE 57; RESP 16; TEMP 98.2; O2SAT 96
--- NOTE | 2025-01-05 16:18 | DVHDSRES ---
Discharge Summary Date of Admission Resident Creating Document: HORTENSIA ADAMS RESIDENT Jan 01, 2025 at 22:29 Date of Discharge: Jan 05, 2025 Admitting Diagnosis infectious/ non infectious gastroenteritis Labs/Diagnostic Data: Laboratory Results Test 01/05/25 12:05 01/05/25 11:01 01/03/25 15:28 01/02/25 10:55 White Blood Count 5.8 10^3/uL (4.4-10.8) Red Blood Count 3.11 10^6/uL (4.0-5.20) Hemoglobin 9.9 g/dL (12.2-16.2) Hematocrit 29.9 % (36.0-46.0) Mean Corpuscular Volume 96.1 fL (80.0-100.0) Mean Corpuscular Hemoglobin 31.7 pg (28.0-32.0) Mean Corpuscular Hemoglobin Concent 33.0 g/dL (32.0-36.0) Red Cell Distribution Width 20.5 % (11.8-14.3) Platelet Count 174 10^3/uL (140-450) Mean Platelet Volume 8.9 fL (6.9-10.8) Neutrophils (%) (Auto) 73.5 % (37.0-80.0) Lymphocytes (%) (Auto) 16.7 % (10.0-50.0) Monocytes (%) (Auto) 9.4 % (0.0-12.0) Eosinophils (%) (Auto) 0.2 % (0.0-7.0) Basophils (%) (Auto) 0.2 % (0.0-2.0) Neutrophils # (Auto) 4.2 10 ^3/uL (1.6-8.6) Lymphocytes # (Auto) 1.0 10 ^3/uL (0.4-5.4) Monocytes # (Auto) 0.5 10 ^3/uL (0-1.3) Eosinophils # (Auto) 0 10 ^3/uL (0-0.8) Basophils # (Auto) 0 10 ^3/uL (0-0.2) Nucleated Red Blood Cells 0.1 % Sodium Level 138 mmol/L (136-145) Potassium Level 3.6 mmol/L (3.5-5.1) Chloride Level 97 mmol/L (98-107) Carbon Dioxide Level 29 mmol/L (20-31) Anion Gap 12 (5-15) Blood Urea Nitrogen 33 mg/dL (9-23) Creatinine 6.31 mg/dL (0.550-1.02) Glomerular Filtration Rate Calc 7 mL/min (>90) BUN/Creatinine Ratio 5.2 (10.0-20.0) Serum Glucose 160 mg/dL (74-106) Calcium Level 8.6 mg/dL (8.7-10.4) Total Bilirubin 0.6 mg/dL (0.2-1.0) Aspartate Amino Transferase (AST) 25 U/L (13-40) Alanine Aminotransferase (ALT) 22 U/L (7-40) Alkaline Phosphatase 158 U/L (46-116) Total Protein 6.8 g/dL (5.7-8.2) Albumin 3.5 g/dL (3.2-4.8) POC Glucose 183 mg/dl (70-106) Hepatitis B Surface Antigen Negative (Negative) Troponin I High Sensitivity 45 ng/L (</=34) Test 01/02/25 08:13 01/02/25 04:43 01/02/25 03:55 01/01/25 18:45 Lactic Acid Level 1.1 mmol/L (0.4-2.0) Hemoglobin A1c 7.0 % A1C (<5.7) Phosphorus Level 3.7 mg/dL (2.4-5.1) Magnesium Level 2.3 mg/dL (1.6-2.6) B-Type Natriuretic Peptide 1246.77 pg/mL (0-100) SARS-CoV-2 Antigen (Rapid) Negative (NEGATIVE) Lipase 32 U/L (12-53) Other Laboratory Tests 01/05/25 12:05 Brief Hx & Hospital Course: This is a 59-year-old blind, Kazakh speaking female with a medical history of ESRD on dialysis (MWF), hypertension, hyperlipidemia and diabetes mellitus who came to the ED with the chief complaint of epigastric pain since 5 days. Patient stated that the pain was a 10/10 intensity and nonradiating . The pain was associated with nausea and vomiting, which started after she ate spicy food. Patient mentions she has not been able to eat anything in the last 5 days. She mentioned having multiple episodes of vomiting in the last 5 days. Even on evaluation today, the patient had multiple episodes of vomiting and was NPO. And also mentioned not having had any bowel movement in the last 5 days. She mentioned that similar symptoms have happened twice in the past. She denies any fever chills cough or sick contacts. She also had pericardial effusion in the past which had to be drained. Echo report from 11/05/2024 mentioned 50-55% ejection fraction . The patient was admitted on the line of acute gastroenteritis. For nausea control medication was changed from Zofran to Reglan and the dose was increased to 3 times a day. Protonix was changed from once daily to b.i.d. and Carafate was added to medication regimen because of intractable vomiting. He was also given IV pain medication for her abdominal pain. Patient underwent hemodialysis on 01/03. GI was also consulted who recommended continuing on the same medication regimen and asked to switch from NPO to clear liquid diet. Patient gradually got better with relief of her nausea and vomiting. On evaluation today, patient not complain of any vomiting or nausea. All medication and recommendations were explained to the patient and she demonstrated understanding of the same. Questions were answered and all concerns were addressed. Discharged home in a stable condition to follow-up in discharge Clinic and with PCP. Past medical history: ESRD on dialysis (MWF), hypertension, hyperlipidemia and diabetes mellitus Past surgical history: Denies Social & Personal history: Lives at home with Smoking: Denies Alcohol: Denies Drugs: Denies Allergies: No known allergies Eyes: No Pain, No Vision change, No Conjunctivae inflammation, No Eyelid inflammation,No Redness ENT: No Ear pain, No Ear discharge, No Nose pain, No Nose discharge, No Nose congestion, No Mouth pain, No Mouth swelling, No Throat pain, No Throat swelling Cardiovascular: No Chest Pain, No Palpitations, No Orthopnea, No Paroxysmal No Dyspnea, No Edema, No Lt Headedness Respiratory: No Cough, No Dry, Shortness of breath, No SOB with exertion, No Wheezing, No Hemoptysis, No Pleuritic Pain, No Sputum Gastrointestinal: Nausea, no Vomiting, mild epigastric Abdominal Pain, No Diarrhea, Constipation, No Melena, No Hematochezia Genitourinary: No Dysuria, No Frequency, No Incontinence, No Hematuria, No Retention General Appearance: Cooperative. Well developed. Well nourished. Patient is legally blind in both eyes. Patient has AV fistula on inner aspect of left arm with good bruit/ thrill. Head Exam: Normal inspection Neck Exam: Normal inspection. Non-tender. Normal alignment Pulmonary/Respiratory: Chest non-tender. Clear bilateral breath sounds, no crackles, no wheezing. Cardiovascular/Chest: Regular rate and rhythm. No murmurs. No JVD. Peripheral Pulses: 2+ Radial (R). 2+ Radial (L). 2+ Pedal (R). 2+ Pedal (L) Abdominal Exam: Epigastric tenderness, the patient has an episode of vomiting while examination is ongoing Ankle Exam: Negative ankle edema Lower extremities: Negative lower extremity edema Neuro/Mental Status: A&O x4. Coherent. Thoughts/Psych: Normal thought pattern. Appropriate mood and affect. Good judgement and insight Skin Exam: Normal inspection. Normal color. Warm. Dry Operations or Procedures 1.PROCEDURE(s): ABPL - CT AB PEL WO CON-NO ORAL OR IV REASON: Ab. Pain ORDER NUMBER(s): [id number], ACCESSION NUMBER(s): [id number] Impression: no acute noncontrast CT abnormality of the abdomen / pelvis. 2.PROCEDURE(s): CXR1 - CHEST XRAY 1 VIEW REASON: SOB ORDER NUMBER(s): [id number], ACCESSION NUMBER(s): [id number] IMPRESSION: Slight increased interstitial markings bilaterally may represent congestive failure or pneumonia. 3.PROCEDURE(s): EKG - ELECTROCARDIGRAM ORDER NUMBER(s): [id number], ACCESSION NUMBER(s): [id number] Measurements Intervals [place] Rate: 67 P: 40 IA: 156 QRS: 101 QRSD: 87 T: -14 QT: 405 QTc: 428 Interpretive Statements Sinus rhythm Right axis deviation Borderline T abnormalities, inferior leads Electronically Signed On 01-05-2025 10:21:45 PDT by Vlad Medina Condition at Discharge: Fair Final Diagnosis/Problems List Acute gastroenteritis, likely infectious etiology Acute hypoxic respiratory failure, likely from ESRD Mild pleural effusion, likely from ESRD ESRD on hemodialysis via left arm AV fistula on Mondays/Wednesdays/Fridays NSTEMI type 2, likely due to ESRD, elevated tropes, EKG NSR anemia of chronic disease, likely from CKD Hyperlipidemia type 2 diabetes mellitus, HbA1c 7 mild transaminitis Legally blind due to uncontrolled diabetes mellitus type 2 overweight, BMI 28.4 Discharge Disposition: Home Discharge Instruct/Medications Diet: Consistent carbohydrate, Cardiac 2g Na,low cholest, Renal Activity: No Restrictions, As Tolerated Follow Up/Referral: follow up in [facility] follow up with pcp Scheduled Amlodipine Besylate (Amlodipine Besylate), 1 TAB PO DAILY, (Reported) Amoxicillin & Pot Clavulanate (Augmentin Tablet), 875 MG PO BID B-Complex W/ C & Folic Acid (Ernestina-Kaylie Rx), 1 TAB PO DAILY, (Reported) Carvedilol (Carvedilol), 1 TAB PO BID, (Reported) Chlorthalidone (Chlorthalidone), 1 TAB PO DAILY, (Reported) Ergocalciferol (Vitamin D), 1 CAP PO QWEEKLY, (Reported) Ferrous Sulfate (Ferosul), 1 TAB PO BID, (Reported) Fluticasone Propionate (Nasal) (Fluticasone Propionate), SPRAY NINO UD, (Reported) Furosemide (Furosemide), 1 TAB PO DAILY, (Reported) Guanfacine Hcl (Guanfacine Hcl), 1 TAB PO DAILY, (Reported) Hydroxyzine Pamoate (Hydroxyzine Pamoate), 1 CAP PO DAILYPRN, (Reported) Ketoconazole (Ketoconazole), UD, (Reported) Lidocaine-Prilocaine (Lidocaine/Prilocaine), 1 KIT EX DAILY, (Reported) Losartan Potassium (Losartan Potassium), 1 TAB PO DAILY, (Reported) Metoprolol Tartrate (Lopressor Tablet), 1 TAB PO BID, (Reported) Omeprazole (Gnp Omeprazole), 1 TAB PO DAILY, (Reported) Semaglutide (Ozempic), 0.5 MG SC Q7D, (Reported) Sucralfate (Carafate Susp), 10 ML PO QID Sucralfate (Sucralfate), 1 GM PO BID Triamcinolone Acetonide (Kenalog), 1 APPLIC TOP UD, (Reported) Scheduled PRN Dicyclomine Hcl (Bentyl Capsule), 1 CAP PO BIDPRN PRN, (Reported) Docusate Sodium (Docusate Sodium), 100 MG PO BIDPRN PRN Famotidine (Famotidine), 1 TAB PO DAILY PRN for HEARTBURN, (Reported) Metoclopramide Hcl (Reglan), 10 MG PO BIDPRN PRN Ondansetron Odt 4MG Tab (Zofran Po), 4 MG PO Q6HP PRN Discontinued Medications Azithromycin (Azithromycin), 1 TAB PO DAILY Discharge Statement: "Patient was advised to return to the ER or call 911 if any headaches, dizziness, shortness of breath, chest pain, abdominal pain, bleeding, fevers, or worsening of medical condition. Patient was counseled about treatment plan, medications, possible side effects, patientverbalized understanding. All questions were answered to the best of my ability. This discharge took greater then 30 minutes in planning, reviewing documentation, counseling the patient, and discussing with other team members." ASSESSMENT ASSESSMENT Assessment acute gastroenteritis Date of Service: Jan 05, 2025 Billing Provider: DEBI HERMAN MD Common Visit Codes: 81969-TUP/OBS DISCH DAY >30min HORTENSIA ADAMS RESIDENT Jan 05, 2025 16:18 DEBI HERMAN MD Jan 06, 2025 16:25
--- NOTE | 2025-01-05 16:33 | DVHPN2 ---
Progress Note - Dictate Date Seen: Jan 05, 2025 Medical Necessity Reason Pt with a Central, PICC or Fol: No Subjective no new symptom vital signs Vital Sign Date Time Temp Pulse Resp B/P (MAP) Pulse Ox O2 Delivery O2 Flow Rate FiO2 01/05/25 15:34 98.2 57 16 96 01/05/25 13:27 131/69 (89) 01/05/25 08:00 Nasal Cannula* 2 28 Total Intake and Output 01/04/25 01/04/25 01/05/25 15:00 23:00 07:00 Intake Total 50 ml 225 ml 300 ml Balance 50 ml 225 ml 300 ml medications Current Medications Medications Dose Ordered Sig/Kana Route Start Time Stop Time Status Last Admin Dose Admin Ondansetron HCl 4 mg Q4HP PRN IV 01/01/25 22:30 01/04/25 13:47 4 MG Docusate Sodium 100 mg BIDPRN PRN PO 01/01/25 22:30 Metronidazole 100 ml @ 100 mls/hr Q8HR IV 01/02/25 14:00 01/05/25 05:30 100 MLS/HR Atorvastatin Calcium 40 mg HS PO 01/02/25 22:00 01/04/25 22:38 40 MG Ceftriaxone Sodium 50 ml @ 100 mls/hr DAILY@09 IV 01/03/25 09:00 01/05/25 08:24 100 MLS/HR Lactated Ringer's 1,000 ml @ 50 mls/hr Q20H IV 01/02/25 10:15 01/04/25 17:18 50 MLS/HR Acetaminophen 650 mg Q4HP PRN PO 01/02/25 10:30 01/02/25 20:00 650 MG Carvedilol 12.5 mg BID PO 01/02/25 22:00 01/05/25 08:26 12.5 MG Hydralazine HCl 10 mg Q6HP PRN IV 01/03/25 01:15 Acetaminophen/ Hydrocodone Bitart 1 tab Q4HPRN PRN PO 01/03/25 03:00 01/04/25 09:35 1 TAB Diagnostic Test (Pha) 1 strip ACHS 01/03/25 11:30 01/05/25 11:21 1 STRIP Insulin Human Regular HS SC 01/03/25 22:00 01/04/25 23:00 3 UNITS Insulin Human Regular AC SC 01/03/25 11:30 01/05/25 11:22 3 UNITS Dextrose 50 ml UD PRN IV 01/03/25 11:30 Metoclopramide HCl 10 mg TID IV 01/03/25 22:00 01/05/25 05:30 10 MG Pantoprazole Sodium 40 mg BID IV 01/03/25 22:00 01/05/25 08:27 40 MG Sucralfate 1 gm QIDACHS PO 01/03/25 17:00 01/05/25 11:25 1 GM Morphine Sulfate 2 mg Q4HPRN PRN IV 01/03/25 14:00 01/03/25 14:44 2 MG Amlodipine Besylate 5 mg DAILY PO 01/06/25 10:00 Losartan Potassium 100 mg DAILY PO 01/06/25 10:00 objective General: In no acute distress HEENT: Normocephalic, atraumatic, moist mucous membranes, blind in both eyes Respiratory/pulmonary: Clear lungs bilaterally Cardiovascular: Normal heart sounds S1 and S2 Abdomen: soft, no tenderness Extremities: There is no peripheral edema present at the lower extremities. Neurological: Intact cranial nerves with no focal neurologic deficits laboratory and microbiology Laboratory Tests 01/05/25 12:05 Test 01/05/25 12:05 Range/Units Serum Glucose 160 H 74-106 mg/dL Assessment/Plan End-stage kidney disease on hemodialysis Abdominal pain with persistent nausea and vomiting probably secondary to gastritis versus medication induced. Type 2 diabetes Hypertension Anemia in Chronic kidney disease Assessment/Plan Hemodialysis on TTS schedule. Next HD on Sunday if still in house [facility] , goal Hb : 10 - 11 g/dl Follow GI recommendations. Plan discussed with: Patient INDY BAKER MD Jan 05, 2025 16:33
[2025-01-06] MEDS ORDERED: LOSARTAN POTASSIUM 50 MG TAB PO SCH (10:00)
== END 2025-01-05 16:20 | disposition home or self-care (01) | DRG 720 ==
LOC: EDBD 17:53 → ER 17:53 → OVERFLOW 22:29 → WEST WING 23:46
PROVIDERS: ADMIT Student in an Organized Health Care Education/Training Program; ATTEND Student in an Organized Health Care Education/Training Program
PROC: 5A1D70Z Performance of Urinary Filtration, Intermittent, Less than 6 Hours Per Day (ICD-10-PCS; principal; 2025-01-03)
DX: A41.9 Sepsis, unspecified organism (principal); J96.01 Acute respiratory failure with hypoxia; J69.0 Pneumonitis due to inhalation of food and vomit; J90 Pleural effusion, not elsewhere classified; I21.A1 Myocardial infarction type 2; I12.0 Hypertensive chronic kidney disease with stage 5 chronic kidney disease or end stage renal disease; D63.1 Anemia in chronic kidney disease; N18.6 End stage renal disease; A09 Infectious gastroenteritis and colitis, unspecified; J18.9 Pneumonia, unspecified organism; E11.22 Type 2 diabetes mellitus with diabetic chronic kidney disease; Z20.822 Contact with and (suspected) exposure to COVID-19; J98.11 Atelectasis; R74.01 Elevation of levels of liver transaminase levels; E87.70 Fluid overload, unspecified; E11.65 Type 2 diabetes mellitus with hyperglycemia; H54.8 Legal blindness, as defined in USA; E66.3 Overweight; E78.5 Hyperlipidemia, unspecified; Z82.49 Family history of ischemic heart disease and other diseases of the circulatory system; Z99.2 Dependence on renal dialysis; Z68.28 Body mass index [BMI] 28.0-28.9, adult; Z79.899 Other long term (current) drug therapy
CPT/HCPCS: 36415; 71045; 74176; 80048; 80053; 82962; 83036; 83605; 83690; 83735; 83880; 84100; 84484; 85025; 87081; 87340; 87426; 90935; 93005; 96361; 96372; 96374; G0378; J1815; J2405; J2470; J3490

== ENCOUNTER 2025-03-18 20:20 | Inpatient (IN) | payer MEDICAID ==
[~2025-03-18] VITALS: Ht 152.4 cm; Wt 68.2 kg
[~2025-03-18 20:20] MED LIST changes: +AUG875T PO; -AZIT500T66 PO; +DOCU-265 PO; +METO-281 PO; +SUCR1TAB PO
--- NOTE | 2025-03-18 20:32 | ECG ---
[facility] Test Date: 2025-03-18 Test Time: 20:30:42 Pat Name: MICHAEL REYNOLDS Department: ED Room: [address] [place] [address] Gender: F Agency Trainer: SHARON : 1965 Requested By: EMERGENCY EMERGENCY Order Number: [id number] Reading MD: Vlad Medina Measurements Intervals [place] Rate: 58 P: 63 DE: 165 QRS: 63 QRSD: 93 T: 4 QT: 446 QTc: 439 Interpretive Statements Sinus rhythm Borderline T wave abnormalities Electronically Signed On 03-19-2025 11:45:40 PST by Vlad Medina Please click the below link to view image of tracing.
[2025-03-18 21:04] LABS: Potassium 4.4 mmol/L (3.5-5.1); Sodium 137 mmol/L (136-145)
[2025-03-18 21:05] LABS: Anion Gap 13 (5-15); Carbon Dioxide 29 mmol/L (20-31)
[2025-03-18 21:06] LABS: Calcium 9.6 mg/dL (8.7-10.4)
--- NOTE | 2025-03-18 21:06 | ED.PDOC ---
History of Present Illness HPI Comments 59F who is afghan speaking presents to the ER w/ prior MHx of HTN, DM, High Lipids, ESRD(M, W, F), Full Blindness and the c/c of CP. Pt reports on having had left sided CP associated w/ Cervical Pain and a GRIMALDO all for the past 2 days. Denies any symptoms at this time. Patient denies any SOB, dizziness, numbness, weakness, tingling, fever, chills, or recent fall. Chief Complaint: Chest Pain Time Seen by MD: 21:00 Primary Care Provider: JOEL Reviewed Notes: Nurses Notes, Medications, Allergies Allergies: Coded Allergies: No Known Drug Allergy (Verified Allergy, Unknown, 10/05/24) Home Meds Active Scripts Sucralfate (Sucralfate) 1 Gm Tab, 1 GM PO BID for 15 Days, #30 TAB Prov:LUCAS ODELL RESIDENT 01/05/25 Docusate Sodium (Docusate Sodium) 100 Mg Cap, 100 MG PO BIDPRN PRN for 30 Days, #60 CAP Prov:LUCAS OEDLL [facility] 01/05/25 Metoclopramide Hcl (Reglan) 10 Mg Tab, 10 MG PO BIDPRN PRN for 10 Days, #20 TAB Prov:[facility] 01/05/25 Amoxicillin & Pot Clavulanate (AUGMENTIN TABLET) 875 Mg Tb, 875 MG PO BID for 3 Days, #6 TAB Prov:CARLOS [facility] 01/05/25 Sucralfate (CARAFATE SUSP) 1 Gm/10 Ml Ss, 10 ML PO QID, #1200 ML 3 Refills Prov:PRASANNA KOENIG MD 10/17/24 Ondansetron Odt 4MG Tab (ZOFRAN PO) 4 Mg Tb, 4 MG PO Q6HP PRN for 7 Days, #16 TAB ODT TAB-DISSOLVE IN MOUTH, THEN SWALLOW Prov:SANAM JOHNSTON RESIDENT 08/28/24 Reported Medications Furosemide (Furosemide) 40 Mg Tab, 1 TAB PO DAILY 10/05/24 Ferrous Sulfate (Ferosul) 325 Mg Tab, 1 TAB PO BID 10/05/24 Dicyclomine Hcl (BENTYL CAPSULE) 10 Mg Cp, 1 CAP PO BIDPRN PRN 10/05/24 Lidocaine-Prilocaine (Lidocaine/Prilocaine) 1 Kit Kit, 1 KIT EX DAILY for 30 Days, #30 08/27/24 Hydroxyzine Pamoate (Hydroxyzine Pamoate) 25 Mg Cap, 1 CAP PO DAILYPRN for 30 Days, #30 08/27/24 Famotidine (Famotidine) 20 Mg Tab, 1 TAB PO DAILY PRN for HEARTBURN for 90 Days, #90 08/27/24 Guanfacine Hcl (Guanfacine Hcl) 1 Mg Tab, 1 TAB PO DAILY for 90 Days, #90 08/27/24 Losartan Potassium (Losartan Potassium) 100 Mg Tab, 1 TAB PO DAILY for 100 Days, #100 08/27/24 Ergocalciferol (Vitamin D) 50,000 Unit Cap, 1 CAP PO QWEEKLY for 84 Days, #12 08/27/24 Chlorthalidone (Chlorthalidone) 25 Mg Tab, 1 TAB PO DAILY for 30 Days, #30 08/27/24 B-Complex W/ C & Folic Acid (Ernestina-Kaylie Rx) Tab, 1 TAB PO DAILY for 90 Days, #90 08/27/24 Semaglutide (Ozempic) 2 Mg/3 Ml Inj, 0.5 MG SC Q7D for 28 Days, #3 08/27/24 Fluticasone Propionate (Nasal) (Fluticasone Propionate) 50 Mcg/Act Spr, SPRAY NINO UD for 30 Days, #16 08/27/24 Triamcinolone Acetonide (Kenalog) 1 Applic Ap, 1 APPLIC TOP UD for 30 Days, #45 08/27/24 Omeprazole (Gnp Omeprazole) 20 Mg Tab, 1 TAB PO DAILY for 30 Days, #30 08/27/24 Ketoconazole (Ketoconazole) 2 % Sha, UD for 30 Days, #120 08/27/24 Amlodipine Besylate (Amlodipine Besylate) 5 Mg Tab, 1 TAB PO DAILY for 90 Days, #90 06/23/24 Carvedilol (Carvedilol) 12.5 Mg Tab, 1 TAB PO BID 06/23/24 Metoprolol Tartrate (LOPRESSOR TABLET) 50 Mg Tb, 1 TAB PO BID for 90 Days, #180 06/23/24 Information Source: Patient, Spouse Mode of Arrival: Ambulatory Severity: Moderate Timing: Hours Duration: Since onset, Hours Prehospital treatment: None Past Medical History PAST MEDICAL HISTORY: DM, ESRD (M, W, F), High Lipids, HTN Surgical History: Denies all surgeries 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 Family History Family History: Reviewed,noncontributory to illness, Unknown Social History Smoker: Non-Smoker Alcohol: Denies ETOH Use Drugs: Denies Drug Use Lives In: Home Constitutional: denies: chills, diaphoresis, fatigue, fever, malaise, sweats, weakness, others EENTM: denies: blurred vision, double vision, ear bleeding, ear discharge, ear drainage, ear pain, ear ringing, eye pain, eye redness, hearing loss, mouth pain, mouth swelling, nasal discharge, nose bleeding, nose congestion, nose pain , photophobia, tearing, throat pain, throat swelling, voice changes, others Respiratory: denies: cough, hemoptysis, orthopnea, SOB at rest, shortness of breath, SOB with excertion, stridor, wheezing, others Cardiovascular: reports: chest pain; denies: dizzy spells, diaphoresis, Dyspnea on exertion, edema, irregular heart beat, left arm pain, lightheadedness, palpitations, PND, syncope, others Gastrointestinal: denies: abdomen distended, abdominal pain, blood streaked bowels, constipated, diarrhea, dysphagia, difficulty swallowing, hematemesis, melena, nausea, poor appetite, poor fluid intake, rectal bleeding, rectal pain, vomiting, others Genitourinary: denies: abnormal vagina bleeding, burning, dyspareunia, dysuria, flank pain, frequency, hematuria, incontinence, pain, , vagina discharge, urgency, others Neurological: reports: headache; denies: dizziness, fainting, left sided numbness, left sided weakness, numbness, paresthesia, pre-existing deficit, right sided numbness, right sided weakness, seizure, speech problems, tingling, tremors, weakness, others Musculoskeletal: reports: neck pain; denies: back pain, gout, joint pain, joint swelling, muscle pain, muscle stiffness, others Integumetry: denies: bruises, change in color, change in hair/nails, dryness, laceration, lesions, lumps, rash, wounds, others Allergic/Immunocompromised: denies: Difficulty Healing, Frequent Infections, Hives, Itching, others Hematologic/Lymphatic: denies: anemia, blood clots, easy bleeding, easy bruising, swollen glands, others Endocrine: denies: excessive hunger, excessive sweating, excessive thirst, excessive urination, flushing, intolerance to cold, intolerance to heat, unexplained weight gain, unexplained weight loss, others Psychiatric: denies: anxiety, bipolar disorder, depression, hopeless, panic disorder, schizophrenia, sleepless, suicidal, others All Other Systems: Reviewed and Negative Physical Exam General Appearance: No Apparent Distress, Normal HEENT: Normal ENT Inspection, Pharynx Normal, TMs Normal Neck: Full Range of Motion, Non-Tender, Normal, Normal Inspection Respiratory: Chest Non-Tender, Lungs Clear, No Accessory Muscle Use, No Respiratory Distress, Normal Breath Sounds Cardiovascular: No Edema, No JVD, No Murmur, No Gallop, Normal Peripheral Pulses, Regular Rate/Rhythm Breast Exam: Deferred Gastrointestinal: No Organomegaly, Non Tender, No Pulsatile Mass, Normal Bowel Sounds, Soft Genitalia: Deferred Pelvic: Deferred Rectal: Deferred Extremities: No calf tenderness, Normal capillary refill, Normal inspection, Normal range of motion, Non-tender, No pedal edema Musculoskeletal : Apperance: Normal Neurologic: Alert, 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 Was a procedure done?: No EKG EKG : Pulse Rate (adult): 58 [place]: Normal Cardiac Rhythm: NSR Block: None Hypertrophy: None ST: Normal Differential Dx Considerations may include: MD, PE, bronchitis, pneumonia X-Ray, Labs, Meds, VS Vital Signs Date Time Temp Pulse Resp B/P (MAP) Pulse Ox O2 Delivery O2 Flow Rate FiO2 03/18/25 22:46 98.8 56 14 154/74 (100) 98 98.8 03/18/25 21:33 56 03/18/25 21:07 58 03/18/25 20:26 97.6 62 20 151/67 97 97.6 Lab Test 03/18/25 22:04 03/18/25 21:40 03/18/25 20:44 Range/Units White Blood Count 5.3 4.4-10.8 10^3/uL Red Blood Count 3.81 L 4.0-5.20 10^6/uL Hemoglobin 13.0 12.2-16.2 g/dL Hematocrit 38.4 36.0-46.0 % Mean Corpuscular Volume 100.7 H 80.0-100.0 fL Mean Corpuscular Hemoglobin 34.1 H 28.0-32.0 pg Mean Corpuscular Hemoglobin Concent 33.8 32.0-36.0 g/dL Red Cell Distribution Width 18.9 H 11.8-14.3 % Platelet Count 76 L 140-450 10^3/uL Mean Platelet Volume 10.2 6.9-10.8 fL Neutrophils (%) (Auto) 54.3 37.0-80.0 % Lymphocytes (%) (Auto) 31.6 10.0-50.0 % Monocytes (%) (Auto) 11.0 0.0-12.0 % Eosinophils (%) (Auto) 2.2 0.0-7.0 % Basophils (%) (Auto) 0.9 0.0-2.0 % Neutrophils # (Auto) 2.9 1.6-8.6 10 ^3/uL Lymphocytes # (Auto) 1.7 0.4-5.4 10 ^3/uL Monocytes # (Auto) 0.6 0-1.3 10 ^3/uL Eosinophils # (Auto) 0.1 0-0.8 10 ^3/uL Basophils # (Auto) 0 0-0.2 10 ^3/uL Nucleated Red Blood Cells 0.2 % Platelet Estimate Decreased Anisocytosis (manual) Slight Macrocytosis Slight Stomatocytes Moderate Troponin I High Sensitivity 54 *H 53 *H </=34 ng/L Sodium Level 137 136-145 mmol/L Potassium Level 4.4 3.5-5.1 mmol/L Chloride Level 95 L 98-107 mmol/L Carbon Dioxide Level 29 20-31 mmol/L Anion Gap 13 5-15 Blood Urea Nitrogen 37 H 9-23 mg/dL Creatinine 5.40 H 0.550-1.02 mg/dL Glomerular Filtration Rate Calc 9 >90 mL/min BUN/Creatinine Ratio 6.9 L 10.0-20.0 Serum Glucose 153 H 74-106 mg/dL Calcium Level 9.6 8.7-10.4 mg/dL Current Medications Medications (Trade) Dose Ordered Sig/Kana Route Start Time Stop Time Status Last Admin Ketorolac Tromethamine (Toradol Injection) 30 mg ONCE ONCE IM 03/18/25 23:15 03/18/25 23:16 DC 03/18/25 23:23 X-Ray, Labs, Meds, VS Comment Patient will be admitted for elevated troponins Patient is a hemodynamically stable Recommend cardiology consult in the morning Vitals reviewed by this provider Vital signs when reviewed by this provider Time of 1ST Reevaluation: 21:30 Reevaluation 1ST: Unchanged Patient Education/Counseling: Diagnosis, Treatment, Prognosis Family Education/Counseling: Diagnosis, Treatment, Prognosis SEPSIS Sepsis Screen Date sepsis recognized/suspect: Mar 18, 2025 Time Sepsis recognized/suspect: 2027 Recent Procedure: No On Antibiotic Therapy: No Respiratory Rate >20: No Heart Rate >90: No Temp<36 C (96.8 F) or >38.3 C: No SBP <90 or MAP <65 mmHG: No New Acute Mental Status Change: No Is the patient on CPAP, BIPAP,: No Physician Orders Chest Portable (03/18/25 20:24) Urinalysis (03/18/25 20:24) Troponin-I Hs (03/18/25 23:24) Electrocardigram (03/18/25 23:24) Vital Signs Date Time Temp Pulse Resp B/P (MAP) Pulse Ox O2 Delivery O2 Flow Rate FiO2 03/18/25 22:46 98.8 56 14 154/74 (100) 98 98.8 03/18/25 21:33 56 03/18/25 21:07 58 03/18/25 20:26 97.6 62 20 151/67 97 97.6 Laboratory Tests Test 03/18/25 22:04 White Blood Count 5.3 10^3/uL (4.4-10.8) Medications Medications Dose Ordered Sig/Kana Route Start Time Stop Time Status Last Admin Dose Admin Ketorolac Tromethamine 30 mg ONCE ONCE IM 03/18/25 23:15 03/18/25 23:16 DC 03/18/25 23:23 Departure 1 Departure Time of Disposition: 23:26 Impression: Primary Impression: ESRD (end stage renal disease) Additional Impression: Acute coronary syndrome Disposition: ADMITTED INPATIENT Condition: Stable Critical Care Note Critical Care Time?: No Stability Stability form required: No I personally scribed for BRIGITTE BELL ([email or web address]) on 03/18/25 at 21:06. Electronically submitted by Matt Penn ([email or web address]). I personally scribed for BRIGITTE BELL ([email or web address]) on 03/18/25 at 21:07. Electronically submitted by Matt Penn ([email or web address]). BRIGITTE BELL Mar 18, 2025 21:06
[2025-03-18 21:11] LABS: BUN/Creatinine Ratio 6.9 (10.0-20.0)
--- NOTE | 2025-03-18 21:29 | DVH ---
CHEST RADIOGRAPH Indication: CHEST PAIN Technique: Single frontal view of the chest was obtained Comparison: XY CHEST XRAY 1 VIEW on DOS: 01/01/25, XY CHEST PORTABLE on DOS: 10/31/24, XY CHEST PORTABLE on DOS: 10/13/24 FINDINGS: Lines and Tubes: None Lungs: Mildly prominent bronchovascular markings bilaterally Pleura: No effusion. No pneumothorax. Cardiomediastinal contours: Cardiomegaly Bones: No acute osseous abnormality. IMPRESSION: 1. Mildly prominent bronchovascular markings bilaterally. Acute versus chronic findings. This chest x-ray should be correlated with prior study.
--- NOTE | 2025-03-18 21:42 | ECG ---
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
[2025-03-18 21:48] LABS: Blood Urea Nitrogen 37 mg/dL (9-23); Chloride 95 mmol/L (98-107); Glucose 153 mg/dL (74-106)
[2025-03-18 22:17] LABS: Hematocrit 38.4 % (36.0-46.0); Hemoglobin 13.0 g/dL (12.2-16.2); Mean Corpuscular Hemoglobin 34.1 pg (28.0-32.0); Mean Corpuscular Volume 100.7 fL (80.0-100.0); Nucleated Red Blood Cells % 0.2 %
[2025-03-18 22:44] LABS: Anisocytosis Slight; Macrocytosis Slight; Stomatocytes Moderate
[2025-03-18] MEDS: KETOROLAC TROMETH 30 MG/ML 1ML VIAL IM ONE (23:23)
[2025-03-18 23:28] VITALS: PULSE 56; RESP 14; O2SAT 97
[2025-03-19] VITALS (7 sets, daily range): BP systolic 115–145; BP diastolic 42–62; PULSE 50–57; RESP 15–17; TEMP 98.3–98.7; O2SAT 95–100
--- NOTE | 2025-03-19 00:17 | DVHHPRES ---
History of Present Illness Resident Creating Document: ELLYN VELASCO RESIDENT History of Present Illness This is a 59-year-old female with past medical history of HTN, dm 2, HLD, ESRD(M, W, F), bilateral blindness, glaucoma, vitamin-D deficiency, GERD came to ER with a complaint of chest pain for 2 days which is 7/10 intensity, localized, aggravated on chest compression, no relieving factor. Patient does not missed any hemodialysis follow-up [facility]. Patient currently denies any cough, SOB, headache, fever, abdominal pain, nausea vomiting or any other acute distress, Echocardiogram 11/05/2024 showed LVEF 50-55%, moderate sized circumferential pericardial effusion with no tamponade. Patient having right arm fistula for hemodialysis. 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 Review of Systems Constitutional: Yes: Weakness, Malaise; No: Fever, Chills, Sweats, Other Eyes: No: Pain, Vision change, Conjunctivae inflammation, Eyelid inflammation, Other, Redness ENT: No: Ear pain, Ear discharge, Nose pain, Nose discharge, Nose congestion, Mouth pain, Mouth swelling, Throat pain, Throat swelling, Other Respiratory: No: Cough, Dry, Shortness of breath, SOB with excertion, Wheezing, Hemoptysis, Pleuritic Pain, Sputum, Wheezing, Other Cardiovascular: Chest Pain, Edema (1+ edema bilateral lower extremity); No: Palpitations, Orthopnea, Paroxysmal Noc. Dyspnea, Lt Headedness, Other Gastrointestinal: No: Nausea, Vomiting, Abdominal Pain, Diarrhea, Constipation, Melena, Hematochezia, Other Genitourinary: No Dysuria, No Frequency, No Incontinence, No Hematuria, No Retention, No Other Musculoskeletal: No: other, neck pain, shoulder pain, arm pain, back pain, hand pain, leg pain, foot pain Skin: No: Rash, Lesions, Jaundice, Bruising, Other Neurological: No: Weakness, Numbness, Incoordination, Change in speech, Confusion, Seizures, Other Allergies: Coded Allergies: No Known Drug Allergy (Verified Allergy, Unknown, 10/05/24) Exam Vital Signs Vital Signs Date Time Temp Pulse Resp B/P (MAP) Pulse Ox O2 Delivery O2 Flow Rate FiO2 03/18/25 23:52 57 03/18/25 23:28 14 97 Room Air* 0 21 03/18/25 22:46 98.8 154/74 (100) 98.8 General Appearance: Alert, Oriented X3, Cooperative, Other (Left arm fistula) HEENT: Atraumatic, PERRLA, EOMI, Mucous membr. moist/pink Respiratory: Clear to auscultation, Normal air movement Cardiovascular: Regular rate, Normal S1, Normal S2, No murmurs Abdominal: Normal bowel sounds, Soft, No tenderness, No hepatospenomegaly Extremities: No clubbing, No cyanosis, Other (1+ bilateral lower extremity edema) Neuro: Normal gait, Normal speech, Sensation intact, Other Psych/Mental Status: Mental status NL, Mood NL Labs/Xrays Labs Test 03/18/25 23:55 03/18/25 22:04 03/18/25 20:44 Range/Units White Blood Count 5.3 4.4-10.8 10^3/uL Red Blood Count 3.81 L 4.0-5.20 10^6/uL Hemoglobin 13.0 12.2-16.2 g/dL Hematocrit 38.4 36.0-46.0 % Mean Corpuscular Volume 100.7 H 80.0-100.0 fL Mean Corpuscular Hemoglobin 34.1 H 28.0-32.0 pg Mean Corpuscular Hemoglobin Concent 33.8 32.0-36.0 g/dL Red Cell Distribution Width 18.9 H 11.8-14.3 % Platelet Count 76 L 140-450 10^3/uL Mean Platelet Volume 10.2 6.9-10.8 fL Neutrophils (%) (Auto) 54.3 37.0-80.0 % Lymphocytes (%) (Auto) 31.6 10.0-50.0 % Monocytes (%) (Auto) 11.0 0.0-12.0 % Eosinophils (%) (Auto) 2.2 0.0-7.0 % Basophils (%) (Auto) 0.9 0.0-2.0 % Neutrophils # (Auto) 2.9 1.6-8.6 10 ^3/uL Lymphocytes # (Auto) 1.7 0.4-5.4 10 ^3/uL Monocytes # (Auto) 0.6 0-1.3 10 ^3/uL Eosinophils # (Auto) 0.1 0-0.8 10 ^3/uL Basophils # (Auto) 0 0-0.2 10 ^3/uL Nucleated Red Blood Cells 0.2 % Platelet Estimate Decreased Anisocytosis (manual) Slight Macrocytosis Slight Stomatocytes Moderate Sodium Level 137 136-145 mmol/L Potassium Level 4.4 3.5-5.1 mmol/L Chloride Level 95 L 98-107 mmol/L Carbon Dioxide Level 29 20-31 mmol/L Anion Gap 13 5-15 Blood Urea Nitrogen 37 H 9-23 mg/dL Creatinine 5.40 H 0.550-1.02 mg/dL Glomerular Filtration Rate Calc 9 >90 mL/min BUN/Creatinine Ratio 6.9 L 10.0-20.0 Serum Glucose 153 H 74-106 mg/dL Calcium Level 9.6 8.7-10.4 mg/dL SEPSIS Sepsis Screen Date sepsis recognized/suspect: Mar 18, 2025 Time Sepsis recognized/suspect: 2027 Recent Procedure: No On Antibiotic Therapy: No Respiratory Rate >20: No Heart Rate >90: No Temp<36 C (96.8 F) or >38.3 C: No SBP <90 or MAP <65 mmHG: No New Acute Mental Status Change: No Is the patient on CPAP, BIPAP,: No Physician Orders Chest Portable (03/18/25 20:24) Urinalysis (03/18/25 20:24) Troponin-I Hs (03/18/25 23:24) Electrocardigram (03/18/25 23:24) Vital Signs Date Time Temp Pulse Resp B/P (MAP) Pulse Ox O2 Delivery O2 Flow Rate FiO2 03/18/25 23:52 57 03/18/25 23:28 56 14 97 Room Air* 0 21 03/18/25 22:46 98.8 56 14 154/74 (100) 98 98.8 03/18/25 21:33 56 03/18/25 21:07 58 03/18/25 20:26 97.6 62 20 151/67 97 97.6 Laboratory Tests Test 03/18/25 22:04 White Blood Count 5.3 10^3/uL (4.4-10.8) Medications Medications Dose Ordered Sig/Kana Route Start Time Stop Time Status Last Admin Dose Admin Ketorolac Tromethamine 30 mg ONCE ONCE IM 03/18/25 23:15 03/18/25 23:16 DC 03/18/25 23:23 30 MG Assessment/Plan Assessment/Plan Chest pain possible unstable angina Acute on Chronic diastolic heart failure Hypertensive heart disease Pericardial effusion Hyperlipidemia vital signs: HR 56, BP 151/67 EKG- sinus rhythm HR 58, QTC 439 Troponin 53>54 CXR-Mildly prominent bronchovascular markings bilaterally Echocardiogram 11/05/2024 showed LVEF 50-55%, moderate sized circumferential pericardial effusion with no tamponade. Aspirin Atorvastatin Amlodipine Carvedilol Furosemide Pain management BNP ESRD on hemodialysis, -- Hyperphosphatemia Follow-up [facility] Nephro consult Type 2 diabetes mellitus Home medication metformin, glipizide Insulin sliding scale HbA1c- 7.5 ON 01/02/2025 Macrocytosis hemoglobin 13.0, MCV 100.7, MCH 34.1 RDW 18.9 vitamin B12 folic acid level Thrombocytopenia platelets 76 CBC Secondary hyperparathyroidism due to ESRD PTH 447.9>> 399.6 Follow-up outpatient Type 2 CO due to demand ischemia elevated troponin secondary to ESRD ELEVATED ALKALINE PHOSPHATASE Bilateral blindness Vitamin-D deficiency GERD Diet: Renal diet GI prophylaxis: PANTOPRAZOLE DVT prophylaxis: Patient ambulating, SCD Goals of care discussions. More than 29 minute spent with patient. Full code status. Case discussed with Dr. Kaufman. Plan discussed with: Patient, Other (Nurse) Date of Service: Mar 19, 2025 Billing Provider: ANA KAUFMAN MD Common Visit Codes: 12064-UOYAHMK INP/OBS CARE (HIGH) Secondary Visit Codes: 10897-[id number] CARE PLAN 30 MINUTES ELLYN VELASCO RESIDENT Mar 19, 2025 00:17 ANA KAUFMAN MD Mar 23, 2025 11:20
[2025-03-19] MEDS ORDERED: MORPHINE SULFATE INJ 2 MG/ml SYRG IV PRN (00:30)
[2025-03-19] MEDS ORDERED: DEXTROSE (50%) 50ML SYRG IV PRN (01:30)
[2025-03-19 05:03] LABS: Hemoglobin 13.0 g/dL (12.2-16.2); Nucleated Red Blood Cells % 0.1 %
[2025-03-19 05:06] LABS: Hematocrit 38.0 % (36.0-46.0); Mean Corpuscular Hemoglobin 34.5 pg (28.0-32.0); Mean Corpuscular Volume 100.5 fL (80.0-100.0)
[2025-03-19 05:23] LABS: Alanine Aminotransferase 37 U/L (7-40); Albumin 4.5 g/dL (3.2-4.8); Anion Gap 14 (5-15); BUN/Creatinine Ratio 9.1 (10.0-20.0); Bilirubin, Total 0.6 mg/dL (0.2-1.0); Calcium 9.7 mg/dL (8.7-10.4); Carbon Dioxide 28 mmol/L (20-31); Magnesium 2.3 mg/dL (1.6-2.6); Potassium 4.8 mmol/L (3.5-5.1); Sodium 137 mmol/L (136-145); Total Protein 7.8 g/dL (5.7-8.2)
[2025-03-19] MEDS: NITROGLYCERIN 0.4 MG SL TAB SL PRN (05:25)
[2025-03-19 05:34] LABS: Alkaline Phosphatase 223 U/L (46-116); Blood Urea Nitrogen 53 mg/dL (9-23); Chloride 95 mmol/L (98-107); Glucose 135 mg/dL (74-106)
[2025-03-19] MEDS: ACCU-CHEK COMFORT CURVE STRIP VI SCH (06:18)
[2025-03-19] MEDS: InsuLIN REG 1unit/0.01ml Soln (100units/ml) SC SCH (06:23)
--- NOTE | 2025-03-19 06:25 | ECG ---
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
[2025-03-19] MEDS: PANTOPRAZOLE 40 MG TAB PO SCH (06:35)
[2025-03-19] MEDS: CARVEDILOL 12.5 MG TAB PO SCH (11:54)
[2025-03-19] MEDS: HYDROcodone-ACET 5/325MG TAB PO PRN (14:17)
--- NOTE | 2025-03-19 15:35 | DVHPNRES ---
Progress Note Date Seen: Mar 19, 2025 Resident Creating Document: SANAM JOHNSTON RESIDENT Medical Necessity Reason Pt with a Central, PICC or Fol: No Subjective Review of Systems This is a 59-year-old female with past medical history of HTN, dm 2, HLD, ESRD(M, W, F), bilateral blindness, glaucoma, vitamin-D deficiency, GERD came to ER with a complaint of chest pain for 2 days which is 7/10 intensity, localized, aggravated on chest compression, no relieving factor. Patient does not missed any hemodialysis follow-up [facility]. Patient currently denies any cough, SOB, headache, fever, abdominal pain, nausea vomiting or any other acute distress, Echocardiogram 11/05/2024 showed LVEF 50-55%, moderate sized circumferential pericardial effusion with no tamponade. Patient having right arm fistula for hemodialysis. Significant initial lab workup revealed troponin I 53> 54> 50, MCV 100.7, RDW 18.9, platelets 76, sodium/potassium with a normal limit, serum creatinine 5.4, GFR 9, hemoglobin A1c 6.1, magnesium 2.3, BNP 416, parathyroid hormone level 25166. Mildly prominent bronchovascular markings bilaterally. 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 Patient was seen today at bedside, labs and chart reviewed. Patient reported pain has improved. Pending nephrology consult, ordered echo 2D. Holding carvedilol and aspirin due to thrombocytopenia and sinus bradycardia. Patient was seen by Nephrology, is scheduled for HD tomorrow. Objective vital signs Vital Sign Date Time Temp Pulse Resp B/P (MAP) Pulse Ox O2 Delivery O2 Flow Rate FiO2 03/19/25 13:00 98.7 55 16 138/51 (80) 98 98.7 03/19/25 07:32 Room Air* 0 21 medications Current Medications Medications Dose Ordered Sig/Kana Route Start Time Stop Time Status Last Admin Dose Admin Acetaminophen/ Hydrocodone Bitart 1 tab Q4HP PRN PO 03/19/25 00:30 03/19/25 14:17 1 TAB Nitroglycerin 0.4 mg Q5MINP PRN SL 03/19/25 00:30 03/19/25 06:02 0.4 MG Morphine Sulfate 2 mg Q30M PRN IV 03/19/25 00:30 Aspirin 81 mg DAILY PO 03/19/25 10:00 Pantoprazole Sodium 40 mg DAILY@0600 PO 03/19/25 06:00 03/19/25 06:35 40 MG Amlodipine Besylate 10 mg DAILY PO 03/19/25 10:00 03/19/25 11:09 10 MG Carvedilol 12.5 mg Q12HR PO 03/19/25 10:00 Diagnostic Test (Pha) 1 strip ACHS 03/19/25 07:00 03/19/25 11:30 1 STRIP Insulin Human Regular ACHS SC 03/19/25 07:00 03/19/25 12:36 2 UNITS Dextrose 50 ml UD PRN IV 03/19/25 01:30 Atorvastatin Calcium 40 mg HS PO 03/19/25 22:00 Examination General examination- awake, alert HEENT- PEERLA, no acute nasal discharge Cardiovascular- S1-S2 audible, rate and rhythm regular, no murmur Respiratory- CTAB, no wheeze or rhonchi Gastrointestinal-nontender, bowel sound+. Nondistended Musculoskeletal-no acute joint swelling or tenderness or redness extremity- trace bilateral leg edema, left upper arm fistula present. Neurological- cranial nerves intact, no acute dysarthria or dysphagia Psychiatry- denies depression or SI or HI Skin- no acute rash or purpura laboratory and microbiology Laboratory Tests 03/19/25 04:43 Test 03/19/25 04:43 Range/Units Serum Glucose 135 H 74-106 mg/dL Problem List/Assessment/Plan Problem List/Assessment/Plan Assessment/Plan #Acute chest pain, rule out acute coronary syndrome # acute chest pain likely musculoskeletal #Chronic diastolic heart failure #Hypertensive heart disease #Pericardial effusion #Hyperlipidemia -troponin I 53> 54> 50, - MCV 100.7, RDW 18.9, platelets 76 - serum creatinine 5.4, GFR 9, - hemoglobin A1c 6.1, magnesium 2.3, BNP 416, -parathyroid hormone level 399. -CXR-. Mildly prominent bronchovascular markings bilaterally. Acute versus chronic findings -holding aspirin and carvedilol due to thrombocytopenia and sinus bradycardia -pending echo 2D -continue atorvastatin 40 mg p.o. q.h.s. -amlodipine 10 mg p.o. daily -Monitor clinically #ESRD on hemodialysis, M-W-F Hyperphosphatemia - nephrology consult-possible HD tomorrow -we will continue current conservative management #Type 2 diabetes mellitus Home medication metformin, glipizide Insulin sliding scale HbA1c- 6.1 -low carb diet and renal diet #Macrocytosis hemoglobin 13.0, MCV 100.7, MCH 34.1 RDW 18.9 -monitor CBC #Thrombocytopenia platelets 76 -monitor CBC -continue vitamin B12 and folic acid as prescribed #Secondary hyperparathyroidism due to ESRD PTH 447.9>> 399.6 Follow-up outpatient with the Nephrology #Type 2 DC due to demand ischemia elevated troponin secondary to ESRD -we will continue current conservative #GERD Continue pantoprazole #Bilateral blindness Goals of care, Code status full code ; discussed with >15 minutes PUD prophylaxis: Pantoprazole DVT prophylaxis: SCD Plan discussed with Dr. Robertson, nursing staff, Total time spent on patient evaluation, chart review, assessment and plan, discussion discussion >35 minutes Plan discussed with: Patient, Spouse, Other (RN) My Orders My Orders Orders - SANAM JOHNSTON Procedure Category Date Status Time Echo 2d Mode Cardiac US 03/19/25 Logged DOP 08:05 Date of Service: Mar 19, 2025 Billing Provider: DMITRI ROBERTSON MD Common Visit Codes: [id number] INP/OBS CARE(HIGH) SANAM JOHNSTON RESIDENT Mar 19, 2025 15:35 MICHAEL OROZCO RESIDENT Mar 20, 2025 15:00 DMITRI ROBERTSON MD Mar 31, 2025 20:39
--- NOTE | 2025-03-19 16:44 | DVHINCON2 ---
Date of service: Mar 19, 2025 Referring Physician Dariel Sen Reason for Consultation dialysis History of Present Illness 59 Y/O F with history of ESRD on HD, DM, HTN, HLD, diastolic CHF, and blindness presented with chief complaint of chest pain. troponin mildy elevated, with no uptrend on repeat. she had her last dialysis at [facility] yesterday, 03/18/25. labs show K of 4.3 mmol/l. Nephrology consulted for dialysis Past Medical History ESRD, DM, HTN, HLD, CHF, and blindness Past Surgical History AVF creation Allergies: Coded Allergies: No Known Drug Allergy (Verified Allergy, Unknown, 10/05/24) Home Meds Active Scripts Sucralfate (Sucralfate) 1 Gm Tab, 1 GM PO BID for 15 Days, #30 TAB Prov:LUCAS ODELL RESIDENT 01/05/25 Docusate Sodium (Docusate Sodium) 100 Mg Cap, 100 MG PO BIDPRN PRN for 30 Days, #60 CAP Prov:LUCAS ODELL 01/05/25 Metoclopramide Hcl (Reglan) 10 Mg Tab, 10 MG PO BIDPRN PRN for 10 Days, #20 TAB Prov:LUCAS ODELL RESIDENT 01/05/25 Amoxicillin & Pot Clavulanate (AUGMENTIN TABLET) 875 Mg Tb, 875 MG PO BID for 3 Days, #6 TAB Prov:LUCAS ODELL RESIDENT 01/05/25 Sucralfate (CARAFATE SUSP) 1 Gm/10 Ml Ss, 10 ML PO QID, #1200 ML 3 Refills Prov:PRASANNA KOENIG MD 10/17/24 Ondansetron Odt 4MG Tab (ZOFRAN PO) 4 Mg Tb, 4 MG PO Q6HP PRN for 7 Days, #16 TAB ODT TAB-DISSOLVE IN MOUTH, THEN SWALLOW Prov:SANAM JOHNSTON RESIDENT 08/28/24 Reported Medications Furosemide (Furosemide) 40 Mg Tab, 1 TAB PO DAILY 10/05/24 Ferrous Sulfate (Ferosul) 325 Mg Tab, 1 TAB PO BID 10/05/24 Dicyclomine Hcl (BENTYL CAPSULE) 10 Mg Cp, 1 CAP PO BIDPRN PRN 10/05/24 Lidocaine-Prilocaine (Lidocaine/Prilocaine) 1 Kit Kit, 1 KIT EX DAILY for 30 Days, #30 08/27/24 Hydroxyzine Pamoate (Hydroxyzine Pamoate) 25 Mg Cap, 1 CAP PO DAILYPRN for 30 Days, #30 08/27/24 Famotidine (Famotidine) 20 Mg Tab, 1 TAB PO DAILY PRN for HEARTBURN for 90 Days, #90 08/27/24 Guanfacine Hcl (Guanfacine Hcl) 1 Mg Tab, 1 TAB PO DAILY for 90 Days, #90 08/27/24 Losartan Potassium (Losartan Potassium) 100 Mg Tab, 1 TAB PO DAILY for 100 Days, #100 08/27/24 Ergocalciferol (Vitamin D) 50,000 Unit Cap, 1 CAP PO QWEEKLY for 84 Days, #12 08/27/24 Chlorthalidone (Chlorthalidone) 25 Mg Tab, 1 TAB PO DAILY for 30 Days, #30 08/27/24 B-Complex W/ C & Folic Acid (Ernestina-Kaylie Rx) Tab, 1 TAB PO DAILY for 90 Days, #90 08/27/24 Semaglutide (Ozempic) 2 Mg/3 Ml Inj, 0.5 MG SC Q7D for 28 Days, #3 08/27/24 Fluticasone Propionate (Nasal) (Fluticasone Propionate) 50 Mcg/Act Spr, SPRAY NINO UD for 30 Days, #16 08/27/24 Triamcinolone Acetonide (Kenalog) 1 Applic Ap, 1 APPLIC TOP UD for 30 Days, #45 08/27/24 Omeprazole (Gnp Omeprazole) 20 Mg Tab, 1 TAB PO DAILY for 30 Days, #30 08/27/24 Ketoconazole (Ketoconazole) 2 % Sha, UD for 30 Days, #120 08/27/24 Amlodipine Besylate (Amlodipine Besylate) 5 Mg Tab, 1 TAB PO DAILY for 90 Days, #90 06/23/24 Carvedilol (Carvedilol) 12.5 Mg Tab, 1 TAB PO BID 06/23/24 Metoprolol Tartrate (LOPRESSOR TABLET) 50 Mg Tb, 1 TAB PO BID for 90 Days, #180 06/23/24 Current Medications Current Medications Medications (Trade) Dose Ordered Sig/Kana Route PRN Reason Start Time Stop Time Status Last Admin Acetaminophen/ Hydrocodone Bitart ([place] 5/325MG Tab) 1 tab Q4HP PRN PO MODERATE PAIN (4-6 PAIN SCALE) 03/19/25 00:30 03/19/25 14:17 Nitroglycerin (Ntrostat Sublingual) 0.4 mg Q5MINP PRN SL FOR CHEST PAIN 03/19/25 00:30 03/19/25 06:02 Morphine Sulfate 2 mg Q30M PRN IV FOR CHEST PAIN 03/19/25 00:30 Aspirin 81 mg DAILY PO 03/19/25 10:00 Hold Pantoprazole Sodium (Protonix Tablet) 40 mg DAILY@0600 PO 03/19/25 06:00 03/19/25 06:35 Amlodipine Besylate (Norvasc Tablet) 10 mg DAILY PO 03/19/25 10:00 03/19/25 11:09 Carvedilol (Coreg Tablet) 12.5 mg Q12HR PO 03/19/25 10:00 Hold Diagnostic Test (Pha) (Accu-Chek Comfort Curve T) 1 strip ACHS 03/19/25 07:00 03/19/25 17:09 Insulin Human Regular (InsuLIN R) ACHS SC 03/19/25 07:00 03/19/25 17:09 Dextrose 50 ml UD PRN IV Blood Sugar LESS THAN 60 03/19/25 01:30 Atorvastatin Calcium (Lipitor) 40 mg HS PO 03/19/25 22:00 Cyanocobalamin (Vitamin B-12) 500 mcg DAILY PO 03/19/25 16:00 Folic Acid 1 mg DAILY PO 03/19/25 16:00 Family History: Cardiovascular disease G8 FATHER, (HEART ATTACK) FH: CO (myocardial infarction) G8 FATHER FH: cancer G8 MOTHER Review of Systems as per HPI, all other systems were reviewed and are negative H&P Exam Vital Signs/I&O Vital Sign Date Time Temp Pulse Resp B/P (MAP) Pulse Ox O2 Delivery O2 Flow Rate FiO2 03/19/25 17:00 98.5 54 16 135/55 (81) 100 98.5 03/19/25 07:32 Room Air* 0 21 Physical Exam Gen: NAD, AAOx3 HEENT: no vision Lungs: CTA b/l Cardiac: RRR, no murmur Abd: soft, no tenderness Ext: no edema Neuro: no vision Labs/Diagnostic Data Labs/Diagnostic Data Laboratory Tests Test 03/19/25 16:54 11/20/25 11:18 03/19/25 06:17 03/19/25 04:43 Range/Units POC Glucose 162 H 137 H 132 H 70-106 mg/dl White Blood Count 5.5 4.4-10.8 10^3/uL Red Blood Count 3.78 L 4.0-5.20 10^6/uL Hemoglobin 13.0 12.2-16.2 g/dL Hematocrit 38.0 36.0-46.0 % Mean Corpuscular Volume 100.5 H 80.0-100.0 fL Mean Corpuscular Hemoglobin 34.5 H 28.0-32.0 pg Mean Corpuscular Hemoglobin Concent 34.3 32.0-36.0 g/dL Red Cell Distribution Width 18.4 H 11.8-14.3 % Platelet Count 79 L 140-450 10^3/uL Mean Platelet Volume 9.8 6.9-10.8 fL Neutrophils (%) (Auto) 48.4 37.0-80.0 % Lymphocytes (%) (Auto) 38.1 10.0-50.0 % Monocytes (%) (Auto) 11.2 0.0-12.0 % Eosinophils (%) (Auto) 1.8 0.0-7.0 % Basophils (%) (Auto) 0.5 0.0-2.0 % Neutrophils # (Auto) 2.7 1.6-8.6 10 ^3/uL Lymphocytes # (Auto) 2.1 0.4-5.4 10 ^3/uL Monocytes # (Auto) 0.6 0-1.3 10 ^3/uL Eosinophils # (Auto) 0.1 0-0.8 10 ^3/uL Basophils # (Auto) 0 0-0.2 10 ^3/uL Nucleated Red Blood Cells 0.1 % Sodium Level 137 136-145 mmol/L Potassium Level 4.8 3.5-5.1 mmol/L Chloride Level 95 L 98-107 mmol/L Carbon Dioxide Level 28 20-31 mmol/L Anion Gap 14 5-15 Blood Urea Nitrogen 53 #H 9-23 mg/dL Creatinine 5.80 H 0.550-1.02 mg/dL Glomerular Filtration Rate Calc 8 >90 mL/min BUN/Creatinine Ratio 9.1 L 10.0-20.0 Serum Glucose 135 H 74-106 mg/dL Hemoglobin A1c 6.1 H <5.7 % A1C Calcium Level 9.7 8.7-10.4 mg/dL Phosphorus Level 5.5 H 2.4-5.1 mg/dL Magnesium Level 2.3 1.6-2.6 mg/dL Total Bilirubin 0.6 0.2-1.0 mg/dL Aspartate Amino Transferase (AST) 35 13-40 U/L Alanine Aminotransferase (ALT) 37 7-40 U/L Alkaline Phosphatase 223 H 46-116 U/L B-Type Natriuretic Peptide 416.01 0-100 pg/mL Total Protein 7.8 5.7-8.2 g/dL Albumin 4.5 3.2-4.8 g/dL Vitamin B12 Level 1495 H 211-911 pg/mL Folic Acid > 48.00 >5.38 ng/mL Thyroid Stimulating Hormone (TSH) 2.30 0.55-4.78 uIU/mL Parathyroid Hormone (Intact) 399.6 H 18.4-80.1 pg/mL Test 03/18/25 23:55 03/18/25 22:04 03/18/25 21:40 03/18/25 20:44 Range/Units Troponin I High Sensitivity 50 *H 54 *H 53 *H </=34 ng/L White Blood Count 5.3 4.4-10.8 10^3/uL Red Blood Count 3.81 L 4.0-5.20 10^6/uL Hemoglobin 13.0 12.2-16.2 g/dL Hematocrit 38.4 36.0-46.0 % Mean Corpuscular Volume 100.7 H 80.0-100.0 fL Mean Corpuscular Hemoglobin 34.1 H 28.0-32.0 pg Mean Corpuscular Hemoglobin Concent 33.8 32.0-36.0 g/dL Red Cell Distribution Width 18.9 H 11.8-14.3 % Platelet Count 76 L 140-450 10^3/uL Mean Platelet Volume 10.2 6.9-10.8 fL Neutrophils (%) (Auto) 54.3 37.0-80.0 % Lymphocytes (%) (Auto) 31.6 10.0-50.0 % Monocytes (%) (Auto) 11.0 0.0-12.0 % Eosinophils (%) (Auto) 2.2 0.0-7.0 % Basophils (%) (Auto) 0.9 0.0-2.0 % Neutrophils # (Auto) 2.9 1.6-8.6 10 ^3/uL Lymphocytes # (Auto) 1.7 0.4-5.4 10 ^3/uL Monocytes # (Auto) 0.6 0-1.3 10 ^3/uL Eosinophils # (Auto) 0.1 0-0.8 10 ^3/uL Basophils # (Auto) 0 0-0.2 10 ^3/uL Nucleated Red Blood Cells 0.2 % Platelet Estimate Decreased Anisocytosis (manual) Slight Macrocytosis Slight Stomatocytes Moderate Sodium Level 137 136-145 mmol/L Potassium Level 4.4 3.5-5.1 mmol/L Chloride Level 95 L 98-107 mmol/L Carbon Dioxide Level 29 20-31 mmol/L Anion Gap 13 5-15 Blood Urea Nitrogen 37 H 9-23 mg/dL Creatinine 5.40 H 0.550-1.02 mg/dL Glomerular Filtration Rate Calc 9 >90 mL/min BUN/Creatinine Ratio 6.9 L 10.0-20.0 Serum Glucose 153 H 74-106 mg/dL Calcium Level 9.6 8.7-10.4 mg/dL Microbiology Date/Time Source Procedure Growth Status 03/19/25 11:10 Nose MRSA Screen - Final Complete Assessment ESRD on HD Chest pain r/o ACS DM HTN HLD Chronic diastolic CHF blindness Anemia of CKD Hyperphosphatemia Secondary hyperparathyroidism Plan: last HD was at [facility] on Sunday. Scheduled for next HD tomorrow (Sunday) CHRISTIE post Hd as needed. goal Hb: 10-11 g/dl Cardiology consult continue Amlodipine Plan discussed with: Patient INDY BAKER MD Mar 19, 2025 16:44
[2025-03-19] MEDS: FOLIC ACID 1 MG TAB PO SCH (18:17)
[2025-03-19] MEDS: CYANOCOBALAMIN 500 MCG TAB PO SCH (18:18)
[2025-03-19] MEDS: ATORVASTATIN 20 MG TAB PO SCH (21:04)
[2025-03-20] VITALS (8 sets, daily range): BP systolic 119–152; BP diastolic 49–72; PULSE 46–65; RESP 14–18; TEMP 97.4–98.2; O2SAT 93–99
--- NOTE | 2025-03-20 06:45 | DVHPN2 ---
Progress Note - Dictate Date Seen: Mar 20, 2025 Medical Necessity Reason Pt with a Central, PICC or Fol: No vital signs Vital Sign Date Time Temp Pulse Resp B/P (MAP) Pulse Ox O2 Delivery O2 Flow Rate FiO2 03/20/25 05:00 97.9 46 17 135/72 (93) 99 97.9 03/19/25 20:00 Room Air* 0 21 Total Intake and Output 03/19/25 03/19/25 03/20/25 15:00 23:00 07:00 Intake Total 450 ml 0 ml Balance 450 ml 0 ml medications Current Medications Medications Dose Ordered Sig/Kana Route Start Time Stop Time Status Last Admin Dose Admin Acetaminophen/ Hydrocodone Bitart 1 tab Q4HP PRN PO 03/19/25 00:30 03/19/25 20:58 1 TAB Nitroglycerin 0.4 mg Q5MINP PRN SL 03/19/25 00:30 03/19/25 06:02 0.4 MG Morphine Sulfate 2 mg Q30M PRN IV 03/19/25 00:30 Aspirin 81 mg DAILY PO 03/19/25 10:00 Hold Pantoprazole Sodium 40 mg DAILY@0600 PO 03/19/25 06:00 03/20/25 06:26 40 MG Amlodipine Besylate 10 mg DAILY PO 03/19/25 10:00 03/19/25 11:09 10 MG Carvedilol 12.5 mg Q12HR PO 03/19/25 10:00 Hold Diagnostic Test (Pha) 1 strip ACHS 03/19/25 07:00 03/20/25 06:27 1 STRIP Insulin Human Regular ACHS SC 03/19/25 07:00 03/19/25 17:09 3 UNITS Dextrose 50 ml UD PRN IV 03/19/25 01:30 Atorvastatin Calcium 40 mg HS PO 03/19/25 22:00 03/19/25 21:04 40 MG Cyanocobalamin 500 mcg DAILY PO 03/19/25 16:00 03/19/25 18:18 500 MCG Folic Acid 1 mg DAILY PO 03/19/25 16:00 03/19/25 18:17 1 MG objective Gen: NAD, AAOx3 HEENT: no vision Lungs: CTA b/l Cardiac: RRR, no murmur Abd: soft, no tenderness Ext: no edema Neuro: no vision laboratory and microbiology Laboratory Tests 03/19/25 04:43 Test 03/19/25 04:43 Range/Units Serum Glucose 135 H 74-106 mg/dL Assessment/Plan ESRD on HD Chest pain r/o ACS DM HTN HLD Chronic diastolic CHF blindness Anemia of CKD Hyperphosphatemia Secondary hyperparathyroidism Plan: last HD was at [facility] on Sunday. Scheduled for next HD today (Sunday) CHRISTIE post Hd as needed. goal Hb: 10-11 g/dl Cardiology consult continue Amlodipine Plan discussed with: Patient INDY BAKER MD Mar 20, 2025 06:45
[2025-03-20] MEDS ORDERED: SODIUM CHL 0.9% 1000 ML BAG XX ONE (07:00)
[2025-03-20] MEDS ORDERED: ACET-1304 PO (07:01)
[2025-03-20 07:29] LABS: Hemoglobin 13.0 g/dL (12.2-16.2)
[2025-03-20 07:33] LABS: Hematocrit 38.5 % (36.0-46.0); Mean Corpuscular Hemoglobin 34.1 pg (28.0-32.0); Mean Corpuscular Volume 101.1 fL (80.0-100.0); Nucleated Red Blood Cells % 0.1 %
[2025-03-20 07:47] LABS: Alanine Aminotransferase 31 U/L (7-40); Anion Gap 17 (5-15); BUN/Creatinine Ratio 10.0 (10.0-20.0); Calcium 9.5 mg/dL (8.7-10.4); Carbon Dioxide 25 mmol/L (20-31); Glucose 92 mg/dL (74-106); Magnesium 2.3 mg/dL (1.6-2.6); Total Protein 7.2 g/dL (5.7-8.2)
[2025-03-20 07:48] LABS: Albumin 4.0 g/dL (3.2-4.8); Bilirubin, Total 0.6 mg/dL (0.2-1.0)
[2025-03-20 07:52] LABS: Sodium 134 mmol/L (136-145)
[2025-03-20 07:54] LABS: Alkaline Phosphatase 137 U/L (46-116); Chloride 92 mmol/L (98-107)
[2025-03-20 07:56] LABS: Blood Urea Nitrogen 85 mg/dL (9-23); Potassium 5.7 mmol/L (3.5-5.1)
[2025-03-20] MEDS ORDERED: FUROSEMIDE 40 MG/4 ML VIAL IV ONE (10:45)
[2025-03-20] MEDS ORDERED: DEXTROSE (50%) 50ML SYRG IV ONE (10:45)
[2025-03-20] MEDS ORDERED: InsuLIN REG 1unit/0.01ml Soln (100units/ml) IV ONE (10:45)
[2025-03-20 10:49] LABS: Hepatitis B Surface Antigen Negative (Negative)
[2025-03-20] MEDS: SODIUM ZIRCONIUM CYCL 10 GM PAK PO ONE (12:18)
--- NOTE | 2025-03-20 14:03 | DVHSR ---
APPROVED REPORT EXAM: LIMITED Two-dimensional and M-mode echocardiogram. INDICATION Limited Echo to follow up on previous pericardial effusion RISK FACTORS Height: 5', Weight: 149 Mitral Valve Mitral Mitral Stenosis E/A ratio 0.0 2D MVA cm2 Other Information Quality : Technically Limited Rhythm : Technically limited study due to body habitus. Conclusion Technically limited study due to body habitus. Overall evaluation reveals concentric LVH with left atrial enlargement. RV enlargement. Subcostal views are for the most part normal. Dopplers suboptimal. Left ventricular function is preserved at 60% with normal RV function. No masses or vegetations discernible.
--- NOTE | 2025-03-20 15:56 | DVHPNRES ---
Progress Note Date Seen: Mar 20, 2025 Resident Creating Document: SANAM JOHNSTON RESIDENT Medical Necessity Reason Pt with a Central, PICC or Fol: No Subjective Review of Systems This is a 59-year-old female with past medical history of HTN, dm 2, HLD, ESRD(M, W, F), bilateral blindness, glaucoma, vitamin-D deficiency, GERD came to ER with a complaint of chest pain for 2 days which is 7/10 intensity, localized, aggravated on chest compression, no relieving factor. Patient does not missed any hemodialysis follow-up [facility]. Patient currently denies any cough, SOB, headache, fever, abdominal pain, nausea vomiting or any other acute distress, Echocardiogram 11/05/2024 showed LVEF 50-55%, moderate sized circumferential pericardial effusion with no tamponade. Patient having right arm fistula for hemodialysis. Significant initial lab workup revealed troponin I 53> 54> 50, MCV 100.7, RDW 18.9, platelets 76, sodium/potassium with a normal limit, serum creatinine 5.4, GFR 9, hemoglobin A1c 6.1, magnesium 2.3, BNP 416, parathyroid hormone level 12419. Mildly prominent bronchovascular markings bilaterally. Acute versus chronic findings PMH:DM2, ESRD (M, W, F), High Lipids, HTN, bilateral blindness with glaucoma, GERD Surgical History: Denies all surgeries [employer] History: Denies all [employer] Hx Family History: Nothing on Personal history : Non-Smoker denies any EtOH or illicit drug use Social history: Lives with the Allergy : No known allergy PCP: Unable to recall name Home medication: Amlodipine, Januvia, furosemide, carvedilol, vitamin-D, atorvastatin, omeprazole, aspirin, metoprolol, metformin, losartan, lidocaine patch, glipizide. Patient was seen today at bedside, labs and chart reviewed. Patient reported pain has improved. Patient had hemodialysis today. Echo 2D revealed LVEF 60%, order in place for hyperkalemia as per protocol. Objective vital signs Vital Sign Date Time Temp Pulse Resp B/P (MAP) Pulse Ox O2 Delivery O2 Flow Rate FiO2 03/20/25 13:00 97.8 51 18 129/57 (81) 97 97.8 03/20/25 08:00 Room Air* 0 21 Total Intake and Output 03/19/25 03/19/25 03/20/25 15:00 23:00 07:00 Intake Total 450 ml 0 ml Balance 450 ml 0 ml medications Current Medications Medications Dose Ordered Sig/Kana Route Start Time Stop Time Status Last Admin Dose Admin Acetaminophen/ Hydrocodone Bitart 1 tab Q4HP PRN PO 03/19/25 00:30 03/19/25 20:58 1 TAB Nitroglycerin 0.4 mg Q5MINP PRN SL 03/19/25 00:30 03/19/25 06:02 0.4 MG Morphine Sulfate 2 mg Q30M PRN IV 03/19/25 00:30 Aspirin 81 mg DAILY PO 03/19/25 10:00 Hold Pantoprazole Sodium 40 mg DAILY@0600 PO 03/19/25 06:00 03/20/25 06:26 40 MG Amlodipine Besylate 10 mg DAILY PO 03/19/25 10:00 03/19/25 11:09 10 MG Carvedilol 12.5 mg Q12HR PO 03/19/25 10:00 Hold Diagnostic Test (Pha) 1 strip ACHS 03/19/25 07:00 03/20/25 11:36 1 STRIP Insulin Human Regular ACHS SC 03/19/25 07:00 03/20/25 11:57 2 UNITS Dextrose 50 ml UD PRN IV 03/19/25 01:30 Atorvastatin Calcium 40 mg HS PO 03/19/25 22:00 03/19/25 21:04 40 MG Cyanocobalamin 500 mcg DAILY PO 03/19/25 16:00 03/20/25 09:45 500 MCG Folic Acid 1 mg DAILY PO 03/19/25 16:00 03/20/25 09:45 1 MG Examination General examination- awake, alert HEENT- PEERLA, no acute nasal discharge Cardiovascular- S1-S2 audible, rate and rhythm regular, no murmur Respiratory- CTAB, no wheeze or rhonchi Gastrointestinal-nontender, bowel sound+. Nondistended Musculoskeletal-no acute joint swelling or tenderness or redness extremity- trace leg edema, Neurological- cranial nerves intact, no acute dysarthria or dysphagia Psychiatry- denies depression or SI or HI Skin- no acute rash or purpura laboratory and microbiology Laboratory Tests 03/20/25 06:40 Test 03/20/25 06:40 Range/Units Serum Glucose 92 74-106 mg/dL Microbiology Date/Time Source Procedure Growth Status 03/19/25 11:10 Nose MRSA Screen - Final Complete Problem List/Assessment/Plan Problem List/Assessment/Plan Assessment/Plan #Acute chest pain, rule out acute coronary syndrome # acute chest pain likely musculoskeletal #Chronic diastolic heart failure #Hypertensive heart disease #Pericardial effusion #Hyperlipidemia -troponin I 53> 54> 50, - MCV 100.7, RDW 18.9, platelets 76 - serum creatinine 5.4, GFR 9, - hemoglobin A1c 6.1, magnesium 2.3, BNP 416, -parathyroid hormone level 399. -CXR-. Mildly prominent bronchovascular markings bilaterally. Acute versus chronic findings -holding aspirin and carvedilol due to thrombocytopenia and sinus bradycardia - on 03/20/2025 echo 2D-concentric LVH with left atrial enlargement. RV enlargement. LVEF 60% with normal RV function. -continue atorvastatin 40 mg p.o. q.h.s. -amlodipine 10 mg p.o. daily -Monitor clinically # chronic diastolic heart failure -- on 03/20/2025 echo 2D-concentric LVH with left atrial enlargement. RV enlargement. LVEF 60% with normal RV function. -continue current conservative management #ESRD on hemodialysis, M-W-F Hyperphosphatemia - patient is having dialysis today -we will continue current conservative management -nephrology consultation reviewed and appreciated #Type 2 diabetes mellitus Insulin sliding scale HbA1c- 6.1 -low carb and renal diet #Macrocytosis hemoglobin 13.0, MCV 100.7, MCH 34.1 RDW 18.9 -monitor CBC #Thrombocytopenia platelets 76 -monitor CBC -continue vitamin B12 and folic acid as prescribed #Secondary hyperparathyroidism due to ESRD PTH 447.9>> 399.6 Follow-up outpatient with the Nephrology #Type 2 OH due to demand ischemia elevated troponin secondary to ESRD -we will continue current conservative #GERD Continue pantoprazole #Bilateral blindness Goals of care, Code status full code ; discussed with >15 minutes PUD prophylaxis: Pantoprazole DVT prophylaxis: SCD Plan discussed with Dr. Robertson, nursing staff, Total time spent on patient evaluation, chart review, assessment and plan, discussion discussion >35 minutes Plan discussed with: Patient, Spouse, Other (RN) Plan discussed with: Patient, Other (RN) Date of Service: Mar 20, 2025 Billing Provider: DMITRI ROBERTSON MD Common Visit Codes: [id number] INP/OBS CARE(HIGH) SANAM JOHNSTON RESIDENT Mar 20, 2025 15:56 MICHAEL OROZCO RESIDENT Mar 21, 2025 15:00 DMITRI ROBERTSON MD Mar 31, 2025 21:00
[2025-03-21] VITALS (7 sets, daily range): BP systolic 137–151; BP diastolic 50–75; PULSE 56–62; RESP 15–20; TEMP 98.1–98.7; O2SAT 95–100
[2025-03-21 06:55] LABS: Hematocrit 38.2 % (36.0-46.0); Hemoglobin 13.0 g/dL (12.2-16.2); Mean Corpuscular Hemoglobin 34.1 pg (28.0-32.0); Mean Corpuscular Volume 99.8 fL (80.0-100.0); Nucleated Red Blood Cells % 0.1 %
[2025-03-21 07:11] LABS: Alanine Aminotransferase 35 U/L (7-40); Albumin 3.8 g/dL (3.2-4.8); Anion Gap 13 (5-15); BUN/Creatinine Ratio 7.2 (10.0-20.0); Calcium 9.5 mg/dL (8.7-10.4); Carbon Dioxide 30 mmol/L (20-31); Chloride 99 mmol/L (98-107); Glucose 90 mg/dL (74-106); Magnesium 2.3 mg/dL (1.6-2.6); Potassium 4.4 mmol/L (3.5-5.1); Sodium 142 mmol/L (136-145); Total Protein 6.9 g/dL (5.7-8.2)
[2025-03-21 07:12] LABS: Bilirubin, Total 0.6 mg/dL (0.2-1.0)
[2025-03-21 07:14] LABS: Alkaline Phosphatase 128 U/L (46-116); Blood Urea Nitrogen 39 mg/dL (9-23)
--- NOTE | 2025-03-21 12:32 | DVHPN2 ---
Subjective No new complaints Changes from previous H/P or p: Changes Eyes: No Pain, No Vision change, No Conjunctivae inflammation, No Eyelid inflammation, No Other, No Redness ENT: No Ear pain, No Ear discharge, No Nose pain, No Nose discharge, No Nose congestion, No Mouth pain, No Mouth swelling, No Throat pain, No Throat swelling, No Other Cardiovascular: Chest Pain; No Palpitations, No Orthopnea, No Paroxysmal Noc. Dyspnea; Edema (1+ edema bilateral lower extremity); No Lt Headedness, No Other Respiratory: No Cough, No Dry, No Shortness of breath, No SOB with excertion, No Wheezing, No Hemoptysis, No Pleuritic Pain, No Sputum, No Other Gastrointestinal: No Nausea, No Vomiting, No Abdominal Pain, No Diarrhea, No Constipation, No Melena, No Hematochezia, No Other Genitourinary: No Dysuria, No Frequency, No Incontinence, No Hematuria, No Retention, No Other Musculoskeletal: No other, No neck pain, No shoulder pain, No arm pain, No back pain, No hand pain, No leg pain, No foot pain Skin: No Rash, No Lesions, No Jaundice, No Bruising, No Other Objective Vitals Vital Signs Date Time Temp Pulse Resp B/P (MAP) Pulse Ox O2 Delivery O2 Flow Rate FiO2 03/21/25 10:13 154/50 03/21/25 05:00 98.3 61 16 100 98.3 03/20/25 20:00 Room Air* 0 21 Intake/Output Intake and Output 03/21/25 07:00 Intake Total 840 ml Output Total 0 ml Balance 840 ml Intake Oral 840 ml Output Urine Total 0 ml General Appearance: Alert, Oriented X3, Cooperative Lungs: Clear to auscultation Cardiovascular: Regular rate, Normal S1, Normal S2 Abdomen: Normal bowel sounds, Soft, No tenderness Extremities: No edema Medications Current Medications Medications Dose Ordered Sig/Kana Route Start Time Stop Time Status Last Admin Dose Admin Acetaminophen/ Hydrocodone Bitart 1 tab Q4HP PRN PO 03/19/25 00:30 03/19/25 20:58 1 TAB Nitroglycerin 0.4 mg Q5MINP PRN SL 03/19/25 00:30 03/19/25 06:02 0.4 MG Morphine Sulfate 2 mg Q30M PRN IV 03/19/25 00:30 Aspirin 81 mg DAILY PO 03/19/25 10:00 Hold Pantoprazole Sodium 40 mg DAILY@0600 PO 03/19/25 06:00 03/21/25 06:11 40 MG Amlodipine Besylate 10 mg DAILY PO 03/19/25 10:00 03/21/25 10:13 10 MG Carvedilol 12.5 mg Q12HR PO 03/19/25 10:00 Hold Diagnostic Test (Pha) 1 strip ACHS 03/19/25 07:00 03/21/25 11:55 1 STRIP Insulin Human Regular ACHS SC 03/19/25 07:00 03/21/25 12:06 4 UNITS Dextrose 50 ml UD PRN IV 03/19/25 01:30 Atorvastatin Calcium 40 mg HS PO 03/19/25 22:00 03/20/25 21:15 40 MG Cyanocobalamin 500 mcg DAILY PO 03/19/25 16:00 03/21/25 10:13 500 MCG Folic Acid 1 mg DAILY PO 03/19/25 16:00 03/21/25 10:13 1 MG Laboratory Results Laboratory Tests 03/21/25 06:23 Chemistry Test 03/21/25 06:23 Albumin 3.8 g/dL (3.2-4.8) Calcium Level 9.5 mg/dL (8.7-10.4) Magnesium Level 2.3 mg/dL (1.6-2.6) Total Protein 6.9 g/dL (5.7-8.2) LFT Test 03/21/25 06:23 Alanine Aminotransferase (ALT) 35 U/L (7-40) Alkaline Phosphatase 128 U/L (46-116) H Aspartate Amino Transferase (AST) 34 U/L (13-40) Total Bilirubin 0.6 mg/dL (0.2-1.0) Microbiology Microbiology Date/Time Source Procedure Growth Status 03/19/25 11:10 Nose MRSA Screen - Final Complete Assessment/Plan Assessment/Plan # acute chest pain likely musculoskeletal #Chronic diastolic heart failure #Hypertensive heart disease #Pericardial effusion #Hyperlipidemia #ESRD on hemodialysis, M-W-F Hyperphosphatemia #Type 2 diabetes mellitus #Macrocytosis #Thrombocytopenia #Secondary hyperparathyroidism due to ESRD #Type 2 DC due to demand ischemia #GERD #Bilateral blindness Plan Dialysis per Nephrology Aspirin Coreg Lipitor Folic acid Vitamin B12 Monitor closely Plan discussed with: Patient Date of Service: Mar 21, 2025 Billing Provider: DMITRI LONGORIA MD Common Visit Codes: [id number] INP/OBS CARE(MOD) DMITRI LONGORIA MD Mar 21, 2025 12:32
--- NOTE | 2025-03-21 15:18 | DVHPN2 ---
Progress Note - Dictate Date Seen: Mar 21, 2025 Medical Necessity Reason Pt with a Central, PICC or Fol: No Subjective no new symptoms vital signs Vital Sign Date Time Temp Pulse Resp B/P (MAP) Pulse Ox O2 Delivery O2 Flow Rate FiO2 03/21/25 10:13 154/50 03/21/25 08:00 15 Room Air* 0 21 03/21/25 05:00 98.3 61 100 98.3 Total Intake and Output 03/20/25 03/20/25 03/21/25 15:00 23:00 07:00 Intake Total 300 ml 540 ml Output Total 0 ml Balance 300 ml 540 ml medications Current Medications Medications Dose Ordered Sig/Kana Route Start Time Stop Time Status Last Admin Dose Admin Acetaminophen/ Hydrocodone Bitart 1 tab Q4HP PRN PO 03/19/25 00:30 03/19/25 20:58 1 TAB Nitroglycerin 0.4 mg Q5MINP PRN SL 03/19/25 00:30 03/19/25 06:02 0.4 MG Morphine Sulfate 2 mg Q30M PRN IV 03/19/25 00:30 Aspirin 81 mg DAILY PO 03/19/25 10:00 Hold Pantoprazole Sodium 40 mg DAILY@0600 PO 03/19/25 06:00 03/21/25 06:11 40 MG Amlodipine Besylate 10 mg DAILY PO 03/19/25 10:00 03/21/25 10:13 10 MG Carvedilol 12.5 mg Q12HR PO 03/19/25 10:00 Hold Diagnostic Test (Pha) 1 strip ACHS 03/19/25 07:00 03/21/25 11:55 1 STRIP Insulin Human Regular ACHS SC 03/19/25 07:00 03/21/25 12:06 4 UNITS Dextrose 50 ml UD PRN IV 03/19/25 01:30 Atorvastatin Calcium 40 mg HS PO 03/19/25 22:00 03/20/25 21:15 40 MG Cyanocobalamin 500 mcg DAILY PO 03/19/25 16:00 03/21/25 10:13 500 MCG Folic Acid 1 mg DAILY PO 03/19/25 16:00 03/21/25 10:13 1 MG objective Gen: NAD, AAOx3 HEENT: no vision Lungs: CTA b/l Cardiac: RRR, no murmur Abd: soft, no tenderness Ext: no edema Neuro: no vision laboratory and microbiology Laboratory Tests 03/21/25 06:23 Test 03/21/25 06:23 Range/Units Serum Glucose 90 74-106 mg/dL Assessment/Plan ESRD on HD Chest pain r/o ACS DM HTN HLD Chronic diastolic CHF blindness Anemia of CKD Hyperphosphatemia Secondary hyperparathyroidism Plan: s/p HD Sunday Next HD on Sunday [facility] post Hd as needed. goal Hb: 10-11 g/dl Cardiology consult continue Amlodipine Plan discussed with: Patient INDY BAKER MD Mar 21, 2025 15:18
[2025-03-22 01:00] VITALS: BP 141/52; PULSE 56; RESP 18; TEMP 97.6; O2SAT 98
[2025-03-22 05:00] VITALS: BP 147/64; PULSE 56; RESP 17; TEMP 97.8; O2SAT 97
[2025-03-22 08:00] VITALS: PULSE 61; RESP 16
[2025-03-22 09:00] VITALS: BP 135/57; PULSE 56; RESP 16; TEMP 97.2; O2SAT 98
--- NOTE | 2025-03-22 10:21 | DVHDSRES ---
Discharge Summary Date of Admission Resident Creating Document: SANAM JOHNSTON RESIDENT Mar 19, 2025 at 00:27 Date of Discharge: Mar 22, 2025 Admitting Diagnosis Acute chest pain likely due to acute coronary syndrome Fluid overload/heart failure Labs/Diagnostic Data: Laboratory Results Test 03/22/25 06:15 03/21/25 06:23 03/19/25 04:43 03/18/25 23:55 POC Glucose 134 mg/dl (70-106) White Blood Count 3.9 10^3/uL (4.4-10.8) Red Blood Count 3.82 10^6/uL (4.0-5.20) Hemoglobin 13.0 g/dL (12.2-16.2) Hematocrit 38.2 % (36.0-46.0) Mean Corpuscular Volume 99.8 fL (80.0-100.0) Mean Corpuscular Hemoglobin 34.1 pg (28.0-32.0) Mean Corpuscular Hemoglobin Concent 34.1 g/dL (32.0-36.0) Red Cell Distribution Width 17.7 % (11.8-14.3) Platelet Count 73 10^3/uL (140-450) Mean Platelet Volume 10.0 fL (6.9-10.8) Neutrophils (%) (Auto) 47.3 % (37.0-80.0) Lymphocytes (%) (Auto) 39.0 % (10.0-50.0) Monocytes (%) (Auto) 10.1 % (0.0-12.0) Eosinophils (%) (Auto) 3.0 % (0.0-7.0) Basophils (%) (Auto) 0.6 % (0.0-2.0) Neutrophils # (Auto) 1.9 10 ^3/uL (1.6-8.6) Lymphocytes # (Auto) 1.5 10 ^3/uL (0.4-5.4) Monocytes # (Auto) 0.4 10 ^3/uL (0-1.3) Eosinophils # (Auto) 0.1 10 ^3/uL (0-0.8) Basophils # (Auto) 0 10 ^3/uL (0-0.2) Nucleated Red Blood Cells 0.1 % Sodium Level 142 mmol/L (136-145) Potassium Level 4.4 mmol/L (3.5-5.1) Chloride Level 99 mmol/L (98-107) Carbon Dioxide Level 30 mmol/L (20-31) Anion Gap 13 (5-15) Blood Urea Nitrogen 39 mg/dL (9-23) Creatinine 5.38 mg/dL (0.550-1.02) Glomerular Filtration Rate Calc 9 mL/min (>90) BUN/Creatinine Ratio 7.2 (10.0-20.0) Serum Glucose 90 mg/dL (74-106) Calcium Level 9.5 mg/dL (8.7-10.4) Magnesium Level 2.3 mg/dL (1.6-2.6) Total Bilirubin 0.6 mg/dL (0.2-1.0) Aspartate Amino Transferase (AST) 34 U/L (13-40) Alanine Aminotransferase (ALT) 35 U/L (7-40) Alkaline Phosphatase 128 U/L (46-116) Total Protein 6.9 g/dL (5.7-8.2) Albumin 3.8 g/dL (3.2-4.8) Hemoglobin A1c 6.1 % A1C (<5.7) Phosphorus Level 5.5 mg/dL (2.4-5.1) B-Type Natriuretic Peptide 416.01 pg/mL (0-100) Vitamin B12 Level 1495 pg/mL (211-911) Folic Acid > 48.00 ng/mL (>5.38) Thyroid Stimulating Hormone (TSH) 2.30 uIU/mL (0.55-4.78) Parathyroid Hormone (Intact) 399.6 pg/mL (18.4-80.1) Hepatitis B Surface Antigen Negative (Negative) Hepatitis B Surface Antibody Positive (Negative) Troponin I High Sensitivity 50 ng/L (</=34) Test 03/18/25 22:04 Platelet Estimate Decreased Anisocytosis (manual) Slight Macrocytosis Slight Stomatocytes Moderate Other Laboratory Tests 03/21/25 06:23 Brief Hx & Hospital Course: This is a 59-year-old female with past medical history of HTN, dm 2, HLD, ESRD(M, W, F), bilateral blindness, glaucoma, vitamin-D deficiency, GERD came to ER with a complaint of chest pain for 2 days which is 7/10 intensity, localized, aggravated on chest compression, no relieving factor. Patient does not missed any hemodialysis follow-up [facility]. Patient currently denies any cough, SOB, headache, fever, abdominal pain, nausea vomiting or any other acute distress, Echocardiogram 11/05/2024 showed LVEF 50-55%, moderate sized circumferential pericardial effusion with no tamponade. Patient having right arm fistula for hemodialysis. Significant initial lab workup revealed troponin I 53> 54> 50, MCV 100.7, RDW 18.9, platelets 76, sodium/potassium with a normal limit, serum creatinine 5.4, GFR 9, hemoglobin A1c 6.1, magnesium 2.3, BNP 416, parathyroid hormone level 99094. Mildly prominent bronchovascular markings bilaterally. Acute versus chronic findings. During hospital course patient was treated conservatively. Patient was followed by Nephrology. Patient had hemodialysis. Patient is aspirin was on hold due to thrombocytopenia and due to bradycardia reduced carvedilol from 12.5 mg b.i.d. to 6.25 mg p.o. daily. Patient was advised to follow up with the discharge clinic/PCP/Nephrology. Patient was hemodynamically stable on discharge General examination- awake, alert HEENT- PEERLA, no acute nasal discharge Cardiovascular- S1-S2 audible, rate and rhythm regular, no murmur Respiratory- CTAB, no wheeze or rhonchi Gastrointestinal-nontender, bowel sound+. Nondistended Musculoskeletal-no acute joint swelling or tenderness or redness extremity- trace leg edema, fistula left upper arm Neurological- cranial nerves intact, no acute dysarthria or dysphagia Psychiatry- denies depression or SI or HI Skin- no acute rash or purpura Plan of care discussed with Dr. Robertson Operations or Procedures [place] [address] Ph: [phone] DIAGNOSTIC IMAGING Diagnostic Imaging Report : [id number] Signed PATIENT: MICHAEL REYNOLDS ACCT: [id number] UNIT: [id number] : 1965 LOC: ER ROOM / BED: / AGE / SEX: 59 / F ADM STATUS: REG ER SERVICE 23 ORDERING PHYSICIAN: ER PROCEDURE(s): CXRP - CHEST PORTABLE REASON: CHEST PAIN ORDER NUMBER(s): [id number], ACCESSION NUMBER(s): [id number] CHEST RADIOGRAPH Indication: CHEST PAIN Technique: Single frontal view of the chest was obtained Comparison: XY CHEST XRAY 1 VIEW on DOS: 01/01/25, XY CHEST PORTABLE on DOS: 10/31/24, XY CHEST PORTABLE on DOS: 10/13/24 FINDINGS: Lines and Tubes: None Lungs: Mildly prominent bronchovascular markings bilaterally Pleura: No effusion. No pneumothorax. Cardiomediastinal contours: Cardiomegaly Bones: No acute osseous abnormality. IMPRESSION: 1. Mildly prominent bronchovascular markings bilaterally. Acute versus chronic findings. This chest x-ray should be correlated with prior study. ATED BY: CHLOE COX Jr., DO DICTATED DATE/TIME: 03/18/252125 SIGNED BY: CHLOE CXO Jr., SIGNED DATE/TIME: 03/18/252125 CC: Condition at Discharge: Stable Final Diagnosis/Problems List # acute chest pain likely due to musculoskeletal # questionable pleuritic chest pain #Acute chest pain, ruled out acute coronary syndrome #Chronic diastolic heart failure #Hypertensive heart disease #Pericardial effusion #Hyperlipidemia #ESRD on hemodialysis, M-W- Hyperphosphatemia #Type 2 diabetes mellitus #Macrocytosis #Thrombocytopenia #Secondary hyperparathyroidism due to ESRD #Type 2 MT due to demand ischemia #GERD #Bilateral blindness Discharge Disposition: Home Discharge Instruct/Medications Diet: Consistent carbohydrate, Cardiac 2g Na,low cholest Activity: Light activity Follow Up/Referral: CT clinic PCP Nephrology Please resume hemodialysis as per schedule Medications: Carvedilol 6.25 mg p.o. b.i.d. Hold aspirin for now due to thrombocytopenia please follow up with the electric relay tester regarding aspirin Scheduled Amlodipine Besylate (Amlodipine Besylate), 1 TAB PO DAILY, (Reported) Amoxicillin & Pot Clavulanate (Augmentin Tablet), 875 MG PO BID B-Complex W/ C & Folic Acid (Ernestina-Kaylie Rx), 1 TAB PO DAILY, (Reported) Carvedilol (Carvedilol), 1 TAB PO BID, (Reported) Carvedilol (Carvedilol), 0.5 TAB PO BID Chlorthalidone (Chlorthalidone), 1 TAB PO DAILY, (Reported) Ergocalciferol (Vitamin D), 1 CAP PO QWEEKLY, (Reported) Ferrous Sulfate (Ferosul), 1 TAB PO BID, (Reported) Fluticasone Propionate (Nasal) (Fluticasone Propionate), SPRAY NINO UD, (Reported) Furosemide (Furosemide), 1 TAB PO DAILY, (Reported) Guanfacine Hcl (Guanfacine Hcl), 1 TAB PO DAILY, (Reported) Hydroxyzine Pamoate (Hydroxyzine Pamoate), 1 CAP PO DAILYPRN, (Reported) Ketoconazole (Ketoconazole), UD, (Reported) Lidocaine-Prilocaine (Lidocaine/Prilocaine), 1 KIT EX DAILY, (Reported) Losartan Potassium (Losartan Potassium), 1 TAB PO DAILY, (Reported) Metoprolol Tartrate (Lopressor Tablet), 1 TAB PO BID, (Reported) Omeprazole (Gnp Omeprazole), 1 TAB PO DAILY, (Reported) Semaglutide (Ozempic), 0.5 MG SC Q7D, (Reported) Sucralfate (Carafate Susp), 10 ML PO QID Sucralfate (Sucralfate), 1 GM PO BID Triamcinolone Acetonide (Kenalog), 1 APPLIC TOP UD, (Reported) Scheduled PRN Dicyclomine Hcl (Bentyl Capsule), 1 CAP PO BIDPRN PRN, (Reported) Docusate Sodium (Docusate Sodium), 100 MG PO BIDPRN PRN Famotidine (Famotidine), 1 TAB PO DAILY PRN for HEARTBURN, (Reported) Metoclopramide Hcl (Reglan), 10 MG PO BIDPRN PRN Ondansetron Odt 4MG Tab (Zofran Po), 4 MG PO Q6HP PRN Miscellaneous Medications Acetaminophen (Tylenol Extra Strength), 500 MG PO, (Reported) Discharge Statement: "Patient was advised to return to the ER or call 911 if any headaches, dizziness, shortness of breath, chest pain, abdominal pain, bleeding, fevers, or worsening of medical condition. Patient was counseled about treatment plan, medications, possible side effects, patientverbalized understanding. All questions were answered to the best of my ability. This discharge took greater then 30 minutes in planning, reviewing documentation, counseling the patient, and discussing with other team members." ASSESSMENT ASSESSMENT Assessment Date of Service: Mar 22, 2025 Billing Provider: DMITRI ROBERTSON MD Common Visit Codes: [id number] DISCH DAY >30min SANAM JOHNSTON RESIDENT Mar 22, 2025 10:21
[2025-03-22] MEDS ORDERED: CARV12.544 PO (10:26)
[2025-03-22 10:52] LABS: Hemoglobin 12.8 g/dL (12.2-16.2); Mean Corpuscular Hemoglobin 34.1 pg (28.0-32.0)
[2025-03-22 10:54] LABS: Hematocrit 37.9 % (36.0-46.0); Mean Corpuscular Volume 101.0 fL (80.0-100.0); Nucleated Red Blood Cells % 0.3 %
[2025-03-22 11:02] LABS: Potassium 4.8 mmol/L (3.5-5.1); Sodium 139 mmol/L (136-145)
[2025-03-22 11:03] LABS: Anion Gap 17 (5-15); Carbon Dioxide 27 mmol/L (20-31)
[2025-03-22 11:04] LABS: Calcium 9.7 mg/dL (8.7-10.4)
[2025-03-22 11:07] LABS: Chloride 95 mmol/L (98-107)
[2025-03-22 11:09] LABS: BUN/Creatinine Ratio 8.4 (10.0-20.0)
[2025-03-22 11:11] LABS: Blood Urea Nitrogen 66 mg/dL (9-23); Glucose 157 mg/dL (74-106)
[2025-03-22 13:00] VITALS: BP 138/70; PULSE 58; RESP 16; TEMP 97.6; O2SAT 99
--- NOTE | 2025-03-22 13:25 | DVHPN2 ---
Progress Note - Dictate Date Seen: Mar 22, 2025 Medical Necessity Reason Pt with a Central, PICC or Fol: No Subjective no new symptoms vital signs Vital Sign Date Time Temp Pulse Resp B/P (MAP) Pulse Ox O2 Delivery O2 Flow Rate FiO2 03/22/25 10:03 150/63 03/22/25 09:00 97.2 56 16 98 97.2 03/22/25 08:00 Room Air* 0 21 Total Intake and Output 03/21/25 03/21/25 03/22/25 15:00 23:00 07:00 Intake Total 850 ml 500 ml Output Total 0 ml Balance 850 ml 500 ml medications Current Medications Medications Dose Ordered Sig/Kana Route Start Time Stop Time Status Last Admin Dose Admin Acetaminophen/ Hydrocodone Bitart 1 tab Q4HP PRN PO 03/19/25 00:30 03/19/25 20:58 1 TAB Nitroglycerin 0.4 mg Q5MINP PRN SL 03/19/25 00:30 03/19/25 06:02 0.4 MG Morphine Sulfate 2 mg Q30M PRN IV 03/19/25 00:30 Aspirin 81 mg DAILY PO 03/19/25 10:00 Hold Pantoprazole Sodium 40 mg DAILY@0600 PO 03/19/25 06:00 03/22/25 06:11 40 MG Amlodipine Besylate 10 mg DAILY PO 03/19/25 10:00 03/22/25 10:03 10 MG Carvedilol 12.5 mg Q12HR PO 03/19/25 10:00 Hold Diagnostic Test (Pha) 1 strip ACHS 03/19/25 07:00 03/22/25 11:27 1 STRIP Insulin Human Regular ACHS SC 03/19/25 07:00 03/22/25 11:51 3 UNITS Dextrose 50 ml UD PRN IV 03/19/25 01:30 Atorvastatin Calcium 40 mg HS PO 03/19/25 22:00 03/21/25 21:53 40 MG Cyanocobalamin 500 mcg DAILY PO 03/19/25 16:00 03/22/25 09:50 500 MCG Folic Acid 1 mg DAILY PO 03/19/25 16:00 03/22/25 09:50 1 MG objective Gen: NAD, AAOx3 HEENT: no vision Lungs: CTA b/l Cardiac: RRR, no murmur Abd: soft, no tenderness Ext: no edema Neuro: no vision laboratory and microbiology Laboratory Tests 03/22/25 10:15 Test 03/22/25 10:15 Range/Units Serum Glucose 157 H 74-106 mg/dL Assessment/Plan ESRD on HD Chest pain r/o ACS DM HTN HLD Chronic diastolic CHF blindness Anemia of CKD Hyperphosphatemia Secondary hyperparathyroidism Plan: s/p HD Sunday Next HD on Sunday [facility]RI[facility]IE post Hd as needed. goal Hb: 10-11 g/dl Cardiology consult continue Amlodipine Plan discussed with: Patient INDY BAKER MD Mar 22, 2025 13:25
[2025-03-22 13:38] VITALS: BP 150/63; PULSE 56; RESP 20; TEMP 98.8; O2SAT 20
[2025-03-23] MEDS ORDERED: SODIUM CHL 0.9% 1000 ML BAG XX ONE (07:00)
== END 2025-03-22 14:20 | disposition home or self-care (01) | DRG 203 ==
LOC: ER 20:20 → OVERFLOW 03-19 00:27 → TELE-WESTW 03-19 22:27
PROVIDERS: ADMIT Internal Medicine Geriatric Medicine; ATTEND Internal Medicine Geriatric Medicine
PROC: 5A1D70Z Performance of Urinary Filtration, Intermittent, Less than 6 Hours Per Day (ICD-10-PCS; principal; 2025-03-20)
DX: M94.0 Chondrocostal junction syndrome [Tietze] (principal); I13.2 Hypertensive heart and chronic kidney disease with heart failure and with stage 5 chronic kidney disease, or end stage renal disease; I31.39 Other pericardial effusion (noninflammatory); I21.A1 Myocardial infarction type 2; D69.6 Thrombocytopenia, unspecified; N18.6 End stage renal disease; E83.39 Other disorders of phosphorus metabolism; D63.1 Anemia in chronic kidney disease; Z99.2 Dependence on renal dialysis; E11.22 Type 2 diabetes mellitus with diabetic chronic kidney disease; I50.32 Chronic diastolic (congestive) heart failure; N25.81 Secondary hyperparathyroidism of renal origin; E78.5 Hyperlipidemia, unspecified; K21.9 Gastro-esophageal reflux disease without esophagitis; D75.89 Other specified diseases of blood and blood-forming organs; H54.3 Unqualified visual loss, both eyes; R74.8 Abnormal levels of other serum enzymes; Z82.49 Family history of ischemic heart disease and other diseases of the circulatory system
CPT/HCPCS: 36415; 71045; 80048; 80053; 82607; 82746; 82962; 83036; 83735; 83880; 83970; 84100; 84132; 84443; 84484; 85025; 86706; 87081; 87340; 90935; 93005; 93306; 96372; G0378; J1815; J1885

== ENCOUNTER 2025-04-15 12:09 | Inpatient (IN) | payer MEDICAID ==
[~2025-04-15] VITALS: Ht 152.4 cm; Wt 64.3 kg
[~2025-04-15 12:09] MED LIST changes: +ACET-1304 PO; +ASPI-325 PO; +ATOR20TA50 PO; +ESCI1TAB36 PO; +LATA0.008 EACHEYE; +SITA50TA PO; +[UNRECOGNIZED DRUG - CODE] PO
--- NOTE | 2025-04-15 12:36 | ED.PDOC ---
HPI Comments 59y F who presents to the ED for chief complaint of chest pain. Pt states she at dialysis earlier this AM and states she started to have chest pain right after concluding her dialysis treatment. Pt states her pain is diffusely located, pulsating in nature, with no noted exacerbating or relieving factors. Pt otherwise denies any associated symptoms including shortness of breath, palpitations or diaphoresis. Pt states she did have heart monitor placed by PCP last Sunday, 5 days prior. Pt has noted BP of 153/68 with otherwise stable vitals. Pt denies any other symptoms at this time. Chief Complaint: Chest Pain Time Seen by MD: 12:29 Primary Care Provider: MALDONADO Reviewed Notes: Medications, Allergies Allergies: Coded Allergies: No Known Drug Allergy (Verified Allergy, Unknown, 10/05/24) Home Meds Active Scripts Carvedilol (Carvedilol) 12.5 Mg Tab, 0.5 TAB PO BID, #30 TAB 1 Refill Prov:SANAM JOHNSTON RESIDENT 03/22/25 Sucralfate (Sucralfate) 1 Gm Tab, 1 GM PO BID for 15 Days, #30 TAB Prov:LUCAS ODELL RESIDENT 01/05/25 Docusate Sodium (Docusate Sodium) 100 Mg Cap, 100 MG PO BIDPRN PRN for 30 Days, #60 CAP Prov:CARLOS A ODELL RESIDENT 01/05/25 Metoclopramide Hcl (Reglan) 10 Mg Tab, 10 MG PO BIDPRN PRN for 10 Days, #20 TAB Prov[facility] Amoxicillin & Pot Clavulanate (AUGMENTIN TABLET) 875 Mg Tb, 875 MG PO BID for 3 Days, #6 TAB Prov:CASS,[facility] RESIDENT 01/05/25 Sucralfate (CARAFATE SUSP) 1 Gm/10 Ml Ss, 10 ML PO QID, #1200 ML 3 Refills Prov:PRASANNA KOENIG MD 10/17/24 Ondansetron Odt 4MG Tab (ZOFRAN PO) 4 Mg Tb, 4 MG PO Q6HP PRN for 7 Days, #16 TAB ODT TAB-DISSOLVE IN MOUTH, THEN SWALLOW Prov:SANAM JOHNSTON RESIDENT 08/28/24 Reported Medications Acetaminophen (Tylenol Extra Strength) 500 Mg Tab, 500 MG PO, TAB 03/20/25 Furosemide (Furosemide) 40 Mg Tab, 1 TAB PO DAILY 10/05/24 Ferrous Sulfate (Ferosul) 325 Mg Tab, 1 TAB PO BID 10/05/24 Dicyclomine Hcl (BENTYL CAPSULE) 10 Mg Cp, 1 CAP PO BIDPRN PRN 10/05/24 Lidocaine-Prilocaine (Lidocaine/Prilocaine) 1 Kit Kit, 1 KIT EX DAILY for 30 Days, #30 08/27/24 Hydroxyzine Pamoate (Hydroxyzine Pamoate) 25 Mg Cap, 1 CAP PO DAILYPRN for 30 Days, #30 08/27/24 Famotidine (Famotidine) 20 Mg Tab, 1 TAB PO DAILY PRN for HEARTBURN for 90 Days, #90 08/27/24 Guanfacine Hcl (Guanfacine Hcl) 1 Mg Tab, 1 TAB PO DAILY for 90 Days, #90 08/27/24 Losartan Potassium (Losartan Potassium) 100 Mg Tab, 1 TAB PO DAILY for 100 Days, #100 08/27/24 Ergocalciferol (Vitamin D) 50,000 Unit Cap, 1 CAP PO QWEEKLY for 84 Days, #12 08/27/24 Chlorthalidone (Chlorthalidone) 25 Mg Tab, 1 TAB PO DAILY for 30 Days, #30 08/27/24 B-Complex W/ C & Folic Acid (Ernestina-Kaylie Rx) Tab, 1 TAB PO DAILY for 90 Days, #90 08/27/24 Semaglutide (Ozempic) 2 Mg/3 Ml Inj, 0.5 MG SC Q7D for 28 Days, #3 08/27/24 Fluticasone Propionate (Nasal) (Fluticasone Propionate) 50 Mcg/Act Spr, SPRAY NINO UD for 30 Days, #16 08/27/24 Triamcinolone Acetonide (Kenalog) 1 Applic Ap, 1 APPLIC TOP UD for 30 Days, #45 08/27/24 Omeprazole (Gnp Omeprazole) 20 Mg Tab, 1 TAB PO DAILY for 30 Days, #30 08/27/24 Ketoconazole (Ketoconazole) 2 % Sha, UD for 30 Days, #120 08/27/24 Amlodipine Besylate (Amlodipine Besylate) 5 Mg Tab, 1 TAB PO DAILY for 90 Days, #90 06/23/24 Metoprolol Tartrate (LOPRESSOR TABLET) 50 Mg Tb, 1 TAB PO BID for 90 Days, #180 06/23/24 Information Source: Patient, Spouse Mode of Arrival: Wheelchair Brought in by: spouse Past Medical History PAST MEDICAL HISTORY: DM, ESRD, High Lipids, HTN Surgical History: Denies all surgeries FIELD HANDYMAN History: Denies all FIELD HANDYMAN Hx Family History Family History: Reviewed,noncontributory to illness, Unknown Social History Smoker: Non-Smoker Alcohol: Denies ETOH Use Drugs: Denies Drug Use Lives In: Home Constitutional: denies: chills, diaphoresis, fatigue, fever, malaise, sweats, weakness, others EENTM: denies: blurred vision, double vision, ear bleeding, ear discharge, ear drainage, ear pain, ear ringing, eye pain, eye redness, hearing loss, mouth pain, mouth swelling, nasal discharge, nose bleeding, nose congestion, nose pain, photophobia, tearing, throat pain, throat swelling, voice changes, others Respiratory: denies: cough, hemoptysis, orthopnea, SOB at rest, shortness of breath, SOB with excertion, stridor, wheezing, others Cardiovascular: reports: chest pain; denies: dizzy spells, diaphoresis, Dyspnea on exertion, edema, irregular heart beat, left arm pain, lightheadedness, palpitations, PND, syncope, others Gastrointestinal: denies: abdomen distended, abdominal pain, blood streaked bowels, constipated, diarrhea, dysphagia, difficulty swallowing, hematemesis, melena, nausea, poor appetite, poor fluid intake, rectal bleeding, rectal pain, vomiting, others Genitourinary: denies: abnormal vagina bleeding, burning, dyspareunia, dysuria, flank pain, frequency, hematuria, incontinence, pain, , vagina discharge, urgency, others Neurological: denies: dizziness, fainting, headache, left sided numbness, left sided weakness, numbness, paresthesia, pre-existing deficit, right sided numbness, right sided weakness, seizure, speech problems, tingling, tremors, weakness, others Musculoskeletal: denies: back pain, gout, joint pain, joint swelling, muscle pain, muscle stiffness, neck pain, others Integumetry: denies: bruises, change in color, change in hair/nails, dryness, laceration, lesions, lumps, rash, wounds, others Allergic/Immunocompromised: denies: Difficulty Healing, Frequent Infections, Hives, Itching, others Hematologic/Lymphatic: denies: anemia, blood clots, easy bleeding, easy bruising, swollen glands, others Endocrine: denies: excessive hunger, excessive sweating, excessive thirst, excessive urination, flushing, intolerance to cold, intolerance to heat, unexplained weight gain, unexplained weight loss, others Psychiatric: denies: anxiety, bipolar disorder, depression, hopeless, panic disorder, schizophrenia, sleepless, suicidal, others All Other Systems: Reviewed and Negative Physical Exam General Appearance: Mild Distress, Other (chronic ill appearing, dialysis catheter noted to L arm) HEENT: Normal ENT Inspection, Pharynx Normal, TMs Normal Neck: Full Range of Motion, Non-Tender, Normal, Normal Inspection Respiratory: Chest Non-Tender, Lungs Clear, No Accessory Muscle Use, No Respiratory Distress, Normal Breath Sounds Cardiovascular: No Edema, No JVD, No Murmur, No Gallop, Normal Peripheral Pulses, Regular Rate/Rhythm Breast Exam: Deferred Gastrointestinal: No Organomegaly, Non Tender, No Pulsatile Mass, Normal Bowel Sounds, Soft Genitalia: Deferred Pelvic: Deferred Rectal: Deferred Extremities: No calf tenderness, Normal capillary refill, Normal inspection, Normal range of motion, Non-tender, No pedal edema Musculoskeletal : Apperance: Normal Neurologic: Alert, parts sales representative II-XII nml as Tested, No Motor Deficits, Normal Affect, Normal Mood, No Sensory Deficits Cerebellar Function: Normal Reflexes: Normal Skin: Dry, Normal Color, Warm Lymphatic: No Adenopathy EKG EKG : Pulse Rate (adult): 74 [place]: Normal Cardiac Rhythm: NSR Block: None Hypertrophy: None ST: Normal Was a procedure done? Was a procedure done?: No CP Differential Dx Differential Diagnosis: A-fib, A-Flutter, Angina, Anxiety / Panic Attack, Atrial Dysrhythmia, Electrolyte Disorder, Heart Failure, MT, PVC's, Renal Failure Differential Diagnosis: HTN Essential, HTN Accelerated X-Ray, Labs, Meds, VS Vital Signs Date Time Temp Pulse Resp B/P (MAP) Pulse Ox O2 Delivery O2 Flow Rate FiO2 04/15/25 12:36 74 04/15/25 12:16 74 04/15/25 12:13 98.4 75 16 153/68 100 98.4 Lab Test 04/15/25 12:28 Range/Units White Blood Count 4.2 L 4.4-10.8 10^3/uL Red Blood Count 3.69 L 4.0-5.20 10^6/uL Hemoglobin 13.0 12.2-16.2 g/dL Hematocrit 37.6 36.0-46.0 % Mean Corpuscular Volume 101.9 H 80.0-100.0 fL Mean Corpuscular Hemoglobin 35.1 H 28.0-32.0 pg Mean Corpuscular Hemoglobin Concent 34.5 32.0-36.0 g/dL Red Cell Distribution Width 19.8 H 11.8-14.3 % Platelet Count 76 L 140-450 10^3/uL Mean Platelet Volume 9.0 6.9-10.8 fL Neutrophils (%) (Auto) 44.6 37.0-80.0 % Lymphocytes (%) (Auto) 40.5 10.0-50.0 % Monocytes (%) (Auto) 11.2 0.0-12.0 % Eosinophils (%) (Auto) 3.1 0.0-7.0 % Basophils (%) (Auto) 0.6 0.0-2.0 % Neutrophils # (Auto) 1.9 1.6-8.6 10 ^3/uL Lymphocytes # (Auto) 1.7 0.4-5.4 10 ^3/uL Monocytes # (Auto) 0.5 0-1.3 10 ^3/uL Eosinophils # (Auto) 0.1 0-0.8 10 ^3/uL Basophils # (Auto) 0 0-0.2 10 ^3/uL Nucleated Red Blood Cells 0.1 % Sodium Level 137 136-145 mmol/L Potassium Level 3.4 L 3.5-5.1 mmol/L Chloride Level 95 L 98-107 mmol/L Carbon Dioxide Level 30 20-31 mmol/L Anion Gap 12 5-15 Blood Urea Nitrogen 22 9-23 mg/dL Creatinine 3.56 H 0.550-1.02 mg/dL Glomerular Filtration Rate Calc 14 >90 mL/min BUN/Creatinine Ratio 6.2 L 10.0-20.0 Serum Glucose 94 74-106 mg/dL Calcium Level 9.0 8.7-10.4 mg/dL Troponin I High Sensitivity 42 *H </=34 ng/L Time of 1ST Reevaluation: 13:00 Reevaluation 1ST: Improved Patient Education/Counseling: Diagnosis, Treatment Family Education/Counseling: Diagnosis, Treatment SEPSIS Sepsis Screen Date sepsis recognized/suspect: Apr 15, 2025 Time Sepsis recognized/suspect: 1215 Recent Procedure: No On Antibiotic Therapy: No Respiratory Rate >20: No Heart Rate >90: No Temp<36 C (96.8 F) or >38.3 C: No SBP <90 or MAP <65 mmHG: No New Acute Mental Status Change: No Is the patient on CPAP, BIPAP,: No Physician Orders Electrocardigram (04/15/25 12:12) Troponin-I Hs (04/15/25 13:12) Troponin-I Hs (04/15/25 15:12) Electrocardigram (04/15/25 13:12) Electrocardigram (04/15/25 15:12) Chest Portable (04/15/25 12:18) Vital Signs Date Time Temp Pulse Resp B/P (MAP) Pulse Ox O2 Delivery O2 Flow Rate FiO2 04/15/25 12:36 74 04/15/25 12:16 74 04/15/25 12:13 98.4 75 16 153/68 100 98.4 Laboratory Tests Test 04/15/25 12:28 White Blood Count 4.2 10^3/uL (4.4-10.8) L Departure 1 Departure Time of Disposition: 13:12 (Patient presented with chest pain that was concerning for possible STEMI, ACS, PE, Pneumonia, Muscle Strain, COPD, Dissection. Data: 1. I ordered and reviewed the result of at least 3 labs including a CBC, BMP, and Troponin. 2. I independently interpreted the following tests: EKG which shows sinus arrhythmia and and Chest X-ray which shows vascular congestion.Risk:This patient has a high risk of morbidity due to further diagnostic testing or treatment and may suffer from an acute cardiac or respiratory disorder. Workup reveals concern for ACS and patient should be admitted for further workup and possible expert consultation. ) Impression: Primary Impression: Acute chest pain Additional Impression: Elevated troponin Disposition: ADMITTED INPATIENT Admit to: Tele Condition: Guarded Critical Care Note Critical Care Time?: No Stability Stability form required: No Heart Score Heart Score: Heart Score Response (Comments) Value History Moderate Suspicious 1 EKG Normal 0 Age 45-64 1 Risk Factors >3 or Hx ASHD 2 Troponin 1-2 x's Normal limit 1 Total 5 I personally scribed for KEV URENA MD ([facility]) on 04/15/25 at 12:36. Electronically submitted by Margo Cruz ([facility]). KEV URENA MD Apr 15, 2025 12:36
[2025-04-15 12:58] LABS: Nucleated Red Blood Cells % 0.1 %
[2025-04-15 12:59] LABS: Hematocrit 37.6 % (36.0-46.0); Hemoglobin 13.0 g/dL (12.2-16.2); Mean Corpuscular Hemoglobin 35.1 pg (28.0-32.0); Mean Corpuscular Volume 101.9 fL (80.0-100.0)
[2025-04-15 13:00] LABS: Sodium 137 mmol/L (136-145)
[2025-04-15 13:01] LABS: Anion Gap 12 (5-15); Calcium 9.0 mg/dL (8.7-10.4); Carbon Dioxide 30 mmol/L (20-31)
--- NOTE | 2025-04-15 13:02 | DVH ---
CHEST RADIOGRAPH INDICATION: cp TECHNIQUE: Single frontal view of the chest was obtained COMPARISON: XY CHEST PORTABLE on DOS: 03/18/25, XY CHEST XRAY 1 VIEW on DOS: 01/01/25, XY CHEST PORTABLE on DOS: 10/31/24, XY CHEST PORTABLE on DOS: 10/13/24, XY CHEST PORTABLE on DOS: 10/05/24 FINDINGS: The cardiac silhouette is enlarged. The lungs demonstrate perihilar airspace opacities. The pulmonary vasculature is prominent. There is no pleural effusion. There is no pneumothorax. IMPRESSION: Cardiomegaly with pulmonary vascular congestion and bilateral perihilar airspace opacities.
[2025-04-15 13:05] LABS: Chloride 95 mmol/L (98-107); Potassium 3.4 mmol/L (3.5-5.1)
[2025-04-15 13:06] LABS: BUN/Creatinine Ratio 6.2 (10.0-20.0); Blood Urea Nitrogen 22 mg/dL (9-23); Glucose 94 mg/dL (74-106)
--- NOTE | 2025-04-15 14:11 | DVHHPRES ---
History of Present Illness Resident Creating Document: BURKE VARGAS RESIDENT History of Present Illness Padmini Lou, a 59-year-old Urdu speaking female with history of DM, ESRD, dyslipidemia, and hypertension presents to the ED with diffuse, pulsating chest pain that began immediately after dialysis this morning, without associated symptoms, and reports recent heart monitor (loop recorder) placement by PCP five days ago; vitals stable except for BP 153/68 mildly elevated troponin and no STT changes in EKG with sinus rhythm. Differential Diagnosis include paroxysmal A-fib, A-Flutter, Angina, Anxiety / Panic Attack, Electrolyte Disorder, Heart Failure, NM, PVC's, PACs. Extremely poor historian, deferred all answers to asking who was not available to ask questions, details obtained with extensive chart reviewing. PMHx: diabetes mellitus on insulin, CAD, ESRD on dialysis with Dr. Leah morales, prior obesity, GERD/ PUD, chronic low back pain, chronic constipation. PSHx: Denies all surgeries. Family history: Reviewed, noncontributory to illness, Unknown. Social history: Patient denies tobacco, alcohol, and illicit drug use and lives at home with . Review of Systems Constitutional: No: Fever, Chills, Sweats, Weakness, Malaise, Other Eyes: No: Pain, Vision change, Conjunctivae inflammation, Eyelid inflammation, Other, Redness ENT: No: Ear pain, Ear discharge, Nose pain, Nose discharge, Nose congestion, Mouth pain, Mouth swelling, Throat pain, Throat swelling, Other Respiratory: Pleuritic Pain; No: Cough, Dry, Shortness of breath, SOB with excertion, Wheezing, Hemoptysis, Sputum, Wheezing, Other Cardiovascular: Chest Pain; No: Palpitations, Orthopnea, Paroxysmal Noc. Dyspnea, Edema, Lt Headedness, Other Gastrointestinal: No: Nausea, Vomiting, Abdominal Pain, Diarrhea, Constipation, Melena, Hematochezia, Other Genitourinary: No Dysuria, No Frequency, No Incontinence, No Hematuria, No Retention, No Other Musculoskeletal: No: other, neck pain, shoulder pain, arm pain, back pain, hand pain, leg pain, foot pain Skin: No: Rash, Lesions, Jaundice, Bruising, Other Neurological: No: Weakness, Numbness, Incoordination, Change in speech, Confusion, Seizures, Other Allergies: Coded Allergies: No Known Drug Allergy (Verified Allergy, Unknown, 10/05/24) Exam Vital Signs Vital Signs Date Time Temp Pulse Resp B/P (MAP) Pulse Ox O2 Delivery O2 Flow Rate FiO2 04/15/25 13:19 72 04/15/25 12:13 98.4 16 153/68 100 98.4 General Appearance: Alert, Oriented X3, Cooperative, No acute distress HEENT: Atraumatic, PERRLA, EOMI, Mucous membr. moist/pink, Other (Patient is bilateral legally blind, on shades.) Respiratory: Clear to auscultation, Normal air movement, Other (Comfortable, basal rales, breathing in the room air.) Cardiovascular: Regular rate, Normal S1, Normal S2, No murmurs, Other (on chest loop recorder in situ) Abdominal: Normal bowel sounds, Soft, No tenderness, No hepatospenomegaly, No masses Extremities: No clubbing, No cyanosis, Other (Mild 1+ edema pitting bilateral.) Skin: No rashes, No breakdown, No significant lesion Neuro: Normal speech, Strength at 5/5 X4 ext, Normal tone, Sensation intact, Other (Deferred) Psych/Mental Status: Mental status NL, Mood NL, Other (At baseline) Labs/Xrays Labs Test 04/15/25 13:29 04/15/25 12:28 Range/Units Troponin I High Sensitivity 47 *H </=34 ng/L White Blood Count 4.2 L 4.4-10.8 10^3/uL Red Blood Count 3.69 L 4.0-5.20 10^6/uL Hemoglobin 13.0 12.2-16.2 g/dL Hematocrit 37.6 36.0-46.0 % Mean Corpuscular Volume 101.9 H 80.0-100.0 fL Mean Corpuscular Hemoglobin 35.1 H 28.0-32.0 pg Mean Corpuscular Hemoglobin Concent 34.5 32.0-36.0 g/dL Red Cell Distribution Width 19.8 H 11.8-14.3 % Platelet Count 76 L 140-450 10^3/uL Mean Platelet Volume 9.0 6.9-10.8 fL Neutrophils (%) (Auto) 44.6 37.0-80.0 % Lymphocytes (%) (Auto) 40.5 10.0-50.0 % Monocytes (%) (Auto) 11.2 0.0-12.0 % Eosinophils (%) (Auto) 3.1 0.0-7.0 % Basophils (%) (Auto) 0.6 0.0-2.0 % Neutrophils # (Auto) 1.9 1.6-8.6 10 ^3/uL Lymphocytes # (Auto) 1.7 0.4-5.4 10 ^3/uL Monocytes # (Auto) 0.5 0-1.3 10 ^3/uL Eosinophils # (Auto) 0.1 0-0.8 10 ^3/uL Basophils # (Auto) 0 0-0.2 10 ^3/uL Nucleated Red Blood Cells 0.1 % Sodium Level 137 136-145 mmol/L Potassium Level 3.4 L 3.5-5.1 mmol/L Chloride Level 95 L 98-107 mmol/L Carbon Dioxide Level 30 20-31 mmol/L Anion Gap 12 5-15 Blood Urea Nitrogen 22 9-23 mg/dL Creatinine 3.56 H 0.550-1.02 mg/dL Glomerular Filtration Rate Calc 14 >90 mL/min BUN/Creatinine Ratio 6.2 L 10.0-20.0 Serum Glucose 94 74-106 mg/dL Calcium Level 9.0 8.7-10.4 mg/dL SEPSIS Sepsis Screen Date sepsis recognized/suspect: Apr 15, 2025 Time Sepsis recognized/suspect: 1215 Recent Procedure: No On Antibiotic Therapy: No Respiratory Rate >20: No Heart Rate >90: No Temp<36 C (96.8 F) or >38.3 C: No SBP <90 or MAP <65 mmHG: No New Acute Mental Status Change: No Is the patient on CPAP, BIPAP,: No Physician Orders Electrocardigram (04/15/25 12:12) Troponin-I Hs (04/15/25 15:12) Electrocardigram (04/15/25 13:12) Electrocardigram (04/15/25 15:12) Chest Portable (04/15/25 12:18) Admit (04/15/25 14:10) Nitroglycerin Sublingual (Ntrostat Subli (04/15/25 14:15) Morphine Sulfate Injection (04/15/25 14:15) Oxygen By Nasal Cannula (04/15/25 14:10) Stat Ekg For Chest Pain (04/15/25 14:10) Notify Md Of Changes From Base (04/15/25 14:10) Mining Engineering Technologist For 24 Hours (04/15/25 14:10) Emergency Dysrhythmia Protocol (04/15/25 14:10) Rhythm Strips Once Every Shift (04/15/25 14:10) Vital Signs Date Time Temp Pulse Resp B/P (MAP) Pulse Ox O2 Delivery O2 Flow Rate FiO2 04/15/25 13:19 72 04/15/25 12:36 74 04/15/25 12:16 74 04/15/25 12:13 98.4 75 16 153/68 100 98.4 Laboratory Tests Test 04/15/25 12:28 White Blood Count 4.2 10^3/uL (4.4-10.8) L Assessment/Plan Assessment/Plan #Uncontrolled, essential hypertension: home medications include amlodipine, metoprolol tartrate, carvedilol, #Chronic moderate thrombocytopenia: The trend since 03/18 blood work shows sta ble platelets 70 K, patient is on aspirin at home. Close monitoring check INR. PT /PTT for any bleeding diathesis, daily CBC to trend thrombocytopenia, avoid heparin products. Check bone marrow response with reticulocyte percentage. #microcytic anemia macrocytosis , complex with anemia of chronic disease: MCV 101.9, check B12, folate iron panel ferritin to check to isolate more than 1 type of anemia. H&H stable around baseline 12-13 of Hb. #Mild hypokalemia: Presented with 3.4, post dialysis, replenished, daily potassium to check, ruled out hypomagnesemia. #ESRD on hemodialysis: Last dialysis this a.m. Sunday, since patient is during the hospital, Dr. Lynn's group consulted for continued HD. #heart failure with preserved ejection fraction: LVH likely hypertensive heart disease, noted in echo 03/24, recurrent chest pain at stress no EKG changes for ST-T , check for BNP. Continue telemetry. #likely type 2 NSTEMI: Secondary due to elevated blood pressure, renal failure, mild elevation of #diabetes mellitus on insulin: Check HbA1c, target BG in-hospital 140-180. Avoid hypoglycemia. #High-risk of CAD: Given ESRD, dyslipidemia, hypertension, postmenopausal age. Previous multiple similar episodes, likely will benefit from stress test. #prior obesity grade 1: improved, now BMI 29.3, overweight, weight loss counseling healthy diet and lifestyle. #GERD/ PUD: Previously was on PPI, continue IV PPI for now, abdominal examination unremarkable. Avoid spicy food/ NSAIDs. Prior EGD reveals, Mild gastroduodenitis, There was a 5 mm pre-pyloric antral inflammatory polyp with overlying erosion from which biopsies were obtained, 1-2 cm sliding-type hiatal hernia with no significant erosive esophagitis otherwise normal examination up to the 2nd and 3rd part of the duodenum with no active bleeding. #Osteoarthritis, degenerative disc disease: Known chronic chronic low back pain, Lidocaine patch, cyclobenzaprine, conservative multimodal pain management to continue. Examination reveals no focal tenderness or distal neuromuscular compromise. #chronic constipation: Abdomen examination unremarkable, flatus without signs of bowel obstruction, high-fiber diet, appropriate fluid, as needed Colace and daily lactulose to continue. #dyslipidemia with diabetes mellitus: Atorvastatin, continue at 40 mg daily dose check LFTs. #questionable paroxysmal rhythm disorder: Differentials are wide with atrial or ventricular arrhythmias, patient is on loop recorder. Noted on chest, for almost a week. Denies any palpitation. Continue telemetry. PUD prophylaxis: protonix 40mg iv daily. DVT prophylaxis: SCD/brisk movement. Barriers to discharge: Medical diagnosis and management in progress. PCP: Dr. Monterroso. Specialist Relevant To Admission: Nephrology Dr. Lynn's group. Consulted. If wall motion abnormality then only consult or if considering in hospital Cardiac Stress Test consult Cardiology. Case discussed with Dr. Kaufman. Code Status: Full Code. Discussion for goals of care and plan of care needed total 31 minutes bedside. Admitted to telemetry floor. Plan discussed with: Patient, Spouse My Orders Orders - BURKE VARGAS RESIDENT Procedure Category Date Status Time Admit ADMIT 04/15/25 Transmitted 14:10 Nitroglycerin PHA 04/15/25 Transmitted Sublingual (Ntrostat 14:15 Morphine Sulfate PHA 04/15/25 Transmitted Injection 14:15 Oxygen By Nasal RT 04/15/25 Transmitted Cannula 14:10 Stat Ekg For Chest SONAM 04/15/25 Transmitted Pain 14:10 Notify Md Of Changes [facility] 04/15/25 Transmitted From Base 14:10 Mining Engineering Technologist For [facility] 04/15/25 Transmitted 24 Hours 14:10 Emergency Dysrhythmia [facility] 04/15/25 Transmitted Protocol 14:10 Rhythm Strips Once [facility] 04/15/25 Transmitted Every Shift 14:10 Date of Service: Apr 15, 2025 Billing Provider: DMITRI LONGORIA MD Common Visit Codes: 23207-GEZVCYI INP/OBS CARE (HIGH) Secondary Visit Codes: 79904-HZGDKTIN CARE PLAN 30 MINUTES BURKE VARGAS RESIDENT Apr 15, 2025 14:11
--- NOTE | 2025-04-15 14:14 | ECG ---
[facility] Test Date: 2025-04-15 Test Time: 12:16:50 Pat Name: MICHAEL REYNOLDS Department: ER Room: 0219T Gender: F Mineral Surveyor: JUVENAL : 1965 Requested By: KEV URENA Order Number: [id number] Reading MD: Vlad Medina Measurements Intervals [place] Rate: 74 P: 73 WI: 164 QRS: 72 QRSD: 96 T: 18 QT: 408 QTc: 453 Interpretive Statements Sinus rhythm Electronically Signed On 04-16-2025 17:25:24 PST by Vlad Medina Please click the below link to view image of tracing.
[2025-04-15] MEDS ORDERED: MORPHINE SULFATE INJ 2 MG/ml SYRG IV PRN (14:15)
[2025-04-15 14:30] VITALS: PULSE 74; RESP 14; O2SAT 94
[2025-04-15] MEDS: POTASSIUM CHLORIDE 20 MEQ, LIDOCAINE 1% (LOCAL ANESTH.) 2 ML in SODIUM CHL 0.9% 100 ML IV ONE (16:30)
[2025-04-15] MEDS: PANTOPRAZOLE 40 MG/10 ML VIAL INJ IV ONE (16:30)
[2025-04-15 16:32] LABS: Albumin 4.6 g/dL (3.2-4.8); Bilirubin, Direct 0.2 mg/dL (<0.3); Bilirubin, Total 0.6 mg/dL (0.2-1.0); Total Protein 7.6 g/dL (5.7-8.2)
[2025-04-15 16:36] LABS: Alanine Aminotransferase 49.0 U/L (7-40); Alkaline Phosphatase 188.0 U/L (46-116)
[2025-04-15 16:53] LABS: INR 1.11 (0.9-1.15); Prothrombin Time 11.6 sec (9.3-11.8)
[2025-04-15 16:57] LABS: Iron 98.0 ug/dL (50-170)
[2025-04-15 17:00] VITALS: BP 176/81; PULSE 71; RESP 18; TEMP 98.2; O2SAT 98
[2025-04-15 17:00] LABS: Total Iron Binding Capacity 206.0 ug/dL (250-425)
--- NOTE | 2025-04-15 18:31 | ECG ---
[facility] Test Date: 2025-04-15 Test Time: 13:19:12 Pat Name: MICHAEL REYNOLDS Department: Room: 0219T A Gender: F Baker Operator Automatic: ANKIT : 1965 Requested By: KEV URENA Order Number: [id number] Reading MD: Vlad Medina Measurements Intervals [place] Rate: 72 P: 74 MO: 165 QRS: 72 QRSD: 96 T: 31 QT: 420 QTc: 460 Interpretive Statements Sinus rhythm Electronically Signed On 04-16-2025 17:25:29 PST by Vlad Medina Please click the below link to view image of tracing.
--- NOTE | 2025-04-15 18:32 | ECG ---
[facility] Test Date: 2025-04-15 Test Time: 15:13:25 Pat Name: MICHAEL REYNOLDS Department: Room: 0219T A Gender: F Claims Examiner: ANKIT : 1965 Requested By: KEV URENA Order Number: [id number] Reading MD: Vlad Medina Measurements Intervals [place] Rate: 71 P: 84 NC: 171 QRS: 68 QRSD: 96 T: 29 QT: 429 QTc: 467 Interpretive Statements Sinus rhythm Electronically Signed On 04-16-2025 17:25:37 PST by Vlad Medina Please click the below link to view image of tracing.
[2025-04-15] MEDS: ATORVASTATIN 20 MG TAB PO ONE (18:48)
[2025-04-15 20:00] VITALS: PULSE 71
[2025-04-15 21:00] VITALS: BP 148/73; PULSE 72; RESP 16; TEMP 98; O2SAT 99
[2025-04-15] MEDS: NITROGLYCERIN 0.4 MG SL TAB SL PRN (23:52)
[2025-04-15] MEDS: MAGNESIUM OXIDE 400 MG TAB PO SCH (23:54)
[2025-04-15] MEDS: SUCRALFATE 1 GM TAB PO SCH (23:54)
[2025-04-16] VITALS (8 sets, daily range): BP systolic 141–171; BP diastolic 58–76; PULSE 59–89; RESP 16–18; TEMP 97.4–98.3; O2SAT 96–98
[2025-04-16] MEDS: POTASSIUM EFFERVESENT TAB 25 MEQ PO ONE (00:55)
[2025-04-16] MEDS: ACETAMINOPHEN 325 MG TAB PO PRN (02:23)
[2025-04-16] MEDS: hydrALAZINE HCL 20 MG/ML VL IV PRN (03:16)
--- NOTE | 2025-04-16 09:23 | ECG ---
[facility] Test Date: 2025-04-15 Test Time: 17:04:39 Pat Name: MICHAEL REYNOLDS Department: Respiratoy Room: 0219T A Gender: F Tourist Agent: : 1965 Requested By: BURKE VARGAS Order Number: [id number] Reading MD: Vlad Medina Measurements Intervals [place] Rate: 77 P: 47 MT: 189 QRS: -15 QRSD: 98 T: 38 QT: 418 QTc: 474 Interpretive Statements Sinus rhythm Borderline left axis deviation Electronically Signed On 04-16-2025 17:30:14 PST by Vlad Medina Please click the below link to view image of tracing.
--- NOTE | 2025-04-16 09:24 | ECG ---
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
[2025-04-16] MEDS: PANTOPRAZOLE 40 MG/10 ML VIAL INJ IV SCH (10:49)
--- NOTE | 2025-04-16 11:52 | DVHPN2 ---
Reviewed: Care Plan, H&P, Labs, Medications, Previous Orders, Radiology Changes from previous H/P or p: No Changes Eyes: No Pain, No Vision change, No Conjunctivae inflammation, No Eyelid inflammation, No Other, No Redness ENT: No Ear pain, No Ear discharge, No Nose pain, No Nose discharge, No Nose congestion, No Mouth pain, No Mouth swelling, No Throat pain, No Throat swelling, No Other Cardiovascular: Chest Pain; No Palpitations, No Orthopnea, No Paroxysmal Noc. Dyspnea, No Edema, No Lt Headedness, No Other Respiratory: No Cough, No Dry, No Shortness of breath, No SOB with excertion, No Wheezing, No Hemoptysis; Pleuritic Pain; No Sputum, No Other Gastrointestinal: No Nausea, No Vomiting, No Abdominal Pain, No Diarrhea, No Constipation, No Melena, No Hematochezia, No Other Genitourinary: No Dysuria, No Frequency, No Incontinence, No Hematuria, No Retention, No Other Musculoskeletal: No other, No neck pain, No shoulder pain, No arm pain, No back pain, No hand pain, No leg pain, No foot pain Skin: No Rash, No Lesions, No Jaundice, No Bruising, No Other Objective Vitals Vital Signs Date Time Temp Pulse Resp B/P (MAP) Pulse Ox O2 Delivery O2 Flow Rate FiO2 04/16/25 10:50 139/75 04/16/25 09:00 98.1 59 17 96 98.1 04/16/25 08:00 Room Air* 0 21 Intake/Output Intake and Output 04/16/25 07:00 Intake Total 200 ml Balance 200 ml Intake Oral 200 ml Medications Current Medications Medications Dose Ordered Sig/Kana Route Start Time Stop Time Status Last Admin Dose Admin Nitroglycerin 0.4 mg Q5MINP PRN SL 04/15/25 14:15 04/15/25 23:52 0.4 MG Morphine Sulfate 2 mg Q30M PRN IV 04/15/25 14:15 Atorvastatin Calcium 40 mg HS PO 04/16/25 22:00 Pantoprazole Sodium 40 mg DAILY IV 04/16/25 10:00 04/16/25 10:49 40 MG Aspirin 81 mg DAILY PO 04/16/25 10:00 04/16/25 10:49 81 MG Amlodipine Besylate 10 mg DAILY PO 04/16/25 10:00 04/16/25 10:50 10 MG Magnesium Oxide 400 mg BID PO 04/15/25 22:00 04/16/25 10:50 400 MG Sucralfate 1 gm QIDACHS PO 04/15/25 22:00 04/16/25 05:44 1 GM Acetaminophen 650 mg Q4HP PRN PO 04/16/25 02:15 04/16/25 02:23 650 MG Hydralazine HCl 10 mg Q4HP PRN IV 04/16/25 02:15 04/16/25 03:16 10 MG Ceftriaxone Sodium 50 ml @ 100 mls/hr DAILY@09 IV 04/17/25 09:00 UNV Azithromycin 250 ml @ 125 mls/hr DAILY IV 04/17/25 10:00 UNV Laboratory Results Laboratory Tests 04/15/25 12:28 Chemistry Test 04/15/25 12:28 04/15/25 13:29 04/15/25 15:21 Calcium Level 9.0 mg/dL (8.7-10.4) Magnesium Level 2.1 mg/dL (1.6-2.6) Albumin 4.6 g/dL (3.2-4.8) Total Protein 7.6 g/dL (5.7-8.2) Coagulation Test 04/15/25 15:21 Prothrombin Time 11.6 sec (9.3-11.8) Prothrombin Time INR 1.11 (0.9-1.15) Activated Partial Thromboplast Time 29.3 SEC (24.5-34.5) Cardiac Markers Test 04/15/25 12:28 B-Type Natriuretic Peptide 447.70 pg/mL (0-100) LFT Test 04/15/25 15:21 Alanine Aminotransferase (ALT) 49 U/L (7-40) H Alkaline Phosphatase 188 U/L (46-116) H Aspartate Amino Transferase (AST) 40 U/L (13-40) Direct Bilirubin 0.2 mg/dL (<0.3) Total Bilirubin 0.6 mg/dL (0.2-1.0) Labs and/or images reviewed: Labs reviewed by me, Image(s) reviewed by me Assessment/Plan Assessment/Plan Chest pain with multiple cardiac risk factors troponin borderline elevated, consult for Cardiology Dr. Medina ESRD on hemodialysis consult for Dr. Lynn Community-acquired pneumonia Gram-positive versus Gram-negative: Rocephin azithromycin Hypercholesterolemia Hypertension Uncontrolled diabetes: Insulin sliding scale Recent loop recorder placement by PCP five days back Time Spent 70 minutes Advanced care planning time 20 minutes Patient is full code Plan discussed with: Patient My Orders Orders - GLENN DORANTES MD Procedure Category Date Status Time Rapid Influenza A&B LAB 04/16/25 Logged 11:47 Ceftriaxone Ivpb PHA 04/17/25 Transmitted Rocephin 09:00 Ceftriaxone 1gm/50ml PHA 04/16/25 Logged (Rocephin) 12:00 Azithromycin PHA 04/17/25 Logged 500mg/250ml 10:00 Azithromycin PHA 04/16/25 Logged 500mg/250ml 12:00 * Cardiology Consult CONS 04/16/25 Transmitted 11:48 Date of Service: Apr 16, 2025 Billing Provider: GLENN DORANTES MD Common Visit Codes: [id number] CARE 30-74 MIN GLENN DORANTES MD Apr 16, 2025 11:52
[2025-04-16] MEDS: AZITHROMYCIN 500MG/250ML 250 ML IV ONE (12:00)
--- NOTE | 2025-04-16 13:01 | DVHINCON2 ---
Date of service: Apr 16, [address] Abilio Ponce Reason for Consultation Dialysis History of Present Illness 59 Y/O F with history of ESRD on HD via left arm AVG, DM, HTN, HLD presented with chief complaint of chest pain which started after her dialysis yesterday. she completed her dialysis yesterday (Sunday). troponin is mildly elevated, and serial troponin is flat. K is 3.4 mmol/l. SBP in 150s mmHg , she is on room air. CXR shows pulmonary congestion, and bilateral airspace disease. She has been started on IV antibiotics. Nephrology consulted for dialysis Past Medical History ESRD DM HTN HLD Past Surgical History AVG creation Allergies: Coded Allergies: No Known Drug Allergy (Verified Allergy, Unknown, 10/05/24) Home Meds Active Scripts Carvedilol (Carvedilol) 12.5 Mg Tab, 0.5 TAB PO BID, #30 TAB 1 Refill Prov:SANAM JOHNSTON 03/22/25 Sucralfate (Sucralfate) 1 Gm Tab, 1 GM PO BID for 15 Days, #30 TAB Prov:LUCAS ODELL [facility] 01/05/25 Docusate Sodium (Docusate Sodium) 100 Mg Cap, 100 MG PO BIDPRN PRN for 30 Days, #60 CAP Prov:LUCAS ODELL [facility] 01/05/25 Metoclopramide Hcl (Reglan) 10 Mg Tab, 10 MG PO BIDPRN PRN for 10 Days, #20 TAB Prov:LUCAS ODELL [facility] 01/05/25 Amoxicillin & Pot Clavulanate (AUGMENTIN TABLET) 875 Mg Tb, 875 MG PO BID for 3 Days, #6 TAB [facility]/25 Sucralfate (CARAFATE SUSP) 1 Gm/10 Ml Ss, 10 ML PO QID, #1200 ML 3 Refills Prov:PRASANNA KOENIG MD 10/17/24 Ondansetron Odt 4MG Tab (ZOFRAN PO) 4 Mg Tb, 4 MG PO Q6HP PRN for 7 Days, #16 TAB ODT TAB-DISSOLVE IN MOUTH, THEN SWALLOW Prov:SANAM JOHNSTON RESIDENT 08/28/24 Reported Medications Acetaminophen (Tylenol Extra Strength) 500 Mg Tab, 500 MG PO, TAB 03/20/25 Furosemide (Furosemide) 40 Mg Tab, 1 TAB PO DAILY 10/05/24 Ferrous Sulfate (Ferosul) 325 Mg Tab, 1 TAB PO BID 10/05/24 Dicyclomine Hcl (BENTYL CAPSULE) 10 Mg Cp, 1 CAP PO BIDPRN PRN 10/05/24 Lidocaine-Prilocaine (Lidocaine/Prilocaine) 1 Kit Kit, 1 KIT EX DAILY for 30 Days, #30 08/27/24 Hydroxyzine Pamoate (Hydroxyzine Pamoate) 25 Mg Cap, 1 CAP PO DAILYPRN for 30 Days, #30 08/27/24 Famotidine (Famotidine) 20 Mg Tab, 1 TAB PO DAILY PRN for HEARTBURN for 90 Days, #90 08/27/24 Guanfacine Hcl (Guanfacine Hcl) 1 Mg Tab, 1 TAB PO DAILY for 90 Days, #90 08/27/24 Losartan Potassium (Losartan Potassium) 100 Mg Tab, 1 TAB PO DAILY for 100 Days, #100 08/27/24 Ergocalciferol (Vitamin D) 50,000 Unit Cap, 1 CAP PO QWEEKLY for 84 Days, #12 08/27/24 Chlorthalidone (Chlorthalidone) 25 Mg Tab, 1 TAB PO DAILY for 30 Days, #30 08/27/24 B-Complex W/ C & Folic Acid (Ernestina-Kaylie Rx) Tab, 1 TAB PO DAILY for 90 Days, #90 08/27/24 Semaglutide (Ozempic) 2 Mg/3 Ml Inj, 0.5 MG SC Q7D for 28 Days, #3 08/27/24 Fluticasone Propionate (Nasal) (Fluticasone Propionate) 50 Mcg/Act Spr, SPRAY NINO UD for 30 Days, #16 08/27/24 Triamcinolone Acetonide (Kenalog) 1 Applic Ap, 1 APPLIC TOP UD for 30 Days, #45 08/27/24 Omeprazole (Gnp Omeprazole) 20 Mg Tab, 1 TAB PO DAILY for 30 Days, #30 08/27/24 Ketoconazole (Ketoconazole) 2 % Sha, UD for 30 Days, #120 08/27/24 Amlodipine Besylate (Amlodipine Besylate) 5 Mg Tab, 1 TAB PO DAILY for 90 Days, #90 06/23/24 Metoprolol Tartrate (LOPRESSOR TABLET) 50 Mg Tb, 1 TAB PO BID for 90 Days, #180 06/23/24 Current Medications Current Medications Medications (Trade) Dose Ordered Sig/Kana Route PRN Reason Start Time Stop Time Status Last Admin Nitroglycerin (Ntrostat Sublingual) 0.4 mg Q5MINP PRN SL FOR CHEST PAIN 04/15/25 14:15 04/15/25 23:52 Morphine Sulfate 2 mg Q30M PRN IV FOR CHEST PAIN 04/15/25 14:15 Atorvastatin Calcium (Lipitor) 40 mg HS PO 04/16/25 22:00 Pantoprazole Sodium (Protonix) 40 mg DAILY IV 04/16/25 10:00 04/16/25 10:49 Aspirin 81 mg DAILY PO 04/16/25 10:00 04/16/25 10:49 Amlodipine Besylate (Norvasc Tablet) 10 mg ONCE STAT PO 04/15/25 18:54 04/15/25 19:03 DC Amlodipine Besylate (Norvasc Tablet) 10 mg DAILY PO 04/16/25 10:00 04/16/25 10:50 Magnesium Oxide (Mag-Ox Tablet) 400 mg BID PO 04/15/25 22:00 04/16/25 10:50 Sucralfate (Carafate Tab) 1 gm QIDACHS PO 04/15/25 22:00 04/16/25 11:30 Acetaminophen (Tylenol Tablet) 650 mg Q4HP PRN PO PAIN SCALE 1-3 OR TEMP>100.4 04/16/25 02:15 04/16/25 02:23 Hydralazine HCl (Apresoline Injection) 10 mg Q4HP PRN IV SBP>160 04/16/25 02:15 04/16/25 03:16 Ceftriaxone Sodium 50 ml @ 100 mls/hr DAILY@09 IV 04/17/25 09:00 Azithromycin 250 ml @ 125 mls/hr DAILY IV 04/17/25 10:00 Family History: Cardiovascular disease G8 FATHER, (HEART ATTACK) FH: [place] (myocardial infarction) G8 FATHER FH: cancer G8 MOTHER Review of Systems as per HPI, all other systems were reviewed and are negative H&P Exam Vital Signs/I&O Vital Sign Date Time Temp Pulse Resp B/P (MAP) Pulse Ox O2 Delivery O2 Flow Rate FiO2 04/16/25 10:50 139/75 04/16/25 09:00 98.1 59 17 96 98.1 04/16/25 08:00 Room Air* 0 21 Intake and Output 04/15/25 04/16/25 19:00 07:00 Intake Total 0 ml 200 ml Balance 0 ml 200 ml Intake Oral 0 ml 200 ml Physical Exam Gen: NAD HEENT: NC, AT Lungs: Crackles lung bases Cardiac: RRR, no murmur Abd: soft, no distention Neuro: no focal deficits Ext: no edema + left arm AVG Labs/Diagnostic Data Labs/Diagnostic Data Laboratory Tests Test 04/16/25 05:30 04/15/25 17:16 04/15/25 15:21 04/15/25 13:29 Range/Units Troponin I High Sensitivity 50 *H 44 *H 47 *H </=34 ng/L Plasma/Serum Blood Alcohol < 3.0 <10 mg/dL Prothrombin Time 11.6 9.3-11.8 sec Prothrombin Time INR 1.11 0.9-1.15 Activated Partial Thromboplast Time 29.3 24.5-34.5 SEC Ferritin 1775.6 H 10-291 ng/mL Total Bilirubin 0.6 0.2-1.0 mg/dL Direct Bilirubin 0.2 <0.3 mg/dL Aspartate Amino Transferase (AST) 40 13-40 U/L Alanine Aminotransferase (ALT) 49 H 7-40 U/L Alkaline Phosphatase 188 H 46-116 U/L Total Protein 7.6 5.7-8.2 g/dL Albumin 4.6 3.2-4.8 g/dL Vitamin B12 Level 1534 H 211-911 pg/mL Folic Acid > 48.00 >5.38 ng/mL Magnesium Level 2.1 1.6-2.6 mg/dL Iron Level 98 50-170 ug/dL Total Iron Binding Capacity 206 L 250-425 ug/dL Percent Iron Saturation 47.6 15-50 % Test 04/15/25 12:28 Range/Units White Blood Count 4.2 L 4.4-10.8 10^3/uL Red Blood Count 3.69 L 4.0-5.20 10^6/uL Hemoglobin 13.0 12.2-16.2 g/dL Hematocrit 37.6 36.0-46.0 % Mean Corpuscular Volume 101.9 H 80.0-100.0 fL Mean Corpuscular Hemoglobin 35.1 H 28.0-32.0 pg Mean Corpuscular Hemoglobin Concent 34.5 32.0-36.0 g/dL Red Cell Distribution Width 19.8 H 11.8-14.3 % Platelet Count 76 L 140-450 10^3/uL Mean Platelet Volume 9.0 6.9-10.8 fL Neutrophils (%) (Auto) 44.6 37.0-80.0 % Lymphocytes (%) (Auto) 40.5 10.0-50.0 % Monocytes (%) (Auto) 11.2 0.0-12.0 % Eosinophils (%) (Auto) 3.1 0.0-7.0 % Basophils (%) (Auto) 0.6 0.0-2.0 % Neutrophils # (Auto) 1.9 1.6-8.6 10 ^3/uL Lymphocytes # (Auto) 1.7 0.4-5.4 10 ^3/uL Monocytes # (Auto) 0.5 0-1.3 10 ^3/uL Eosinophils # (Auto) 0.1 0-0.8 10 ^3/uL Basophils # (Auto) 0 0-0.2 10 ^3/uL Nucleated Red Blood Cells 0.1 % Reticulocyte Count (auto) 2.63 H 0.5-1.5 % Sodium Level 137 136-145 mmol/L Potassium Level 3.4 L 3.5-5.1 mmol/L Chloride Level 95 L 98-107 mmol/L Carbon Dioxide Level 30 20-31 mmol/L Anion Gap 12 5-15 Blood Urea Nitrogen 22 9-23 mg/dL Creatinine 3.56 H 0.550-1.02 mg/dL Glomerular Filtration Rate Calc 14 >90 mL/min BUN/Creatinine Ratio 6.2 L 10.0-20.0 Serum Glucose 94 74-106 mg/dL Calcium Level 9.0 8.7-10.4 mg/dL Troponin I High Sensitivity 42 *H </=34 ng/L B-Type Natriuretic Peptide 447.70 0-100 pg/mL Assessment ESRD on HD via left arm AVG Chest pain r/o ACS HTN HLD Community acquired pneumonia hypokalemia Anemia of CKD Secondary hyperparathyroidism Hyperphosphatemia Plan: HD tomorrow Cardiology consult CHRISTIE post HD as needed. goal Hb: 10-11 g/dl fluid restriction Antibiotics per primary team Plan discussed with: Patient INDY BAKER MD Apr 16, 2025 13:01
[2025-04-16] MEDS: ATORVASTATIN 20 MG TAB PO SCH (21:17)
[2025-04-17] VITALS (8 sets, daily range): BP systolic 131–165; BP diastolic 50–115; PULSE 39–70; RESP 16–20; TEMP 97.4–98.9; O2SAT 94–100
[2025-04-17] MEDS: SODIUM CHL 0.9% 1000 ML BAG XX ONE (07:00)
[2025-04-17] MEDS: AZITHROMYCIN 500MG/250ML 250 ML IV SCH (08:30)
--- NOTE | 2025-04-17 09:41 | DVHINCON2 ---
Date of service: Apr 17, 2025 History of Present Illness HPI Patient is a 59-year-old female who presented with atypical chest discomfort (accompanied with palpitation) after completion of hemodialysis. She is Azeri speaking and information was obtained by using an intelligence clerk. Denies any kind of exertional component to discomfort. She comes to our office as outpatient for cardiology management. She did have stress test with [facility] around a year and a half ago. Does have baseline history of end-stage renal disease and is on hemodialysis. Is on transplant list in [place]. Had been wearing monitor as outpatient to rule out arrhythmia. Does have baseline history of diabetes mellitus and blindness. Cardiology is involved for cardiac aspects of care. It is of note that the patient did have moderate pericardial effusion in October 2024 which improved later in February 2025. Home Meds Active Scripts Carvedilol (Carvedilol) 12.5 Mg Tab, 0.5 TAB PO BID, #30 TAB 1 Refill Prov:SANAM JOHNSTON 03/22/25 Sucralfate (Sucralfate) 1 Gm Tab, 1 GM PO BID for 15 Days, #30 TAB [facility] Docusate Sodium (Docusate Sodium) 100 Mg Cap, 100 MG PO BIDPRN PRN for 30 Days, #60 CAP [facility] 01/05/25 Metoclopramide Hcl (Reglan) 10 Mg Tab, 10 MG PO BIDPRN PRN for 10 Days, #20 TAB [facility]25 Amoxicillin & Pot Clavulanate (AUGMENTIN TABLET) 875 Mg Tb, 875 MG PO BID for 3 Days, #6 TAB Prov:[facility] 01/05/25 Sucralfate (CARAFATE SUSP) 1 Gm/10 Ml Ss, 10 ML PO QID, #1200 ML 3 Refills Prov:PRASANNA KOENIG MD 10/17/24 Ondansetron Odt 4MG Tab (ZOFRAN PO) 4 Mg Tb, 4 MG PO Q6HP PRN for 7 Days, #16 TAB ODT TAB-DISSOLVE IN MOUTH, THEN SWALLOW Prov:SANAM JOHNSTON RESIDENT 08/28/24 Reported Medications Acetaminophen (Tylenol Extra Strength) 500 Mg Tab, 500 MG PO, TAB 03/20/25 Furosemide (Furosemide) 40 Mg Tab, 1 TAB PO DAILY 10/05/24 Ferrous Sulfate (Ferosul) 325 Mg Tab, 1 TAB PO BID 10/05/24 Dicyclomine Hcl (BENTYL CAPSULE) 10 Mg Cp, 1 CAP PO BIDPRN PRN 10/05/24 Lidocaine-Prilocaine (Lidocaine/Prilocaine) 1 Kit Kit, 1 KIT EX DAILY for 30 Days, #30 08/27/24 Hydroxyzine Pamoate (Hydroxyzine Pamoate) 25 Mg Cap, 1 CAP PO DAILYPRN for 30 Days, #30 08/27/24 Famotidine (Famotidine) 20 Mg Tab, 1 TAB PO DAILY PRN for HEARTBURN for 90 Days, #90 08/27/24 Guanfacine Hcl (Guanfacine Hcl) 1 Mg Tab, 1 TAB PO DAILY for 90 Days, #90 08/27/24 Losartan Potassium (Losartan Potassium) 100 Mg Tab, 1 TAB PO DAILY for 100 Days, #100 08/27/24 Ergocalciferol (Vitamin D) 50,000 Unit Cap, 1 CAP PO QWEEKLY for 84 Days, #12 08/27/24 Chlorthalidone (Chlorthalidone) 25 Mg Tab, 1 TAB PO DAILY for 30 Days, #30 08/27/24 B-Complex W/ C & Folic Acid (Ernestina-Kaylie Rx) Tab, 1 TAB PO DAILY for 90 Days, #90 08/27/24 Semaglutide (Ozempic) 2 Mg/3 Ml Inj, 0.5 MG SC Q7D for 28 Days, #3 08/27/24 Fluticasone Propionate (Nasal) (Fluticasone Propionate) 50 Mcg/Act Spr, SPRAY NA S UD for 30 Days, #16 08/27/24 Triamcinolone Acetonide (Kenalog) 1 Applic Ap, 1 APPLIC TOP UD for 30 Days, #45 08/27/24 Omeprazole (Gnp Omeprazole) 20 Mg Tab, 1 TAB PO DAILY for 30 Days, #30 08/27/24 Ketoconazole (Ketoconazole) 2 % Sha, UD for 30 Days, #120 08/27/24 Amlodipine Besylate (Amlodipine Besylate) 5 Mg Tab, 1 TAB PO DAILY for 90 Days, #90 06/23/24 Metoprolol Tartrate (LOPRESSOR TABLET) 50 Mg Tb, 1 TAB PO BID for 90 Days, #180 06/23/24 Past Medical History Others Past medical history includes hypertension, hyperlipidemia, obesity, diabetes mellitus, anemia, end-stage renal disease on hemodialysis, diastolic heart failure, obesity, GERD, peptic ulcer disease, chronic low back pain, constipation, history of small hiatal hernia, old history of pericardial effusion, status post left arm AVM placement (for hemodialysis access) and chronic blindness secondary to diabetes mellitus. Lives at home with . Denies drug/alcohol abuse. Denies smoking. As per patient, she is on transplant list in [place] (for kidney transplant). Reportedly, the patient had ischemic workup/stress test in [facility] less than 2 years ago (detailed report is not available to review) Family History: No pertinent Hx Patient Family History: Cardiovascular disease G8 FATHER, (HEART ATTACK) FH: [place] (myocardial infarction) G8 FATHER FH: cancer G8 MOTHER Smoker: No Hx (Negative) Alocohol: None Drugs: None Lives with: With family Review of Systems Constitutional: No symptom reported Ears, Nose, & Throat: No symptom reported Eyes: No symptom reported Cardiovascular: Chest Pain, Palpitations Gastrointestinal: No symptom reported All Other Systems Fourteen point review of system was performed. Relevant findings as per above and as per HPI. Otherwise negative. H&P Exam Vital Signs Vital Signs Date Time Temp Pulse Resp B/P (MAP) Pulse Ox O2 Delivery O2 Flow Rate FiO2 04/17/25 05:00 97.7 54 17 141/56 (84) 99 97.7 04/16/25 20:00 Room Air* 0 21 Head Exam: Normal inspection Pulmonary/Respiratory: Rhonci Cardiovascular/Chest: Regular rate, Systolic murmur Peripheral Pulses: 2+ carotid (R), 2+ carotid (L) Abdominal Exam: Normal bowel sounds, Soft Neuro/Mental St: Alert Eye contact/ Speech: Cooperative Labs/Xrays Labs Test 04/16/25 21:56 04/16/25 05:30 04/15/25 17:16 04/15/25 15:21 Range/Units Influenza Type A Antigen Negative Negative Influenza Type B Antigen Negative Negative Troponin I High Sensitivity 50 *H </=34 ng/L Plasma/Serum Blood Alcohol < 3.0 <10 mg/dL Prothrombin Time 11.6 9.3-11.8 sec Prothrombin Time INR 1.11 0.9-1.15 Activated Partial Thromboplast Time 29.3 24.5-34.5 SEC Ferritin 1775.6 H 10-291 ng/mL Total Bilirubin 0.6 0.2-1.0 mg/dL Direct Bilirubin 0.2 <0.3 mg/dL Aspartate Amino Transferase (AST) 40 13-40 U/L Alanine Aminotransferase (ALT) 49 H 7-40 U/L Alkaline Phosphatase 188 H 46-116 U/L Total Protein 7.6 5.7-8.2 g/dL Albumin 4.6 3.2-4.8 g/dL Vitamin B12 Level 1534 H 211-911 pg/mL Folic Acid > 48.00 >5.38 ng/mL Test 04/15/25 13:29 04/15/25 12:28 Range/Units Magnesium Level 2.1 1.6-2.6 mg/dL Iron Level 98 50-170 ug/dL Total Iron Binding Capacity 206 L 250-425 ug/dL Percent Iron Saturation 47.6 15-50 % White Blood Count 4.2 L 4.4-10.8 10^3/uL Red Blood Count 3.69 L 4.0-5.20 10^6/uL Hemoglobin 13.0 12.2-16.2 g/dL Hematocrit 37.6 36.0-46.0 % Mean Corpuscular Volume 101.9 H 80.0-100.0 fL Mean Corpuscular Hemoglobin 35.1 H 28.0-32.0 pg Mean Corpuscular Hemoglobin Concent 34.5 32.0-36.0 g/dL Red Cell Distribution Width 19.8 H 11.8-14.3 % Platelet Count 76 L 140-450 10^3/uL Mean Platelet Volume 9.0 6.9-10.8 fL Neutrophils (%) (Auto) 44.6 37.0-80.0 % Lymphocytes (%) (Auto) 40.5 10.0-50.0 % Monocytes (%) (Auto) 11.2 0.0-12.0 % Eosinophils (%) (Auto) 3.1 0.0-7.0 % Basophils (%) (Auto) 0.6 0.0-2.0 % Neutrophils # (Auto) 1.9 1.6-8.6 10 ^3/uL Lymphocytes # (Auto) 1.7 0.4-5.4 10 ^3/uL Monocytes # (Auto) 0.5 0-1.3 10 ^3/uL Eosinophils # (Auto) 0.1 0-0.8 10 ^3/uL Basophils # (Auto) 0 0-0.2 10 ^3/uL Nucleated Red Blood Cells 0.1 % Reticulocyte Count (auto) 2.63 H 0.5-1.5 % Sodium Level 137 136-145 mmol/L Potassium Level 3.4 L 3.5-5.1 mmol/L Chloride Level 95 L 98-107 mmol/L Carbon Dioxide Level 30 20-31 mmol/L Anion Gap 12 5-15 Blood Urea Nitrogen 22 9-23 mg/dL Creatinine 3.56 H 0.550-1.02 mg/dL Glomerular Filtration Rate Calc 14 >90 mL/min BUN/Creatinine Ratio 6.2 L 10.0-20.0 Serum Glucose 94 74-106 mg/dL Calcium Level 9.0 8.7-10.4 mg/dL B-Type Natriuretic Peptide 447.70 0-100 pg/mL Assessment/Plan Plan Patient is a 59-year-old female who presented with atypical chest discomfort (accompanied with palpitation) after completion of hemodialysis. She is Azeri speaking and information was obtained by using an intelligence clerk. Denies any kind of exertional component to discomfort. She comes to our office as outpatient for cardiology management. She did have stress test with [facility] around a year and a half ago. Does have baseline history of end-stage renal disease and is on hemodialysis. Is on transplant list in [place]. Had been wearing monitor as outpatient to rule out arrhythmia. Does have baseline history of diabetes mellitus and blindness. Cardiology is involved for cardiac aspects of care. It is of note that the patient did have moderate pericardial effusion in October 2024 which improved later in February 2025. Not in acute distress. Lying in bed. Not using accessory muscles of breathing. Mucosa is pink and wet. No carotid bruit. Scattered rhonchi in the lungs is heard. Cardiac: Regular, no thrill. Systolic murmur 2/6 in apex is heard. Abdomen is soft. Bowel sound is positive. There was no abdominal tenderness. There was no gross mass/hepatomegaly. Bilateral 1+ edema in lower extremities is present. 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 Lives at home with . Denies drug/alcohol abuse. Denies smoking. As per patient, she is on transplant list in [place] (for kidney transplant). Reportedly, the patient had ischemic workup/stress test in [facility] less than 2 years ago (detailed report is not available to review) Echocardiogram of November 14, 2024 reported ejection fraction of 50-55% and moderate pericardial effusion Echocardiogram of March 20, 2025 reported technically limited study, concentric left ventricular hypertrophy, left atrial enlargement, right atrium phalangeal mi, ejection fraction of 60% (images reviewed there was no significant pericardial effusion) WBC: 4.2 Hemoglobin: 13 Platelet: 76 Creatinine: 3.56 Potassium: 3.4 Troponin (high sensitive): 42 - 47 - 44 - 50 BNP: 447.70 Chest x-ray reported: IMPRESSION: Cardiomegaly with pulmonary vascular congestion and bilateral perihilar airspace opacities. EKG reveals sinus rhythm with no specific ST-T changes Telemetry reveals sinus rhythm Patient is a 59-year-old female with history of diabetes mellitus, hypertension/hyperlipidemia and end-stage renal disease who presented with atypical chest discomfort. Did have palpitation during the episodes. High sensitive troponin has been minimally elevated (flat). Presentation is not considered acute coronary syndrome. Arrhythmia can be considered in long-term monitor is advised for its evaluation. Telemetry in the hospital has not revealed any arrhythmia presently. Does have history of pericardial effusion which needs to be rechecked. Atypical chest pain Palpitation Minimally elevated/flat troponin (consider demand physiology at this point) End-stage renal disease on hemodialysis Diabetes mellitus Hypertension Hyperlipidemia Thrombocytopenia Diastolic heart failure, history of Pericardial effusion, history of Cardiac suggestion for management: Managed on telemetry Follow-up electrolytes and kidney function tests and correct abnormalities Request for Echocardiogram Request for D-dimer If no significant finding echocardiogram, cardiac-herrmann the patient can be followed as outpatient for outpatient elective, ischemic workup and long-term monitor Further evaluation and management depends on the above and clinical course Thank you for consultation A total of 75 minutes was spent reviewing the patient record, examining the patient, making a diagnostic and therapeutic plan, discussing this plan with medical personnel, following up on diagnostic studies and following the patient for clinical stability excluding any and all procedures. At least 50% of this time was spent in direct, [id number] contact. Thank you for allowing me to participate in this patient's care. Further recommendations will depend on patient's clinical course. Please do not hesitate to contact me if you have any questions or concerns. This medical document was created using electronic medical record system with [employer] computerized dictation system. Although this document has been carefully reviewed, there may still be some phonetic and typographical errors. These areas are purely typographical due to the imperfection of the software programs, and do not reflect any compromise in the patient's medical care Plan discussed with: Patient (with the help of translater), Other (nurse) KISHA SCHAFFER MD Apr 17, 2025 09:41
--- NOTE | 2025-04-17 09:44 | DVHPN2 ---
Reviewed: Care Plan, H&P, Labs, Medications, Previous Orders, Radiology Changes from previous H/P or p: No Changes Eyes: No Pain, No Vision change, No Conjunctivae inflammation, No Eyelid inflammation, No Other, No Redness ENT: No Ear pain, No Ear discharge, No Nose pain, No Nose discharge, No Nose congestion, No Mouth pain, No Mouth swelling, No Throat pain, No Throat swelling, No Other Cardiovascular: Chest Pain; No Palpitations, No Orthopnea, No Paroxysmal Noc. Dyspnea, No Edema, No Lt Headedness, No Other Respiratory: No Cough, No Dry, No Shortness of breath, No SOB with excertion, No Wheezing, No Hemoptysis; Pleuritic Pain; No Sputum, No Other Gastrointestinal: No Nausea, No Vomiting, No Abdominal Pain, No Diarrhea, No Constipation, No Melena, No Hematochezia, No Other Genitourinary: No Dysuria, No Frequency, No Incontinence, No Hematuria, No Retention, No Other Musculoskeletal: No other, No neck pain, No shoulder pain, No arm pain, No back pain, No hand pain, No leg pain, No foot pain Skin: No Rash, No Lesions, No Jaundice, No Bruising, No Other Objective Vitals Vital Signs Date Time Temp Pulse Resp B/P (MAP) Pulse Ox O2 Delivery O2 Flow Rate FiO2 04/17/25 05:00 97.7 54 17 141/56 (84) 99 97.7 04/16/25 20:00 Room Air* 0 21 Intake/Output Intake and Output 04/17/25 07:00 Intake Total 1225 ml Balance 1225 ml Intake Oral 1225 ml # Bowel Movements 3 Medications Current Medications Medications Dose Ordered Sig/Kana Route Start Time Stop Time Status Last Admin Dose Admin Nitroglycerin 0.4 mg Q5MINP PRN SL 04/15/25 14:15 04/15/25 23:52 0.4 MG Morphine Sulfate 2 mg Q30M PRN IV 04/15/25 14:15 Atorvastatin Calcium 40 mg HS PO 04/16/25 22:00 04/16/25 21:17 40 MG Pantoprazole Sodium 40 mg DAILY IV 04/16/25 10:00 04/17/25 08:30 40 MG Aspirin 81 mg DAILY PO 04/16/25 10:00 04/16/25 10:49 81 MG Amlodipine Besylate 10 mg DAILY PO 04/16/25 10:00 04/16/25 10:50 10 MG Magnesium Oxide 400 mg BID PO 04/15/25 22:00 04/17/25 08:32 400 MG Sucralfate 1 gm QIDACHS PO 04/15/25 22:00 04/17/25 08:32 1 GM Acetaminophen 650 mg Q4HP PRN PO 04/16/25 02:15 04/16/25 20:00 650 MG Hydralazine HCl 10 mg Q4HP PRN IV 04/16/25 02:15 04/16/25 03:16 10 MG Ceftriaxone Sodium 50 ml @ 100 mls/hr DAILY@09 IV 04/17/25 09:00 04/17/25 08:30 100 MLS/HR Azithromycin 250 ml @ 125 mls/hr DAILY IV 04/17/25 10:00 04/17/25 08:30 125 MLS/HR Laboratory Results Laboratory Tests 04/15/25 12:28 Labs and/or images reviewed: Labs reviewed by me, Image(s) reviewed by me Assessment/Plan Assessment/Plan Chest pain with multiple cardiac risk factors troponin borderline elevated, consult for Cardiology Dr. Sharma ESRD on hemodialysis consult for Dr. Lynn Community-acquired pneumonia Gram-positive versus Gram-negative: Rocephin azithromycin Hypercholesterolemia Hypertension Uncontrolled diabetes: Insulin sliding scale Recent loop recorder placement by PCP five days back D-dimer pending Echocardiogram pending Time Spent 50 minutes Advanced care planning time 20 minutes Patient is full code Plan discussed with: Patient My Orders Orders - GLENN DORANTES MD Procedure Category Date Status Time Ceftriaxone 1gm/50ml PHA 04/17/25 In Process (Rocephin) 09:00 Azithromycin PHA 04/17/25 In Process 500mg/250ml 10:00 Date of Service: Apr 17, 2025 Billing Provider: GLENN DORANTES MD Common Visit Codes: [id number] INP/OBS CARE(HIGH) GLENN DORANTES MD Apr 17, 2025 09:44
--- NOTE | 2025-04-17 14:38 | DVHPN2 ---
Progress Note - Dictate Date Seen: Apr 17, 2025 Medical Necessity Reason Pt with a Central, PICC or Fol: No Subjective no new symptoms vital signs Vital Sign Date Time Temp Pulse Resp B/P (MAP) Pulse Ox O2 Delivery O2 Flow Rate FiO2 04/17/25 13:00 98.6 59 18 131/50 (77) 100 98.6 04/17/25 08:00 Room Air* 0 21 Total Intake and Output 04/16/25 04/16/25 04/17/25 15:00 23:00 07:00 Intake Total 575 ml 650 ml Balance 575 ml 650 ml medications Current Medications Medications Dose Ordered Sig/Kana Route Start Time Stop Time Status Last Admin Dose Admin Nitroglycerin 0.4 mg Q5MINP PRN SL 04/15/25 14:15 04/15/25 23:52 0.4 MG Morphine Sulfate 2 mg Q30M PRN IV 04/15/25 14:15 Atorvastatin Calcium 40 mg HS PO 04/16/25 22:00 04/16/25 21:17 40 MG Pantoprazole Sodium 40 mg DAILY IV 04/16/25 10:00 04/17/25 08:30 40 MG Aspirin 81 mg DAILY PO 04/16/25 10:00 04/16/25 10:49 81 MG Amlodipine Besylate 10 mg DAILY PO 04/16/25 10:00 04/16/25 10:50 10 MG Magnesium Oxide 400 mg BID PO 04/15/25 22:00 04/17/25 08:32 400 MG Sucralfate 1 gm QIDACHS PO 04/15/25 22:00 04/17/25 08:32 1 GM Acetaminophen 650 mg Q4HP PRN PO 04/16/25 02:15 04/16/25 20:00 650 MG Hydralazine HCl 10 mg Q4HP PRN IV 04/16/25 02:15 04/16/25 03:16 10 MG Ceftriaxone Sodium 50 ml @ 100 mls/hr DAILY@09 IV 04/17/25 09:00 04/17/25 08:30 100 MLS/HR Azithromycin 250 ml @ 125 mls/hr DAILY IV 04/17/25 10:00 04/17/25 08:30 125 MLS/HR objective Gen: NAD HEENT: NC, AT Lungs: Crackles lung bases Cardiac: RRR, no murmur Abd: soft, no distention Neuro: no focal deficits Ext: no edema + left arm AVG laboratory and microbiology Laboratory Tests 04/15/25 12:28 Test 04/15/25 12:28 Range/Units Serum Glucose 94 74-106 mg/dL Assessment/Plan ESRD on HD via left arm AVG Chest pain r/o ACS HTN HLD Community acquired pneumonia hypokalemia Anemia of CKD Secondary hyperparathyroidism Hyperphosphatemia Plan: scheduled for HD today will continue HD on MWF schedule Cardiology consult CHRISTIE post HD as needed. goal Hb: 10-11 g/dl fluid restriction Antibiotics per primary team Plan discussed with: Patient INDY BAKER MD Apr 17, 2025 14:38
[2025-04-18] VITALS (8 sets, daily range): BP systolic 123–158; BP diastolic 53–77; PULSE 56–71; RESP 18; TEMP 97.4–98.5; O2SAT 94–98
--- NOTE | 2025-04-18 07:20 | DVHPN2 ---
Progress Note - Dictate Date Seen: Apr 18, 2025 Medical Necessity Reason Pt with a Central, PICC or Fol: No vital signs Vital Sign Date Time Temp Pulse Resp B/P (MAP) Pulse Ox O2 Delivery O2 Flow Rate FiO2 04/18/25 05:00 97.5 60 18 123/53 (76) 94 97.5 04/17/25 20:00 Room Air* 0 21 Total Intake and Output 04/17/25 04/17/25 04/18/25 15:00 23:00 07:00 Intake Total 300 ml 600 ml 240 ml Output Total 0 ml 100 ml Balance 300 ml 600 ml 140 ml medications Current Medications Medications Dose Ordered Sig/Kana Route Start Time Stop Time Status Last Admin Dose Admin Nitroglycerin 0.4 mg Q5MINP PRN SL 04/15/25 14:15 04/15/25 23:52 0.4 MG Morphine Sulfate 2 mg Q30M PRN IV 04/15/25 14:15 Atorvastatin Calcium 40 mg HS PO 04/16/25 22:00 04/17/25 21:27 40 MG Pantoprazole Sodium 40 mg DAILY IV 04/16/25 10:00 04/17/25 08:30 40 MG Aspirin 81 mg DAILY PO 04/16/25 10:00 04/17/25 10:00 81 MG Amlodipine Besylate 10 mg DAILY PO 04/16/25 10:00 04/17/25 10:00 10 MG Magnesium Oxide 400 mg BID PO 04/15/25 22:00 04/17/25 21:27 400 MG Sucralfate 1 gm QIDACHS PO 04/15/25 22:00 04/18/25 06:26 1 GM Acetaminophen 650 mg Q4HP PRN PO 04/16/25 02:15 04/17/25 20:24 650 MG Hydralazine HCl 10 mg Q4HP PRN IV 04/16/25 02:15 04/16/25 03:16 10 MG Ceftriaxone Sodium 50 ml @ 100 mls/hr DAILY@09 IV 04/17/25 09:00 04/17/25 08:30 100 MLS/HR Azithromycin 250 ml @ 125 mls/hr DAILY IV 04/17/25 10:00 04/17/25 08:30 125 MLS/HR laboratory and microbiology Laboratory Tests 04/15/25 12:28 Test 04/15/25 12:28 Range/Units Serum Glucose 94 74-106 mg/dL Assessment/Plan Patient is a 59-year-old female who presented with atypical chest discomfort (accompanied with palpitation) after completion of hemodialysis. She is Maltese speaking and information was obtained by using an staff interpreter. Denies any kind of exertional component to discomfort. She comes to our office as outpatient for cardiology management. She did have stress test with [facility] around a year and a half ago. Does have baseline history of end-stage renal disease and is on hemodialysis. Is on transplant list in [place]. Had been wearing monitor as outpatient to rule out arrhythmia. Does have baseline history of diabetes mellitus and blindness. Cardiology is involved for cardiac aspects of care. It is of note that the patient did have moderate pericardial effusion in October 2024 which improved later in February 2025. Not in acute distress. Lying in bed. Not using accessory muscles of breathing. Mucosa is pink and wet. No carotid bruit. Scattered rhonchi in the lungs is heard. Cardiac: Regular, no thrill. Systolic murmur 2/6 in apex is heard. Abdomen is soft. Bowel sound is positive. There was no abdominal tenderness. There was no gross mass/hepatomegaly. Bilateral 1+ edema in lower extremities is present. 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 Lives at home with . Denies drug/alcohol abuse. Denies smoking. As per patient, she is on transplant list in [place] (for kidney transplant). Reportedly, the patient had ischemic workup/stress test in [facility] less than 2 years ago (detailed report is not available to review) Echocardiogram of November 14, 2024 reported ejection fraction of 50-55% and moderate pericardial effusion Echocardiogram of March 20, 2025 reported technically limited study, concentric left ventricular hypertrophy, left atrial enlargement, right atrium phalangeal mi, ejection fraction of 60% (images reviewed there was no significant pericardial effusion) WBC: 4.2 Hemoglobin: 13 Platelet: 76 Creatinine: 3.56 Potassium: 3.4 Troponin (high sensitive): 42 - 47 - 44 - 50 BNP: 447.70 Chest x-ray reported: IMPRESSION: Cardiomegaly with pulmonary vascular congestion and bilateral perihilar airspace opacities. EKG reveals sinus rhythm with no specific ST-T changes Telemetry reveals sinus rhythm Patient is a 59-year-old female with history of diabetes mellitus, hypertension/hyperlipidemia and end-stage renal disease who presented with atypical chest discomfort. Did have palpitation during the episodes. High sensitive troponin has been minimally elevated (flat). Presentation is not considered acute coronary syndrome. Arrhythmia can be considered in long-term monitor is advised for its evaluation. Telemetry in the hospital has not revealed any arrhythmia presently. Does have history of pericardial effusion which needs to be rechecked. Assessment: Atypical chest pain Palpitations Minimally elevated/flat troponin (consider demand physiology at this point) End-stage renal disease on hemodialysis Diabetes mellitus Hypertension Hyperlipidemia Thrombocytopenia Diastolic heart failure, history of Pericardial effusion, history of Cardiac suggestion for management: Managed on telemetry Follow-up electrolytes and kidney function tests and correct abnormalities Request for Echocardiogram Request for D-dimer If no significant finding echocardiogram, cardiac-herrmann the patient can be followed as outpatient for outpatient elective, ischemic workup and long-term monitor Further evaluation and management depends on the above and clinical course Thank you for consultation A total of 75 minutes was spent reviewing the patient record, examining the patient, making a diagnostic and therapeutic plan, discussing this plan with medical personnel, following up on diagnostic studies and following the patient for clinical stability excluding any and all procedures. At least 50% of this time was spent in direct, [id number] contact. Thank you for allowing me to participate in this patient's care. Further recommendations will depend on patient's clinical course. Please do not hesitate to contact me if you have any questions or concerns. This medical document was created using electronic medical record system with [employer] computerized dictation system. Although this document has been carefully reviewed, there may still be some phonetic and typographical errors. These areas are purely typographical due to the imperfection of the software programs, and do not reflect any compromise in the patient's medical care Plan discussed with: Patient RAGHAVENDRA,VITO NP Apr 18, 2025 07:20
--- NOTE | 2025-04-18 07:21 | DVHPN2 ---
Progress Note - Dictate Date Seen: Apr 18, 2025 Medical Necessity Reason Pt with a Central, PICC or Fol: No Subjective no new symptoms vital signs Vital Sign Date Time Temp Pulse Resp B/P (MAP) Pulse Ox O2 Delivery O2 Flow Rate FiO2 04/18/25 05:00 97.5 60 18 123/53 (76) 94 97.5 04/17/25 20:00 Room Air* 0 21 Total Intake and Output 04/17/25 04/17/25 04/18/25 15:00 23:00 07:00 Intake Total 300 ml 600 ml 240 ml Output Total 0 ml 100 ml Balance 300 ml 600 ml 140 ml medications Current Medications Medications Dose Ordered Sig/Kana Route Start Time Stop Time Status Last Admin Dose Admin Nitroglycerin 0.4 mg Q5MINP PRN SL 04/15/25 14:15 04/15/25 23:52 0.4 MG Morphine Sulfate 2 mg Q30M PRN IV 04/15/25 14:15 Atorvastatin Calcium 40 mg HS PO 04/16/25 22:00 04/17/25 21:27 40 MG Pantoprazole Sodium 40 mg DAILY IV 04/16/25 10:00 04/17/25 08:30 40 MG Aspirin 81 mg DAILY PO 04/16/25 10:00 04/17/25 10:00 81 MG Amlodipine Besylate 10 mg DAILY PO 04/16/25 10:00 04/17/25 10:00 10 MG Magnesium Oxide 400 mg BID PO 04/15/25 22:00 04/17/25 21:27 400 MG Sucralfate 1 gm QIDACHS PO 04/15/25 22:00 04/18/25 06:26 1 GM Acetaminophen 650 mg Q4HP PRN PO 04/16/25 02:15 04/17/25 20:24 650 MG Hydralazine HCl 10 mg Q4HP PRN IV 04/16/25 02:15 04/16/25 03:16 10 MG Ceftriaxone Sodium 50 ml @ 100 mls/hr DAILY@09 IV 04/17/25 09:00 04/17/25 08:30 100 MLS/HR Azithromycin 250 ml @ 125 mls/hr DAILY IV 04/17/25 10:00 04/17/25 08:30 125 MLS/HR objective Gen: NAD HEENT: NC, AT Lungs: Crackles lung bases Cardiac: RRR, no murmur Abd: soft, no distention Neuro: no focal deficits Ext: no edema + left arm AVG laboratory and microbiology Laboratory Tests 04/15/25 12:28 Test 04/15/25 12:28 Range/Units Serum Glucose 94 74-106 mg/dL Assessment/Plan ESRD on HD via left arm AVG Chest pain r/o ACS HTN HLD Community acquired pneumonia hypokalemia Anemia of CKD Secondary hyperparathyroidism Hyperphosphatemia Plan: s/p HD yesterday. net UF 2 L Next HD on Sunday will continue HD on MWF schedule Cardiology consult CHRISTIE post HD as needed. goal Hb: 10-11 g/dl fluid restriction Antibiotics per primary team Plan discussed with: Patient INDY BAKER MD Apr 18, 2025 07:20
--- NOTE | 2025-04-18 09:16 | DVHPN2 ---
Reviewed: Care Plan, H&P, Labs, Medications, Previous Orders, Radiology Changes from previous H/P or p: No Changes Eyes: No Pain, No Vision change, No Conjunctivae inflammation, No Eyelid inflammation, No Other, No Redness ENT: No Ear pain, No Ear discharge, No Nose pain, No Nose discharge, No Nose congestion, No Mouth pain, No Mouth swelling, No Throat pain, No Throat swelling, No Other Cardiovascular: Chest Pain; No Palpitations, No Orthopnea, No Paroxysmal Noc. Dyspnea, No Edema, No Lt Headedness, No Other Respiratory: No Cough, No Dry, No Shortness of breath, No SOB with excertion, No Wheezing, No Hemoptysis; Pleuritic Pain; No Sputum, No Other Gastrointestinal: No Nausea, No Vomiting, No Abdominal Pain, No Diarrhea, No Constipation, No Melena, No Hematochezia, No Other Genitourinary: No Dysuria, No Frequency, No Incontinence, No Hematuria, No Retention, No Other Musculoskeletal: No other, No neck pain, No shoulder pain, No arm pain, No back pain, No hand pain, No leg pain, No foot pain Skin: No Rash, No Lesions, No Jaundice, No Bruising, No Other Objective Vitals Vital Signs Date Time Temp Pulse Resp B/P (MAP) Pulse Ox O2 Delivery O2 Flow Rate FiO2 04/18/25 05:00 97.5 60 18 123/53 (76) 94 97.5 04/17/25 20:00 Room Air* 0 21 Intake/Output Intake and Output 04/18/25 07:00 Intake Total 1140 ml Output Total 100 ml Balance 1040 ml Intake Oral 840 ml IV Total 300 ml Output Urine Total 100 ml # Bowel Movements 1 Medications Current Medications Medications Dose Ordered Sig/Kana Route Start Time Stop Time Status Last Admin Dose Admin Nitroglycerin 0.4 mg Q5MINP PRN SL 04/15/25 14:15 04/15/25 23:52 0.4 MG Morphine Sulfate 2 mg Q30M PRN IV 04/15/25 14:15 Atorvastatin Calcium 40 mg HS PO 04/16/25 22:00 04/17/25 21:27 40 MG Pantoprazole Sodium 40 mg DAILY IV 04/16/25 10:00 04/17/25 08:30 40 MG Aspirin 81 mg DAILY PO 04/16/25 10:00 04/17/25 10:00 81 MG Amlodipine Besylate 10 mg DAILY PO 04/16/25 10:00 04/17/25 10:00 10 MG Magnesium Oxide 400 mg BID PO 04/15/25 22:00 04/17/25 21:27 400 MG Sucralfate 1 gm QIDACHS PO 04/15/25 22:00 04/18/25 06:26 1 GM Acetaminophen 650 mg Q4HP PRN PO 04/16/25 02:15 04/17/25 20:24 650 MG Hydralazine HCl 10 mg Q4HP PRN IV 04/16/25 02:15 04/16/25 03:16 10 MG Ceftriaxone Sodium 50 ml @ 100 mls/hr DAILY@09 IV 04/17/25 09:00 04/17/25 08:30 100 MLS/HR Azithromycin 250 ml @ 125 mls/hr DAILY IV 04/17/25 10:00 04/17/25 08:30 125 MLS/HR Laboratory Results Laboratory Tests 04/15/25 12:28 Coagulation Test 04/17/25 09:40 D-Dimer, Quantitative 0.33 mg/L FEU (0.0-0.49) Labs and/or images reviewed: Labs reviewed by me, Image(s) reviewed by me Assessment/Plan Assessment/Plan Chest pain with multiple cardiac risk factors troponin borderline elevated, consult for Cardiology Dr. Zachary trinidad, D-dimer normal echocardiogram result pending ESRD on hemodialysis consult for Dr. Lynn Community-acquired pneumonia Gram-positive versus Gram-negative: Rocephin azithromycin Hypercholesterolemia Hypertension Uncontrolled diabetes: Insulin sliding scale Recent loop recorder placement by PCP five days back D-dimer pending Echocardiogram pending Time Spent 50 minutes Advanced care planning time 20 minutes Patient is full code Examined through the help of team physician Plan discussed with: Patient Date of Service: Apr 18, 2025 Billing Provider: GLENN DORANTES MD Common Visit Codes: [id number] INP/OBS CARE(HIGH) GLENN DORANTES MD Apr 18, 2025 09:16
[2025-04-19 01:00] VITALS: BP 132/55; PULSE 61; RESP 18; TEMP 97.5; O2SAT 95
[2025-04-19 05:00] VITALS: BP 111/83; PULSE 57; RESP 18; TEMP 97.4; O2SAT 96
[2025-04-19 08:00] VITALS: PULSE 60
[2025-04-19 09:27] VITALS: BP 163/74; PULSE 63; RESP 16; TEMP 98.2; O2SAT 97
--- NOTE | 2025-04-19 09:56 | DVHPN2 ---
Reviewed: Care Plan, H&P, Labs, Medications, Previous Orders, Radiology Changes from previous H/P or p: No Changes Eyes: No Pain, No Vision change, No Conjunctivae inflammation, No Eyelid inflammation, No Other, No Redness ENT: No Ear pain, No Ear discharge, No Nose pain, No Nose discharge, No Nose congestion, No Mouth pain, No Mouth swelling, No Throat pain, No Throat swelling, No Other Cardiovascular: Chest Pain; No Palpitations, No Orthopnea, No Paroxysmal Noc. Dyspnea, No Edema, No Lt Headedness, No Other Respiratory: No Cough, No Dry, No Shortness of breath, No SOB with excertion, No Wheezing, No Hemoptysis; Pleuritic Pain; No Sputum, No Other Gastrointestinal: No Nausea, No Vomiting, No Abdominal Pain, No Diarrhea, No Constipation, No Melena, No Hematochezia, No Other Genitourinary: No Dysuria, No Frequency, No Incontinence, No Hematuria, No Retention, No Other Musculoskeletal: No other, No neck pain, No shoulder pain, No arm pain, No back pain, No hand pain, No leg pain, No foot pain Skin: No Rash, No Lesions, No Jaundice, No Bruising, No Other Objective Vitals Vital Signs Date Time Temp Pulse Resp B/P (MAP) Pulse Ox O2 Delivery O2 Flow Rate FiO2 04/19/25 09:32 163/74 04/19/25 09:27 98.2 63 16 97 98.2 04/19/25 07:57 Room Air* 0 21 Intake/Output Intake and Output 04/19/25 07:00 Intake Total 2080 ml Output Total 700 ml Balance 1380 ml Intake Oral 1780 ml IV Total 300 ml Output Urine Total 700 ml Medications Current Medications Medications Dose Ordered Sig/Kana Route Start Time Stop Time Status Last Admin Dose Admin Nitroglycerin 0.4 mg Q5MINP PRN SL 04/15/25 14:15 04/15/25 23:52 0.4 MG Morphine Sulfate 2 mg Q30M PRN IV 04/15/25 14:15 Atorvastatin Calcium 40 mg HS PO 04/16/25 22:00 04/18/25 22:32 40 MG Pantoprazole Sodium 40 mg DAILY IV 04/16/25 10:00 04/18/25 10:59 40 MG Aspirin 81 mg DAILY PO 04/16/25 10:00 04/19/25 09:32 81 MG Amlodipine Besylate 10 mg DAILY PO 04/16/25 10:00 04/19/25 09:32 10 MG Magnesium Oxide 400 mg BID PO 04/15/25 22:00 04/19/25 09:32 400 MG Sucralfate 1 gm QIDACHS PO 04/15/25 22:00 04/19/25 06:28 1 GM Acetaminophen 650 mg Q4HP PRN PO 04/16/25 02:15 04/17/25 20:24 650 MG Hydralazine HCl 10 mg Q4HP PRN IV 04/16/25 02:15 04/16/25 03:16 10 MG Ceftriaxone Sodium 50 ml @ 100 mls/hr DAILY@09 IV 04/17/25 09:00 04/19/25 09:31 100 MLS/HR Azithromycin 250 ml @ 125 mls/hr DAILY IV 04/17/25 10:00 04/19/25 09:32 125 MLS/HR Laboratory Results Laboratory Tests 04/15/25 12:28 Labs and/or images reviewed: Labs reviewed by me, Image(s) reviewed by me Assessment/Plan Assessment/Plan Noncardiac chest pain troponin borderline elevated, consult for Cardiology Dr. Sharma treated, D-dimer normal echocardiogram 03/20/2025 shows 60 % ejection fraction, cleared for discharge by Cardiology ESRD on hemodialysis consult for Dr. Lynn Community-acquired pneumonia Gram-positive versus Gram-negative: Rocephin azithromycin Hypercholesterolemia Hypertension Uncontrolled diabetes: Insulin sliding scale Recent loop recorder placement by PCP five days back D-dimer normal Time Spent 50 minutes Advanced care planning time 20 minutes Patient is full code Examined through the help of drafting supervisor Plan discussed with: Patient Date of Service: Apr 19, 2025 Billing Provider: GLENN DORANTES MD Common Visit Codes: [id number] INP/OBS CARE(HIGH) GLENN DORANTES MD Apr 19, 2025 09:56
[2025-04-19] MEDS ORDERED: AZIT500T66 PO (09:57)
--- NOTE | 2025-04-19 10:01 | DVHDS2 ---
Discharge Summary Date of Admission Apr 15, 2025 at 14:10 Date of Discharge: Apr 19, 2025 Admitting Diagnosis Chest pain Wounds: None Labs/Diagnostic Data: Laboratory Results Test 04/17/25 09:40 04/16/25 21:56 04/16/25 05:30 04/15/25 17:16 D-Dimer, Quantitative 0.33 mg/L FEU (0.0-0.49) Influenza Type A Antigen Negative (Negative) Influenza Type B Antigen Negative (Negative) Troponin I High Sensitivity 50 ng/L (</=34) Plasma/Serum Blood Alcohol < 3.0 mg/dL (<10) Test 04/15/25 15:21 04/15/25 13:29 04/15/25 12:28 Prothrombin Time 11.6 sec (9.3-11.8) Prothrombin Time INR 1.11 (0.9-1.15) Activated Partial Thromboplast Time 29.3 SEC (24.5-34.5) Ferritin 1775.6 ng/mL (10-291) Total Bilirubin 0.6 mg/dL (0.2-1.0) Direct Bilirubin 0.2 mg/dL (<0.3) Aspartate Amino Transferase (AST) 40 U/L (13-40) Alanine Aminotransferase (ALT) 49 U/L (7-40) Alkaline Phosphatase 188 U/L (46-116) Total Protein 7.6 g/dL (5.7-8.2) Albumin 4.6 g/dL (3.2-4.8) Vitamin B12 Level 1534 pg/mL (211-911) Folic Acid > 48.00 ng/mL (>5.38) Magnesium Level 2.1 mg/dL (1.6-2.6) Iron Level 98 ug/dL (50-170) Total Iron Binding Capacity 206 ug/dL (250-425) Percent Iron Saturation 47.6 % (15-50) White Blood Count 4.2 10^3/uL (4.4-10.8) Red Blood Count 3.69 10^6/uL (4.0-5.20) Hemoglobin 13.0 g/dL (12.2-16.2) Hematocrit 37.6 % (36.0-46.0) Mean Corpuscular Volume 101.9 fL (80.0-100.0) Mean Corpuscular Hemoglobin 35.1 pg (28.0-32.0) Mean Corpuscular Hemoglobin Concent 34.5 g/dL (32.0-36.0) Red Cell Distribution Width 19.8 % (11.8-14.3) Platelet Count 76 10^3/uL (140-450) Mean Platelet Volume 9.0 fL (6.9-10.8) Neutrophils (%) (Auto) 44.6 % (37.0-80.0) Lymphocytes (%) (Auto) 40.5 % (10.0-50.0) Monocytes (%) (Auto) 11.2 % (0.0-12.0) Eosinophils (%) (Auto) 3.1 % (0.0-7.0) Basophils (%) (Auto) 0.6 % (0.0-2.0) Neutrophils # (Auto) 1.9 10 ^3/uL (1.6-8.6) Lymphocytes # (Auto) 1.7 10 ^3/uL (0.4-5.4) Monocytes # (Auto) 0.5 10 ^3/uL (0-1.3) Eosinophils # (Auto) 0.1 10 ^3/uL (0-0.8) Basophils # (Auto) 0 10 ^3/uL (0-0.2) Nucleated Red Blood Cells 0.1 % Reticulocyte Count (auto) 2.63 % (0.5-1.5) Sodium Level 137 mmol/L (136-145) Potassium Level 3.4 mmol/L (3.5-5.1) Chloride Level 95 mmol/L (98-107) Carbon Dioxide Level 30 mmol/L (20-31) Anion Gap 12 (5-15) Blood Urea Nitrogen 22 mg/dL (9-23) Creatinine 3.56 mg/dL (0.550-1.02) Glomerular Filtration Rate Calc 14 mL/min (>90) BUN/Creatinine Ratio 6.2 (10.0-20.0) Serum Glucose 94 mg/dL (74-106) Calcium Level 9.0 mg/dL (8.7-10.4) B-Type Natriuretic Peptide 447.70 pg/mL (0-100) Other Laboratory Tests 04/15/25 12:28 Brief Hx & Hospital Course: 59-year-old female with a ESRD on hemodialysis hypertension hypercholesterolemia diabetes recent loop recorder placement by PCP five days ago came in complaining of chest pain. Mild shortness of breaths received hemodialysis by Dr. Lynn possible community-acquired pneumonia treated with Rocephin azithromycin D-dimer normal echo 60 percent ejection fraction 60 percent 03/19/[address] Sharma advised noncardiac chest pain no further cardiac workup. Discharged home on azithromycin for possible pneumonia Explained the discharge plan with the help of bow maker custom Consults/Reason for consult Cardiology Nephrology Operations or Procedures Echocardiogram Hemodialysis Condition at Discharge: Fair Final Diagnosis/Problems List Noncardiac chest pain troponin borderline elevated, consult for Cardiology Dr. Sharma treated, D-dimer normal echocardiogram 03/20/2025 shows 60 % ejection fraction, cleared for discharge by Cardiology ESRD on hemodialysis consult for Dr. Lynn Community-acquired pneumonia Gram-positive versus Gram-negative: Rocephin azithromycin Hypercholesterolemia Hypertension Uncontrolled diabetes: Insulin sliding scale Recent loop recorder placement by PCP five days back D-dimer normal Discharge Disposition: Home Discharge Instruct/Medications Diet: Renal Activity: Light activity Follow Up/Referral: Follow up with Dr. Lynn for regular dialysis Follow up with brush and broom clipper Dr. Sharma Follow up with the primary Resume all previous home medications Medications: Azithromycin [facility] Amlodipine Besylate (Amlodipine Besylate), 1 TAB PO DAILY, (Reported) Aspirin (Aspirin Low Dose), 1 TAB PO DAILY, (Reported) Atorvastatin Calcium (Atorvastatin Calcium), 1 TAB PO DAILY, (Reported) Azithromycin (Azithromycin), 1 TAB PO DAILY B-Complex W/ C & Folic Acid (Ernestina-Kaylie Rx), 1 TAB PO DAILY, (Reported) Carvedilol (Carvedilol), 0.5 TAB PO BID Chlorthalidone (Chlorthalidone), 1 TAB PO DAILY, (Reported) Ergocalciferol (Vitamin D), 1 CAP PO QWEEKLY, (Reported) Escitalopram Oxalate (Escitalopram Oxalate), 2 TAB PO DAILY, (Reported) Ferrous Sulfate (Ferosul), 1 TAB PO BID, (Reported) Furosemide (Furosemide), 1 TAB PO DAILY, (Reported) Guanfacine Hcl (Guanfacine Hcl), 1 TAB PO HS, (Reported) Hydroxyzine Pamoate (Hydroxyzine Pamoate), 1 CAP PO DAILYPRN, (Reported) Latanoprost (Latanoprost), 1 DROP EACHEYE HS, (Reported) Lidocaine-Prilocaine (Lidocaine/Prilocaine), 1 KIT EX DAILY, (Reported) Losartan Potassium (Losartan Potassium), 1 TAB PO DAILY, (Reported) Metformin Hydrochloride (Glumetza), 1 TAB PO BID, (Reported) Metoprolol Tartrate (Lopressor Tablet), 1 TAB PO BID, (Reported) Semaglutide (Ozempic), 0.5 MG SC Q7D, (Reported) Sitagliptin Phosphate (Januvia), 1 TAB PO DAILY, (Reported) Sucralfate (Sucralfate), 1 GM PO BID Triamcinolone Acetonide (Kenalog), 1 APPLIC TOP UD, (Reported) Scheduled PRN Famotidine (Famotidine), 1 TAB PO DAILY PRN for HEARTBURN, (Reported) 39 (Time taken for discharge summary 39 minutes) Discharge Statement: "Patient was advised to return to the ER or call 911 if any headaches, dizziness, shortness of breath, chest pain, abdominal pain, bleeding, fevers, or worsening of medical condition. Patient was counseled about treatment plan, medications, possible side effects, patientverbalized understanding. All questions were answered to the best of my ability. This discharge took greater then 30 minutes in planning, reviewing documentation, counseling the patient, and discussing with other team members." ASSESSMENT ASSESSMENT Hospital Course Improved Assessment Noncardiac chest pain troponin borderline elevated, consult for Cardiology Dr. Sharma treated, D-dimer normal echocardiogram 03/20/2025 shows 60 % ejection fraction, cleared for discharge by Cardiology ESRD on hemodialysis consult for Dr. Lynn Community-acquired pneumonia Gram-positive versus Gram-negative: Rocephin azithromycin Hypercholesterolemia Hypertension Uncontrolled diabetes: Insulin sliding scale Recent loop recorder placement by PCP five days back D-dimer normal Date of Service: Apr 19, 2025 Billing Provider: GLENN DORANTES MD Common Visit Codes: [id number] DISCH DAY >30min GLENN DORANTES MD Apr 19, 2025 10:01
--- NOTE | 2025-04-19 10:48 | DVHPN2 ---
Progress Note - Dictate Date Seen: Apr 19, 2025 Medical Necessity Reason Pt with a Central, PICC or Fol: No vital signs Vital Sign Date Time Temp Pulse Resp B/P (MAP) Pulse Ox O2 Delivery O2 Flow Rate FiO2 04/19/25 09:32 163/74 04/19/25 09:27 98.2 63 16 97 98.2 04/19/25 07:57 Room Air* 0 21 Total Intake and Output 04/18/25 04/18/25 04/19/25 15:00 23:00 07:00 Intake Total 300 ml 740 ml 1040 ml Output Total 700 ml Balance 300 ml 40 ml 1040 ml medications Current Medications Medications Dose Ordered Sig/Kana Route Start Time Stop Time Status Last Admin Dose Admin Nitroglycerin 0.4 mg Q5MINP PRN SL 04/15/25 14:15 04/15/25 23:52 0.4 MG Morphine Sulfate 2 mg Q30M PRN IV 04/15/25 14:15 Atorvastatin Calcium 40 mg HS PO 04/16/25 22:00 04/18/25 22:32 40 MG Pantoprazole Sodium 40 mg DAILY IV 04/16/25 10:00 04/18/25 10:59 40 MG Aspirin 81 mg DAILY PO 04/16/25 10:00 04/19/25 09:32 81 MG Amlodipine Besylate 10 mg DAILY PO 04/16/25 10:00 04/19/25 09:32 10 MG Magnesium Oxide 400 mg BID PO 04/15/25 22:00 04/19/25 09:32 400 MG Sucralfate 1 gm QIDACHS PO 04/15/25 22:00 04/19/25 06:28 1 GM Acetaminophen 650 mg Q4HP PRN PO 04/16/25 02:15 04/17/25 20:24 650 MG Hydralazine HCl 10 mg Q4HP PRN IV 04/16/25 02:15 04/16/25 03:16 10 MG Ceftriaxone Sodium 50 ml @ 100 mls/hr DAILY@09 IV 04/17/25 09:00 04/19/25 09:31 100 MLS/HR Azithromycin 250 ml @ 125 mls/hr DAILY IV 04/17/25 10:00 04/19/25 09:32 125 MLS/HR laboratory and microbiology Laboratory Tests 04/15/25 12:28 Test 04/15/25 12:28 Range/Units Serum Glucose 94 74-106 mg/dL Assessment/Plan Patient is a 59-year-old female who presented with atypical chest discomfort (accompanied with palpitation) after completion of hemodialysis. She is Persian speaking and information was obtained by using an customer sales specialist. Denies any kind of exertional component to discomfort. She comes to our office as outpatient for cardiology management. She did have stress test with [facility] around a year and a half ago. Does have baseline history of end-stage renal disease and is on hemodialysis. Is on transplant list in [place]. Had been wearing monitor as outpatient to rule out arrhythmia. Does have baseline history of diabetes mellitus and blindness. Cardiology is involved for cardiac aspects of care. It is of note that the patient did have moderate pericardial effusion in October 2024 which improved later in February 2025. Not in acute distress. Lying in bed. Not using accessory muscles of breathing. Mucosa is pink and wet. No carotid bruit. Scattered rhonchi in the lungs is heard. Cardiac: Regular, no thrill. Systolic murmur 2/6 in apex is heard. Abdomen is soft. Bowel sound is positive. There was no abdominal tenderness. There was no gross mass/hepatomegaly. Bilateral 1+ edema in lower extremities is present. 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 Lives at home with . Denies drug/alcohol abuse. Denies smoking. As per patient, she is on transplant list in [place] (for kidney transplant). Reportedly, the patient had ischemic workup/stress test in [facility] less than 2 years ago (detailed report is not available to review) Echocardiogram of November 14, 2024 reported ejection fraction of 50-55% and moderate pericardial effusion Echocardiogram of March 20, 2025 reported technically limited study, concentric left ventricular hypertrophy, left atrial enlargement, right atrium phalangeal mi, ejection fraction of 60% (images reviewed there was no significant pericardial effusion) WBC: 4.2 Hemoglobin: 13 Platelet: 76 Creatinine: 3.56 Potassium: 3.4 Troponin (high sensitive): 42 - 47 - 44 - 50 BNP: 447.70 Chest x-ray reported: IMPRESSION: Cardiomegaly with pulmonary vascular congestion and bilateral perihilar airspace opacities. EKG reveals sinus rhythm with no specific ST-T changes Telemetry reveals sinus rhythm Patient is a 59-year-old female with history of diabetes mellitus, hypertension/hyperlipidemia and end-stage renal disease who presented with atypical chest discomfort. Did have palpitation during the episodes. High sensitive troponin has been minimally elevated (flat). Presentation is not considered acute coronary syndrome. Arrhythmia can be considered in long-term monitor is advised for its evaluation. Telemetry in the hospital has not revealed any arrhythmia presently. Does have history of pericardial effusion which needs to be rechecked. Assessment: Atypical chest pain Palpitations Minimally elevated/flat troponin (consider demand physiology at this point) End-stage renal disease on hemodialysis Diabetes mellitus Hypertension Hyperlipidemia Thrombocytopenia Diastolic heart failure, history of Pericardial effusion, history of Cardiac suggestion for management: Managed on telemetry Follow-up electrolytes and kidney function tests and correct abnormalities Request for Echocardiogram Request for D-dimer If no significant finding echocardiogram, cardiac-herrmann the patient can be followed as outpatient for outpatient elective, ischemic workup and long-term monitor Further evaluation and management depends on the above and clinical course Thank you for consultation A total of 75 minutes was spent reviewing the patient record, examining the patient, making a diagnostic and therapeutic plan, discussing this plan with medical personnel, following up on diagnostic studies and following the patient for clinical stability excluding any and all procedures. At least 50% of this time was spent in direct, [id number] contact. Thank you for allowing me to participate in this patient's care. Further recommendations will depend on patient's clinical course. Please do not hesitate to contact me if you have any questions or concerns. This medical document was created using electronic medical record system with [employer] computerized dictation system. Although this document has been carefully reviewed, there may still be some phonetic and typographical errors. These areas are purely typographical due to the imperfection of the software programs, and do not reflect any compromise in the patient's medical care Plan discussed with: Patient RAGHAVENDRA,VITORANDAL Goode NP Apr 19, 2025 10:48
[2025-04-19 11:02] VITALS: BP 163/74; PULSE 63; RESP 16; TEMP 98.2; O2SAT 97
--- NOTE | 2025-04-19 11:17 | DVHPN2 ---
Progress Note - Dictate Date Seen: Apr 19, 2025 Medical Necessity Reason Pt with a Central, PICC or Fol: No Subjective no new symptoms vital signs Vital Sign Date Time Temp Pulse Resp B/P (MAP) Pulse Ox O2 Delivery O2 Flow Rate FiO2 04/19/25 09:32 163/74 04/19/25 09:27 98.2 63 16 97 98.2 04/19/25 07:57 Room Air* 0 21 Total Intake and Output 04/18/25 04/18/25 04/19/25 15:00 23:00 07:00 Intake Total 300 ml 740 ml 1040 ml Output Total 700 ml Balance 300 ml 40 ml 1040 ml medications Current Medications Medications Dose Ordered Sig/Kana Route Start Time Stop Time Status Last Admin Dose Admin Nitroglycerin 0.4 mg Q5MINP PRN SL 04/15/25 14:15 04/15/25 23:52 0.4 MG Morphine Sulfate 2 mg Q30M PRN IV 04/15/25 14:15 Atorvastatin Calcium 40 mg HS PO 04/16/25 22:00 04/18/25 22:32 40 MG Pantoprazole Sodium 40 mg DAILY IV 04/16/25 10:00 04/18/25 10:59 40 MG Aspirin 81 mg DAILY PO 04/16/25 10:00 04/19/25 09:32 81 MG Amlodipine Besylate 10 mg DAILY PO 04/16/25 10:00 04/19/25 09:32 10 MG Magnesium Oxide 400 mg BID PO 04/15/25 22:00 04/19/25 09:32 400 MG Sucralfate 1 gm QIDACHS PO 04/15/25 22:00 04/19/25 06:28 1 GM Acetaminophen 650 mg Q4HP PRN PO 04/16/25 02:15 04/17/25 20:24 650 MG Hydralazine HCl 10 mg Q4HP PRN IV 04/16/25 02:15 04/16/25 03:16 10 MG Ceftriaxone Sodium 50 ml @ 100 mls/hr DAILY@09 IV 04/17/25 09:00 04/19/25 09:31 100 MLS/HR Azithromycin 250 ml @ 125 mls/hr DAILY IV 04/17/25 10:00 04/19/25 09:32 125 MLS/HR objective Gen: NAD HEENT: NC, AT Lungs: Crackles lung bases Cardiac: RRR, no murmur Abd: soft, no distention Neuro: no focal deficits Ext: no edema + left arm AVG laboratory and microbiology Laboratory Tests 04/15/25 12:28 Test 04/15/25 12:28 Range/Units Serum Glucose 94 74-106 mg/dL Assessment/Plan ESRD on HD via left arm AVG Chest pain r/o ACS HTN HLD Community acquired pneumonia hypokalemia Anemia of CKD Secondary hyperparathyroidism Hyperphosphatemia Plan: s/p HD yesterday. net UF 2 L Next HD on Sunday if still in house will continue HD on MWF schedule Cardiology consult CHRISTIE post HD as needed. goal Hb: 10-11 g/dl fluid restriction Antibiotics per primary team Plan discussed with: Patient INDY BAKER MD Apr 19, 2025 11:17
[2025-04-19 13:00] VITALS: BP 137/68; PULSE 61; RESP 15; TEMP 98.3; O2SAT 98
[2025-04-20] MEDS ORDERED: SODIUM CHL 0.9% 1000 ML BAG XX ONE (07:00)
== END 2025-04-19 14:09 | disposition home or self-care (01) | DRG 137 ==
LOC: ER 12:09 → OVERFLOW 14:10 → TELE-CENTR 16:08
PROVIDERS: ADMIT Family Medicine; ATTEND Family Medicine
PROC: 5A1D70Z Performance of Urinary Filtration, Intermittent, Less than 6 Hours Per Day (ICD-10-PCS; principal; 2025-04-17)
DX: J15.69 Pneumonia due to other Gram-negative bacteria (principal); I13.2 Hypertensive heart and chronic kidney disease with heart failure and with stage 5 chronic kidney disease, or end stage renal disease; I50.31 Acute diastolic (congestive) heart failure; D69.6 Thrombocytopenia, unspecified; N18.6 End stage renal disease; D63.1 Anemia in chronic kidney disease; E83.39 Other disorders of phosphorus metabolism; Z99.2 Dependence on renal dialysis; J15.9 Unspecified bacterial pneumonia; E66.9 Obesity, unspecified; E11.22 Type 2 diabetes mellitus with diabetic chronic kidney disease; E87.6 Hypokalemia; D50.9 Iron deficiency anemia, unspecified; K59.00 Constipation, unspecified; E78.00 Pure hypercholesterolemia, unspecified; K21.9 Gastro-esophageal reflux disease without esophagitis; N25.81 Secondary hyperparathyroidism of renal origin; Z79.2 Long term (current) use of antibiotics; I25.2 Old myocardial infarction; G89.29 Other chronic pain; Z79.899 Other long term (current) drug therapy; Z87.11 Personal history of peptic ulcer disease; Z82.49 Family history of ischemic heart disease and other diseases of the circulatory system; Z68.29 Body mass index [BMI] 29.0-29.9, adult
CPT/HCPCS: 36415; 71045; 80048; 80076; 80320; 82607; 82728; 82746; 83540; 83550; 83735; 83880; 84484; 85025; 85045; 85379; 85610; 85730; 87804; 90935; 93005; 93306; G0378; J2003; J2470